=== PATIENT | male | born 1985 | race Caucasian/White ===

== ENCOUNTER 2016-08-29 19:32 | Emergency (ER) | payer OTHER ==
[~2016-08-29] VITALS: Ht 182.9 cm; Wt 79.0 kg
[2016-08-29 19:39] VITALS: TEMP 36.6; Ht 182.9 cm; Wt 79.0 kg
--- NOTE | 2016-08-29 19:57 | EMERGENCY ROOM VISIT NOTE ---
History Report prepared by Denis: Usha Carrizales Under the Supervision of: Dr. Zahida Brush D.O. First contact with patient: 19:43 Chief Complaint: MENTAL HEALTH EVALUATION Stated Complaint: ANXIETY,DEPRESSION History of Present Illness The patient is a 30 year old male who presents to the Emergency Room for a mental health evaluation. The patient has a history of anxiety, depression, and paranoia. He has been having worsening symptoms lately. He checked into [facility] and was admitted as there for 10 days for mental health. He was discharged today. He states that he was feeling a little better while he was in the hospital, but still does not feel like himself. He decided to come here for further evaluation after talking with his psychiatrist today. The patient denies SI, HI, and hallucinations. He has been taking his medications as prescribed. The patient reports a history of eating disorders that he notes to be worse when his anxiety and depression are bad. He states that he has not eaten much over the past two weeks. He did eat today after he was discharged from [facility]. He is not sure when his last bowel movement was. 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 Review of Systems See HPI for pertinent positives & negatives. A total of 10 systems reviewed and were otherwise negative. Past Medical & Surgical Medical Problems: (1) Anxiety (2) Depression (3) Eating disorder, unspecified (4) Paranoia Family History No pertinent history stated. Social History Smoking Status: Current Every Day Smoker Alcohol Use: none Housing Status: lives alone Occupation Status: unemployed Current/Historical Medications Scheduled Dexlansoprazole (Dexilant), 30 MG PO DAILY Olanzapine (Zyprexa), 30 MG PO DAILY Sertraline (Zoloft), 100 MG PO QPM Allergies Coded Allergies: Diazepam (Verified Allergy, Intermediate, HIVES, 08/29/16) Benzoin (Verified Allergy, Mild, Rash, 08/29/16) Methyl Salicylate (Verified Allergy, Mild, Rash, 08/29/16) Physical Exam Vital Signs Date Time Temp Pulse Resp B/P Pulse Ox O2 Delivery O2 Flow Rate FiO2 08/29/16 19:39 36.6 93 18 122/83 97 Room Air Physical Exam HEENT: Head - normocephalic and atraumatic Pupils are equal, round, and reactive to light. Extraocular eye muscles are intact, and sclera are anicteric. Nose - moist nasal mucosa without discharge. Mouth - moist buccal mucosa. Oropharynx is nonerythematous and there is no tonsillar exudate or edema noted. Neck: Supple; no JVD, nuchal rigidity, cervical lymphadenopathy. Heart: Regular rate and rhythm. There is a normal S1 and S2 with no murmurs, clicks, or gallops appreciated. Lungs: Clear to auscultation bilaterally with no wheezes, rales, or rhonchi. Abdomen: Soft, completely nontender, nondistended, with good bowel sounds. There are no palpable pulsatile masses or hepatosplenomegaly. There is no guarding, rigidity, or rebound noted. Extremities: No evidence of cyanosis, clubbing, or edema. There are easily palpable peripheral pulses. Skin: warm and dry with good turgor and no rashes. Psych: Denies SI or HI. Denies any paranoid thoughts. Admits to depression and as a result of that he is not eating. Medical Decision & Procedures Laboratory Results 08/29/16 20:06 08/29/16 20:06 Test 08/29/16 20:06 Red Blood Count 4.99 M/uL (4.7-6.1) Mean Corpuscular Volume 89.8 fL (80-100) Mean Corpuscular Hemoglobin 32.3 pg (25-34) Mean Corpuscular Hemoglobin Concent 35.9 g/dl (32-36) RDW Standard Deviation 37.4 fL (36.4-46.3) RDW Coefficient of Variation 11.5 % (11.5-14.5) Mean Platelet Volume 11.3 fL (7.4-10.4) Anion Gap 6.0 mmol/L (3-11) Est Creatinine Clear Calc Drug Dose 139.1 ml/min Estimated GFR () 135.8 Estimated GFR (Non- 117.2 BUN/Creatinine Ratio 17.5 (10-20) Calcium Level 8.6 mg/dl (8.5-10.1) Total Bilirubin 0.2 mg/dl (0.2-1) Direct Bilirubin 0.1 mg/dl (0-0.2) Aspartate Amino Transf (AST/SGOT) 12 U/L (15-37) Alanine Aminotransferase (ALT/SGPT) 20 U/L (12-78) Alkaline Phosphatase 84 U/L (45-117) Total Protein 7.3 gm/dl (6.4-8.2) Albumin 4.1 gm/dl (3.4-5.0) Thyroid Stimulating Hormone (TSH) 3.520 uIu/ml (0.300-4.500) Salicylates Level 1.7 mg/dl (2.8-20) Acetaminophen Level < 2 ug/ml (10-30) Ethyl Alcohol mg/dL < 3.0 mg/dl (0-3) Laboratory results per my review. ED Course 1944: Past medical records reviewed. The patient was evaluated in room A8. A complete history and physical exam was performed. 2029: The patient was felt to be medically cleared. I discussed the results with the patient and his mother. [facility] will evaluate the patient. 2100:The patient was signed out to Dr. Stewart at the change of shift. Medical Decision The patient is a 30 year old male who presents to the ED for a mental health evaluation. Differential diagnosis includes malnutrition, dehydration, mood disorder, thought disorder, paranoia. Laboratory results as stated below per my review: Normal white count, normal H&H. Alcohol, Tylenol, and aspirin are negative. Glucose 152, normal renal function. LFT's and TSH are normal The patient has a history of depression with some paranoia. The patient admits that he has not been eating very much over the past 2 weeks because he remains depressed. He recently had a 10 day inpatient stay [facility] but states that he feels no better. He is requesting further inpatient psychiatric care. The patient is willing to admit himself to another facility voluntarily. [facility] crisis will evaluate the patient and perform a bedside. They feel the patient requires further inpatient psychiatric care. Impression Primary Impression: Depression Scribe Attestation The scribe's documentation has been prepared under my direction and personally reviewed by me in its entirety. I confirm that the note above accurately reflects all work, treatment, procedures, and medical decision making performed by me. Departure Information Dispostion Still a Patient Referrals Tad Salazar M.D. (PCP) Patient Instructions My [facility] Problem Qualifiers Primary Impression: Depression Major depression recurrence: recurrent Major depression episode severity: moderate
[2016-08-29] MEDS ORDERED: SERT-234 PO (20:02)
[2016-08-29] MEDS ORDERED: OLAN10TA11 PO (20:02)
[2016-08-29] MEDS ORDERED: DEXL30CA5 PO (20:02)
[2016-08-29 20:17] LABS: HEMATOCRIT 44.8 % (42-52); MEAN CELL VOLUME 89.8 fL (80-100); MEAN CORPUSCULAR HEMOGLOBIN 32.3 pg (25-34); MEAN CORPUSCULAR HGB CONC 35.9 g/dl (32-36); MEAN PLATELET VOLUME 11.3 fL (7.4-10.4); PLATELET COUNT 212 K/uL (130-400); RED BLOOD COUNT 4.99 M/uL (4.7-6.1); WHITE BLOOD COUNT 7.45 K/uL (4.8-10.8)
[2016-08-29 20:40] LABS: ACETAMINOPHEN < 2 ug/ml (10-30); BUN/CREATININE RATIO 17.5 (10-20); CALCIUM 8.6 mg/dl (8.5-10.1); CREATININE 0.86 mg/dl (0.60-1.40); POTASSIUM 3.7 mmol/L (3.5-5.1)
[2016-08-29 20:51] LABS: THYROID STIMULATING HORMONE 3.52 uIu/ml (0.300-4.500)
[2016-08-29 21:06] LABS: URINE APPEARANCE CLEAR (CLEAR); URINE BILIRUBIN NEG (NEG); URINE COLOR DK YELLOW; URINE NITRITE NEG (NEG); URINE SPECIFIC GRAVITY 1.029 (1.000-1.030); UROBILINOGEN NEG (NEG)
[2016-08-29 21:07] LABS: MANUAL MICROSCOPIC REQUIRED? NO; REVIEW REQ? NO
[2016-08-29 21:32] LABS: BENZODIAZEPINE, URINE NEG (NEG); COCAINE,URINE NEG (NEG); PHENCYCLIDINE, URINE NEG (NEG)
[2016-08-29 23:36] VITALS: BP 130/82; PULSE 87; O2SAT 95
--- NOTE | 2016-08-30 01:46 | EMERGENCY ROOM VISIT NOTE ---
ED Visit Note Patient is a 30-year-old male who was initially evaluated him medically cleared by Dr. Brush. Following her initial evaluation per signout she did not believe that he met inpatient criteria I felt as though he could likely go home. Patient was evaluated by [facility] and found to meet no inpatient criteria. They believe that he be best served as an outpatient. PT was recently just discharged from a psychiatric facility. He notes that the reason he came in tonight was that he felt anxious and was worrying about other people. His mother who was at bedside notes that her only concern is that he was concerned enough to come in. He denies any suicidal or homicidal ideations to myself. No auditory or visual hallucinations. He notes his paranoia has improved significantly. He does comfortable going home. She feels comfortable taking him. I do not believe that the patient is a danger to himself or anybody else. His mother along with [facility] agrees. Patient was discharged to follow-up as an outpatient. Discussed with Pt concerning signs and symptoms to watch out for. Pt was instructed to follow up with their PCP and discussed with the patient their option to return to the ED at anytime for persistent or worsening symptoms. The appropriate anticipatory guidance and out-patient management, including indications for return to the emergency department, were explained at length to the patient and understood.
[2016-10-12] MEDS ORDERED: BENZ-89 PO (09:13)
== END 2016-08-29 23:37 | disposition home or self-care (01) ==
LOC: C.EDB 19:33 → C.EDA 23:37
DX: F33.1 Major depressive disorder, recurrent, moderate (principal); F41.9 Anxiety disorder, unspecified; F22 Delusional disorders; F17.210 Nicotine dependence, cigarettes, uncomplicated; Z79.899 Other long term (current) drug therapy

== ENCOUNTER 2016-09-27 22:31 | Emergency (ER) | payer OTHER ==
[~2016-09-27] VITALS: Ht 180.3 cm; Wt 79.2 kg
[~2016-09-27 22:31] MED LIST: DEXL30CA5 PO; OLAN10TA11 PO; SERT-234 PO
[2016-09-27 22:33] VITALS: BP 128/84; PULSE 81; TEMP 36.4; O2SAT 96; Ht 180.3 cm; Wt 79.2 kg
[2016-09-27] MEDS ORDERED: PROTONIX PO (22:46)
[2016-09-27] MEDS ORDERED: BENZ-89 PO (22:48)
[2016-09-27] MEDS ORDERED: PANT40TA PO (22:48)
[2016-09-27] MEDS ORDERED: GLUCTAB18 PO (22:48)
[2016-09-27] MEDS ORDERED: RISPERDAL PO (23:00)
--- NOTE | 2016-09-27 23:26 | EMERGENCY ROOM VISIT NOTE ---
History Report prepared by Denis: Carmela Figueroa Under the Supervision of: Dr. Zahida Brush D.O. First contact with patient: 23:05 Chief Complaint: MENTAL HEALTH EVALUATION Stated Complaint: PARANOID, ANXIETY, DEPRESSION History of Present Illness The patient is a 30 year old male who presents to the Emergency Room with complaints of persistent paranoia starting a few days ago. He also complains of depression and anxiety starting a few days ago. He has a history of paranoia, anxiety, and depression occurring for the past few years. He denies any specific events that exacerbated his symptoms. As per mother, the patient has changed over the past few days. As per mother, the patient is unable to concentrate. He has a loss of appetite and has lost weight over the past few weeks. The patient has a history of seeking treatment for weight and appetite loss. He has not been sleeping as normal. He is not engaging in his daily activities as normal. As per mother, the patient does not feel comfortable at his own house or his mom's house. He arrived at his own house and wanted to leave soon after. When they arrived at his mom's house, the patient wanted to leave from there as well. He had an appointment yesterday with his psychiatrist who referred him to the Emergency Room for concerns about the medications not helping him. About a month ago, the patient was evaluated at [facility] for similar symptoms and had a medication change. The patient reports missing some medication doses over the past few days. He denies any drug or alcohol use. He currently denies any suicidal or homicidal ideation. He also denies any visual or auditory hallucinations. He does not have a history of suicide attempt. As per mother, he has a history of cutting himself when he was a teenager. Source of History: patient, parent Onset: a few days ago Position: other (global) Quality: other (paranoia, depression, and anxiety) Timing: other (persistent) Review of Systems See HPI for pertinent positives & negatives. A total of 10 systems reviewed and were otherwise negative. Past Medical & Surgical Medical Problems: (1) Acute paranoia (2) Acute paranoia (3) Anxiety (4) Depression (5) Eating disorder, unspecified (6) Paranoia Family History Cancer Diabetes mellitus Kidney disease Kidney stones Social History Smoking Status: Current Every Day Smoker Alcohol Use: none Housing Status: lives alone Occupation Status: unemployed Current/Historical Medications Scheduled Benztropine Mesylate (Cogentin), 1 MG PO HS Glucosamine-Chondroitin (Osteo Bi-Flex Regular Str), 1 TAB PO BID Olanzapine (Zyprexa), 30 MG PO DAILY Pantoprazole (Protonix), 40 MG PO DAILY Sertraline (Zoloft), 100 MG PO QPM [Risperdal], 1 DOSE PO DIRECTED Allergies Coded Allergies: Diazepam (Verified Allergy, Intermediate, HIVES, 09/27/16) Benzoin (Verified Allergy, Mild, Rash, 09/27/16) Methyl Salicylate (Verified Allergy, Mild, Rash, 09/27/16) Physical Exam Vital Signs Date Time Temp Pulse Resp B/P (MAP) Pulse Ox O2 Delivery O2 Flow Rate FiO2 09/27/16 22:33 36.4 81 18 128/84 96 Room Air Physical Exam The patient refused a physical exam. Medical Decision & Procedures ED Course 2305: Past medical records reviewed. The patient was evaluated in room A05. A complete history was obtained 2335: I had a long conversation with the patient and his mother about his paranoia, lack of appetite, and medication noncompliance. 0000: Upon reevaluation, the patient is resting comfortably. I had a long conversation again with the patient and his mother about his paranoia, lack of appetite, and medication noncompliance. I encouraged him to contact Dr. Weber in the morning. He was discharged home. Medical Decision The patient presents to the Emergency Room with complaints of paranoia. Differential diagnosis includes but is not limited to sleep deprivation, medication noncompliance, exacerbation of thought disorder. I attest that I have personally reviewed the patient's current medication list. Patient was found to have normal blood pressure on screening and does not require follow-up. The patient presents to the emergency department for help because he has become increasingly paranoid. The patient has not been taking his medications correctly and has had significant loss of appetite. The patient requested to come here because he was not feeling well. Upon arrival in the emergency room, the patient began to request to leave as soon as possible. I spent a great of time talking to the patient and his mother along with our manager nursing home's who tried to convince the patient to stay. We had no grounds to initiate the 302 process. I encouraged patient to call his psychiatrist first thing in the morning. I also explained that the patient and the mother that we could follow- up with the psychiatrist here in the ER as well. The mother was in agreement with this. Impression Primary Impression: Acute paranoia Scribe Attestation The scribe's documentation has been prepared under my direction and personally reviewed by me in its entirety. I confirm that the note above accurately reflects all work, treatment, procedures, and medical decision making performed by me. Departure Information Dispostion Home / Self-Care Referrals Tad Salazar M.D. (PCP) Forms HOME CARE DOCUMENTATION FORM, IMPORTANT VISIT INFORMATION Patient Instructions My [facility] Additional Instructions Please contact Dr. Weber in the AM to let her know that you came to the ER but did not go through with mental health evaluation. If you change your mind, return to the ER at angy time. You can also call [facility]
[2016-09-28] MEDS ORDERED: RISP3TAB12 PO (14:27)
[2016-09-28] MEDS ORDERED: ZYP20 PO (14:27)
[2016-10-12] MEDS ORDERED: BENZ-89 PO (09:13)
== END 2016-09-28 00:24 | disposition home or self-care (01) ==
LOC: C.EDB 22:32 → C.EDA 09-28 00:24
DX: F22 Delusional disorders (principal); F41.9 Anxiety disorder, unspecified; F32.9 Major depressive disorder, single episode, unspecified; F50.9 Eating disorder, unspecified; Z80.9 Family history of malignant neoplasm, unspecified; Z83.3 Family history of diabetes mellitus; Z84.1 Family history of disorders of kidney and ureter; F17.210 Nicotine dependence, cigarettes, uncomplicated; Z79.899 Other long term (current) drug therapy

== ENCOUNTER 2016-09-28 00:55 | Emergency (ER) | payer SELFPAY ==
[~2016-09-28 00:55] MED LIST changes: +BENZ-89 PO; +GLUCTAB18 PO; +PANT40TA PO; +PROTONIX PO; +RISPERDAL PO
[2016-09-28] MEDS ORDERED: ZYP20 PO (14:27)
[2016-09-28] MEDS ORDERED: RISP3TAB12 PO (14:27)
[2016-10-12] MEDS ORDERED: BENZ-89 PO (09:13)
== END 2016-09-28 01:08 | disposition left against medical advice (07) ==
LOC: C.EDB 00:57
DX: Z00.8 Encounter for other general examination (principal)

== ENCOUNTER 2016-09-28 13:38 | Inpatient (IN) | payer OTHER ==
[~2016-09-28] VITALS: Ht 180.3 cm; Wt 82.3 kg
[~2016-09-28 13:38] MED LIST changes: -BENZ-89 PO; +CGN1 PO; -DEXL30CA5 PO; -PROTONIX PO
[2016-09-28] MEDS ORDERED: ZYP20 PO (14:27)
[2016-09-28] MEDS ORDERED: RISP3TAB12 PO (14:27)
[2016-09-28 15:49] LABS: URINE APPEARANCE CLEAR (CLEAR); URINE BILIRUBIN NEG (NEG); URINE COLOR YELLOW; URINE NITRITE NEG (NEG); UROBILINOGEN NEG (NEG)
[2016-09-28 15:54] LABS: MANUAL MICROSCOPIC REQUIRED? NO; REVIEW REQ? NO
[2016-09-28 16:12] LABS: BENZODIAZEPINE, URINE NEG (NEG); COCAINE,URINE NEG (NEG); PHENCYCLIDINE, URINE NEG (NEG)
[2016-09-28 17:11] LABS: BASO % 0.1 %; BASO ABS # 0.01 K/uL (0-0.2); COMPLETE YES; EOS % 1.7 %; HEMATOCRIT 45.4 % (42-52); IG% 0.1 %; LYMPH % 26.2 %; LYMPH ABS # 1.99 K/uL (1.2-3.4); MEAN CORPUSCULAR HEMOGLOBIN 30.5 pg (25-34); MEAN CORPUSCULAR HGB CONC 33.5 g/dl (32-36); MEAN PLATELET VOLUME 10.5 fL (7.4-10.4); MONO % 8.2 %; NEUT % 63.7 %; PLATELET COUNT 241 K/uL (130-400); RED BLOOD COUNT 4.99 M/uL (4.7-6.1)
[2016-09-28 17:28] LABS: ALT/SGPT 16 U/L (12-78); BLOOD UREA NITROGEN 10 mg/dl (7-18); BUN/CREATININE RATIO 14.6 (10-20); CALCIUM 9.3 mg/dl (8.5-10.1); CARBON DIOXIDE 25 mmol/L (21-32); CHLORIDE 104 mmol/L (98-107); CREATININE 0.67 mg/dl (0.60-1.40); GLUCOSE 94 mg/dl (70-99); POTASSIUM 3.7 mmol/L (3.5-5.1); SODIUM 139 mmol/L (136-145)
[2016-09-28 17:30] LABS: ACETAMINOPHEN < 2 ug/ml (10-30)
[2016-09-28 17:39] LABS: ALKALINE PHOSPHATASE 80 U/L (45-117); AST/SGOT 11 U/L (15-37)
[2016-09-28] MEDS ORDERED: OLANZAPINE 10 MG TAB PO STA (17:53)
[2016-09-28] MEDS ORDERED: NURSING VERBAL MED ORDER ONE (19:00)
[2016-09-28 19:15] VITALS: O2SAT 98
[2016-09-28] MEDS ORDERED: ALUMINUM/MAGNESIUM SUSP 30 ML UDC PO PRN (19:45)
[2016-09-28] MEDS ORDERED: SODIUM CHLORIDE 0.65% NA SOLN 45 ML (OCEAN) PRN (19:45)
[2016-09-28] MEDS ORDERED: MAGNESIUM HYDROXIDE SUSP 30 ML UDC PO PRN (19:45)
[2016-09-28] MEDS ORDERED: OLANZAPINE ZYDIS 5 MG ORALLY DIS. TAB PO PRN (19:45)
[2016-09-28] MEDS ORDERED: hydrOXYzine HCL 25 MG TAB PO PRN ×2 (19:45)
[2016-09-28] MEDS ORDERED: ACETAMINOPHEN 325 MG TAB PO PRN (19:45)
[2016-09-28 20:02] VITALS: BP 132/82; PULSE 84; TEMP 36.7; Ht 180.3 cm; Wt 82.3 kg
[2016-09-28] MEDS ORDERED: OLANZAPINE 10 MG TAB PO SCH (21:00)
--- NOTE | 2016-09-28 21:36 | EMERGENCY ROOM VISIT NOTE ---
History Report prepared by Denis: Jacki Chavarria Under the Supervision of: Dr. Brooks Broderick M.D. First contact with patient: 14:24 Chief Complaint: MENTAL HEALTH EVALUATION Stated Complaint: MR History of Present Illness The patient is a 30 year old male who presents to the Emergency Room for a mental health evaluation. The patient was here at the ED last night and was seen by Dr. Brush. The patient was reported to be paranoid and refused to be seen. It is reported that he went and sat in the waiting room all night before deciding to come back in to be treated. Currently, the patient states that he does not want to be evaluated and wants to leave again. The patient reports that he does want to go to the [facility] though and that he only came back in to please his mother. His mother reports that he has not been eating, showering, or sleeping normally. She states that he has been wandering around, even into streets with no acknowledgment of the dangers. She states that she has seen a huge decline in his behavior for the past two days. The mother reports that her son states he has been taking his medication, but sometimes forgets. The patient states that he feels anxious. The patient notes that he feels this is a safe place and he can trust the doctors, but still refuses to be evaluated. The patient's psychiatrist noted that he did express some suicidal thoughts. It was felt that the patient is having issues with his mental health and a 302 petition was filled out since the patient was not cooperative. Pt denies LOC, headache, fevers, chills, diaphoresis, visual changes, neck pain, chest pain, breathing difficulties, nausea, vomiting, abdominal pain, back pain, melena, hematochezia, urinary symptoms, numbness, weakness, lymphadenopathy, rash, or other complaints. Source of History: patient, parent Onset: two days Position: other (global) Quality: other (global) Timing: other (episode) Note: The patient complains of being anxious. Review of Systems See HPI for pertinent positives and negatives. A total of ten systems were reviewed and were otherwise negative. Past Medical & Surgical Medical Problems: (1) Acute paranoia (2) Acute paranoia (3) Anxiety (4) Depression (5) Eating disorder, unspecified (6) Paranoia Family History Cancer Diabetes mellitus Kidney disease Kidney stones Social History Smoking Status: Current Every Day Smoker Alcohol Use: none Marital Status: single Housing Status: lives alone Occupation Status: unemployed Current/Historical Medications Scheduled Benztropine Mesylate (Cogentin), 1 MG PO HS Olanzapine (Zyprexa), 20 MG PO HS Pantoprazole (Protonix), 40 MG PO DAILY Risperidone (Risperdal), 6 MG PO HS Sertraline (Zoloft), 150 MG PO DAILY Allergies Coded Allergies: Diazepam (Verified Allergy, Intermediate, HIVES, 09/27/16) Benzoin (Verified Allergy, Mild, Rash, 09/27/16) Methyl Salicylate (Verified Allergy, Mild, Rash, 09/27/16) Physical Exam Vital Signs Date Time Temp Pulse Resp B/P (MAP) Pulse Ox O2 Delivery O2 Flow Rate FiO2 09/28/16 17:39 71 18 132/89 98 Room Air 09/28/16 15:47 74 18 131/89 98 Room Air 09/28/16 13:44 36.7 86 18 137/78 95 Room Air Physical Exam GENERAL: Awake, alert, mildly anxious appearing, no distress HENT: Normocephalic, atraumatic. TM's normal. Oropharynx unremarkable. EYES: PERRL. EOMI. Normal conjunctiva. Sclera non-icteric. NECK: Supple. No nuchal rigidity. FROM. No JVD or bruit. RESPIRATORY: CTA CARDIAC: RRR. No murmur. ABDOMEN: Soft, non distended. No tenderness to palpation. No rebound or guarding. No masses. MUSCULOSKELETAL: Unremarkable. No edema. No discoloration. Gross motor strength symmetric. NEURO: Cranial nerves 2-12 grossly intact. Normal sensorium. No sensory or motor deficits noted. Speech normal. No pronator drift. SKIN: No rash or jaundice noted. LYMPH: No adenopathy. PSYCH: Depressed mood. Flat affect. No suicidal ideation. No homicidal ideation. Paranoid. A poverty of speech. Responding to internal stimuli. Insight and judgement impaired. Medical Decision & Procedures Laboratory Results 09/28/16 16:57 Red Blood Count 4.99, Mean Corpuscular Volume 91.0, Mean Corpuscular Hemoglobin 30.5, Mean Corpuscular Hemoglobin Concent 33.5, Mean Platelet Volume 10.5, Neutrophils (%) (Auto) 63.7, Lymphocytes (%) (Auto) 26.2, Monocytes (%) (Auto) 8.2, Eosinophils (%) (Auto) 1.7, Basophils (%) (Auto) 0.1, Neutrophils # (Auto) 4.84, Lymphocytes # (Auto) 1.99, Monocytes # (Auto) 0.62, Eosinophils # (Auto) 0.13, Basophils # (Auto) 0.01 09/28/16 16:57 Test 09/28/16 15:14 09/28/16 16:57 Urine Color YELLOW Urine Appearance CLEAR (CLEAR) Urine pH 6.0 (4.5-7.5) Urine Specific [place] 1.020 (1.000-1.030) Urine Protein NEG (NEG) Urine Glucose (UA) NEG (NEG) Urine Ketones TRACE (NEG) Urine Occult Blood NEG (NEG) Urine Nitrite NEG (NEG) Urine Bilirubin NEG (NEG) Urine Urobilinogen NEG (NEG) Urine Leukocyte Esterase NEG (NEG) Urine Opiates Screen NEG (NEG) Urine Methadone, Qualitative NEG (NEG) Urine Barbiturates NEG (NEG) Urine Phencyclidine (PCP) Level NEG (NEG) Ur Amphetamine/Methamphetamine NEG (NEG) MDMA (Ecstasy) Screen NEG (NEG) Urine Benzodiazepines Screen NEG (NEG) Urine Cocaine Metabolite NEG (NEG) Urine Marijuana (THC) NEG (NEG) White Blood Count 7.60 K/uL (4.8-10.8) Red Blood Count 4.99 M/uL (4.7-6.1) Hemoglobin 15.2 g/dL (14.0-18.0) Hematocrit 45.4 % (42-52) Mean Corpuscular Volume 91.0 fL (80-100) Mean Corpuscular Hemoglobin 30.5 pg (25-34) Mean Corpuscular Hemoglobin Concent 33.5 g/dl (32-36) Platelet Count 241 K/uL (130-400) Mean Platelet Volume 10.5 fL (7.4-10.4) Neutrophils (%) (Auto) 63.7 % Lymphocytes (%) (Auto) 26.2 % Monocytes (%) (Auto) 8.2 % Eosinophils (%) (Auto) 1.7 % Basophils (%) (Auto) 0.1 % Neutrophils # (Auto) 4.84 K/uL (1.4-6.5) Lymphocytes # (Auto) 1.99 K/uL (1.2-3.4) Monocytes # (Auto) 0.62 K/uL (0.11-0.59) Eosinophils # (Auto) 0.13 K/uL (0-0.5) Basophils # (Auto) 0.01 K/uL (0-0.2) RDW Standard Deviation 41.3 fL (36.4-46.3) RDW Coefficient of Variation 12.4 % (11.5-14.5) Immature Granulocyte % (Auto) 0.1 % Immature Granulocyte # (Auto) 0.01 K/uL (0.00-0.02) Anion Gap 10.0 mmol/L (3-11) Est Creatinine Clear Calc Drug Dose 173.2 ml/min Estimated GFR () > 150.0 Estimated GFR (Non- 129.8 BUN/Creatinine Ratio 14.6 (10-20) Calcium Level 9.3 mg/dl (8.5-10.1) Total Bilirubin 0.6 mg/dl (0.2-1) Direct Bilirubin 0.2 mg/dl (0-0.2) Aspartate Amino Transf (AST/SGOT) 11 U/L (15-37) Alanine Aminotransferase (ALT/SGPT) 16 U/L (12-78) Alkaline Phosphatase 80 U/L (45-117) Total Protein 7.6 gm/dl (6.4-8.2) Albumin 4.4 gm/dl (3.4-5.0) Thyroid Stimulating Hormone (TSH) 1.670 uIu/ml (0.300-4.500) Salicylates Level 2.6 mg/dl (2.8-20) Acetaminophen Level < 2 ug/ml (10-30) Ethyl Alcohol mg/dL < 3.0 mg/dl (0-3) Medications Administered Medications (Trade) Dose Ordered Sig/Cassandra Route Start Time Stop Time Status Last Admin Dose Admin Olanzapine (Zyprexa Tab) 10 mg NOW STAT PO 09/28/16 17:53 09/28/16 17:55 DC 09/28/16 18:10 10 MG ED Course 1435: The patient was evaluated in room A6. A complete history and physical exam was performed. 1622: The patient is currently being evaluated by [facility]. 1715:I reevaluated the patient and he is doing okay. He will be further evaluated. 1753: Ordered Olanzapine 10 mg PO. Medical Decision Medication Reconciliation: I attest that I have personally reviewed the patient' s current medication list Blood pressure screening: Patient was found to have normal blood pressure on screening and does not require follow-up. Triage Nursing notes reviewed. The patient's presentation and history were concerning for paranoia and suicidal ideation. Etiologies such as mood disorder, toxicologic, infection, hypoglycemia, electrolyte abnormalities, cardiac sources, intracerebral event, neurologic, as well as others were entertained. The patient was evaluated. Medically he was not having any significant issues. The patient was initially paranoid. He had been in the emergency department last night and stayed around the hospital all day. His mother finally convinced him to come in to be seen. The patient was then reluctant to be seen. His psychiatrist was concerned and filled out a 302. Given the fact that he is having significant issues with paranoia, suicidal thoughts, and reluctance to cooperate I believe that involuntary treatment is necessary. Family is in agreement. The patient's mother is in agreement as well. The patient was given 10 mg of Zyprexa. He eventually agreed to physical examination and this was unremarkable. Laboratory testing does not reveal any significant findings. Consultation was made with [address] [place] [address]. The patient was evaluated in the Emergency Room and admitted for further management. Impression Primary Impression: Thought disorder Scribe Attestation The scribe's documentation has been prepared under my direction and personally reviewed by me in its entirety. I confirm that the note above accurately reflects all work, treatment, procedures, and medical decision making performed by me. Departure Information Dispostion Mental [facility] Acute Care Referrals No Doctor, Assigned (PCP) Patient Instructions My [facility]
[2016-09-29 06:56] VITALS: BP_SYST 120; BP_SYST 121; BP_DIAS 78; BP_DIAS 82; PULSE 66; PULSE 71; TEMP 36.6
[2016-09-29] MEDS: NICOTINE 21 MG/24 HR TDSY EXT SCH ×2 (09:00→22:26)
--- NOTE | 2016-09-29 11:14 | Psychiatric History & Physical ---
History Date of Service Sep 29, 2016. Identifying Data Luis Manuel Corea is a 30-year-old male who currently lives in alone in his own apartment. Luis Manuel Corea was admitted on a 202 voluntary agreement. The patient presented to the ED last night and reported that he was "paranoid," but initially refused to be seen. According to the ED note, the patient sat in the waiting room of the emergency department for most of the night before decided to come to the back and be evaluated. Information provided by the patient is considered to be reliable. Chief Complaint "I was paranoid". History of Present Illness The patient is a 30-year-old man who was admitted earlier today from the emergency department after he presented there and complained of feeling "paranoid." According to the emergency room record, after presenting last evening, he refused to be seen and, instead, sat in the waiting room for most of the night before deciding to allow himself to be examined and treated. I interviewed the patient in his bedroom. He was recumbent in bed and inclined to leave his bed to be interviewed in my office. However, he was otherwise cooperative with the interview. He reports that he is being treated for "paranoia" and depression by a Dr. Weber, a primary care physician. He also sees a therapist whose name is "Aaron." The patient reports that he sees Dr. Weber every couple weeks or every month, and Aaron on a weekly basis. The patient indicates that he has been feeling depressed and paranoid for approximately 2 years, but that his paranoia has worsened in the past month or so. More specifically, he says that he feels as if people are possibly plotting against him, planning to hurt him, ridiculing him, and following him in order to harass him. He tells me these feelings, and go and that at present he feels safe in the hospital. Additional complaints include depressed mood, difficulty falling asleep and staying asleep, crying spells, decreased appetite , decreased interest, decreased ability to experience pleasure, and social withdrawal. The patient tells me that he had been taking risperidone as prescribed by Dr. Weber, but this medication was discontinued pursuant to his most recent visit with Dr. Weber and he was started on Zyprexa 20 mg daily about a week ago.. He says that he is not sure why risperidone was discontinued , but he does note that his feelings of paranoia had been worsening on risperidone. In addition to Zyprexa (olanzapine) he indicates that he has been taking sertraline 150 mg daily for depression, and benztropine, at an unknown dose, for "side effects." Information provided by the mother is that the patient may have been "skipping" doses of his medications, and the patient, himself, confirms that he sometimes "doesn't take his medication, but "mostly takes it." Mr. Corea tells me that he has "not been social" for "a good while ," and he spends most of his time alone in his apartment where he plays his guitar, writes songs, and plays video games. His primary sources of support appear to be his mother and his therapist, "Aaron." The patient was born with cerebral palsy and has some difficulty ambulating, a circumstance that he says makes him feel self-conscious. He tells me that he has never been employed, and he does not have any romantic attachments. Apart from the symptoms of cerebral palsy, the only physical symptom the patient reports is episodic frontal headaches, and he indicates that he has had these off and on" for a long time." Past Psychiatric History Current OP Treatment: therapist (he also reportedly sees a Dr. Weber, a primary care physician for psychiatric medications. The patient tells me that he sees his therapist, Aaron, on a weekly basis.) Prior Psych Hospitalizations: [facility] (the patient reports that he was admitted to the bedrooms when he was 15), [facility] (the patient reports that he was at [facility] approximately a month ago, "for paranoia and depression." He denies that he has had any other psychiatric hospitalizations.) Access to a Gun: No Suicide Attempts: No Additional Notes It was reported that the patient's primary care physician, Dr. Weber, suspected that the patient was having suicidal thoughts. However, on examination today, the patient tells me that he has not been feeling suicidal, and denies that he has ever had anything other than fleeting thoughts of suicide. He denies any history of suicidal plan or intent. Past Medical/Surgical History History of Concussion/Seizure: No (1) Major depression, recurrent (2) Paranoia Allergies Allergies: Coded Allergies: Diazepam (Verified Allergy, Intermediate, HIVES, 09/27/16) Benzoin (Verified Allergy, Mild, Rash, 09/27/16) Methyl Salicylate (Verified Allergy, Mild, Rash, 09/27/16) Home Medications Scheduled Benztropine Mesylate (Cogentin), 1 MG PO HS Olanzapine (Zyprexa), 20 MG PO HS Pantoprazole (Protonix), 40 MG PO DAILY Sertraline (Zoloft), 150 MG PO DAILY Family History Cancer Diabetes mellitus Kidney disease Kidney stones History of Suicide: No History of Substance Abuse: No Psychiatric History: No Alcohol Use Alcohol Use In Past 12 Months: No AUDIT Total Score: 0 The patient reports a extensive past history of substance use, but denies that he has used any drugs or alcohol for at least 2 years. More specifically, the patient says that in the past, he has used heroin by nasal insufflation, cocaine by nasal insufflation, methamphetamine on a single occasion, hallucinogens including LSD and "mushrooms," marijuana, and alcohol. He says that he stopped using drugs because he realized that it was adversely affecting his mental health and also because he was no longer associated with persons who encouraged him to use drugs. His drug abuse tox screen at admission was negative. He also smokes tobacco on a daily basis in "different amounts." Smoking Use Smoking Status: Current Every Day Smoker Substance History The patient reports a extensive past history of substance use, but denies that he has used any drugs or alcohol for at least 2 years. More specifically, the patient says that in the past, he has used heroin by nasal insufflation, cocaine by nasal insufflation, methamphetamine on a single occasion, hallucinogens including LSD and "mushrooms," marijuana, and alcohol. He says that he stopped using drugs because he realized that it was adversely affecting his mental health and also because he was no longer associated with persons who encouraged him to use drugs. His drug abuse tox screen at admission was negative. He also smokes tobacco on a daily basis in "different amounts." Personal History Lives in: lives alone in an apartment in the [place] area. Education: graduated from high school Work History: The patient reports that he has never been employed and is supported through disability benefits. He does not express any interest in employment or in volunteer work. Relationship History: never Children: none Spiritual Affiliation: none Legal History: none Additional Comments: Patient denies any history of physical, sexual, or emotional trauma. Review of Systems Constitutional: denies no symptoms reported, denies see HPI, denies chills, denies diaphoresis, denies fever, denies malaise, denies weakness, denies other Eyes: denies: no symptoms, as stated in HPI, eye pain, tearing, itching, redness, discharge, double vision, visual changes, blurred vision, photophobia, other ENT: denies: no symptoms reported, see HPI, ear pain, ear discharge, loss of hearing, tinnitus, nasal pain, nasal congestion, rhinorrhea, epistaxis, sore throat, stidor, throat swelling, mouth pain, mouth swelling, dental pain, gum swelling, other Cardiovascular: denies: no symptoms reported, see HPI, chest pain, chest tightness, chest pressure, diaphoresis, palpitations, syncope, other Respiratory: denies: no symptoms reported, see HPI, cough, orthopnea, short of breath, stridor, wheezing, sputum production, cyanosis, GIL, PND, other Gastrointestinal: denies no symptoms reported, denies see HPI, denies abdominal pain, denies constipation, denies diarrhea, denies nausea, denies vomiting, denies other Genitourinary - Male: denies: no symptoms, see HPI, rash, amenorrhea, penile itching, penile discharge, testicular pain, testicular swelling, impotence, other Musculoskeletal: other (The patient was born with cerebral palsy. He notes that his primary symptoms include weakness and spasticity in his lower extremities. He denies any recent change in his symptoms, and he denies other musculoskeletal problems.) Integumentary: denies no symptoms reported, denies see HPI, denies change in color, denies change in hair/nails, denies dryness, denies lesions, denies lumps , denies rash, denies other Neurologic: reports: focal weakness (in his legs secondary to cerebral palsy) Endocrine: as stated in HPI (bilaterally in his legs secondary to cerebral palsy) Examination Physical Examination The history and physical examination completed by the emergency Department has been reviewed and is accepted as medical clearance Vital Signs Vital Signs Past 12 Hours Date Time Temp Pulse Resp B/P (MAP) Pulse Ox O2 Delivery O2 Flow Rate FiO2 09/29/16 06:56 36.6 71 18 121/78 66 120/82 Laboratory Results Last 24 Hours Test 09/28/16 15:14 09/28/16 16:57 Urine Color YELLOW Urine Appearance CLEAR Urine pH 6.0 Urine Specific [place] 1.020 Urine Protein NEG Urine Glucose (UA) NEG Urine Ketones TRACE Urine Occult Blood NEG Urine Nitrite NEG Urine Bilirubin NEG Urine Urobilinogen NEG Urine Leukocyte Esterase NEG Urine Opiates Screen NEG Urine Methadone, Qualitative NEG Urine Barbiturates NEG Urine Phencyclidine (PCP) Level NEG Ur Amphetamine/Methamphetamine NEG MDMA (Ecstasy) Screen NEG Urine Benzodiazepines Screen NEG Urine Cocaine Metabolite NEG Urine Marijuana (THC) NEG White Blood Count 7.60 K/uL Red Blood Count 4.99 M/uL Hemoglobin 15.2 g/dL Hematocrit 45.4 % Mean Corpuscular Volume 91.0 fL Mean Corpuscular Hemoglobin 30.5 pg Mean Corpuscular Hemoglobin Concent 33.5 g/dl Platelet Count 241 K/uL Mean Platelet Volume 10.5 fL Neutrophils (%) (Auto) 63.7 % Lymphocytes (%) (Auto) 26.2 % Monocytes (%) (Auto) 8.2 % Eosinophils (%) (Auto) 1.7 % Basophils (%) (Auto) 0.1 % Neutrophils # (Auto) 4.84 K/uL Lymphocytes # (Auto) 1.99 K/uL Monocytes # (Auto) 0.62 K/uL Eosinophils # (Auto) 0.13 K/uL Basophils # (Auto) 0.01 K/uL RDW Standard Deviation 41.3 fL RDW Coefficient of Variation 12.4 % Immature Granulocyte % (Auto) 0.1 % Immature Granulocyte # (Auto) 0.01 K/uL Sodium Level 139 mmol/L Potassium Level 3.7 mmol/L Chloride Level 104 mmol/L Carbon Dioxide Level 25 mmol/L Anion Gap 10.0 mmol/L Blood Urea Nitrogen 10 mg/dl Creatinine 0.67 mg/dl Est Creatinine Clear Calc Drug Dose 173.2 ml/min Estimated GFR () > 150.0 Estimated GFR (Non- 129.8 BUN/Creatinine Ratio 14.6 Random Glucose 94 mg/dl Calcium Level 9.3 mg/dl Total Bilirubin 0.6 mg/dl Direct Bilirubin 0.2 mg/dl Aspartate Amino Transf (AST/SGOT) 11 U/L Alanine Aminotransferase (ALT/SGPT) 16 U/L Alkaline Phosphatase 80 U/L Total Protein 7.6 gm/dl Albumin 4.4 gm/dl Thyroid Stimulating Hormone (TSH) 1.670 uIu/ml Salicylates Level 2.6 mg/dl Acetaminophen Level < 2 ug/ml Ethyl Alcohol mg/dL < 3.0 mg/dl Mental Examination During interview pt is: alert and oriented, cooperative, guarded Appearance: disheveled, other (found laying in bed with the sheets covering his head.) Eye contact is: poor Motor behavior is: no abnormal motor movements Speech: other (the patient offers little spontaneous speech, but speaks in complete sentences. His speech is somewhat soft and slightly retarded.) Affect: depressed Mood is: depressed Thought process: goal directed, linear, logical, clear, coherent Thought content: paranoid (the patient says that he has been having thoughts that people are following him in order to harass him, and possibly trying to cause in physical harm He says that he feels that he cannot trust most people, and he particularly does not trust people at the [facility]. However, he says that he operable at [facility] delusions (the patient, himself, says that his thoughts are "paranoid," and he seems to recognize that the thoughts are probably not based in reality. However, he finds them very troubling and the outcome is that he is reluctant to approach other people or trust in the goodwill of others.) Suicidal thought are: denied, Plan: denied, Intent: denied Homicidal thoughts are: denied, Plan: denied, Intent: denied Hallucinations: denies auditory, denies visual Cognition: memory grossly intact, other (the patient's attention span is somewhat limited, I circumstance that may be affected by fatigue as well as his depression.) Intelligence estimated to be: average (the patient is a high school graduate and says that he was a "pretty good student.") Insight: fair Judgement: poor Impression / Recommendations Impression This 30-year-old man reports that he has a two-year history of feeling paranoid , and notes that the paranoia has worsened in the past month or so. He also gives a long history of depression, dating back to his middle teenage years. He has a history of 2 previous psychiatric hospitalizations, both of which he said were for depression and, most recently, for depression and paranoia. He is followed on an outpatient basis by primary care physician, Dr. Weber, and had been taking risperidone 6 mg at bedtime. However, the patient said that he does not feel that this medication was helpful to him, and Dr. Weber recently ( last week) discontinued risperidone and began olanzapine 20 mg at bedtime. He also takes because of muscle rigidity. He has a history of an allergic reaction to Valium, and reports that it gives him "a rash." He denies that he is having any side effects that he is aware of from olanzapine, sertraline, and Cogentin. Complicating, or contributing to the patient's presenting symptoms as his social isolation. As noted above, he reports that he has "for a long time" stopped having social contacts, and he spends most of his time alone in his apartment. The patient reports that he passes his time by playing guitar, writing music, and playing video games, all in isolation. He does not have any outside interests, he says that he has no desire to form a romantic attachment, and his support network appears to consist of his mother and his outpatient therapist. It is not clear to what degree the patient may have been nonadherent with his medications, although he says that he "mostly" takes medicines as prescribed. However, the patient says that he does not feel that sertraline has been particularly helpful in addressing his depression, and today he tells me that he is feeling less paranoid without it. Accordingly, rather than resume antidepressant medications I'm going to recommend that we continue olanzapine 5 mg every morning and 10 mg at bedtime. When necessary hydroxyzine can be used as a sleep aid. An important goal for this patient is to increase socialization and improve his leisure skills. Inventory Assets Strengths: Intelligence, verbal, enjoys music, writes music, willing to seek help. Needs: Depression, paranoid thoughts, difficulty trusting, social isolation, limited support network in the community. Risk Factors Assessment Male: Yes : Yes /single/: Yes Higher / Fall in social status: No Access to guns: No Health problems: Yes Mental Health Diagnoses: Yes Substance use disorders: Yes Previous attempt: No Previous attempt;highly lethal: No Previous attempt; planned: No Previous attempt; didn't tell: No Family history of suicide: No Previous psychiatric stay: No Hopelessness: No Smoker: Yes Protective Factors Assessment Scientologist beliefs: No : No Responsible for young children: No Employed: Yes Stable relationships: Yes Supportive family: Yes Absence of risk factors above: No Recommendations (1) Major depression, recurrent This 30-year-old man reports that he has a two-year history of feeling paranoid , and notes that the paranoia has worsened in the past month or so. He also gives a long history of depression, dating back to his middle teenage years. He has a history of 2 previous psychiatric hospitalizations, both of which he said were for depression and, most recently, for depression and paranoia. He is followed on an outpatient basis by primary care physician, Dr. Weber, and had been taking risperidone 6 mg at bedtime. However, the patient said that he does not feel that this medication was helpful to him, and Dr. Weber recently ( last week) discontinued risperidone and began olanzapine 20 mg at bedtime. He also takes because of muscle rigidity. He has a history of an allergic reaction to Valium, and reports that it gives him "a rash." He denies that he is having any side effects that he is aware of from olanzapine, sertraline, and Cogentin. Complicating, or contributing to the patient's presenting symptoms as his social isolation. As noted above, he reports that he has "for a long time" stopped having social contacts, and he spends most of his time alone in his apartment. The patient reports that he passes his time by playing guitar, writing music, and playing video games, all in isolation. He does not have any outside interests, he says that he has no desire to form a romantic attachment, and his support network appears to consist of his mother and his outpatient therapist. It is not clear to what degree the patient may have been nonadherent with his medications, although he says that he "mostly" takes medicines as prescribed. However, the patient says that he does not feel that sertraline has been particularly helpful in addressing his depression, and today he tells me that he is feeling less paranoid without it. Accordingly, rather than resume antidepressant medications I'm going to recommend that we continue olanzapine 5 mg every morning and 10 mg at bedtime. When necessary hydroxyzine can be used as a sleep aid. An important goal for this patient is to increase socialization and improve his leisure skills. (2) Paranoia The patient says that he does not feel that sertraline has been particularly helpful in addressing his depression, and today he tells me that he is feeling less paranoid without it. Accordingly, rather than resume antidepressant medications I'm going to recommend that we continue olanzapine 5 mg every morning and 10 mg at bedtime. When necessary hydroxyzine can be used as a sleep aid. An important goal for this patient is to increase socialization and improve his leisure skills. CPT Code Initial Hospital Care: 39027 Problem Qualifiers (1) Major depression, recurrent: Active/Remission status: currently active Psychotic features: with psychotic features
[2016-09-29] MEDS: OLANZAPINE 10 MG TAB PO SCH (21:07)
[2016-09-30 07:02] VITALS: BP_SYST 118; BP_DIAS 74; BP_DIAS 80; PULSE 43; PULSE 81; TEMP 36.8
[2016-09-30] MEDS: NICOTINE 21 MG/24 HR TDSY EXT SCH (09:16)
[2016-09-30] MEDS: OLANZAPINE 5 MG TAB PO SCH (09:18)
[2016-09-30] MEDS ORDERED: SERTRALINE HCL 50 MG TAB PO ONE (10:24)
--- NOTE | 2016-09-30 10:25 | Psych Management Progress Note ---
Psychiatry Miscellaneous Date of Service: Sep 30, 2016. Patient seen, MS assessed. Rates mood as 5/10, speech articulation difficulties. [place], staff assisted with goal setting. Agree with care and treatment plan as outlined by [facility].
--- NOTE | 2016-09-30 11:40 | Psychiatric Progress Notes ---
Progress Note Date of Service Sep 30, 2016. Interval History This 30-year-old man reports that he has a two-year history of feeling paranoid , and notes that the paranoia has worsened in the past month or so. He also gives a long history of depression, dating back to his middle teenage years. He has a history of 2 previous psychiatric hospitalizations, both of which he said were for depression and, most recently, for depression and paranoia. He is followed on an outpatient basis by primary care physician, Dr. Weber, and had been taking risperidone 6 mg at bedtime. However, the patient said that he does not feel that this medication was helpful to him, and Dr. Weber recently ( last week) discontinued risperidone and began olanzapine 20 mg at bedtime. He also takes because of muscle rigidity. He has a history of an allergic reaction to Valium, and reports that it gives him "a rash." He denies that he is having any side effects that he is aware of from olanzapine, sertraline, and Cogentin. Complicating, or contributing to the patient's presenting symptoms as his social isolation. As noted above, he reports that he has "for a long time" stopped having social contacts, and he spends most of his time alone in his apartment. The patient reports that he passes his time by playing guitar, writing music, and playing video games, all in isolation. He does not have any outside interests, he says that he has no desire to form a romantic attachment, and his support network appears to consist of his mother and his outpatient therapist. It is not clear to what degree the patient may have been nonadherent with his medications, although he says that he "mostly" takes medicines as prescribed. However, the patient says that he does not feel that sertraline has been particularly helpful in addressing his depression, and today he tells me that he is feeling less paranoid without it. Accordingly, rather than resume antidepressant medications I'm going to recommend that we continue olanzapine 5 mg every morning and 10 mg at bedtime. When necessary hydroxyzine can be used as a sleep aid. An important goal for this patient is to increase socialization and improve his leisure skills. Chief Complaint "A little bit better.". Subjective Patient was seen & assessed interval progress reviewed with Treatment Team. Patient says that he is feeling better today. He has an appetite back which he did not have yesterday. He continues to report anxiety and says he has been diagnosed and treated for anxiety since he was a child. He says in general he is just not comfortable with himself. He denies having any auditory or visual hallucinations. He says that he slept "pretty good". He rates his mood today a 5 out of 10 but continues to feel that that means he is depressed. He is questioning why he was not put back on his outpatient meds including Protonix and Zoloft. He says that he believes he did better when he was on Zoloft rather than when he was off of it and is requesting to go back on. He denies any acute suicidal ideation. He is tolerating the Zyprexa without side effect Review of Systems Constitutional: + fatigue ENT: No hearing loss, No unusual epistaxis, No nasal symptoms, No sore throat, No tinnitus, No dental problems, No trouble swallowing, No problem reported Respiratory: No cough, No sputum, No wheezing, No shortness of breath, No dyspnea on exertion, No dyspnea at rest, No hemoptysis, No problem reported Cardiovascular: No chest pain, No orthopnea, No PND, No edema, No claudication , No palpitations, No problem reported Abdomen: + problem reported (appetite improving) Musculoskeletal: No joint pain, No muscle pain, No swelling, No calf pain, No problem reported Neurologic: No memory loss, No paralysis, No weakness, No numbness/tingling, No vertigo, No balance problems, No problem reported Psychiatric: + depression symptoms Integumentary: No rash, No itch, No new/changing skin lesions, No color change , No bleeding, No problem reported Sleep Information Total Hours of Sleep: 4.50 Meal Information Percent of Breakfast Consumed: 100 Percent of Lunch Consumed: 0 Percent of Dinner Consumed: 0 Mental Status Exam During interview pt is: alert and oriented, cooperative, guarded Appearance: disheveled, other (found laying in bed with the sheets covering his head.) Eye contact is: poor Motor behavior is: no abnormal motor movements Speech: other (the patient offers little spontaneous speech, but speaks in complete sentences. His speech is somewhat soft and slightly retarded.) Affect: depressed, flat Mood is: depressed Thought process: goal directed, linear, logical, clear, coherent Thought content: paranoid (the patient says that he has been having thoughts that people are following him in order to harass him, and possibly trying to cause in physical harm He says that he feels that he cannot trust most people, and he particularly does not trust people at the [facility]. However, he says that he operable at [facility].), delusions (the patient, himself, says that his thoughts are "paranoid," and he seems to recognize that the thoughts are probably not based in reality. However, he finds them very troubling and the outcome is that he is reluctant to approach other people or trust in the goodwill of others.) Suicidal thought are: denied, Plan: denied, Intent: denied Homicidal thoughts are: denied, Plan: denied, Intent: denied Hallucinations: denies auditory, denies visual Cognition: memory grossly intact, other (the patient's attention span is somewhat limited, I circumstance that may be affected by fatigue as well as his depression.) Intelligence estimated to be: average (the patient is a high school graduate and says that he was a "pretty good student.") Insight: impaired Judgement: impaired Impression Luis Manuel is adjusting to the unit. He spent most of his day in bed yesterday. Today he is out of his room, and has attempted to join groups. He is distressed about not being on his antidepressant and so will restart his Zoloft 150 mg daily as well as Protonix. We will continue current dose of Zyprexa for today. He denies that he is having auditory or visual hallucinations although his mother was suspicious that he was having auditory hallucinations commanding him to not eat. We will need to arrange a family meeting with his mother for early next week. Plan (1) Major depression, recurrent This 30-year-old man reports that he has a two-year history of feeling paranoid , and notes that the paranoia has worsened in the past month or so. He also gives a long history of depression, dating back to his middle teenage years. He has a history of 2 previous psychiatric hospitalizations, both of which he said were for depression and, most recently, for depression and paranoia. He is followed on an outpatient basis by primary care physician, Dr. Weber, and had been taking risperidone 6 mg at bedtime. However, the patient said that he does not feel that this medication was helpful to him, and Dr. Weber recently ( last week) discontinued risperidone and began olanzapine 20 mg at bedtime. He also takes because of muscle rigidity. He has a history of an allergic reaction to Valium, and reports that it gives him "a rash." He denies that he is having any side effects that he is aware of from olanzapine, sertraline, and Cogentin. Complicating, or contributing to the patient's presenting symptoms as his social isolation. As noted above, he reports that he has "for a long time" stopped having social contacts, and he spends most of his time alone in his apartment. The patient reports that he passes his time by playing guitar, writing music, and playing video games, all in isolation. He does not have any outside interests, he says that he has no desire to form a romantic attachment, and his support network appears to consist of his mother and his outpatient therapist. It is not clear to what degree the patient may have been nonadherent with his medications, although he says that he "mostly" takes medicines as prescribed. However, the patient says that he does not feel that sertraline has been particularly helpful in addressing his depression, and today he tells me that he is feeling less paranoid without it. Accordingly, rather than resume antidepressant medications I'm going to recommend that we continue olanzapine 5 mg every morning and 10 mg at bedtime. When necessary hydroxyzine can be used as a sleep aid. An important goal for this patient is to increase socialization and improve his leisure skills. 09/30 -The patient changes his story today about Zoloft thinking that it was helpful and is requesting to go back on. -Will restart Zoloft 150 mg daily (2) Paranoia The patient says that he does not feel that sertraline has been particularly helpful in addressing his depression, and today he tells me that he is feeling less paranoid without it. Accordingly, rather than resume antidepressant medications I'm going to recommend that we continue olanzapine 5 mg every morning and 10 mg at bedtime. When necessary hydroxyzine can be used as a sleep aid. An important goal for this patient is to increase socialization and improve his leisure skills. 09/30 -Continue current dose of Zyprexa -Reality orientation -Every 15 minute checks for safety -Will need family meeting with mother Discharge / Aftercare Planning Primary Care Physician: Name: Dr Tad Roldan Therapist: Name: a Licensed Direct Entry Midwife: Name: na Visit Code E&M Code: 49709 Inventory Assets Strengths: Intelligence, verbal, enjoys music, writes music, willing to seek help. Needs: Depression, paranoid thoughts, difficulty trusting, social isolation, limited support network in the community. Risk Factors Assessment Male: Yes : Yes /single/: Yes Higher / Fall in social status: No Health problems: Yes Mental Health Diagnoses: Yes Substance use disorders: Yes Previous attempt: No Previous attempt;highly lethal: No Previous attempt; planned: No Previous attempt; didn't tell: No Family history of suicide: No Previous psychiatric stay: No Hopelessness: No Smoker: Yes Protective Factors Assessment Oriental Orthodox beliefs: No : No Responsible for young children: No Employed: Yes Stable relationships: Yes Supportive family: Yes Absence of risk factors above: No Data Vital Signs Last 24 Hrs: Date Time Temp Pulse Resp B/P (MAP) Pulse Ox O2 Delivery O2 Flow Rate FiO2 09/30/16 07:02 36.8 43 16 118/74 81 118/80 Meds Administered Last 24 Hrs: Meds Administered (Past 24Hrs) Medications (Trade) Dose Ordered Sig/Cassandra Route Start Time Stop Time Status Last Admin Dose Admin Olanzapine (Zyprexa Tab) 10 mg NOW STAT PO 09/28/16 17:53 09/28/16 17:55 DC 09/28/16 18:10 10 MG Olanzapine (Zyprexa Tab) 10 mg TODAY@2100 PO 09/28/16 21:00 09/28/16 23:59 DC 09/28/16 21:00 10 MG Nicotine (Nicoderm Cq 21MG Patch) 1 patch QAM EXT 09/29/16 09:00 10/29/16 08:59 09/30/16 09:16 1 PATCH Miscellaneous (Remove Nicoderm Patch) 1 ea QAM N/A 09/29/16 09:00 10/29/16 08:59 09/30/16 09:23 1 EA Olanzapine (Zyprexa Tab) 5 mg QAM PO 09/30/16 09:00 10/30/16 08:59 09/30/16 09:18 5 MG Olanzapine (Zyprexa Tab) 10 mg HS PO 09/29/16 22:00 10/29/16 21:59 09/29/16 21:07 10 MG Sertraline HCl (Zoloft Tab) 150 mg 1024 ONCE PO 09/30/16 10:24 09/30/16 10:31 DC 09/30/16 10:47 150 MG Lab Results Last 24 Hrs: 09/28/16 16:57 Red Blood Count 4.99, Mean Corpuscular Volume 91.0, Mean Corpuscular Hemoglobin 30.5, Mean Corpuscular Hemoglobin Concent 33.5, Mean Platelet Volume 10.5, Neutrophils (%) (Auto) 63.7, Lymphocytes (%) (Auto) 26.2, Monocytes (%) (Auto) 8.2, Eosinophils (%) (Auto) 1.7, Basophils (%) (Auto) 0.1, Neutrophils # (Auto) 4.84, Lymphocytes # (Auto) 1.99, Monocytes # (Auto) 0.62, Eosinophils # (Auto) 0.13, Basophils # (Auto) 0.01 09/28/16 16:57 Test 09/28/16 15:14 09/28/16 16:57 Urine Color YELLOW Urine Appearance CLEAR (CLEAR) Urine pH 6.0 (4.5-7.5) Urine Specific [place] 1.020 (1.000-1.030) Urine Protein NEG (NEG) Urine Glucose (UA) NEG (NEG) Urine Ketones TRACE (NEG) Urine Occult Blood NEG (NEG) Urine Nitrite NEG (NEG) Urine Bilirubin NEG (NEG) Urine Urobilinogen NEG (NEG) Urine Leukocyte Esterase NEG (NEG) Urine Opiates Screen NEG (NEG) Urine Methadone, Qualitative NEG (NEG) Urine Barbiturates NEG (NEG) Urine Phencyclidine (PCP) Level NEG (NEG) Ur Amphetamine/Methamphetamine NEG (NEG) MDMA (Ecstasy) Screen NEG (NEG) Urine Benzodiazepines Screen NEG (NEG) Urine Cocaine Metabolite NEG (NEG) Urine Marijuana (THC) NEG (NEG) White Blood Count 7.60 K/uL (4.8-10.8) Red Blood Count 4.99 M/uL (4.7-6.1) Hemoglobin 15.2 g/dL (14.0-18.0) Hematocrit 45.4 % (42-52) Mean Corpuscular Volume 91.0 fL (80-100) Mean Corpuscular Hemoglobin 30.5 pg (25-34) Mean Corpuscular Hemoglobin Concent 33.5 g/dl (32-36) Platelet Count 241 K/uL (130-400) Mean Platelet Volume 10.5 fL (7.4-10.4) Neutrophils (%) (Auto) 63.7 % Lymphocytes (%) (Auto) 26.2 % Monocytes (%) (Auto) 8.2 % Eosinophils (%) (Auto) 1.7 % Basophils (%) (Auto) 0.1 % Neutrophils # (Auto) 4.84 K/uL (1.4-6.5) Lymphocytes # (Auto) 1.99 K/uL (1.2-3.4) Monocytes # (Auto) 0.62 K/uL (0.11-0.59) Eosinophils # (Auto) 0.13 K/uL (0-0.5) Basophils # (Auto) 0.01 K/uL (0-0.2) RDW Standard Deviation 41.3 fL (36.4-46.3) RDW Coefficient of Variation 12.4 % (11.5-14.5) Immature Granulocyte % (Auto) 0.1 % Immature Granulocyte # (Auto) 0.01 K/uL (0.00-0.02) Anion Gap 10.0 mmol/L (3-11) Est Creatinine Clear Calc Drug Dose 173.2 ml/min Estimated GFR () > 150.0 Estimated GFR (Non- 129.8 BUN/Creatinine Ratio 14.6 (10-20) Calcium Level 9.3 mg/dl (8.5-10.1) Total Bilirubin 0.6 mg/dl (0.2-1) Direct Bilirubin 0.2 mg/dl (0-0.2) Aspartate Amino Transf (AST/SGOT) 11 U/L (15-37) Alanine Aminotransferase (ALT/SGPT) 16 U/L (12-78) Alkaline Phosphatase 80 U/L (45-117) Total Protein 7.6 gm/dl (6.4-8.2) Albumin 4.4 gm/dl (3.4-5.0) Thyroid Stimulating Hormone (TSH) 1.670 uIu/ml (0.300-4.500) Salicylates Level 2.6 mg/dl (2.8-20) Acetaminophen Level < 2 ug/ml (10-30) Ethyl Alcohol mg/dL < 3.0 mg/dl (0-3) Problem Qualifiers (1) Major depression, recurrent: Active/Remission status: currently active Psychotic features: with psychotic features
[2016-09-30] MEDS: OLANZAPINE 10 MG TAB PO SCH (21:13)
[2016-09-30] MEDS: PANTOprazole SOD 40 MG TAB PO SCH (21:13)
[2016-10-01 06:54] VITALS: BP_SYST 111; BP_SYST 117; BP_DIAS 74; BP_DIAS 77; PULSE 105; PULSE 78; TEMP 36.9
[2016-10-01] MEDS: OLANZAPINE 5 MG TAB PO SCH (08:12)
[2016-10-01] MEDS: NICOTINE 21 MG/24 HR TDSY EXT SCH (08:12)
[2016-10-01] MEDS: SERTRALINE HCL 50 MG TAB PO SCH (08:13)
--- NOTE | 2016-10-01 09:38 | Psychiatric Progress Notes ---
Progress Note Date of Service Oct 01, 2016. Interval History This 30-year-old man reports that he has a two-year history of feeling paranoid , and notes that the paranoia has worsened in the past month or so. He also gives a long history of depression, dating back to his middle teenage years. He has a history of 2 previous psychiatric hospitalizations, both of which he said were for depression and, most recently, for depression and paranoia. He is followed on an outpatient basis by primary care physician, Dr. Weber, and had been taking risperidone 6 mg at bedtime. However, the patient said that he does not feel that this medication was helpful to him, and Dr. Weber recently ( last week) discontinued risperidone and began olanzapine 20 mg at bedtime. He also takes because of muscle rigidity. He has a history of an allergic reaction to Valium, and reports that it gives him "a rash." He denies that he is having any side effects that he is aware of from olanzapine, sertraline, and Cogentin. Complicating, or contributing to the patient's presenting symptoms as his social isolation. As noted above, he reports that he has "for a long time" stopped having social contacts, and he spends most of his time alone in his apartment. The patient reports that he passes his time by playing guitar, writing music, and playing video games, all in isolation. He does not have any outside interests, he says that he has no desire to form a romantic attachment, and his support network appears to consist of his mother and his outpatient therapist. It is not clear to what degree the patient may have been nonadherent with his medications, although he says that he "mostly" takes medicines as prescribed. However, the patient says that he does not feel that sertraline has been particularly helpful in addressing his depression, and today he tells me that he is feeling less paranoid without it. Accordingly, rather than resume antidepressant medications I'm going to recommend that we continue olanzapine 5 mg every morning and 10 mg at bedtime. When necessary hydroxyzine can be used as a sleep aid. An important goal for this patient is to increase socialization and improve his leisure skills. Chief Complaint "The same.". Subjective Patient was seen & assessed interval progress reviewed with Treatment Team. The patient says that there is no change to his condition from yesterday. He ate 2 meals yesterday and spent more time in the community area, but attended only one meeting, preferring to stay in bed. His anxiety continues, rating it 6 /10 with 10 being the highest. He says that he is also "paranoid" but describes this being more of an anxious thought. He denies that he is having aud/vis hallucinations, fears for his safety or fears that he is being persecuted. He describes it as "General worry and fear". He denies SI/HI. He has been encouraged to shower as he is unclear and wearing the same clothes for 3 days, but has not yet done so. He admits that he has been doing little with his time at home and he has lost interest in all previously satisfying activities. He says that he has never attended Psych Rehab. Review of Systems Constitutional: + fatigue ENT: No hearing loss, No unusual epistaxis, No nasal symptoms, No sore throat, No tinnitus, No dental problems, No trouble swallowing, No problem reported Respiratory: No cough, No sputum, No wheezing, No shortness of breath, No dyspnea on exertion, No dyspnea at rest, No hemoptysis, No problem reported Cardiovascular: No chest pain, No orthopnea, No PND, No edema, No claudication , No palpitations, No problem reported Abdomen: No pain, No nausea, No vomiting, No diarrhea, No constipation, No GI bleeding, No problem reported Musculoskeletal: No joint pain, No muscle pain, No swelling, No calf pain, No problem reported Neurologic: No memory loss, No paralysis, No weakness, No numbness/tingling, No vertigo, No balance problems, No problem reported Psychiatric: + depression symptoms, + anhedonism, + problem reported ("The same.") Integumentary: No rash, No itch, No new/changing skin lesions, No color change , No bleeding Sleep Information Total Hours of Sleep: 8.50 Meal Information Percent of Breakfast Consumed: 100 Percent of Lunch Consumed: 0 Percent of Dinner Consumed: 100 Mental Status Exam During interview pt is: alert and oriented, guarded Appearance: disheveled, other (found laying in bed with the sheets covering his head.) Eye contact is: poor Motor behavior is: no abnormal motor movements (Knock kneed gait of CP) Speech: other (the patient offers little spontaneous speech, but speaks in complete sentences. His speech is somewhat soft and slightly retarded.) Affect: depressed, flat Mood is: depressed Thought process: goal directed, linear, logical, clear, coherent Thought content: cognitive distortions Suicidal thought are: denied, Plan: denied, Intent: denied Homicidal thoughts are: denied, Plan: denied, Intent: denied Hallucinations: denies auditory, denies visual Cognition: memory grossly intact, other (the patient's attention span is somewhat limited, I circumstance that may be affected by fatigue as well as his depression.) Intelligence estimated to be: average (the patient is a high school graduate and says that he was a "pretty good student.") Insight: impaired Judgement: impaired Impression Still isolating, avoiding most groups. REstarted Zoloft yesterday at his request. Remains anxious, flat, depressed. Will arrange for family meeting with mother. There is no overt evidence of psychosis, but he is guarded and not fully able to express his thinking. We will continue current meds. Patient will likely benefit from additional structure post discharge, and will suggest Psych Rehab. Plan (1) Major depression, recurrent This 30-year-old man reports that he has a two-year history of feeling paranoid , and notes that the paranoia has worsened in the past month or so. He also gives a long history of depression, dating back to his middle teenage years. He has a history of 2 previous psychiatric hospitalizations, both of which he said were for depression and, most recently, for depression and paranoia. He is followed on an outpatient basis by primary care physician, Dr. Weber, and had been taking risperidone 6 mg at bedtime. However, the patient said that he does not feel that this medication was helpful to him, and Dr. Weber recently ( last week) discontinued risperidone and began olanzapine 20 mg at bedtime. He also takes because of muscle rigidity. He has a history of an allergic reaction to Valium, and reports that it gives him "a rash." He denies that he is having any side effects that he is aware of from olanzapine, sertraline, and Cogentin. Complicating, or contributing to the patient's presenting symptoms as his social isolation. As noted above, he reports that he has "for a long time" stopped having social contacts, and he spends most of his time alone in his apartment. The patient reports that he passes his time by playing guitar, writing music, and playing video games, all in isolation. He does not have any outside interests, he says that he has no desire to form a romantic attachment, and his support network appears to consist of his mother and his outpatient therapist. It is not clear to what degree the patient may have been nonadherent with his medications, although he says that he "mostly" takes medicines as prescribed. However, the patient says that he does not feel that sertraline has been particularly helpful in addressing his depression, and today he tells me that he is feeling less paranoid without it. Accordingly, rather than resume antidepressant medications I'm going to recommend that we continue olanzapine 5 mg every morning and 10 mg at bedtime. When necessary hydroxyzine can be used as a sleep aid. An important goal for this patient is to increase socialization and improve his leisure skills. 09/30 -The patient changes his story today about Zoloft thinking that it was helpful and is requesting to go back on. -Will restart Zoloft 150 mg daily 10/01 - Continue current meds - Arrange for family meeting with mother -Refer for psych rehab - Encourage patient to be out of bed to combat anhedonia (2) Paranoia The patient says that he does not feel that sertraline has been particularly helpful in addressing his depression, and today he tells me that he is feeling less paranoid without it. Accordingly, rather than resume antidepressant medications I'm going to recommend that we continue olanzapine 5 mg every morning and 10 mg at bedtime. When necessary hydroxyzine can be used as a sleep aid. An important goal for this patient is to increase socialization and improve his leisure skills. 09/30 -Continue current dose of Zyprexa -Reality orientation -Every 15 minute checks for safety -Will need family meeting with mother Discharge / Aftercare Planning Primary Care Physician: Name: Dr Tad Roldan Therapist: Name: a Building Certifier: Name: agustina Visit Code E&M Code: 04620 Inventory Assets Strengths: Intelligence, verbal, enjoys music, writes music, willing to seek help. Needs: Depression, paranoid thoughts, difficulty trusting, social isolation, limited support network in the community. Risk Factors Assessment Male: Yes : Yes /single/: Yes Higher / Fall in social status: No Health problems: Yes Mental Health Diagnoses: Yes Substance use disorders: Yes Previous attempt: No Previous attempt;highly lethal: No Previous attempt; planned: No Previous attempt; didn't tell: No Family history of suicide: No Previous psychiatric stay: No Hopelessness: No Smoker: Yes Protective Factors Assessment Protestant beliefs: No : No Responsible for young children: No Employed: Yes Stable relationships: Yes Supportive family: Yes Absence of risk factors above: No Data Vital Signs Last 24 Hrs: Date Time Temp Pulse Resp B/P (MAP) Pulse Ox O2 Delivery O2 Flow Rate FiO2 10/01/16 06:54 36.9 78 16 117/74 105 111/77 Meds Administered Last 24 Hrs: Meds Administered (Past 24Hrs) Medications (Trade) Dose Ordered Sig/Cassandra Route Start Time Stop Time Status Last Admin Dose Admin Olanzapine (Zyprexa Tab) 5 mg QAM PO 09/30/16 09:00 10/30/16 08:59 10/01/16 08:12 5 MG Olanzapine (Zyprexa Tab) 10 mg HS PO 09/29/16 22:00 10/29/16 21:59 09/30/16 21:13 10 MG Pantoprazole Sodium (Protonix Tab) 40 mg HS PO 09/30/16 22:00 10/30/16 21:59 09/30/16 21:13 40 MG Sertraline HCl (Zoloft Tab) 150 mg DAILY PO 10/01/16 09:00 10/31/16 08:59 10/01/16 08:13 150 MG Sertraline HCl (Zoloft Tab) 150 mg 1024 ONCE PO 09/30/16 10:24 09/30/16 10:31 DC 09/30/16 10:47 150 MG Lab Results Last 24 Hrs: 09/28/16 16:57 Red Blood Count 4.99, Mean Corpuscular Volume 91.0, Mean Corpuscular Hemoglobin 30.5, Mean Corpuscular Hemoglobin Concent 33.5, Mean Platelet Volume 10.5, Neutrophils (%) (Auto) 63.7, Lymphocytes (%) (Auto) 26.2, Monocytes (%) (Auto) 8.2, Eosinophils (%) (Auto) 1.7, Basophils (%) (Auto) 0.1, Neutrophils # (Auto) 4.84, Lymphocytes # (Auto) 1.99, Monocytes # (Auto) 0.62, Eosinophils # (Auto) 0.13, Basophils # (Auto) 0.01 09/28/16 16:57 Test 09/28/16 15:14 09/28/16 16:57 Urine Color YELLOW Urine Appearance CLEAR (CLEAR) Urine pH 6.0 (4.5-7.5) Urine Specific [place] 1.020 (1.000-1.030) Urine Protein NEG (NEG) Urine Glucose (UA) NEG (NEG) Urine Ketones TRACE (NEG) Urine Occult Blood NEG (NEG) Urine Nitrite NEG (NEG) Urine Bilirubin NEG (NEG) Urine Urobilinogen NEG (NEG) Urine Leukocyte Esterase NEG (NEG) Urine Opiates Screen NEG (NEG) Urine Methadone, Qualitative NEG (NEG) Urine Barbiturates NEG (NEG) Urine Phencyclidine (PCP) Level NEG (NEG) Ur Amphetamine/Methamphetamine NEG (NEG) MDMA (Ecstasy) Screen NEG (NEG) Urine Benzodiazepines Screen NEG (NEG) Urine Cocaine Metabolite NEG (NEG) Urine Marijuana (THC) NEG (NEG) White Blood Count 7.60 K/uL (4.8-10.8) Red Blood Count 4.99 M/uL (4.7-6.1) Hemoglobin 15.2 g/dL (14.0-18.0) Hematocrit 45.4 % (42-52) Mean Corpuscular Volume 91.0 fL (80-100) Mean Corpuscular Hemoglobin 30.5 pg (25-34) Mean Corpuscular Hemoglobin Concent 33.5 g/dl (32-36) Platelet Count 241 K/uL (130-400) Mean Platelet Volume 10.5 fL (7.4-10.4) Neutrophils (%) (Auto) 63.7 % Lymphocytes (%) (Auto) 26.2 % Monocytes (%) (Auto) 8.2 % Eosinophils (%) (Auto) 1.7 % Basophils (%) (Auto) 0.1 % Neutrophils # (Auto) 4.84 K/uL (1.4-6.5) Lymphocytes # (Auto) 1.99 K/uL (1.2-3.4) Monocytes # (Auto) 0.62 K/uL (0.11-0.59) Eosinophils # (Auto) 0.13 K/uL (0-0.5) Basophils # (Auto) 0.01 K/uL (0-0.2) RDW Standard Deviation 41.3 fL (36.4-46.3) RDW Coefficient of Variation 12.4 % (11.5-14.5) Immature Granulocyte % (Auto) 0.1 % Immature Granulocyte # (Auto) 0.01 K/uL (0.00-0.02) Anion Gap 10.0 mmol/L (3-11) Est Creatinine Clear Calc Drug Dose 173.2 ml/min Estimated GFR () > 150.0 Estimated GFR (Non- 129.8 BUN/Creatinine Ratio 14.6 (10-20) Calcium Level 9.3 mg/dl (8.5-10.1) Total Bilirubin 0.6 mg/dl (0.2-1) Direct Bilirubin 0.2 mg/dl (0-0.2) Aspartate Amino Transf (AST/SGOT) 11 U/L (15-37) Alanine Aminotransferase (ALT/SGPT) 16 U/L (12-78) Alkaline Phosphatase 80 U/L (45-117) Total Protein 7.6 gm/dl (6.4-8.2) Albumin 4.4 gm/dl (3.4-5.0) Thyroid Stimulating Hormone (TSH) 1.670 uIu/ml (0.300-4.500) Salicylates Level 2.6 mg/dl (2.8-20) Acetaminophen Level < 2 ug/ml (10-30) Ethyl Alcohol mg/dL < 3.0 mg/dl (0-3) Problem Qualifiers (1) Major depression, recurrent: Active/Remission status: currently active Psychotic features: with psychotic features
[2016-10-01] MEDS: PANTOprazole SOD 40 MG TAB PO SCH (21:06)
[2016-10-01] MEDS: OLANZAPINE 10 MG TAB PO SCH (21:06)
[2016-10-02 08:23] VITALS: BP_SYST 118; BP_SYST 136; BP_DIAS 72; BP_DIAS 88; PULSE 86; TEMP 36.6
[2016-10-02 09:05] LABS: CHOLESTEROL/HDL RATIO 3.5
[2016-10-02] MEDS: OLANZAPINE 5 MG TAB PO SCH (09:25)
[2016-10-02] MEDS: SERTRALINE HCL 50 MG TAB PO SCH (09:25)
[2016-10-02] MEDS: NICOTINE 21 MG/24 HR TDSY EXT SCH (09:25)
--- NOTE | 2016-10-02 09:46 | Psychiatric Progress Notes ---
Progress Note Date of Service Oct 02, 2016. Interval History This 30-year-old man reports that he has a two-year history of feeling paranoid , and notes that the paranoia has worsened in the past month or so. He also gives a long history of depression, dating back to his middle teenage years. He has a history of 2 previous psychiatric hospitalizations, both of which he said were for depression and, most recently, for depression and paranoia. He is followed on an outpatient basis by Dr. Ventura, and had been taking risperidone 6 mg at bedtime. However, the patient said that he does not feel that this medication was helpful to him, and recently tried switching to olanzapine 20 mg at bedtime. It is not clear to what degree the patient may have been nonadherent with his medications, although he says that he "mostly" takes medicines as prescribed. He has been continued on olanzapine here, and sertraline has been restarted to target mood. Chief Complaint Patient initially uncooperative and refusing to respond to questions. Subjective Patient was seen & assessed interval progress reviewed with Treatment Team. Staff report the patient only slept 1-1/2 hours last night, remains isolative, refusing most groups, and continues to endorse paranoia. His po intake has improved, but he is still not eating well. He received a 5 mg when necessary dose of Zyprexa yesterday for anxiety and paranoia, which was helpful. He had a visit from his sister, but she only stayed briefly, as he told her that he would prefer to spend his time alone. She reported to staff that he was not at baseline, was talking to himself more than usual, and his attention was impaired , as she had to repeat things when talking to him. On my assessment, the patient is seen in his room, where he is in bed with the covers pulled over his head. He initially refused to participate in the assessment despite multiple attempts to engage him, and refused to remove the blankets or sit up. After explaining to him that we may need to pursue a 303 involuntary commitment as he does not appear stable for discharge, he did remove the blankets from his head, and participate somewhat in the interview process. He answered most questions vaguely or with yes or no answers. He says he is not sure if he needs to be here, "because it was only 5 days, the 302." He admits that he continues to feel depressed, anxious, and paranoid, stating "I had a bad experience a couple years back and haven't felt safe since." He feels that he may be in danger, and that people may want to hurt him, but cannot give further information about this. He thinks that he is safe in the hospital, and when asked what he would do if he were discharged, says "not sure." With significant prompting, he is able to state that he will "take my meds and stuff," and follow-up with outpatient providers. He states that he "worries about myself and other people sometimes," but cannot give further information about this. He states he is not sure if he is at imminent risk of being harmed by someone else, or what he might need to do to keep himself safe outside of the hospital. He admits to ongoing poor sleep, poor oral intake, and difficulty with ADLs. He states his mood is slightly improved from admission, and rates at a 5 out of 10. After some discussion, he states he is willing to sign in voluntarily and stay in the hospital for further treatment, as he does not yet feel stable. He denies thoughts of harming himself or anyone else, and denies hallucinations. Sleep Information Total Hours of Sleep: 1.50 Meal Information Percent of Breakfast Consumed: 0 Percent of Lunch Consumed: 75 Percent of Dinner Consumed: 50 Mental Status Exam During interview pt is: alert and oriented, guarded, other (only partially cooperative) Appearance: disheveled, other (found laying in bed with blankets covering his head, and was very resistant to removing them and participating in the interview.) Eye contact is: poor Motor behavior is: no abnormal motor movements Speech: other (minimal spontaneous speech, but speaks in complete sentences. His speech is somewhat soft and slightly retarded.) Affect: depressed, flat Mood is: depressed Thought process: goal directed Thought content: paranoid, cognitive distortions Suicidal thought are: denied Homicidal thoughts are: denied Hallucinations: denies auditory (but appears to be responding to internal stimuli at times), denies visual Cognition: memory grossly intact, other (attention impaired) Intelligence estimated to be: average Insight: impaired Judgement: impaired Impression Still isolating, hiding under the blankets in bed, and refusing most groups. Restarted sertraline at his request, and remains on olanzapine, which will be increased due to requiring as needed doses. Remains anxious, flat, depressed. Will arrange for family meeting with mother. He is guarded and not fully able to express his thinking, raising concerns for thought blocking and internal stimuli interfering with his attention. He does endorse paranoia, and is fearful that someone may try to harm him, but unable to give further information. Patient will likely benefit from additional structure post discharge, and will suggest Psych Rehab. Plan (1) Major depression, recurrent This 30-year-old man reports that he has a two-year history of feeling paranoid , and notes that the paranoia has worsened in the past month or so. He also gives a long history of depression, dating back to his middle teenage years. He has a history of 2 previous psychiatric hospitalizations, both of which he said were for depression and, most recently, for depression and paranoia. He is followed on an outpatient basis by primary care physician, Dr. Weber, and had been taking risperidone 6 mg at bedtime. However, the patient said that he does not feel that this medication was helpful to him, and Dr. Weber recently ( last week) discontinued risperidone and began olanzapine 20 mg at bedtime. He also takes because of muscle rigidity. He has a history of an allergic reaction to Valium, and reports that it gives him "a rash." He denies that he is having any side effects that he is aware of from olanzapine, sertraline, and Cogentin. Complicating, or contributing to the patient's presenting symptoms as his social isolation. As noted above, he reports that he has "for a long time" stopped having social contacts, and he spends most of his time alone in his apartment. The patient reports that he passes his time by playing guitar, writing music, and playing video games, all in isolation. He does not have any outside interests, he says that he has no desire to form a romantic attachment, and his support network appears to consist of his mother and his outpatient therapist. It is not clear to what degree the patient may have been nonadherent with his medications, although he says that he "mostly" takes medicines as prescribed. However, the patient says that he does not feel that sertraline has been particularly helpful in addressing his depression, and today he tells me that he is feeling less paranoid without it. Accordingly, rather than resume antidepressant medications I'm going to recommend that we continue olanzapine 5 mg every morning and 10 mg at bedtime. When necessary hydroxyzine can be used as a sleep aid. An important goal for this patient is to increase socialization and improve his leisure skills. 09/30 -The patient changes his story today about Zoloft thinking that it was helpful and is requesting to go back on. - Will restart Zoloft 150 mg daily 10/01 - Continue current meds - Arrange for family meeting with mother - Refer for psych rehab - Encourage patient to be out of bed to combat anhedonia 10/02 - Patient remains poorly engaged in treatment, but is willing to sign in voluntarily as he is not yet stable and does not feel safe for discharge. - Increase olanzapine to 5 mg every morning and 15 mg daily at bedtime, and continue sertraline 150 mg daily. Consider increasing sertraline to target mood and anxiety. - Family meeting with mother scheduled for tomorrow. - Staff to follow-up on records from the [facility] psych clinic to confirm diagnosis and reviewed recent treatment. - Fasting labs checked for monitoring on an atypical antipsychotic; results were all within normal limits. (2) Paranoia The patient says that he does not feel that sertraline has been particularly helpful in addressing his depression, and today he tells me that he is feeling less paranoid without it. Accordingly, rather than resume antidepressant medications I'm going to recommend that we continue olanzapine 5 mg every morning and 10 mg at bedtime. When necessary hydroxyzine can be used as a sleep aid. An important goal for this patient is to increase socialization and improve his leisure skills. 09/30 -Continue current dose of Zyprexa -Reality orientation -Every 15 minute checks for safety -Will need family meeting with mother 10/02 - Question primary thought disorder. Will get records from outpatient provider to clarify. Discharge / Aftercare Planning Primary Care Physician: Name: Dr Tad Roldan Therapist: Name: a Pull Over: Name: agustina Visit Code E&M Code: 60425 Inventory Assets Strengths: Intelligence, verbal, enjoys music, writes music, willing to seek help. Needs: Depression, paranoid thoughts, difficulty trusting, social isolation, limited support network in the community. Risk Factors Assessment Male: Yes : Yes /single/: Yes Higher / Fall in social status: No Health problems: Yes Mental Health Diagnoses: Yes Substance use disorders: Yes Previous attempt: No Previous attempt;highly lethal: No Previous attempt; planned: No Previous attempt; didn't tell: No Family history of suicide: No Previous psychiatric stay: No Hopelessness: No Smoker: Yes Protective Factors Assessment Bahai beliefs: No : No Responsible for young children: No Employed: Yes Stable relationships: Yes Supportive family: Yes Absence of risk factors above: No Data Vital Signs Last 24 Hrs: Date Time Temp Pulse Resp B/P (MAP) Pulse Ox O2 Delivery O2 Flow Rate FiO2 10/02/16 08:23 36.6 86 16 118/72 136/88 Meds Administered Last 24 Hrs: Meds Administered (Past 24Hrs) Medications (Trade) Dose Ordered Sig/Cassandra Route Start Time Stop Time Status Last Admin Dose Admin Pantoprazole Sodium (Protonix Tab) 40 mg HS PO 09/30/16 22:00 10/30/16 21:59 10/01/16 21:06 40 MG Sertraline HCl (Zoloft Tab) 150 mg DAILY PO 10/01/16 09:00 10/31/16 08:59 10/02/16 09:25 150 MG Sertraline HCl (Zoloft Tab) 150 mg 1024 ONCE PO 09/30/16 10:24 09/30/16 10:31 DC 09/30/16 10:47 150 MG Lab Results Last 24 Hrs: Last 24 Hours Test 10/02/16 07:57 Fasting Glucose 78 mg/dl Triglycerides Level 110 mg/dl Cholesterol Level 139 mg/dl HDL Cholesterol 40 mg/dl LDL Cholesterol, Calculated 77 mg/dl VLDL Cholesterol, Calculated 22 mg/dl Cholesterol/HDL Ratio 3.5 Problem Qualifiers (1) Major depression, recurrent: Active/Remission status: currently active Psychotic features: with psychotic features
[2016-10-02] MEDS: PANTOprazole SOD 40 MG TAB PO SCH (21:34)
[2016-10-02] MEDS: OLANZAPINE 10 MG TAB PO SCH (21:36)
[2016-10-02] MEDS: BENZTROPINE MESYLATE 1 MG TAB PO PRN (21:37)
[2016-10-03] MEDS: NICOTINE 21 MG/24 HR TDSY EXT SCH (09:00)
[2016-10-03] MEDS: OLANZAPINE 5 MG TAB PO SCH (09:00)
[2016-10-03] MEDS: SERTRALINE HCL 50 MG TAB PO SCH (09:00)
--- NOTE | 2016-10-03 10:27 | Psychiatric Progress Notes ---
Progress Note Date of Service Oct 03, 2016. Interval History This 30-year-old man reports that he has a two-year history of feeling paranoid , and notes that the paranoia has worsened in the past month or so. He also gives a long history of depression, dating back to his middle teenage years. He has a history of 2 previous psychiatric hospitalizations, both of which he said were for depression and, most recently, for depression and paranoia. He is followed on an outpatient basis by Dr. Ventura, and had been taking risperidone 6 mg at bedtime. However, the patient said that he does not feel that this medication was helpful to him, and recently tried switching to olanzapine 20 mg at bedtime. It is not clear to what degree the patient may have been nonadherent with his medications, although he says that he "mostly" takes medicines as prescribed. He has been continued on olanzapine here, and sertraline has been restarted to target mood. Chief Complaint "About the same.". Subjective Patient was seen & assessed interval progress reviewed with Treatment Team. The patient slept for only 2 hours last night, pacing the halls, and is once again sleeping during the day. He is awakened for the interview, was hesitant to cooperate with getting out of bed and coming to the office. He continues to say that he feels "paranoid" but cannot give a specific example, saying that it is more related to his chronic anxiety. He is aware that he has had several diagnoses in the past including paranoid schizophrenia as well as delusional disorder. He says that he has felt paranoid for several years since having met someone the he thought was "a hit man". He had no proof that he was, but just became paranoid that he was. He says that his mood is unchanged, low, but denies SI/HI. He continues to deny aud/vis hallucinations. We talk about the benefit of working on his sleep wake cycle as we will be recommending Psych Rehab post discharge. he understands it but seemed less than willing to engage in wakeful behaviors at this time. He did agree to try to shower and go to groupd, but in the end, went right back to his bed after the meeting. Review of Systems ENT: No hearing loss, No unusual epistaxis, No nasal symptoms, No sore throat, No tinnitus, No dental problems, No trouble swallowing, No problem reported Respiratory: No cough, No sputum, No wheezing, No shortness of breath, No dyspnea on exertion, No dyspnea at rest, No hemoptysis, No problem reported Cardiovascular: No chest pain, No orthopnea, No PND, No edema, No claudication , No palpitations, No problem reported Abdomen: No pain, No nausea, No vomiting, No diarrhea, No constipation, No GI bleeding, No problem reported Musculoskeletal: No joint pain, No muscle pain, No swelling, No calf pain, No problem reported Neurologic: + problem reported (CP) Psychiatric: + depression symptoms (with delusions) Integumentary: No rash, No itch, No new/changing skin lesions, No color change , No bleeding, No problem reported Sleep Information Total Hours of Sleep: 2.00 Meal Information Percent of Breakfast Consumed: 0 Percent of Lunch Consumed: 0 Percent of Dinner Consumed: 90 Mental Status Exam During interview pt is: alert and oriented, guarded, other (only partially cooperative) Appearance: disheveled (and malodorous) Eye contact is: poor Motor behavior is: no abnormal motor movements Speech: other (Not spontaneous, monotoned) Affect: depressed, flat Mood is: depressed Thought process: goal directed Thought content: paranoid Suicidal thought are: denied Homicidal thoughts are: denied Hallucinations: denies auditory (but appears to be responding to internal stimuli at times), denies visual Cognition: memory grossly intact, other (attention impaired) Intelligence estimated to be: average Insight: impaired Judgement: impaired Impression Obtained records from OP provider Dr. Ventura. last noted dx was P. Schiz. She last saw him on 09/26/16. He remains isolative and avoidant on the unit, sleeping in the day and up at night. He is more alert on evenings, ate his dinner and attended community meeting. Today I have asked him to work on his sleep wake cycles, but he shows poor motivation to do so. We may need to consider locking his door during groups to facilitate participation and staying out of bed. He can give no specific examples of his paranoia related to people places or things, with the exception of the man he thought was a hit man years ago. He mentions a dx of delusional disorder, by the patient's functioning is impacted by his delusions, which would lend itself to schizophrenia rather than a delusional disorder. A meeting with his mother is planned for today. We will continue current meds. Plan (1) Major depression, recurrent This 30-year-old man reports that he has a two-year history of feeling paranoid , and notes that the paranoia has worsened in the past month or so. He also gives a long history of depression, dating back to his middle teenage years. He has a history of 2 previous psychiatric hospitalizations, both of which he said were for depression and, most recently, for depression and paranoia. He is followed on an outpatient basis by primary care physician, Dr. Weber, and had been taking risperidone 6 mg at bedtime. However, the patient said that he does not feel that this medication was helpful to him, and Dr. Weber recently ( last week) discontinued risperidone and began olanzapine 20 mg at bedtime. He also takes because of muscle rigidity. He has a history of an allergic reaction to Valium, and reports that it gives him "a rash." He denies that he is having any side effects that he is aware of from olanzapine, sertraline, and Cogentin. Complicating, or contributing to the patient's presenting symptoms as his social isolation. As noted above, he reports that he has "for a long time" stopped having social contacts, and he spends most of his time alone in his apartment. The patient reports that he passes his time by playing guitar, writing music, and playing video games, all in isolation. He does not have any outside interests, he says that he has no desire to form a romantic attachment, and his support network appears to consist of his mother and his outpatient therapist. It is not clear to what degree the patient may have been nonadherent with his medications, although he says that he "mostly" takes medicines as prescribed. However, the patient says that he does not feel that sertraline has been particularly helpful in addressing his depression, and today he tells me that he is feeling less paranoid without it. Accordingly, rather than resume antidepressant medications I'm going to recommend that we continue olanzapine 5 mg every morning and 10 mg at bedtime. When necessary hydroxyzine can be used as a sleep aid. An important goal for this patient is to increase socialization and improve his leisure skills. 09/30 -The patient changes his story today about Zoloft thinking that it was helpful and is requesting to go back on. - Will restart Zoloft 150 mg daily 10/01 - Continue current meds - Arrange for family meeting with mother - Refer for psych rehab - Encourage patient to be out of bed to combat anhedonia 10/02 - Patient remains poorly engaged in treatment, but is willing to sign in voluntarily as he is not yet stable and does not feel safe for discharge. - Increase olanzapine to 5 mg every morning and 15 mg daily at bedtime, and continue sertraline 150 mg daily. Consider increasing sertraline to target mood and anxiety. - Family meeting with mother scheduled for tomorrow. - Staff to follow-up on records from the [facility] psych clinic to confirm diagnosis and reviewed recent treatment. - Fasting labs checked for monitoring on an atypical antipsychotic; results were all within normal limits. (2) Paranoid schizophrenia The patient says that he does not feel that sertraline has been particularly helpful in addressing his depression, and today he tells me that he is feeling less paranoid without it. Accordingly, rather than resume antidepressant medications I'm going to recommend that we continue olanzapine 5 mg every morning and 10 mg at bedtime. When necessary hydroxyzine can be used as a sleep aid. An important goal for this patient is to increase socialization and improve his leisure skills. 09/30 -Continue current dose of Zyprexa -Reality orientation -Every 15 minute checks for safety -Will need family meeting with mother 10/02 - Question primary thought disorder. Will get records from outpatient provider to clarify. 10/02 - Records from Dr. Ventura at Psych Clinic received and reviewed. Dx P. Schiz - Sleep/wake cycles reversed, and have asked him to work with the staff on this, although he seems reluctant - Family meeting with mother today - May need to consider locking door during groups to facilitate participation and getting out of bed during the day Discharge / Aftercare Planning Primary Care Physician: Name: Dr Tad Roldan Appointment Notes: [place] Therapist: Name: a Historiography Professor: Name: Service Access Management Hafsa Braden Phone Number: [phone] Visit Code E&M Code: 04176 Inventory Assets Strengths: Intelligence, verbal, enjoys music, writes music, willing to seek help. Needs: Depression, paranoid thoughts, difficulty trusting, social isolation, limited support network in the community. Risk Factors Assessment Male: Yes : Yes /single/: Yes Higher / Fall in social status: No Health problems: Yes Mental Health Diagnoses: Yes Substance use disorders: Yes Previous attempt: No Previous attempt;highly lethal: No Previous attempt; planned: No Previous attempt; didn't tell: No Family history of suicide: No Previous psychiatric stay: No Hopelessness: No Smoker: Yes Protective Factors Assessment Hindu beliefs: No : No Responsible for young children: No Employed: Yes Stable relationships: Yes Supportive family: Yes Absence of risk factors above: No Data Vital Signs Last 24 Hrs: Current Inpatient Medications Medications (Trade) Dose Ordered Sig/Cassandra Route Start Time Stop Time Status Last Admin Dose Admin Acetaminophen (Tylenol Tab) 650 mg Q4H PRN PO 09/28/16 19:45 10/28/16 19:44 Al Hydroxide/Mg Hydroxide (Maalox Susp) 30 ml Q4H PRN PO 09/28/16 19:45 10/28/16 19:44 Magnesium Hydroxide (Milk Of Magnesia Susp) 30 ml DAILY PRN PO 09/28/16 19:45 10/28/16 19:44 Sodium Chloride ([place] Nasal [place]) PRN PRN NA 09/28/16 19:45 10/28/16 19:44 Hydroxyzine HCl (Vistaril Tab) 50 mg HSZ PRN PO 09/28/16 19:45 10/28/16 19:44 Hydroxyzine HCl (Vistaril Tab) 25 mg Q4H PRN PO 09/28/16 19:45 10/28/16 19:44 Olanzapine (Zyprexa Zydis Od Tab) 5 mg Q6H PRN PO 09/28/16 19:45 10/28/16 19:44 10/01/16 13:57 5 MG Benztropine Mesylate (Cogentin Tab) 1 mg Q6H PRN PO 09/28/16 19:45 10/28/16 19:44 10/02/16 21:37 1 MG Nicotine (Nicoderm Cq 21MG Patch) 1 patch QAM EXT 09/29/16 09:00 10/29/16 08:59 10/03/16 09:00 1 PATCH Miscellaneous (Remove Nicoderm Patch) 1 ea QAM N/A 09/29/16 09:00 10/29/16 08:59 10/03/16 09:00 1 EA Olanzapine (Zyprexa Tab) 5 mg QAM PO 09/30/16 09:00 10/30/16 08:59 10/03/16 09:00 5 MG Pantoprazole Sodium (Protonix Tab) 40 mg HS PO 09/30/16 22:00 10/30/16 21:59 10/02/16 21:34 40 MG Sertraline HCl (Zoloft Tab) 150 mg DAILY PO 10/01/16 09:00 10/31/16 08:59 10/03/16 09:00 150 MG Olanzapine (Zyprexa Tab) 15 mg HS PO 10/02/16 22:00 10/29/16 21:59 10/02/16 21:36 15 MG Meds Administered Last 24 Hrs: Meds Administered (Past 24Hrs) Medications (Trade) Dose Ordered Sig/Cassandra Route Start Time Stop Time Status Last Admin Dose Admin Olanzapine (Zyprexa Tab) 15 mg HS PO 10/02/16 22:00 10/29/16 21:59 10/02/16 21:36 15 MG Lab Results Last 24 Hrs: 09/28/16 16:57 Red Blood Count 4.99, Mean Corpuscular Volume 91.0, Mean Corpuscular Hemoglobin 30.5, Mean Corpuscular Hemoglobin Concent 33.5, Mean Platelet Volume 10.5, Neutrophils (%) (Auto) 63.7, Lymphocytes (%) (Auto) 26.2, Monocytes (%) (Auto) 8.2, Eosinophils (%) (Auto) 1.7, Basophils (%) (Auto) 0.1, Neutrophils # (Auto) 4.84, Lymphocytes # (Auto) 1.99, Monocytes # (Auto) 0.62, Eosinophils # (Auto) 0.13, Basophils # (Auto) 0.01 09/28/16 16:57 Test 09/28/16 15:14 09/28/16 16:57 10/02/16 07:57 Urine Color YELLOW Urine Appearance CLEAR (CLEAR) Urine pH 6.0 (4.5-7.5) Urine Specific [place] 1.020 (1.000-1.030) Urine Protein NEG (NEG) Urine Glucose (UA) NEG (NEG) Urine Ketones TRACE (NEG) Urine Occult Blood NEG (NEG) Urine Nitrite NEG (NEG) Urine Bilirubin NEG (NEG) Urine Urobilinogen NEG (NEG) Urine Leukocyte Esterase NEG (NEG) Urine Opiates Screen NEG (NEG) Urine Methadone, Qualitative NEG (NEG) Urine Barbiturates NEG (NEG) Urine Phencyclidine (PCP) Level NEG (NEG) Ur Amphetamine/Methamphetamine NEG (NEG) MDMA (Ecstasy) Screen NEG (NEG) Urine Benzodiazepines Screen NEG (NEG) Urine Cocaine Metabolite NEG (NEG) Urine Marijuana (THC) NEG (NEG) White Blood Count 7.60 K/uL (4.8-10.8) Red Blood Count 4.99 M/uL (4.7-6.1) Hemoglobin 15.2 g/dL (14.0-18.0) Hematocrit 45.4 % (42-52) Mean Corpuscular Volume 91.0 fL (80-100) Mean Corpuscular Hemoglobin 30.5 pg (25-34) Mean Corpuscular Hemoglobin Concent 33.5 g/dl (32-36) Platelet Count 241 K/uL (130-400) Mean Platelet Volume 10.5 fL (7.4-10.4) Neutrophils (%) (Auto) 63.7 % Lymphocytes (%) (Auto) 26.2 % Monocytes (%) (Auto) 8.2 % Eosinophils (%) (Auto) 1.7 % Basophils (%) (Auto) 0.1 % Neutrophils # (Auto) 4.84 K/uL (1.4-6.5) Lymphocytes # (Auto) 1.99 K/uL (1.2-3.4) Monocytes # (Auto) 0.62 K/uL (0.11-0.59) Eosinophils # (Auto) 0.13 K/uL (0-0.5) Basophils # (Auto) 0.01 K/uL (0-0.2) RDW Standard Deviation 41.3 fL (36.4-46.3) RDW Coefficient of Variation 12.4 % (11.5-14.5) Immature Granulocyte % (Auto) 0.1 % Immature Granulocyte # (Auto) 0.01 K/uL (0.00-0.02) Anion Gap 10.0 mmol/L (3-11) Est Creatinine Clear Calc Drug Dose 173.2 ml/min Estimated GFR () > 150.0 Estimated GFR (Non- 129.8 BUN/Creatinine Ratio 14.6 (10-20) Calcium Level 9.3 mg/dl (8.5-10.1) Total Bilirubin 0.6 mg/dl (0.2-1) Direct Bilirubin 0.2 mg/dl (0-0.2) Aspartate Amino Transf (AST/SGOT) 11 U/L (15-37) Alanine Aminotransferase (ALT/SGPT) 16 U/L (12-78) Alkaline Phosphatase 80 U/L (45-117) Total Protein 7.6 gm/dl (6.4-8.2) Albumin 4.4 gm/dl (3.4-5.0) Thyroid Stimulating Hormone (TSH) 1.670 uIu/ml (0.300-4.500) Salicylates Level 2.6 mg/dl (2.8-20) Acetaminophen Level < 2 ug/ml (10-30) Ethyl Alcohol mg/dL < 3.0 mg/dl (0-3) Fasting Glucose 78 mg/dl (70-99) Triglycerides Level 110 mg/dl (0-150) Cholesterol Level 139 mg/dl (0-200) HDL Cholesterol 40 mg/dl LDL Cholesterol, Calculated 77 mg/dl VLDL Cholesterol, Calculated 22 mg/dl Cholesterol/HDL Ratio 3.5 Problem Qualifiers (1) Major depression, recurrent: Active/Remission status: currently active Psychotic features: with psychotic features
[2016-10-03 13:01] VITALS: BP 94/54; PULSE 51; TEMP 36.6
[2016-10-03] MEDS: PANTOprazole SOD 40 MG TAB PO SCH (21:43)
[2016-10-03] MEDS: BENZTROPINE MESYLATE 1 MG TAB PO PRN (21:43)
[2016-10-03] MEDS: OLANZAPINE 10 MG TAB PO SCH (21:43)
[2016-10-04 06:47] VITALS: BP_SYST 106; BP_SYST 118; BP_DIAS 70; BP_DIAS 87; PULSE 82; PULSE 86; TEMP 36.4
[2016-10-04] MEDS: SERTRALINE HCL 50 MG TAB PO SCH (08:44)
[2016-10-04] MEDS: BOOST PLUS VANILLA PO SCH ×2 (08:44)
[2016-10-04] MEDS: NICOTINE 21 MG/24 HR TDSY EXT SCH (08:44)
[2016-10-04] MEDS: OLANZAPINE 5 MG TAB PO SCH (08:45)
--- NOTE | 2016-10-04 11:31 | Psychiatric Progress Notes ---
Progress Note Date of Service Oct 04, 2016. Interval History This 30-year-old man reports that he has a two-year history of feeling paranoid , and notes that the paranoia has worsened in the past month or so. He also gives a long history of depression, dating back to his middle teenage years. He has a history of 2 previous psychiatric hospitalizations, both of which he said were for depression and, most recently, for depression and paranoia. He is followed on an outpatient basis by Dr. Ventura, and had been taking risperidone 6 mg at bedtime. However, the patient said that he does not feel that this medication was helpful to him, and recently tried switching to olanzapine 20 mg at bedtime. It is not clear to what degree the patient may have been nonadherent with his medications, although he says that he "mostly" takes medicines as prescribed. He has been continued on olanzapine here, and sertraline has been restarted to target mood. Chief Complaint "Yeah, okay". Subjective Patient was seen & assessed interval progress reviewed with Treatment Team. Staff report he has been isolating, staying in bed all day, but comes out more in the evenings, and did attend community meeting last night. He appears to be responding to internal stimuli at times, but continues to deny hallucinations. He had a family meeting with his mother yesterday, and she expressed concerns about his oral intake, stating that in the past he has required a feeding tube. He shared that he does not eat due to low appetite, and was annoyed by his mother's concerns. He says that when he is depressed, he doesn't feel like eating. She also stated that it is very difficult to get him out of bed and awake during the day, and that he often stays awake at night and sleeps during the day. His poor attention to ADLs was discussed, including not only to showers over a 5 day period. Mother states that he has had dental problems in the past due to poor oral hygiene. Sleep hygiene was discussed and he was not receptive to this. Mother shared that at his baseline, he is more animated, has more energy, and enjoys playing guitar. He agreed to sign a release for his blended special education case manager. He agreed to work with the [facility] psych clinic and to consider the CRR. He became guarded and evasive when asked about something that happened in [place] in 2012, saying that this information was in his records and he didn't want to discuss it. He continues to have poor oral intake, is not participating in groups other than evening community meeting , and has no interaction with staff or peers. He requested Cogentin for restlessness. Today, he is again seen in his room, where he is in bed midday with the covers pulled over his head. He states that he stays in bed throughout the day because of his mood and anxiety, stating that he is "a little afraid, not sure why." He admits that he is "not doing much" with respect to treatment, and although he agrees to go to group, he is very resistant to actually getting out of bed and walking with this provider to the group room. He admits to ongoing poor appetite, and having to force himself to eat. He denies hallucinations, SI, and HI, although he admits to some paranoia. Sleep Information Total Hours of Sleep: 6.00 Meal Information Percent of Breakfast Consumed: 0 Percent of Lunch Consumed: 0 Percent of Dinner Consumed: 50 Mental Status Exam During interview pt is: alert and oriented, guarded, other (only partially cooperative) Appearance: disheveled (unkempt ), other (lying in bed with the covers pulled over his head, but does remove them when asked) Eye contact is: fair Motor behavior is: no abnormal motor movements Speech: other (Not spontaneous, monotoned) Affect: depressed, constricted Mood is: depressed, anxious Thought process: goal directed, concrete Thought content: paranoid Suicidal thought are: denied Homicidal thoughts are: denied Hallucinations: denies auditory (but appears to be responding to internal stimuli at times), denies visual Cognition: memory grossly intact, language grossly intact, other (attention impaired) Intelligence estimated to be: average Insight: impaired Judgement: impaired Impression Obtained records from OP provider Dr. Ventura, who has diagnosed him with schizophrenia. She last saw him on 09/26/16. He remains isolative and avoidant on the unit, refusing most groups, sleeping through the day, and awake at night. He is more alert in the evenings, ate his dinner and attended community meeting. He is very resistant to working on sleep hygiene and attempting to alter his sleep/wake cycles, so we'll proceed with locking his door during groups to facilitate participation and staying out of bed. He can give no specific examples of his paranoia related to people places or things, but remains guarded and poorly engaged. It is been a significant challenge to get him to participate in treatment or enact behavioral changes. Plan (1) Major depression, recurrent This 30-year-old man reports that he has a two-year history of feeling paranoid , and notes that the paranoia has worsened in the past month or so. He also gives a long history of depression, dating back to his middle teenage years. He has a history of 2 previous psychiatric hospitalizations, both of which he said were for depression and, most recently, for depression and paranoia. He is followed on an outpatient basis by primary care physician, Dr. Weber, and had been taking risperidone 6 mg at bedtime. However, the patient said that he does not feel that this medication was helpful to him, and Dr. Weber recently ( last week) discontinued risperidone and began olanzapine 20 mg at bedtime. He also takes because of muscle rigidity. He has a history of an allergic reaction to Valium, and reports that it gives him "a rash." He denies that he is having any side effects that he is aware of from olanzapine, sertraline, and Cogentin. Complicating, or contributing to the patient's presenting symptoms as his social isolation. As noted above, he reports that he has "for a long time" stopped having social contacts, and he spends most of his time alone in his apartment. The patient reports that he passes his time by playing guitar, writing music, and playing video games, all in isolation. He does not have any outside interests, he says that he has no desire to form a romantic attachment, and his support network appears to consist of his mother and his outpatient therapist. It is not clear to what degree the patient may have been nonadherent with his medications, although he says that he "mostly" takes medicines as prescribed. However, the patient says that he does not feel that sertraline has been particularly helpful in addressing his depression, and today he tells me that he is feeling less paranoid without it. Accordingly, rather than resume antidepressant medications I'm going to recommend that we continue olanzapine 5 mg every morning and 10 mg at bedtime. When necessary hydroxyzine can be used as a sleep aid. An important goal for this patient is to increase socialization and improve his leisure skills. 09/30 -The patient changes his story today about Zoloft thinking that it was helpful and is requesting to go back on. - Will restart Zoloft 150 mg daily 10/01 - Continue current meds - Arrange for family meeting with mother - Refer for psych rehab - Encourage patient to be out of bed to combat anhedonia 10/02 - Patient remains poorly engaged in treatment, but is willing to sign in voluntarily as he is not yet stable and does not feel safe for discharge. - Increase olanzapine to 5 mg every morning and 15 mg daily at bedtime, and continue sertraline 150 mg daily. Consider increasing sertraline to target mood and anxiety. - Family meeting with mother scheduled for tomorrow. - Staff to follow-up on records from the [facility] psych clinic to confirm diagnosis and reviewed recent treatment. - Fasting labs checked for monitoring on an atypical antipsychotic; results were all within normal limits. 10/03 - Family meeting held with mother, who endorses significant concerns about his poor oral intake, lack of attention to ADLs, and overall poor functioning. - Coordinate with his limited special education case manager regarding CRR referral and other ways to increase structure at home (? Psych rehabilitation). - Increase sertraline to 200 mg daily to target mood and anxiety. Continue olanzapine. (2) Paranoid schizophrenia The patient says that he does not feel that sertraline has been particularly helpful in addressing his depression, and today he tells me that he is feeling less paranoid without it. Accordingly, rather than resume antidepressant medications I'm going to recommend that we continue olanzapine 5 mg every morning and 10 mg at bedtime. When necessary hydroxyzine can be used as a sleep aid. An important goal for this patient is to increase socialization and improve his leisure skills. 09/30 -Continue current dose of Zyprexa -Reality orientation -Every 15 minute checks for safety -Will need family meeting with mother 10/02 - Question primary thought disorder. Will get records from outpatient provider to clarify. 10/02 - Records from Dr. Ventura at Psych Clinic received and reviewed. Dx P. Schiz - Sleep/wake cycles reversed, and have asked him to work with the staff on this, although he seems reluctant - Family meeting with mother today - May need to consider locking door during groups to facilitate participation and getting out of bed during the day Discharge / Aftercare Planning Primary Care Physician: Name: Dr Tad Roldan Appointment Notes: needs apt w him at [place] Therapist: Name: a Guide Dog Instructor: Name: Service [employer] Hafsa Sampson Phone Number: [phone] Visit Code E&M Code: 23702 Inventory Assets Strengths: Intelligence, verbal, enjoys music, writes music, willing to seek help. Needs: Depression, paranoid thoughts, difficulty trusting, social isolation, limited support network in the community. Risk Factors Assessment Male: Yes : Yes /single/: Yes Higher / Fall in social status: No Health problems: Yes Mental Health Diagnoses: Yes Substance use disorders: Yes Previous attempt: No Previous attempt;highly lethal: No Previous attempt; planned: No Previous attempt; didn't tell: No Family history of suicide: No Previous psychiatric stay: No Hopelessness: No Smoker: Yes Protective Factors Assessment Religion beliefs: No : No Responsible for young children: No Employed: Yes Stable relationships: Yes Supportive family: Yes Absence of risk factors above: No Data Vital Signs Last 24 Hrs: Date Time Temp Pulse Resp B/P (MAP) Pulse Ox O2 Delivery O2 Flow Rate FiO2 10/04/16 06:47 36.4 82 16 106/70 86 118/87 10/03/16 13:01 36.6 51 16 94/54 Meds Administered Last 24 Hrs: Meds Administered (Past 24Hrs) Medications (Trade) Dose Ordered Sig/Cassandra Route Start Time Stop Time Status Last Admin Dose Admin Olanzapine (Zyprexa Tab) 15 mg HS PO 10/02/16 22:00 10/29/16 21:59 10/03/16 21:43 15 MG Enteral Nutritional Formula (Boost Plus Vanilla) 1 can DAILY PO 10/04/16 09:00 11/03/16 08:59 10/04/16 08:44 1 CAN Problem Qualifiers (1) Major depression, recurrent: Active/Remission status: currently active Psychotic features: with psychotic features
[2016-10-04] MEDS: PANTOprazole SOD 40 MG TAB PO SCH (21:41)
[2016-10-04] MEDS: OLANZAPINE 10 MG TAB PO SCH (21:41)
[2016-10-05 06:56] VITALS: BP_SYST 109; BP_SYST 118; BP_DIAS 70; BP_DIAS 81; PULSE 66; PULSE 92; TEMP 36.5
[2016-10-05] MEDS: NICOTINE 21 MG/24 HR TDSY EXT SCH (08:33)
[2016-10-05] MEDS: SERTRALINE HCL 100 MG TAB PO SCH (08:33)
[2016-10-05] MEDS: BOOST PLUS VANILLA PO SCH ×2 (08:35)
--- NOTE | 2016-10-05 12:00 | Psychiatric Progress Notes ---
Progress Note Date of Service Oct 05, 2016. Interval History This 30-year-old man reports that he has a two-year history of feeling paranoid , and notes that the paranoia has worsened in the past month or so. He also gives a long history of depression, dating back to his middle teenage years. He has a history of 2 previous psychiatric hospitalizations, both of which he said were for depression and, most recently, for depression and paranoia. He is followed on an outpatient basis by Dr. Ventura, and had been taking risperidone 6 mg at bedtime. However, the patient said that he does not feel that this medication was helpful to him, and recently tried switching to olanzapine 20 mg at bedtime. It is not clear to what degree the patient may have been nonadherent with his medications, although he says that he "mostly" takes medicines as prescribed. He has been continued on olanzapine here, and sertraline has been restarted to target mood. Chief Complaint None stated. Subjective Patient was seen & assessed interval progress reviewed with treatment team. the patient is once again in bed, not having gotten out of bed all day so far. He is hesitant to even remove the covers from his head to talk. I ask him what else he feels we can accomplish in the hospital and he says "I don't know". when I ask him if he thinks he would be able to take care of himself if he were discharged, he says "I doubt it.". This led to a discussion about his willingness to make changes, and participate in treatment. He says that he plans to go to groups today but when asked when (already missed 2 AM groups) he says that next one. When I tell him the next one is starting now, he bargains to go to them later. I explained to him that our program is designed to help patients help themselves and that if he is unwilling to participate in recommended treatments, then there may be little else we have to offer in the hospital. He agrees that this makes sense. He denies aud/vis hallucinations, denies SI/HI, but reports ongoing paranoia about there being a hit man. Nursing reports that he does not eat/drink during the day, but will eat most of his evening meal. On 11 he resists going to bed. Review of Systems Constitutional: + fatigue ENT: No hearing loss, No unusual epistaxis, No nasal symptoms, No sore throat, No tinnitus, No dental problems, No trouble swallowing, No problem reported Respiratory: No cough, No sputum, No wheezing, No shortness of breath, No dyspnea on exertion, No dyspnea at rest, No hemoptysis, No problem reported Cardiovascular: No chest pain, No orthopnea, No PND, No edema, No claudication , No palpitations, No problem reported Abdomen: No pain, No nausea, No vomiting, No diarrhea, No constipation, No GI bleeding, No problem reported Musculoskeletal: No joint pain, No muscle pain, No swelling, No calf pain, No problem reported Neurologic: No memory loss, No paralysis, No weakness, No numbness/tingling, No vertigo, No balance problems, No problem reported Psychiatric: + problem reported (paranoia) Integumentary: No rash, No itch, No new/changing skin lesions, No color change , No bleeding, No problem reported Sleep Information Total Hours of Sleep: 4.00 Meal Information Percent of Breakfast Consumed: 100 Percent of Lunch Consumed: 0 Percent of Dinner Consumed: 50 Mental Status Exam During interview pt is: alert and oriented, guarded, other (only partially cooperative) Appearance: disheveled (unkempt ), other (lying in bed with the covers pulled over his head, but does remove them when asked) Eye contact is: fair Motor behavior is: no abnormal motor movements Speech: other (Not spontaneous, monotoned) Affect: depressed, flat, constricted Mood is: depressed, anxious Thought process: goal directed, concrete Thought content: paranoid Suicidal thought are: denied Homicidal thoughts are: denied Hallucinations: denies auditory, denies visual Cognition: memory grossly intact, language grossly intact, other (attention impaired) Intelligence estimated to be: average Insight: impaired Judgement: impaired Impression He remains isolative and avoidant on the unit, refusing most groups, sleeping through the day, and awake at night. He is more alert in the evenings, ate his dinner and attended community meeting. He is very resistant to working on sleep hygiene and attempting to alter his sleep/wake cycles, so we'll proceed with locking his door during groups to facilitate participation and staying out of bed. He has been on the unit for a week and has shown no willingness to change his behaviors relative to sleep wake cycles or program participation. He is eating in the evening including snacks, labs are WNL, and denying unsafe thoughts. WE will be in contact with his mother to see if she is willing to have him come stay with her for a week or so after discharge. We are recommending parital hospitalization or psych rehab, and will explore possibilities in his county, but if he is unwilling to get out of bed during the day, these options will be moot. Plan (1) Major depression, recurrent This 30-year-old man reports that he has a two-year history of feeling paranoid , and notes that the paranoia has worsened in the past month or so. He also gives a long history of depression, dating back to his middle teenage years. He has a history of 2 previous psychiatric hospitalizations, both of which he said were for depression and, most recently, for depression and paranoia. He is followed on an outpatient basis by primary care physician, Dr. Weber, and had been taking risperidone 6 mg at bedtime. However, the patient said that he does not feel that this medication was helpful to him, and Dr. Weber recently ( last week) discontinued risperidone and began olanzapine 20 mg at bedtime. He also takes because of muscle rigidity. He has a history of an allergic reaction to Valium, and reports that it gives him "a rash." He denies that he is having any side effects that he is aware of from olanzapine, sertraline, and Cogentin. Complicating, or contributing to the patient's presenting symptoms as his social isolation. As noted above, he reports that he has "for a long time" stopped having social contacts, and he spends most of his time alone in his apartment. The patient reports that he passes his time by playing guitar, writing music, and playing video games, all in isolation. He does not have any outside interests, he says that he has no desire to form a romantic attachment, and his support network appears to consist of his mother and his outpatient therapist. It is not clear to what degree the patient may have been nonadherent with his medications, although he says that he "mostly" takes medicines as prescribed. However, the patient says that he does not feel that sertraline has been particularly helpful in addressing his depression, and today he tells me that he is feeling less paranoid without it. Accordingly, rather than resume antidepressant medications I'm going to recommend that we continue olanzapine 5 mg every morning and 10 mg at bedtime. When necessary hydroxyzine can be used as a sleep aid. An important goal for this patient is to increase socialization and improve his leisure skills. 09/30 -The patient changes his story today about Zoloft thinking that it was helpful and is requesting to go back on. - Will restart Zoloft 150 mg daily 10/01 - Continue current meds - Arrange for family meeting with mother - Refer for psych rehab - Encourage patient to be out of bed to combat anhedonia 10/02 - Patient remains poorly engaged in treatment, but is willing to sign in voluntarily as he is not yet stable and does not feel safe for discharge. - Increase olanzapine to 5 mg every morning and 15 mg daily at bedtime, and continue sertraline 150 mg daily. Consider increasing sertraline to target mood and anxiety. - Family meeting with mother scheduled for tomorrow. - Staff to follow-up on records from the [facility] psych clinic to confirm diagnosis and reviewed recent treatment. - Fasting labs checked for monitoring on an atypical antipsychotic; results were all within normal limits. 10/03 - Family meeting held with mother, who endorses significant concerns about his poor oral intake, lack of attention to ADLs, and overall poor functioning. - Coordinate with his limited field nurse case manager regarding CRR referral and other ways to increase structure at home (? Psych rehabilitation). - Increase sertraline to 200 mg daily to target mood and anxiety. Continue olanzapine. 10/05 - Continue current plan and meds - Continue to encourage patient to be out of bed during the day (2) Paranoid schizophrenia The patient says that he does not feel that sertraline has been particularly helpful in addressing his depression, and today he tells me that he is feeling less paranoid without it. Accordingly, rather than resume antidepressant medications I'm going to recommend that we continue olanzapine 5 mg every morning and 10 mg at bedtime. When necessary hydroxyzine can be used as a sleep aid. An important goal for this patient is to increase socialization and improve his leisure skills. 09/30 -Continue current dose of Zyprexa -Reality orientation -Every 15 minute checks for safety -Will need family meeting with mother 10/02 - Question primary thought disorder. Will get records from outpatient provider to clarify. 10/02 - Records from Dr. Ventura at Psych Clinic received and reviewed. Dx P. Schiz - Sleep/wake cycles reversed, and have asked him to work with the staff on this, although he seems reluctant - Family meeting with mother today - May need to consider locking door during groups to facilitate participation and getting out of bed during the day Discharge / Aftercare Planning Primary Care Physician: Name: Dr Tad Roldan Appointment Notes: [place] apt [place] Therapist: Name: a Reference Archivist: Name: Service Access Management - Sampson Phone Number: [phone] Visit Code E&M Code: 18556 Inventory Assets Strengths: Intelligence, verbal, enjoys music, writes music, willing to seek help. Needs: Depression, paranoid thoughts, difficulty trusting, social isolation, limited support network in the community. Risk Factors Assessment Male: Yes : Yes /single/: Yes Higher / Fall in social status: No Health problems: Yes Mental Health Diagnoses: Yes Substance use disorders: Yes Previous attempt: No Previous attempt;highly lethal: No Previous attempt; planned: No Previous attempt; didn't tell: No Family history of suicide: No Previous psychiatric stay: No Hopelessness: No Smoker: Yes Protective Factors Assessment Synagogue beliefs: No : No Responsible for young children: No Employed: Yes Stable relationships: Yes Supportive family: Yes Absence of risk factors above: No Data Vital Signs Last 24 Hrs: Date Time Temp Pulse Resp B/P (MAP) Pulse Ox O2 Delivery O2 Flow Rate FiO2 10/05/16 06:56 36.5 66 16 109/70 92 118/81 Meds Administered Last 24 Hrs: Meds Administered (Past 24Hrs) Medications (Trade) Dose Ordered Sig/Cassandra Route Start Time Stop Time Status Last Admin Dose Admin Enteral Nutritional Formula (Boost Plus Vanilla) 1 can DAILY PO 10/04/16 09:00 11/03/16 08:59 10/05/16 08:35 1 CAN Sertraline HCl (Zoloft Tab) 200 mg DAILY PO 10/05/16 09:00 10/31/16 08:59 10/05/16 08:33 200 MG Lab Results Last 24 Hrs: 09/28/16 16:57 Red Blood Count 4.99, Mean Corpuscular Volume 91.0, Mean Corpuscular Hemoglobin 30.5, Mean Corpuscular Hemoglobin Concent 33.5, Mean Platelet Volume 10.5, Neutrophils (%) (Auto) 63.7, Lymphocytes (%) (Auto) 26.2, Monocytes (%) (Auto) 8.2, Eosinophils (%) (Auto) 1.7, Basophils (%) (Auto) 0.1, Neutrophils # (Auto) 4.84, Lymphocytes # (Auto) 1.99, Monocytes # (Auto) 0.62, Eosinophils # (Auto) 0.13, Basophils # (Auto) 0.01 09/28/16 16:57 Test 09/28/16 15:14 09/28/16 16:57 10/02/16 07:57 Urine Color YELLOW Urine Appearance CLEAR (CLEAR) Urine pH 6.0 (4.5-7.5) Urine Specific [place] 1.020 (1.000-1.030) Urine Protein NEG (NEG) Urine Glucose (UA) NEG (NEG) Urine Ketones TRACE (NEG) Urine Occult Blood NEG (NEG) Urine Nitrite NEG (NEG) Urine Bilirubin NEG (NEG) Urine Urobilinogen NEG (NEG) Urine Leukocyte Esterase NEG (NEG) Urine Opiates Screen NEG (NEG) Urine Methadone, Qualitative NEG (NEG) Urine Barbiturates NEG (NEG) Urine Phencyclidine (PCP) Level NEG (NEG) Ur Amphetamine/Methamphetamine NEG (NEG) MDMA (Ecstasy) Screen NEG (NEG) Urine Benzodiazepines Screen NEG (NEG) Urine Cocaine Metabolite NEG (NEG) Urine Marijuana (THC) NEG (NEG) White Blood Count 7.60 K/uL (4.8-10.8) Red Blood Count 4.99 M/uL (4.7-6.1) Hemoglobin 15.2 g/dL (14.0-18.0) Hematocrit 45.4 % (42-52) Mean Corpuscular Volume 91.0 fL (80-100) Mean Corpuscular Hemoglobin 30.5 pg (25-34) Mean Corpuscular Hemoglobin Concent 33.5 g/dl (32-36) Platelet Count 241 K/uL (130-400) Mean Platelet Volume 10.5 fL (7.4-10.4) Neutrophils (%) (Auto) 63.7 % Lymphocytes (%) (Auto) 26.2 % Monocytes (%) (Auto) 8.2 % Eosinophils (%) (Auto) 1.7 % Basophils (%) (Auto) 0.1 % Neutrophils # (Auto) 4.84 K/uL (1.4-6.5) Lymphocytes # (Auto) 1.99 K/uL (1.2-3.4) Monocytes # (Auto) 0.62 K/uL (0.11-0.59) Eosinophils # (Auto) 0.13 K/uL (0-0.5) Basophils # (Auto) 0.01 K/uL (0-0.2) RDW Standard Deviation 41.3 fL (36.4-46.3) RDW Coefficient of Variation 12.4 % (11.5-14.5) Immature Granulocyte % (Auto) 0.1 % Immature Granulocyte # (Auto) 0.01 K/uL (0.00-0.02) Anion Gap 10.0 mmol/L (3-11) Est Creatinine Clear Calc Drug Dose 173.2 ml/min Estimated GFR () > 150.0 Estimated GFR (Non- 129.8 BUN/Creatinine Ratio 14.6 (10-20) Calcium Level 9.3 mg/dl (8.5-10.1) Total Bilirubin 0.6 mg/dl (0.2-1) Direct Bilirubin 0.2 mg/dl (0-0.2) Aspartate Amino Transf (AST/SGOT) 11 U/L (15-37) Alanine Aminotransferase (ALT/SGPT) 16 U/L (12-78) Alkaline Phosphatase 80 U/L (45-117) Total Protein 7.6 gm/dl (6.4-8.2) Albumin 4.4 gm/dl (3.4-5.0) Thyroid Stimulating Hormone (TSH) 1.670 uIu/ml (0.300-4.500) Salicylates Level 2.6 mg/dl (2.8-20) Acetaminophen Level < 2 ug/ml (10-30) Ethyl Alcohol mg/dL < 3.0 mg/dl (0-3) Fasting Glucose 78 mg/dl (70-99) Triglycerides Level 110 mg/dl (0-150) Cholesterol Level 139 mg/dl (0-200) HDL Cholesterol 40 mg/dl LDL Cholesterol, Calculated 77 mg/dl VLDL Cholesterol, Calculated 22 mg/dl Cholesterol/HDL Ratio 3.5 Problem Qualifiers (1) Major depression, recurrent: Active/Remission status: currently active Psychotic features: with psychotic features
[2016-10-05] MEDS: PANTOprazole SOD 40 MG TAB PO SCH (21:14)
[2016-10-05] MEDS: OLANZAPINE 10 MG TAB PO SCH (21:14)
[2016-10-06 06:44] VITALS: BP_SYST 101; BP_SYST 111; BP_DIAS 63; BP_DIAS 73; PULSE 50; PULSE 81; TEMP 36.5
[2016-10-06] MEDS: SERTRALINE HCL 100 MG TAB PO SCH (08:40)
[2016-10-06] MEDS: NICOTINE 21 MG/24 HR TDSY EXT SCH (08:40)
[2016-10-06] MEDS: BOOST PLUS VANILLA PO SCH ×2 (08:40)
--- NOTE | 2016-10-06 10:20 | Psychiatric Progress Notes ---
Progress Note Date of Service Oct 06, 2016. Interval History This 30-year-old man reports that he has a two-year history of feeling paranoid , and notes that the paranoia has worsened in the past month or so. He also gives a long history of depression, dating back to his middle teenage years. He has a history of 2 previous psychiatric hospitalizations, both of which he said were for depression and, most recently, for depression and paranoia. He is followed on an outpatient basis by Dr. Ventura, and had been taking risperidone 6 mg at bedtime. However, the patient said that he does not feel that this medication was helpful to him, and recently tried switching to olanzapine 20 mg at bedtime. It is not clear to what degree the patient may have been nonadherent with his medications, although he says that he "mostly" takes medicines as prescribed. He has been continued on olanzapine here, and sertraline has been restarted to target mood. Chief Complaint "Pretty good.". Subjective Patient was seen & assessed interval progress reviewed with Treatment Team. The patient was more willing to get out of bed today and came to the interview room. he says that he is doing "pretty good", and rates his mood 5/10. WE had called him mother yesterday to see if he could stay with her for a week or so after discharge, but he does not want to do this, preferring to stay in his own apartment. When asked how he will manage to stay out of bed, he says that he can ask his mother to call him daily and he can set his alarm. He continues to deny hallucinations, and says that his paranoia is "decreasing a little over the last several days". His appetite is also "getting better" and ate breakfast the last 2 days as well as dinner plus a Boost. We discuss recommendations for therapeutic programming after discharge, but he's not sure that he wants to do that either, but is willing to hear more about it. Mother is concerned that he is not back to baseline and had been talking to her about walking to [place]. Review of Systems Constitutional: + fatigue ENT: No hearing loss, No unusual epistaxis, No nasal symptoms, No sore throat, No tinnitus, No dental problems, No trouble swallowing, No problem reported Respiratory: No cough, No sputum, No wheezing, No shortness of breath, No dyspnea on exertion, No dyspnea at rest, No hemoptysis, No problem reported Cardiovascular: No chest pain, No orthopnea, No PND, No edema, No claudication , No palpitations, No problem reported Abdomen: No pain, No nausea, No vomiting, No diarrhea, No constipation, No GI bleeding, No problem reported Musculoskeletal: + problem reported (CP) Neurologic: No memory loss, No paralysis, No weakness, No numbness/tingling, No vertigo, No balance problems, No problem reported Psychiatric: + depression symptoms (improving, without SI) Integumentary: No rash, No itch, No new/changing skin lesions, No color change , No bleeding, No problem reported Sleep Information Total Hours of Sleep: 5.50 Meal Information Percent of Breakfast Consumed: 100 Percent of Lunch Consumed: 0 Percent of Dinner Consumed: 75 Mental Status Exam During interview pt is: alert and oriented, other (only partially cooperative) Appearance: appropriately dressed, appropriately groomed, other (lying in bed with the covers pulled over his head, but does remove them when asked) Eye contact is: fair Motor behavior is: no abnormal motor movements Speech: other (Not spontaneous, monotoned) Affect: depressed, flat, constricted Mood is: depressed Thought process: goal directed, concrete Thought content: paranoid (but improving) Suicidal thought are: denied Homicidal thoughts are: denied Hallucinations: denies auditory, denies visual Cognition: memory grossly intact, language grossly intact, other (attention impaired) Intelligence estimated to be: average Insight: impaired Judgement: impaired Impression Still struggling to be out of bed during the day, and we will employ door locking during groups to help facilitate. He appears to be more cooperative today, admitting that his paranoia may be improving. Mother concerned he is not to baseline. He will need structure after discharge, but he is not willing to commit to it at this time. Zoloft was increased several days ago, and psychosis appears to be improving. We will continue to work on improving sleep/ wake cycles while we explore aftercare options. Plan (1) Major depression, recurrent This 30-year-old man reports that he has a two-year history of feeling paranoid , and notes that the paranoia has worsened in the past month or so. He also gives a long history of depression, dating back to his middle teenage years. He has a history of 2 previous psychiatric hospitalizations, both of which he said were for depression and, most recently, for depression and paranoia. He is followed on an outpatient basis by primary care physician, Dr. Weber, and had been taking risperidone 6 mg at bedtime. However, the patient said that he does not feel that this medication was helpful to him, and Dr. Weber recently ( last week) discontinued risperidone and began olanzapine 20 mg at bedtime. He also takes because of muscle rigidity. He has a history of an allergic reaction to Valium, and reports that it gives him "a rash." He denies that he is having any side effects that he is aware of from olanzapine, sertraline, and Cogentin. Complicating, or contributing to the patient's presenting symptoms as his social isolation. As noted above, he reports that he has "for a long time" stopped having social contacts, and he spends most of his time alone in his apartment. The patient reports that he passes his time by playing guitar, writing music, and playing video games, all in isolation. He does not have any outside interests, he says that he has no desire to form a romantic attachment, and his support network appears to consist of his mother and his outpatient therapist. It is not clear to what degree the patient may have been nonadherent with his medications, although he says that he "mostly" takes medicines as prescribed. However, the patient says that he does not feel that sertraline has been particularly helpful in addressing his depression, and today he tells me that he is feeling less paranoid without it. Accordingly, rather than resume antidepressant medications I'm going to recommend that we continue olanzapine 5 mg every morning and 10 mg at bedtime. When necessary hydroxyzine can be used as a sleep aid. An important goal for this patient is to increase socialization and improve his leisure skills. 09/30 -The patient changes his story today about Zoloft thinking that it was helpful and is requesting to go back on. - Will restart Zoloft 150 mg daily 10/01 - Continue current meds - Arrange for family meeting with mother - Refer for psych rehab - Encourage patient to be out of bed to combat anhedonia 10/02 - Patient remains poorly engaged in treatment, but is willing to sign in voluntarily as he is not yet stable and does not feel safe for discharge. - Increase olanzapine to 5 mg every morning and 15 mg daily at bedtime, and continue sertraline 150 mg daily. Consider increasing sertraline to target mood and anxiety. - Family meeting with mother scheduled for tomorrow. - Staff to follow-up on records from the [facility] psych clinic to confirm diagnosis and reviewed recent treatment. - Fasting labs checked for monitoring on an atypical antipsychotic; results were all within normal limits. 10/03 - Family meeting held with mother, who endorses significant concerns about his poor oral intake, lack of attention to ADLs, and overall poor functioning. - Coordinate with his limited pillowcase sewer regarding CRR referral and other ways to increase structure at home (? Psych rehabilitation). - Increase sertraline to 200 mg daily to target mood and anxiety. Continue olanzapine. 10/05 - Continue current plan and meds - Continue to encourage patient to be out of bed during the day 10/06 -Continue current meds - Explore outpatient programming to increase structure - Continue to encourage good sleep/wake behaviors, including locking door during groups to facilitate attendance. - Is refusing to stay with mother post discharge (2) Paranoid schizophrenia The patient says that he does not feel that sertraline has been particularly helpful in addressing his depression, and today he tells me that he is feeling less paranoid without it. Accordingly, rather than resume antidepressant medications I'm going to recommend that we continue olanzapine 5 mg every morning and 10 mg at bedtime. When necessary hydroxyzine can be used as a sleep aid. An important goal for this patient is to increase socialization and improve his leisure skills. 09/30 -Continue current dose of Zyprexa -Reality orientation -Every 15 minute checks for safety -Will need family meeting with mother 10/02 - Question primary thought disorder. Will get records from outpatient provider to clarify. 10/02 - Records from Dr. Ventura at [facility] received and reviewed. Dx P. Schiz - Sleep/wake cycles reversed, and have asked him to work with the staff on this, although he seems reluctant - Family meeting with mother today - May need to consider locking door during groups to facilitate participation and getting out of bed during the day Discharge / Aftercare Planning Primary Care Physician: Name: Dr Tad Roldan Appointment Notes: needs apt w him at [place] Therapist: Name: a [employer] Supervisor: Name: [employer] [facility] [place] Phone Number: [phone] Visit Code E&M Code: 22740 Inventory Assets Strengths: Intelligence, verbal, enjoys music, writes music, willing to seek help. Needs: Depression, paranoid thoughts, difficulty trusting, social isolation, limited support network in the community. Risk Factors Assessment Male: Yes : Yes /single/: Yes Higher / Fall in social status: No Health problems: Yes Mental Health Diagnoses: Yes Substance use disorders: Yes Previous attempt: No Previous attempt;highly lethal: No Previous attempt; planned: No Previous attempt; didn't tell: No Family history of suicide: No Previous psychiatric stay: No Hopelessness: No Smoker: Yes Protective Factors Assessment Pentec[employer]alism beliefs: No : No Responsible for young children: No Employed: Yes Stable relationships: Yes Supportive family: Yes Absence of risk factors above: No Data Vital Signs Last 24 Hrs: Date Time Temp Pulse Resp B/P (MAP) Pulse Ox O2 Delivery O2 Flow Rate FiO2 10/06/16 06:44 36.5 50 16 101/63 81 111/73 Meds Administered Last 24 Hrs: Meds Administered (Past 24Hrs) Medications (Trade) Dose Ordered Sig/Cassandra Route Start Time Stop Time Status Last Admin Dose Admin Sertraline HCl (Zoloft Tab) 200 mg DAILY PO 10/05/16 09:00 10/31/16 08:59 10/06/16 08:40 200 MG Olanzapine (Zyprexa Tab) 20 mg HS PO 10/05/16 22:00 10/29/16 21:59 10/05/16 21:14 20 MG Lab Results Last 24 Hrs: 09/28/16 16:57 Red Blood Count 4.99, Mean Corpuscular Volume 91.0, Mean Corpuscular Hemoglobin 30.5, Mean Corpuscular Hemoglobin Concent 33.5, Mean Platelet Volume 10.5, Neutrophils (%) (Auto) 63.7, Lymphocytes (%) (Auto) 26.2, Monocytes (%) (Auto) 8.2, Eosinophils (%) (Auto) 1.7, Basophils (%) (Auto) 0.1, Neutrophils # (Auto) 4.84, Lymphocytes # (Auto) 1.99, Monocytes # (Auto) 0.62, Eosinophils # (Auto) 0.13, Basophils # (Auto) 0.01 09/28/16 16:57 Test 09/28/16 15:14 09/28/16 16:57 10/02/16 07:57 Urine Color YELLOW Urine Appearance CLEAR (CLEAR) Urine pH 6.0 (4.5-7.5) Urine Specific Roslyn 1.020 (1.000-1.030) Urine Protein NEG (NEG) Urine Glucose (UA) NEG (NEG) Urine Ketones TRACE (NEG) Urine Occult Blood NEG (NEG) Urine Nitrite NEG (NEG) Urine Bilirubin NEG (NEG) Urine Urobilinogen NEG (NEG) Urine Leukocyte Esterase NEG (NEG) Urine Opiates Screen NEG (NEG) Urine Methadone, Qualitative NEG (NEG) Urine Barbiturates NEG (NEG) Urine Phencyclidine (PCP) Level NEG (NEG) Ur Amphetamine/Methamphetamine NEG (NEG) MDMA (Ecstasy) Screen NEG (NEG) Urine Benzodiazepines Screen NEG (NEG) Urine Cocaine Metabolite NEG (NEG) Urine Marijuana (THC) NEG (NEG) White Blood Count 7.60 K/uL (4.8-10.8) Red Blood Count 4.99 M/uL (4.7-6.1) Hemoglobin 15.2 g/dL (14.0-18.0) Hematocrit 45.4 % (42-52) Mean Corpuscular Volume 91.0 fL (80-100) Mean Corpuscular Hemoglobin 30.5 pg (25-34) Mean Corpuscular Hemoglobin Concent 33.5 g/dl (32-36) Platelet Count 241 K/uL (130-400) Mean Platelet Volume 10.5 fL (7.4-10.4) Neutrophils (%) (Auto) 63.7 % Lymphocytes (%) (Auto) 26.2 % Monocytes (%) (Auto) 8.2 % Eosinophils (%) (Auto) 1.7 % Basophils (%) (Auto) 0.1 % Neutrophils # (Auto) 4.84 K/uL (1.4-6.5) Lymphocytes # (Auto) 1.99 K/uL (1.2-3.4) Monocytes # (Auto) 0.62 K/uL (0.11-0.59) Eosinophils # (Auto) 0.13 K/uL (0-0.5) Basophils # (Auto) 0.01 K/uL (0-0.2) RDW Standard Deviation 41.3 fL (36.4-46.3) RDW Coefficient of Variation 12.4 % (11.5-14.5) Immature Granulocyte % (Auto) 0.1 % Immature Granulocyte # (Auto) 0.01 K/uL (0.00-0.02) Anion Gap 10.0 mmol/L (3-11) Est Creatinine Clear Calc Drug Dose 173.2 ml/min Estimated GFR () > 150.0 Estimated GFR (Non- 129.8 BUN/Creatinine Ratio 14.6 (10-20) Calcium Level 9.3 mg/dl (8.5-10.1) Total Bilirubin 0.6 mg/dl (0.2-1) Direct Bilirubin 0.2 mg/dl (0-0.2) Aspartate Amino Transf (AST/SGOT) 11 U/L (15-37) Alanine Aminotransferase (ALT/SGPT) 16 U/L (12-78) Alkaline Phosphatase 80 U/L (45-117) Total Protein 7.6 gm/dl (6.4-8.2) Albumin 4.4 gm/dl (3.4-5.0) Thyroid Stimulating Hormone (TSH) 1.670 uIu/ml (0.300-4.500) Salicylates Level 2.6 mg/dl (2.8-20) Acetaminophen Level < 2 ug/ml (10-30) Ethyl Alcohol mg/dL < 3.0 mg/dl (0-3) Fasting Glucose 78 mg/dl (70-99) Triglycerides Level 110 mg/dl (0-150) Cholesterol Level 139 mg/dl (0-200) HDL Cholesterol 40 mg/dl LDL Cholesterol, Calculated 77 mg/dl VLDL Cholesterol, Calculated 22 mg/dl Cholesterol/HDL Ratio 3.5 Problem Qualifiers (1) Major depression, recurrent: Active/Remission status: currently active Psychotic features: with psychotic features
[2016-10-06] MEDS: OLANZAPINE 10 MG TAB PO SCH (21:12)
[2016-10-06] MEDS: PANTOprazole SOD 40 MG TAB PO SCH (21:12)
[2016-10-07 06:44] VITALS: BP_SYST 110; BP_DIAS 72; BP_DIAS 74; PULSE 73; PULSE 92; TEMP 36.5
--- NOTE | 2016-10-07 08:21 | Psychiatric Progress Notes ---
Progress Note Date of Service Oct 07, 2016. Interval History This 30-year-old man reports that he has a two-year history of feeling paranoid , and notes that the paranoia has worsened in the past month or so. He also gives a long history of depression, dating back to his middle teenage years. He has a history of 2 previous psychiatric hospitalizations, both of which he said were for depression and, most recently, for depression and paranoia. He is followed on an outpatient basis by Dr. Ventura, and had been taking risperidone 6 mg at bedtime. However, the patient said that he does not feel that this medication was helpful to him, and recently tried switching to olanzapine 20 mg at bedtime. It is not clear to what degree the patient may have been nonadherent with his medications, although he says that he "mostly" takes medicines as prescribed. He has been continued on olanzapine here, and sertraline has been restarted to target mood. Chief Complaint "Okay". Subjective Patient was seen & assessed interval progress reviewed with nursing. Staff report he has improved, has been more engaged, out of his room more, and improved oral intake. The patient was seen in his room, where he remains in bed with the covers pulled over his head. He is receptive to removing the blankets and engaging in the interview, and states that his mood has improved since admission, rating it a 5 out of 10. He is not sure what has led to the improvement in mood. He denies suicidal thoughts and denies hallucinations, but admits that he is still depressed and having difficulty getting out of bed and functioning. He states he has been eating more is appetite has improved, and is trying to attend more groups, although he remains in bed currently while in group is going on. He remains unwilling to accept additional outpatient services such as psych rehabilitation, stating "I already have a psychiatrist and therapist." He states he had a visit with his sister last night, which went well, and he feels supported by his family. He denies side effects to medications. Sleep Information Total Hours of Sleep: 6.50 Meal Information Percent of Breakfast Consumed: 100 Percent of Lunch Consumed: 0 Percent of Dinner Consumed: 100 Mental Status Exam During interview pt is: alert and oriented, cooperative Appearance: appropriately dressed, appropriately groomed, disheveled, other ( lying in bed with the covers pulled over his head, but does remove them when asked) Eye contact is: fair Motor behavior is: no abnormal motor movements Speech: other (Not spontaneous, monotoned) Affect: depressed, constricted Mood is: other ("better") Thought process: goal directed, concrete Thought content: paranoid (but improving) Suicidal thought are: denied Homicidal thoughts are: denied Hallucinations: denies auditory, denies visual Cognition: memory grossly intact, language grossly intact Intelligence estimated to be: average Insight: impaired Judgement: impaired Impression Still struggling to be out of bed during the day, with limited participation in treatment, although it has improved from admission. He states mood has improved slightly, but remains depressed and paranoid. Appetite has improved slightly, but is still low, and he continues to struggle to engage in programming. His mother has expressed concerns that he is still not at baseline , and they have agreed that he stay in the hospital. He will need structure after discharge, but he is not willing to increase his outpatient services, and shows poor insight into the need for increased structure at home. Sertraline and olanzapine have been maximized. We will continue to work on improving sleep /wake cycles while we explore aftercare options and encouraged him to be more engaged in treatment. Plan (1) Major depression, recurrent This 30-year-old man reports that he has a two-year history of feeling paranoid , and notes that the paranoia has worsened in the past month or so. He also gives a long history of depression, dating back to his middle teenage years. He has a history of 2 previous psychiatric hospitalizations, both of which he said were for depression and, most recently, for depression and paranoia. He is followed on an outpatient basis by primary care physician, Dr. Weber, and had been taking risperidone 6 mg at bedtime. However, the patient said that he does not feel that this medication was helpful to him, and Dr. Weber recently ( last week) discontinued risperidone and began olanzapine 20 mg at bedtime. He also takes because of muscle rigidity. He has a history of an allergic reaction to Valium, and reports that it gives him "a rash." He denies that he is having any side effects that he is aware of from olanzapine, sertraline, and Cogentin. Complicating, or contributing to the patient's presenting symptoms as his social isolation. As noted above, he reports that he has "for a long time" stopped having social contacts, and he spends most of his time alone in his apartment. The patient reports that he passes his time by playing guitar, writing music, and playing video games, all in isolation. He does not have any outside interests, he says that he has no desire to form a romantic attachment, and his support network appears to consist of his mother and his outpatient therapist. It is not clear to what degree the patient may have been nonadherent with his medications, although he says that he "mostly" takes medicines as prescribed. However, the patient says that he does not feel that sertraline has been particularly helpful in addressing his depression, and today he tells me that he is feeling less paranoid without it. Accordingly, rather than resume antidepressant medications I'm going to recommend that we continue olanzapine 5 mg every morning and 10 mg at bedtime. When necessary hydroxyzine can be used as a sleep aid. An important goal for this patient is to increase socialization and improve his leisure skills. 09/30 -The patient changes his story today about Zoloft thinking that it was helpful and is requesting to go back on. - Will restart Zoloft 150 mg daily 10/01 - Continue current meds - Arrange for family meeting with mother - Refer for psych rehab - Encourage patient to be out of bed to combat anhedonia 10/02 - Patient remains poorly engaged in treatment, but is willing to sign in voluntarily as he is not yet stable and does not feel safe for discharge. - Increase olanzapine to 5 mg every morning and 15 mg daily at bedtime, and continue sertraline 150 mg daily. Consider increasing sertraline to target mood and anxiety. - Family meeting with mother scheduled for tomorrow. - Staff to follow-up on records from the [facility] psych clinic to confirm diagnosis and reviewed recent treatment. - Fasting labs checked for monitoring on an atypical antipsychotic; results were all within normal limits. 10/03 - Family meeting held with mother, who endorses significant concerns about his poor oral intake, lack of attention to ADLs, and overall poor functioning. - Coordinate with his limited renal case manager regarding CRR referral and other ways to increase structure at home (? Psych rehabilitation). - Increase sertraline to 200 mg daily to target mood and anxiety. Continue olanzapine. 10/05 - Continue current plan and meds - Continue to encourage patient to be out of bed during the day 10/06 - Continue current meds - Explore outpatient programming to increase structure - he continues to refuse this. - Continue to encourage good sleep/wake behaviors, including locking door during groups to facilitate attendance. - Is refusing to stay with mother post discharge, so will be returning to his apartment where he lives alone. (2) Paranoid schizophrenia The patient says that he does not feel that sertraline has been particularly helpful in addressing his depression, and today he tells me that he is feeling less paranoid without it. Accordingly, rather than resume antidepressant medications I'm going to recommend that we continue olanzapine 5 mg every morning and 10 mg at bedtime. When necessary hydroxyzine can be used as a sleep aid. An important goal for this patient is to increase socialization and improve his leisure skills. 09/30 -Continue current dose of Zyprexa -Reality orientation -Every 15 minute checks for safety -Will need family meeting with mother 10/01 - Question primary thought disorder. Will get records from outpatient provider to clarify. 10/02 - Olanzapine increased to 5 mg every morning and 15 mg daily at bedtime to target ongoing psychosis. - Records from Dr. Ventura at [facility] received and reviewed. Dx P. Schiz - Sleep/wake cycles reversed, and have asked him to work with the staff on this, although he seems reluctant - Family meeting with mother today - May need to consider locking door during groups to facilitate participation and getting out of bed during the day 10/05 - Olanzapine dose consolidated to 20 mg daily at bedtime to try to limit daytime sedation and improve compliance. Discharge / Aftercare Planning Primary Care Physician: Name: Dr Tad Roldan Appointment Notes: needs apt w him at [place] Therapist: Name: a Salt Manager: Name: Service Access Management - [place] Phone Number: [phone] Visit Code E&M Code: 87407 Inventory Assets Strengths: Intelligence, verbal, enjoys music, writes music, willing to seek help. Needs: Depression, paranoid thoughts, difficulty trusting, social isolation, limited support network in the community. Risk Factors Assessment Male: Yes : Yes /single/: Yes Higher / Fall in social status: No Health problems: Yes Mental Health Diagnoses: Yes Substance use disorders: Yes Previous attempt: No Previous attempt;highly lethal: No Previous attempt; planned: No Previous attempt; didn't tell: No Family history of suicide: No Previous psychiatric stay: No Hopelessness: No Smoker: Yes Protective Factors Assessment Moravian beliefs: No : No Responsible for young children: No Employed: Yes Stable relationships: Yes Supportive family: Yes Absence of risk factors above: No Data Vital Signs Last 24 Hrs: Date Time Temp Pulse Resp B/P (MAP) Pulse Ox O2 Delivery O2 Flow Rate FiO2 10/07/16 06:44 36.5 73 16 110/72 92 110/74 Meds Administered Last 24 Hrs: Meds Administered (Past 24Hrs) Medications (Trade) Dose Ordered Sig/Cassandra Route Start Time Stop Time Status Last Admin Dose Admin Sertraline HCl (Zoloft Tab) 200 mg DAILY PO 10/05/16 09:00 10/31/16 08:59 10/06/16 08:40 200 MG Olanzapine (Zyprexa Tab) 20 mg HS PO 10/05/16 22:00 10/29/16 21:59 10/06/16 21:12 20 MG Problem Qualifiers (1) Major depression, recurrent: Active/Remission status: currently active Psychotic features: with psychotic features
[2016-10-07] MEDS: NICOTINE 21 MG/24 HR TDSY EXT SCH (08:42)
[2016-10-07] MEDS: SERTRALINE HCL 100 MG TAB PO SCH (08:43)
[2016-10-07] MEDS: BOOST PLUS VANILLA PO SCH ×2 (08:45)
[2016-10-07] MEDS: PANTOprazole SOD 40 MG TAB PO SCH (21:34)
[2016-10-07] MEDS: OLANZAPINE 10 MG TAB PO SCH (21:34)
[2016-10-08 06:46] VITALS: BP_SYST 109; BP_SYST 121; BP_DIAS 68; BP_DIAS 84; PULSE 62; PULSE 77; TEMP 36.7
--- NOTE | 2016-10-08 07:59 | Psychiatric Progress Notes ---
Progress Note Date of Service Oct 08, 2016. Interval History This 30-year-old man reports that he has a two-year history of feeling paranoid , and notes that the paranoia has worsened in the past month or so. He also gives a long history of depression, dating back to his middle teenage years. He has a history of 2 previous psychiatric hospitalizations, both of which he said were for depression and, most recently, for depression and paranoia. He is followed on an outpatient basis by Dr. Ventura, and had been taking risperidone 6 mg at bedtime. However, the patient said that he does not feel that this medication was helpful to him, and recently tried switching to olanzapine 20 mg at bedtime. It is not clear to what degree the patient may have been nonadherent with his medications, although he says that he "mostly" takes medicines as prescribed. He has been continued on olanzapine here, and sertraline has been restarted to target mood. Chief Complaint "Okay". Subjective Patient was seen & assessed interval progress reviewed with nursing. Staff report he stayed in bed all day, isolated and did not attend daytime groups. He came out of his room briefly for breakfast, but refused lunch. He attended and participated in both PM groups, rates his mood a 5 out of 10, and said he felt "uncertain." He talked to his mother on the phone, showered, and did his laundry. He talked about wanting to more to [place] eventually because he'd received eating disorder treatment there before. Today he is seen in his room, where he is still in bed with the covers pulled over his head, missing morning groups. He states that his mood has always been worse in the morning, but improved later in the day, and states he has been able to meet his goal of going to the to evening groups this weekend. He enjoys visiting with family in the evenings, but continues to isolate during the day. He admits his sleep cycle has long been erratic, with irregular bed and wake times. He has not tried to regulate it at home, but states it was much more structured when he was in the [facility] program for 2 months in the past. He is aware of the recommendations to work on his sleep hygiene, but is somewhat resistant to them. He remains unsure about when he will be ready for discharge or what he will do after he goes home, stating "I guess I'll probably stay at my apartment , but maybe get a move." He has thought about moving to the [place] area as he liked the treatment he got there in the past. He is aware to option to stay at his mother's house, and admits that he sometimes feels unsafe alone at his apartment. He states that part of him feels he needs to stay longer, because in the past he left after he started to improve but then quickly decompensated when he returned home, but another part of him wants to be discharged tomorrow so that he can be home with his family for October 10 hol. Sleep Information Total Hours of Sleep: 5.75 Meal Information Percent of Breakfast Consumed: 100 Percent of Lunch Consumed: 0 Percent of Dinner Consumed: 75 Mental Status Exam During interview pt is: alert and oriented, cooperative Appearance: appropriately dressed, appropriately groomed, disheveled, other ( lying in bed with the covers pulled over his head, but removes them when asked) Eye contact is: fair Motor behavior is: no abnormal motor movements Speech: other (Not spontaneous, monotoned) Affect: depressed, constricted Mood is: other ("okay") Thought process: goal directed, concrete Thought content: paranoid Suicidal thought are: denied Homicidal thoughts are: denied Hallucinations: denies auditory, denies visual Cognition: memory grossly intact, language grossly intact Intelligence estimated to be: average Insight: impaired Judgement: impaired Impression Still struggling to be out of bed during the day, with limited participation in treatment, although it has improved from admission. He states mood has improved slightly, but remains depressed and paranoid. Appetite has improved slightly, but is still low, and he continues to struggle to engage in programming. His mother has expressed concerns that he is still not at baseline , and they have agreed that he stay in the hospital. He will need structure after discharge, but he is not willing to increase his outpatient services, and shows poor insight into the need for increased structure at home. Sertraline and olanzapine have been maximized. We will continue to work on improving sleep /wake cycles while we explore aftercare options and encouraged him to be more engaged in treatment. Plan (1) Major depression, recurrent This 30-year-old man reports that he has a two-year history of feeling paranoid , and notes that the paranoia has worsened in the past month or so. He also gives a long history of depression, dating back to his middle teenage years. He has a history of 2 previous psychiatric hospitalizations, both of which he said were for depression and, most recently, for depression and paranoia. He is followed on an outpatient basis by primary care physician, Dr. Weber, and had been taking risperidone 6 mg at bedtime. However, the patient said that he does not feel that this medication was helpful to him, and Dr. Weber recently ( last week) discontinued risperidone and began olanzapine 20 mg at bedtime. He also takes because of muscle rigidity. He has a history of an allergic reaction to Valium, and reports that it gives him "a rash." He denies that he is having any side effects that he is aware of from olanzapine, sertraline, and Cogentin. Complicating, or contributing to the patient's presenting symptoms as his social isolation. As noted above, he reports that he has "for a long time" stopped having social contacts, and he spends most of his time alone in his apartment. The patient reports that he passes his time by playing guitar, writing music, and playing video games, all in isolation. He does not have any outside interests, he says that he has no desire to form a romantic attachment, and his support network appears to consist of his mother and his outpatient therapist. It is not clear to what degree the patient may have been nonadherent with his medications, although he says that he "mostly" takes medicines as prescribed. However, the patient says that he does not feel that sertraline has been particularly helpful in addressing his depression, and today he tells me that he is feeling less paranoid without it. Accordingly, rather than resume antidepressant medications I'm going to recommend that we continue olanzapine 5 mg every morning and 10 mg at bedtime. When necessary hydroxyzine can be used as a sleep aid. An important goal for this patient is to increase socialization and improve his leisure skills. 09/30 -The patient changes his story today about Zoloft thinking that it was helpful and is requesting to go back on. - Will restart Zoloft 150 mg daily 10/01 - Continue current meds - Arrange for family meeting with mother - Refer for psych rehab - Encourage patient to be out of bed to combat anhedonia 10/02 - Patient remains poorly engaged in treatment, but is willing to sign in voluntarily as he is not yet stable and does not feel safe for discharge. - Increase olanzapine to 5 mg every morning and 15 mg daily at bedtime, and continue sertraline 150 mg daily. Consider increasing sertraline to target mood and anxiety. - Family meeting with mother scheduled for tomorrow. - Staff to follow-up on records from the [facility] psych clinic to confirm diagnosis and reviewed recent treatment. - Fasting labs checked for monitoring on an atypical antipsychotic; results were all within normal limits. 10/03 - Family meeting held with mother, who endorses significant concerns about his poor oral intake, lack of attention to ADLs, and overall poor functioning. - Coordinate with his limited continuous pillowcase cutter regarding CRR referral and other ways to increase structure at home (? Psych rehabilitation). - Increase sertraline to 200 mg daily to target mood and anxiety. Continue olanzapine. 10/05 - Continue current plan and meds - Continue to encourage patient to be out of bed during the day 10/06 - 10/08 - Continue current meds - Explore outpatient programming to increase structure - he continues to refuse this. - Continue to encourage good sleep/wake behaviors, including locking door during groups to facilitate attendance. - Is refusing to stay with mother post discharge, so will be returning to his apartment where he lives alone. (2) Paranoid schizophrenia The patient says that he does not feel that sertraline has been particularly helpful in addressing his depression, and today he tells me that he is feeling less paranoid without it. Accordingly, rather than resume antidepressant medications I'm going to recommend that we continue olanzapine 5 mg every morning and 10 mg at bedtime. When necessary hydroxyzine can be used as a sleep aid. An important goal for this patient is to increase socialization and improve his leisure skills. 09/30 -Continue current dose of Zyprexa -Reality orientation -Every 15 minute checks for safety -Will need family meeting with mother 10/01 - Question primary thought disorder. Will get records from outpatient provider to clarify. 10/02 - Olanzapine increased to 5 mg every morning and 15 mg daily at bedtime to target ongoing psychosis. - Records from Dr. Ventura at [facility] Clinic received and reviewed. Dx P. Schiz - Sleep/wake cycles reversed, and have asked him to work with the staff on this, although he seems reluctant - Family meeting with mother today - May need to consider locking door during groups to facilitate participation and getting out of bed during the day 10/05 - Olanzapine dose consolidated to 20 mg daily at bedtime to try to limit daytime sedation and improve compliance. Discharge / Aftercare Planning Primary Care Physician: Name: Dr Tad Roldan Appointment Notes: needs apt w him at [place] Therapist: Name: a Anthropology Lecturer: Name: Service Access Management - [place] Phone Number: [phone] Visit Code E&M Code: 28365 Inventory Assets Strengths: Intelligence, verbal, enjoys music, writes music, willing to seek help. Needs: Depression, paranoid thoughts, difficulty trusting, social isolation, limited support network in the community. Risk Factors Assessment Male: Yes : Yes /single/: Yes Higher / Fall in social status: No Health problems: Yes Mental Health Diagnoses: Yes Substance use disorders: Yes Previous attempt: No Previous attempt;highly lethal: No Previous attempt; planned: No Previous attempt; didn't tell: No Family history of suicide: No Previous psychiatric stay: No Hopelessness: No Smoker: Yes Protective Factors Assessment Moravian beliefs: No : No Responsible for young children: No Employed: Yes Stable relationships: Yes Supportive family: Yes Absence of risk factors above: No Data Vital Signs Last 24 Hrs: Date Time Temp Pulse Resp B/P (MAP) Pulse Ox O2 Delivery O2 Flow Rate FiO2 10/08/16 06:46 36.7 62 18 109/68 77 121/84 Problem Qualifiers (1) Major depression, recurrent: Active/Remission status: currently active Psychotic features: with psychotic features
[2016-10-08] MEDS: BOOST PLUS VANILLA PO SCH ×2 (09:12)
[2016-10-08] MEDS: NICOTINE 21 MG/24 HR TDSY EXT SCH (09:12)
[2016-10-08] MEDS: SERTRALINE HCL 100 MG TAB PO SCH (09:12)
[2016-10-08] MEDS: PANTOprazole SOD 40 MG TAB PO SCH (22:05)
[2016-10-08] MEDS: OLANZAPINE 10 MG TAB PO SCH (22:05)
[2016-10-09 06:33] VITALS: BP_SYST 104; BP_SYST 120; BP_DIAS 61; BP_DIAS 65; PULSE 57; PULSE 76; TEMP 36.4
[2016-10-09] MEDS: NICOTINE 21 MG/24 HR TDSY EXT SCH (09:10)
[2016-10-09] MEDS: BOOST PLUS VANILLA PO SCH ×2 (09:11)
[2016-10-09] MEDS: SERTRALINE HCL 100 MG TAB PO SCH (09:11)
--- NOTE | 2016-10-09 10:13 | Psychiatric Progress Notes ---
Progress Note Date of Service Oct 09, 2016. Interval History This 30-year-old man reports that he has a two-year history of feeling paranoid , and notes that the paranoia has worsened in the past month or so. He also gives a long history of depression, dating back to his middle teenage years. He has a history of 2 previous psychiatric hospitalizations, both of which he said were for depression and, most recently, for depression and paranoia. He is followed on an outpatient basis by Dr. Ventura, and had been taking risperidone 6 mg at bedtime. However, the patient said that he does not feel that this medication was helpful to him, and recently tried switching to olanzapine 20 mg at bedtime. It is not clear to what degree the patient may have been nonadherent with his medications, although he says that he "mostly" takes medicines as prescribed. He has been continued on olanzapine here, and sertraline has been restarted to target mood. Chief Complaint "Good.". Subjective Patient was seen & assessed interval progress reviewed with Treatment Team. The patient says that he had a good weekend. He reports a good mood, with paranoia slightly improved, and no hallucinations. His mother and sister visited, but they did not discuss his condition. He says that he is not sure about discharge. When asked what he felt he needed to work on here, he said "I don't know". He is afraid that if he goes home, that he will "get depressed again" and things will deteriorate. What asked what circumstances at home would contribute to that he says "I don't know". He says that he had talked to his mother last week about getting to [place] for treatment as he liked the treatment he received when at the [facility] program several years ago. When asked if he still thinks he needs more inpatient treatment, he says "I don't know" but that he liked their treatment. He denies SI/HI. Staff report that he has continued to be in bed during the day, but up in the evenings and shows no willingness to work on being out of bed during the day. Review of Systems Constitutional: No fever, No chills, No sweats, No weight loss, No weakness, No fatigue, No problem reported ENT: No hearing loss, No unusual epistaxis, No nasal symptoms, No sore throat, No tinnitus, No dental problems, No trouble swallowing, No problem reported Respiratory: No cough, No sputum, No wheezing, No shortness of breath, No dyspnea on exertion, No dyspnea at rest, No hemoptysis, No problem reported Cardiovascular: No chest pain, No orthopnea, No PND, No edema, No claudication , No palpitations, No problem reported Abdomen: No pain, No nausea, No vomiting, No diarrhea, No constipation, No GI bleeding, No problem reported Musculoskeletal: No joint pain, No muscle pain, No swelling, No calf pain, No problem reported Neurologic: No memory loss, No paralysis, No weakness, No numbness/tingling, No vertigo, No balance problems, No problem reported Psychiatric: + problem reported (paranoia) Integumentary: No rash, No itch, No new/changing skin lesions, No color change , No bleeding, No problem reported Sleep Information Total Hours of Sleep: 5.00 Meal Information Percent of Breakfast Consumed: 100 Percent of Lunch Consumed: 0 Percent of Dinner Consumed: 75 Mental Status Exam During interview pt is: alert and oriented, cooperative Appearance: appropriately dressed, appropriately groomed, disheveled Eye contact is: good Motor behavior is: no abnormal motor movements Speech: other (Not spontaneous, monotoned) Affect: flat Mood is: other ("good") Thought process: goal directed, concrete Thought content: paranoid Suicidal thought are: denied Homicidal thoughts are: denied Hallucinations: denies auditory, denies visual Cognition: memory grossly intact, language grossly intact Intelligence estimated to be: average Insight: poor Judgement: poor Impression The patient is still struggling with insight into his condition or what he could or should do to improve his symptoms. His motivation is still low and today will again ask staff to lock his door to facilitate being out of bed and in groups. Although he is not at his baseline, his remaining negative symptoms of schizophrenia may need to be addressed in the outpatient setting. Continue current meds Plan (1) Major depression, recurrent This 30-year-old man reports that he has a two-year history of feeling paranoid , and notes that the paranoia has worsened in the past month or so. He also gives a long history of depression, dating back to his middle teenage years. He has a history of 2 previous psychiatric hospitalizations, both of which he said were for depression and, most recently, for depression and paranoia. He is followed on an outpatient basis by primary care physician, Dr. Weber, and had been taking risperidone 6 mg at bedtime. However, the patient said that he does not feel that this medication was helpful to him, and Dr. Weber recently ( last week) discontinued risperidone and began olanzapine 20 mg at bedtime. He also takes because of muscle rigidity. He has a history of an allergic reaction to Valium, and reports that it gives him "a rash." He denies that he is having any side effects that he is aware of from olanzapine, sertraline, and Cogentin. Complicating, or contributing to the patient's presenting symptoms as his social isolation. As noted above, he reports that he has "for a long time" stopped having social contacts, and he spends most of his time alone in his apartment. The patient reports that he passes his time by playing guitar, writing music, and playing video games, all in isolation. He does not have any outside interests, he says that he has no desire to form a romantic attachment, and his support network appears to consist of his mother and his outpatient therapist. It is not clear to what degree the patient may have been nonadherent with his medications, although he says that he "mostly" takes medicines as prescribed. However, the patient says that he does not feel that sertraline has been particularly helpful in addressing his depression, and today he tells me that he is feeling less paranoid without it. Accordingly, rather than resume antidepressant medications I'm going to recommend that we continue olanzapine 5 mg every morning and 10 mg at bedtime. When necessary hydroxyzine can be used as a sleep aid. An important goal for this patient is to increase socialization and improve his leisure skills. 09/30 -The patient changes his story today about Zoloft thinking that it was helpful and is requesting to go back on. - Will restart Zoloft 150 mg daily 10/01 - Continue current meds - Arrange for family meeting with mother - Refer for psych rehab - Encourage patient to be out of bed to combat anhedonia 10/02 - Patient remains poorly engaged in treatment, but is willing to sign in voluntarily as he is not yet stable and does not feel safe for discharge. - Increase olanzapine to 5 mg every morning and 15 mg daily at bedtime, and continue sertraline 150 mg daily. Consider increasing sertraline to target mood and anxiety. - Family meeting with mother scheduled for tomorrow. - Staff to follow-up on records from the [facility] psych clinic to confirm diagnosis and reviewed recent treatment. - Fasting labs checked for monitoring on an atypical antipsychotic; results were all within normal limits. 10/03 - Family meeting held with mother, who endorses significant concerns about his poor oral intake, lack of attention to ADLs, and overall poor functioning. - Coordinate with his limited case picker regarding CRR referral and other ways to increase structure at home (? Psych rehabilitation). - Increase sertraline to 200 mg daily to target mood and anxiety. Continue olanzapine. 10/05 - Continue current plan and meds - Continue to encourage patient to be out of bed during the day 10/06 - 10/08 - Continue current meds - Explore outpatient programming to increase structure - he continues to refuse this. - Continue to encourage good sleep/wake behaviors, including locking door during groups to facilitate attendance. - Is refusing to stay with mother post discharge, so will be returning to his apartment where he lives alone. 10/09 - Continue current plan - Lock bedroom door to facilitate out of bed and in groups (2) Paranoid schizophrenia The patient says that he does not feel that sertraline has been particularly helpful in addressing his depression, and today he tells me that he is feeling less paranoid without it. Accordingly, rather than resume antidepressant medications I'm going to recommend that we continue olanzapine 5 mg every morning and 10 mg at bedtime. When necessary hydroxyzine can be used as a sleep aid. An important goal for this patient is to increase socialization and improve his leisure skills. 09/30 -Continue current dose of Zyprexa -Reality orientation -Every 15 minute checks for safety -Will need family meeting with mother 10/01 - Question primary thought disorder. Will get records from outpatient provider to clarify. 10/02 - Olanzapine increased to 5 mg every morning and 15 mg daily at bedtime to target ongoing psychosis. - Records from Dr. Ventura at [facility] received and reviewed. Dx P. Schiz - Sleep/wake cycles reversed, and have asked him to work with the staff on this, although he seems reluctant - Family meeting with mother today - May need to consider locking door during groups to facilitate participation and getting out of bed during the day 10/05 - Olanzapine dose consolidated to 20 mg daily at bedtime to try to limit daytime sedation and improve compliance. 10/09 - Continue current plan - Recommend OP programming to increase structure Discharge / Aftercare Planning Primary Care Physician: Name: Dr Tad Roldan Appointment Notes: needs apt w him at [place] Psychiatrist: Name: Dr Ventura-[facility] Date of Appointment: Oct 17, 2016 Time of Appointment: 4:00pm Therapist: Name: Alison Triplett [facility] Date of Appointment: Oct 17, 2016 Time of Appointment: 5:00pm Police Crime Scene Technician: Name: Service [employer] Management - [place] Phone Number: [phone] Visit Code E&M Code: 06406 Inventory Assets Strengths: Intelligence, verbal, enjoys music, writes music, willing to seek help. Needs: Depression, paranoid thoughts, difficulty trusting, social isolation, limited support network in the community. Risk Factors Assessment Male: Yes : Yes /single/: Yes Higher / Fall in social status: No Health problems: Yes Mental Health Diagnoses: Yes Substance use disorders: Yes Previous attempt: No Previous attempt;highly lethal: No Previous attempt; planned: No Previous attempt; didn't tell: No Family history of suicide: No Previous psychiatric stay: No Hopelessness: No Smoker: Yes Protective Factors Assessment Advent beliefs: No : No Responsible for young children: No Employed: Yes Stable relationships: Yes Supportive family: Yes Absence of risk factors above: No Data Vital Signs Last 24 Hrs: Date Time Temp Pulse Resp B/P (MAP) Pulse Ox O2 Delivery O2 Flow Rate FiO2 10/09/16 06:33 36.4 57 16 104/61 76 120/65 Meds Administered Last 24 Hrs: Current Inpatient Medications Medications (Trade) Dose Ordered Sig/Cassandra Route Start Time Stop Time Status Last Admin Dose Admin Acetaminophen (Tylenol Tab) 650 mg Q4H PRN PO 09/28/16 19:45 10/28/16 19:44 Al Hydroxide/Mg Hydroxide (Maalox Susp) 30 ml Q4H PRN PO 09/28/16 19:45 10/28/16 19:44 Magnesium Hydroxide (Milk Of Magnesia Susp) 30 ml DAILY PRN PO 09/28/16 19:45 10/28/16 19:44 Sodium Chloride ([place] Nasal [place]) PRN PRN NA 09/28/16 19:45 10/28/16 19:44 Hydroxyzine HCl (Vistaril Tab) 50 mg HSZ PRN PO 09/28/16 19:45 10/28/16 19:44 Hydroxyzine HCl (Vistaril Tab) 25 mg Q4H PRN PO 09/28/16 19:45 10/28/16 19:44 Olanzapine (Zyprexa Zydis Od Tab) 5 mg Q6H PRN PO 09/28/16 19:45 10/28/16 19:44 10/01/16 13:57 5 MG Benztropine Mesylate (Cogentin Tab) 1 mg Q6H PRN PO 09/28/16 19:45 10/28/16 19:44 10/03/16 21:43 1 MG Nicotine (Nicoderm Cq 21MG Patch) 1 patch QAM EXT 09/29/16 09:00 10/29/16 08:59 10/09/16 09:10 1 PATCH Miscellaneous (Remove Nicoderm Patch) 1 ea QAM N/A 09/29/16 09:00 10/29/16 08:59 10/09/16 09:14 1 EA Pantoprazole Sodium (Protonix Tab) 40 mg HS PO 09/30/16 22:00 10/30/16 21:59 10/08/16 22:05 40 MG Enteral Nutritional Formula (Boost Plus Vanilla) 1 can DAILY PO 10/04/16 09:00 11/03/16 08:59 10/09/16 09:11 1 CAN Sertraline HCl (Zoloft Tab) 200 mg DAILY PO 10/05/16 09:00 10/31/16 08:59 10/09/16 09:11 200 MG Olanzapine (Zyprexa Tab) 20 mg HS PO 10/05/16 22:00 10/29/16 21:59 10/08/16 22:05 20 MG Lab Results Last 24 Hrs: 09/28/16 16:57 Red Blood Count 4.99, Mean Corpuscular Volume 91.0, Mean Corpuscular Hemoglobin 30.5, Mean Corpuscular Hemoglobin Concent 33.5, Mean Platelet Volume 10.5, Neutrophils (%) (Auto) 63.7, Lymphocytes (%) (Auto) 26.2, Monocytes (%) (Auto) 8.2, Eosinophils (%) (Auto) 1.7, Basophils (%) (Auto) 0.1, Neutrophils # (Auto) 4.84, Lymphocytes # (Auto) 1.99, Monocytes # (Auto) 0.62, Eosinophils # (Auto) 0.13, Basophils # (Auto) 0.01 09/28/16 16:57 Test 09/28/16 15:14 09/28/16 16:57 10/02/16 07:57 Urine Color YELLOW Urine Appearance CLEAR (CLEAR) Urine pH 6.0 (4.5-7.5) Urine Specific [place] 1.020 (1.000-1.030) Urine Protein NEG (NEG) Urine Glucose (UA) NEG (NEG) Urine Ketones TRACE (NEG) Urine Occult Blood NEG (NEG) Urine Nitrite NEG (NEG) Urine Bilirubin NEG (NEG) Urine Urobilinogen NEG (NEG) Urine Leukocyte Esterase NEG (NEG) Urine Opiates Screen NEG (NEG) Urine Methadone, Qualitative NEG (NEG) Urine Barbiturates NEG (NEG) Urine Phencyclidine (PCP) Level NEG (NEG) Ur Amphetamine/Methamphetamine NEG (NEG) MDMA (Ecstasy) Screen NEG (NEG) Urine Benzodiazepines Screen NEG (NEG) Urine Cocaine Metabolite NEG (NEG) Urine Marijuana (THC) NEG (NEG) White Blood Count 7.60 K/uL (4.8-10.8) Red Blood Count 4.99 M/uL (4.7-6.1) Hemoglobin 15.2 g/dL (14.0-18.0) Hematocrit 45.4 % (42-52) Mean Corpuscular Volume 91.0 fL (80-100) Mean Corpuscular Hemoglobin 30.5 pg (25-34) Mean Corpuscular Hemoglobin Concent 33.5 g/dl (32-36) Platelet Count 241 K/uL (130-400) Mean Platelet Volume 10.5 fL (7.4-10.4) Neutrophils (%) (Auto) 63.7 % Lymphocytes (%) (Auto) 26.2 % Monocytes (%) (Auto) 8.2 % Eosinophils (%) (Auto) 1.7 % Basophils (%) (Auto) 0.1 % Neutrophils # (Auto) 4.84 K/uL (1.4-6.5) Lymphocytes # (Auto) 1.99 K/uL (1.2-3.4) Monocytes # (Auto) 0.62 K/uL (0.11-0.59) Eosinophils # (Auto) 0.13 K/uL (0-0.5) Basophils # (Auto) 0.01 K/uL (0-0.2) RDW Standard Deviation 41.3 fL (36.4-46.3) RDW Coefficient of Variation 12.4 % (11.5-14.5) Immature Granulocyte % (Auto) 0.1 % Immature Granulocyte # (Auto) 0.01 K/uL (0.00-0.02) Anion Gap 10.0 mmol/L (3-11) Est Creatinine Clear Calc Drug Dose 173.2 ml/min Estimated GFR () > 150.0 Estimated GFR (Non- 129.8 BUN/Creatinine Ratio 14.6 (10-20) Calcium Level 9.3 mg/dl (8.5-10.1) Total Bilirubin 0.6 mg/dl (0.2-1) Direct Bilirubin 0.2 mg/dl (0-0.2) Aspartate Amino Transf (AST/SGOT) 11 U/L (15-37) Alanine Aminotransferase (ALT/SGPT) 16 U/L (12-78) Alkaline Phosphatase 80 U/L (45-117) Total Protein 7.6 gm/dl (6.4-8.2) Albumin 4.4 gm/dl (3.4-5.0) Thyroid Stimulating Hormone (TSH) 1.670 uIu/ml (0.300-4.500) Salicylates Level 2.6 mg/dl (2.8-20) Acetaminophen Level < 2 ug/ml (10-30) Ethyl Alcohol mg/dL < 3.0 mg/dl (0-3) Fasting Glucose 78 mg/dl (70-99) Triglycerides Level 110 mg/dl (0-150) Cholesterol Level 139 mg/dl (0-200) HDL Cholesterol 40 mg/dl LDL Cholesterol, Calculated 77 mg/dl VLDL Cholesterol, Calculated 22 mg/dl Cholesterol/HDL Ratio 3.5 Problem Qualifiers (1) Major depression, recurrent: Active/Remission status: currently active Psychotic features: with psychotic features
[2016-10-09] MEDS: OLANZAPINE 10 MG TAB PO SCH (21:53)
[2016-10-09] MEDS: PANTOprazole SOD 40 MG TAB PO SCH (21:54)
[2016-10-10 06:51] VITALS: BP_SYST 103; BP_SYST 107; BP_DIAS 66; BP_DIAS 69; PULSE 69; PULSE 94; TEMP 36.8
[2016-10-10] MEDS: SERTRALINE HCL 100 MG TAB PO SCH (08:36)
[2016-10-10] MEDS: BOOST PLUS VANILLA PO SCH ×2 (08:36)
[2016-10-10] MEDS: NICOTINE 21 MG/24 HR TDSY EXT SCH (08:39)
--- NOTE | 2016-10-10 12:54 | Psychiatric Progress Notes ---
Progress Note Date of Service Oct 10, 2016. Interval History This 30-year-old man reports that he has a two-year history of feeling paranoid , and notes that the paranoia has worsened in the past month or so. He also gives a long history of depression, dating back to his middle teenage years. He has a history of 2 previous psychiatric hospitalizations, both of which he said were for depression and, most recently, for depression and paranoia. He is followed on an outpatient basis by Dr. Ventura, and had been taking risperidone 6 mg at bedtime. However, the patient said that he does not feel that this medication was helpful to him, and recently tried switching to olanzapine 20 mg at bedtime. It is not clear to what degree the patient may have been nonadherent with his medications, although he says that he "mostly" takes medicines as prescribed. He has been continued on olanzapine here, and sertraline has been restarted to target mood. Chief Complaint "Okay". Subjective Patient was seen & assessed interval progress reviewed with Treatment Team. Patient reports that he is feeling okay. He has continued to be isolating in his room and needing encouragement to mix and interact with other patients. He admits that he continues to feel uncomfortable around others. He does not feel that anyone specifically is going to harm him but admits to being fearful of others in general that they are going to harm him.Patient's mother has called in and expressed her concerns over patient continuing to appear paranoid and she is concerned about where he will live after discharge and structure of discharge plan. Review of Systems Psych: denies symptoms other than stated above Constitutional: denied Cardiovascular: denied GI: denied Neurologic: denied Remainder of 10 body systems also reviewed and denied other than noted above. Sleep Information Total Hours of Sleep: 5.50 Meal Information Percent of Breakfast Consumed: 100 Percent of Lunch Consumed: 0 Percent of Dinner Consumed: 100 Mental Status Exam During interview pt is: alert and oriented, cooperative Appearance: appropriately dressed, appropriately groomed, disheveled Eye contact is: good Motor behavior is: no abnormal motor movements Speech: other (Not spontaneous, monotoned) Affect: flat Mood is: other ("good") Thought process: goal directed, concrete Thought content: paranoid Suicidal thought are: denied Homicidal thoughts are: denied Hallucinations: denies auditory, denies visual Cognition: memory grossly intact, language grossly intact Intelligence estimated to be: average Insight: poor Judgement: poor Impression The patient is still struggling with insight into his condition or what he could or should do to improve his symptoms. His motivation is still low and today will again ask staff to lock his door to facilitate being out of bed and in groups. Although he is not at his baseline, his remaining negative symptoms of schizophrenia may need to be addressed in the outpatient setting. Continue current meds Plan (1) Major depression, recurrent This 30-year-old man reports that he has a two-year history of feeling paranoid , and notes that the paranoia has worsened in the past month or so. He also gives a long history of depression, dating back to his middle teenage years. He has a history of 2 previous psychiatric hospitalizations, both of which he said were for depression and, most recently, for depression and paranoia. He is followed on an outpatient basis by primary care physician, Dr. Weber, and had been taking risperidone 6 mg at bedtime. However, the patient said that he does not feel that this medication was helpful to him, and Dr. Weber recently ( last week) discontinued risperidone and began olanzapine 20 mg at bedtime. He also takes because of muscle rigidity. He has a history of an allergic reaction to Valium, and reports that it gives him "a rash." He denies that he is having any side effects that he is aware of from olanzapine, sertraline, and Cogentin. Complicating, or contributing to the patient's presenting symptoms as his social isolation. As noted above, he reports that he has "for a long time" stopped having social contacts, and he spends most of his time alone in his apartment. The patient reports that he passes his time by playing guitar, writing music, and playing video games, all in isolation. He does not have any outside interests, he says that he has no desire to form a romantic attachment, and his support network appears to consist of his mother and his outpatient therapist. It is not clear to what degree the patient may have been nonadherent with his medications, although he says that he "mostly" takes medicines as prescribed. However, the patient says that he does not feel that sertraline has been particularly helpful in addressing his depression, and today he tells me that he is feeling less paranoid without it. Accordingly, rather than resume antidepressant medications I'm going to recommend that we continue olanzapine 5 mg every morning and 10 mg at bedtime. When necessary hydroxyzine can be used as a sleep aid. An important goal for this patient is to increase socialization and improve his leisure skills. 09/30 -The patient changes his story today about Zoloft thinking that it was helpful and is requesting to go back on. - Will restart Zoloft 150 mg daily 10/01 - Continue current meds - Arrange for family meeting with mother - Refer for psych rehab - Encourage patient to be out of bed to combat anhedonia 10/02 - Patient remains poorly engaged in treatment, but is willing to sign in voluntarily as he is not yet stable and does not feel safe for discharge. - Increase olanzapine to 5 mg every morning and 15 mg daily at bedtime, and continue sertraline 150 mg daily. Consider increasing sertraline to target mood and anxiety. - Family meeting with mother scheduled for tomorrow. - Staff to follow-up on records from the [facility] psych clinic to confirm diagnosis and reviewed recent treatment. - Fasting labs checked for monitoring on an atypical antipsychotic; results were all within normal limits. 10/03 - Family meeting held with mother, who endorses significant concerns about his poor oral intake, lack of attention to ADLs, and overall poor functioning. - Coordinate with his limited pillowcase cutter regarding CRR referral and other ways to increase structure at home (? Psych rehabilitation). - Increase sertraline to 200 mg daily to target mood and anxiety. Continue olanzapine. 10/05 - Continue current plan and meds - Continue to encourage patient to be out of bed during the day 10/06 - 10/08 - Continue current meds - Explore outpatient programming to increase structure - he continues to refuse this. - Continue to encourage good sleep/wake behaviors, including locking door during groups to facilitate attendance. - Is refusing to stay with mother post discharge, so will be returning to his apartment where he lives alone. 10/09 - Continue current plan - Lock bedroom door to facilitate out of bed and in groups (2) Paranoid schizophrenia The patient says that he does not feel that sertraline has been particularly helpful in addressing his depression, and today he tells me that he is feeling less paranoid without it. Accordingly, rather than resume antidepressant medications I'm going to recommend that we continue olanzapine 5 mg every morning and 10 mg at bedtime. When necessary hydroxyzine can be used as a sleep aid. An important goal for this patient is to increase socialization and improve his leisure skills. 09/30 -Continue current dose of Zyprexa -Reality orientation -Every 15 minute checks for safety -Will need family meeting with mother 10/01 - Question primary thought disorder. Will get records from outpatient provider to clarify. 10/02 - Olanzapine increased to 5 mg every morning and 15 mg daily at bedtime to target ongoing psychosis. - Records from Dr. Ventura at Psych Clinic received and reviewed. Dx P. Schiz - Sleep/wake cycles reversed, and have asked him to work with the staff on this, although he seems reluctant - Family meeting with mother today - May need to consider locking door during groups to facilitate participation and getting out of bed during the day 10/05 - Olanzapine dose consolidated to 20 mg daily at bedtime to try to limit daytime sedation and improve compliance. 10/09 - Continue current plan - Recommend OP programming to increase structure 10/10 -Continue current medications -consider partial program following discharge such as Home Nursing Program in [place] or one closer to his home if available. Consider psych rehab program as another option to provide additional support. Discharge / Aftercare Planning Primary Care Physician: Name: Dr Tad Roldan Appointment Notes: needs apt w him at [place] Psychiatrist: Name: Dr Ventura-[facility] Date of Appointment: Oct 17, 2016 Time of Appointment: 4:00pm Therapist: Name: Alison Triplett [facility] Date of Appointment: Oct 17, 2016 Time of Appointment: 5:00pm Cutting Room Supervisor: Name: Service Access Management - [place] Phone Number: [phone] Visit Code E&M Code: 88150 Inventory Assets Strengths: Intelligence, verbal, enjoys music, writes music, willing to seek help. Needs: Depression, paranoid thoughts, difficulty trusting, social isolation, limited support network in the community. Risk Factors Assessment Male: Yes : Yes /single/: Yes Higher / Fall in social status: No Health problems: Yes Mental Health Diagnoses: Yes Substance use disorders: Yes Previous attempt: No Previous attempt;highly lethal: No Previous attempt; planned: No Previous attempt; didn't tell: No Family history of suicide: No Previous psychiatric stay: No Hopelessness: No Smoker: Yes Protective Factors Assessment Jewish beliefs: No : No Responsible for young children: No Employed: Yes Stable relationships: Yes Supportive family: Yes Absence of risk factors above: No Data Vital Signs Last 24 Hrs: Date Time Temp Pulse Resp B/P (MAP) Pulse Ox O2 Delivery O2 Flow Rate FiO2 10/10/16 06:51 36.8 69 16 103/66 94 107/69 Problem Qualifiers (1) Major depression, recurrent: Active/Remission status: currently active Psychotic features: with psychotic features
[2016-10-10] MEDS: OLANZAPINE 10 MG TAB PO SCH (21:02)
[2016-10-10] MEDS: PANTOprazole SOD 40 MG TAB PO SCH (21:02)
[2016-10-11 06:53] VITALS: BP_SYST 109; BP_SYST 137; BP_DIAS 68; BP_DIAS 83; PULSE 71; PULSE 86; TEMP 36.6
[2016-10-11] MEDS: NICOTINE 21 MG/24 HR TDSY EXT SCH (08:45)
[2016-10-11] MEDS: SERTRALINE HCL 100 MG TAB PO SCH (08:45)
[2016-10-11] MEDS: BOOST PLUS VANILLA PO SCH ×2 (08:51)
--- NOTE | 2016-10-11 10:37 | Psychiatric Progress Notes ---
Progress Note Date of Service Oct 11, 2016. Interval History This 30-year-old man reports that he has a two-year history of feeling paranoid , and notes that the paranoia has worsened in the past month or so. He also gives a long history of depression, dating back to his middle teenage years. He has a history of 2 previous psychiatric hospitalizations, both of which he said were for depression and, most recently, for depression and paranoia. He is followed on an outpatient basis by Dr. Ventura, and had been taking risperidone 6 mg at bedtime. However, the patient said that he does not feel that this medication was helpful to him, and recently tried switching to olanzapine 20 mg at bedtime. It is not clear to what degree the patient may have been nonadherent with his medications, although he says that he "mostly" takes medicines as prescribed. He has been continued on olanzapine here, and sertraline has been restarted to target mood. Chief Complaint "Okay". Subjective Patient was seen & assessed interval progress reviewed with Treatment Team. Staff report he continues to isolate in his room much of the day, continues to have poor oral intake, refusing at least one meal a day, and often declines groups. He declined to watch holiday fireworks with his peers last evening. He did come out in the dayroom to eat dinner and visit with his mother. His mother called staff yesterday and reported that she was concerned about the patient, as he is still paranoid, anxious, and depressed, and said he was afraid to go back to his apartment. She encouraged him to stay with her temporarily. She said he continues to talk about going to [place], and she is worried about his safety, because he's had 2 hospitalizations in a month and has not improved much. She requested that staff talk to his case coordinator, and would like him to have additional outpatient resources. His case coordinator was contacted today, and states that she is repeatedly encouraged him to except in increased level of services, including psych rehabilitation in the [facility], but he is always refuse these things. On assessment today, the patient is seen in his room where he is lying in bed with his eyes closed, but is awake in response to questioning. He states that his mood is "a little bit better" than on admission , but says he continues to feel "paranoid that someone will hurt me." He is afraid to go home, stating that "I don't know how I'll feel when I get there." He denies current hallucinations, suicidal thoughts, and homicidal thoughts. He feels that he is doing a better job of being out of his room more and going to groups, and is willing to get up and go to a group this morning. He remains very vague and ambivalent when trying to discuss the details of his discharge plan, stating stating "I don't know how I'll feel when I get back home." He continues to refuse to stay with his mother temporarily after discharge, stating "I'd rather stay at my own apartment." He continues to refuse recommendations to increase his level of outpatient services, stating "I'm kind of happy with what I have." We again reviewed all of the recommendations in detail, specifically focusing on things that might help him to improve further while here and to have a better chance of remaining stable and having a successful discharge, all of which he is refusing. Sleep Information Total Hours of Sleep: 6.00 Meal Information Percent of Breakfast Consumed: 100 Percent of Lunch Consumed: 100 Percent of Dinner Consumed: 80 Mental Status Exam During interview pt is: alert and oriented, cooperative Appearance: appropriately dressed, appropriately groomed, disheveled Eye contact is: good Motor behavior is: no abnormal motor movements Speech: other (Not spontaneous, monotoned) Affect: flat Mood is: other ("good") Thought process: goal directed, concrete Thought content: paranoid Suicidal thought are: denied Homicidal thoughts are: denied Hallucinations: denies auditory, denies visual Cognition: memory grossly intact, language grossly intact Intelligence estimated to be: average Insight: poor Judgement: poor Impression The patient is still struggling with insight into his condition or what he could or should do to improve his symptoms. His motivation is still low and today will again ask staff to lock his door to facilitate being out of bed and in groups. Although he is not at his baseline, his remaining negative symptoms of schizophrenia may need to be addressed in the outpatient setting. Continue current meds Plan (1) Major depression, recurrent This 30-year-old man reports that he has a two-year history of feeling paranoid , and notes that the paranoia has worsened in the past month or so. He also gives a long history of depression, dating back to his middle teenage years. He has a history of 2 previous psychiatric hospitalizations, both of which he said were for depression and, most recently, for depression and paranoia. He is followed on an outpatient basis by primary care physician, Dr. Weber, and had been taking risperidone 6 mg at bedtime. However, the patient said that he does not feel that this medication was helpful to him, and Dr. Weber recently ( last week) discontinued risperidone and began olanzapine 20 mg at bedtime. He also takes because of muscle rigidity. He has a history of an allergic reaction to Valium, and reports that it gives him "a rash." He denies that he is having any side effects that he is aware of from olanzapine, sertraline, and Cogentin. Complicating, or contributing to the patient's presenting symptoms as his social isolation. As noted above, he reports that he has "for a long time" stopped having social contacts, and he spends most of his time alone in his apartment. The patient reports that he passes his time by playing guitar, writing music, and playing video games, all in isolation. He does not have any outside interests, he says that he has no desire to form a romantic attachment, and his support network appears to consist of his mother and his outpatient therapist. It is not clear to what degree the patient may have been nonadherent with his medications, although he says that he "mostly" takes medicines as prescribed. However, the patient says that he does not feel that sertraline has been particularly helpful in addressing his depression, and today he tells me that he is feeling less paranoid without it. Accordingly, rather than resume antidepressant medications I'm going to recommend that we continue olanzapine 5 mg every morning and 10 mg at bedtime. When necessary hydroxyzine can be used as a sleep aid. An important goal for this patient is to increase socialization and improve his leisure skills. 09/30 -The patient changes his story today about Zoloft thinking that it was helpful and is requesting to go back on. - Will restart Zoloft 150 mg daily 10/01 - Continue current meds - Arrange for family meeting with mother - Refer for psych rehab - Encourage patient to be out of bed to combat anhedonia 10/02 - Patient remains poorly engaged in treatment, but is willing to sign in voluntarily as he is not yet stable and does not feel safe for discharge. - Increase olanzapine to 5 mg every morning and 15 mg daily at bedtime, and continue sertraline 150 mg daily. Consider increasing sertraline to target mood and anxiety. - Family meeting with mother scheduled for tomorrow. - Staff to follow-up on records from the [facility] psych clinic to confirm diagnosis and reviewed recent treatment. - Fasting labs checked for monitoring on an atypical antipsychotic; results were all within normal limits. 10/03 - Family meeting held with mother, who endorses significant concerns about his poor oral intake, lack of attention to ADLs, and overall poor functioning. - Coordinate with his limited case coordinator regarding CRR referral and other ways to increase structure at home (? Psych rehabilitation). - Increase sertraline to 200 mg daily to target mood and anxiety. Continue olanzapine. 10/05 - Continue current plan and meds - Continue to encourage patient to be out of bed during the day 10/06 - 10/08 - Continue current meds - Explore outpatient programming to increase structure - he continues to refuse this. - Continue to encourage good sleep/wake behaviors, including locking door during groups to facilitate attendance. - Is refusing to stay with mother post discharge, so will be returning to his apartment where he lives alone. 10/09 - 10/10 - Continue current plan - Lock bedroom door to facilitate out of bed and in groups 10/11 - Patient remains unwilling to accept recommendations to increase his outpatient services, and is only willing to continue with the case coordinator, therapist, and psychiatrist. He has been able to increase his participation in groups slightly while here, but still struggles to come out of his room and engage during the day. His case coordinator and mother will both be contacted today to review discharge planning with likely discharge tomorrow. His mother continues to express concerns that he is not at baseline, but his he is resisting the treatment recommendations that are available at this time, he is not likely to benefit immensely from ongoing inpatient treatment. (2) Paranoid schizophrenia The patient says that he does not feel that sertraline has been particularly helpful in addressing his depression, and today he tells me that he is feeling less paranoid without it. Accordingly, rather than resume antidepressant medications I'm going to recommend that we continue olanzapine 5 mg every morning and 10 mg at bedtime. When necessary hydroxyzine can be used as a sleep aid. An important goal for this patient is to increase socialization and improve his leisure skills. 09/30 -Continue current dose of Zyprexa -Reality orientation -Every 15 minute checks for safety -Will need family meeting with mother 10/01 - Question primary thought disorder. Will get records from outpatient provider to clarify. 10/02 - Olanzapine increased to 5 mg every morning and 15 mg daily at bedtime to target ongoing psychosis. - Records from Dr. Ventura at Psych Clinic received and reviewed. Dx P. Schiz - Sleep/wake cycles reversed, and have asked him to work with the staff on this, although he seems reluctant - Family meeting with mother today - May need to consider locking door during groups to facilitate participation and getting out of bed during the day 10/05 - Olanzapine dose consolidated to 20 mg daily at bedtime to try to limit daytime sedation and improve compliance. 10/09 - Continue current plan - Recommend OP programming to increase structure 10/10 - Continue current medications - Consider partial program following discharge such as Home Nursing Program in [place] or one closer to his home if available. Consider psych rehab program as another option to provide additional support. 10/11 - Patient refusing all recommendations to increase his level of services at discharge. Discharge / Aftercare Planning Primary Care Physician: Name: Dr Tad Roldan Appointment Notes: needs apt w him at [place] Psychiatrist: Name: Dr Ventura-[facility] Date of Appointment: Oct 17, 2016 Time of Appointment: 4:00pm Therapist: Name: Florencio Triplett [facility] Date of Appointment: Oct 17, 2016 Time of Appointment: 5:00pm Passenger Conductor: Name: Service Access Management - Sampson Phone Number: [phone] Date of Appointment: Oct 12, 2016 Time of Appointment: 10:30 Visit Code E&M Code: 66607 Inventory Assets Strengths: Intelligence, verbal, enjoys music, writes music, willing to seek help. Needs: Depression, paranoid thoughts, difficulty trusting, social isolation, limited support network in the community. Risk Factors Assessment Male: Yes : Yes /single/: Yes Higher / Fall in social status: No Health problems: Yes Mental Health Diagnoses: Yes Substance use disorders: Yes Previous attempt: No Previous attempt;highly lethal: No Previous attempt; planned: No Previous attempt; didn't tell: No Family history of suicide: No Previous psychiatric stay: No Hopelessness: No Smoker: Yes Protective Factors Assessment Samaritan beliefs: No : No Responsible for young children: No Employed: Yes Stable relationships: Yes Supportive family: Yes Absence of risk factors above: No Data Vital Signs Last 24 Hrs: Date Time Temp Pulse Resp B/P (MAP) Pulse Ox O2 Delivery O2 Flow Rate FiO2 10/11/16 06:53 36.6 71 16 109/68 86 137/83 Problem Qualifiers (1) Major depression, recurrent: Active/Remission status: currently active Psychotic features: with psychotic features
[2016-10-11] MEDS: PANTOprazole SOD 40 MG TAB PO SCH (21:28)
[2016-10-11] MEDS: OLANZAPINE 10 MG TAB PO SCH (21:28)
[2016-10-12 06:46] VITALS: BP 109/71; PULSE 71; TEMP 36.3
[2016-10-12] MEDS: SERTRALINE HCL 100 MG TAB PO SCH (08:38)
[2016-10-12] MEDS: BOOST PLUS VANILLA PO SCH ×2 (08:38)
[2016-10-12] MEDS: NICOTINE 21 MG/24 HR TDSY EXT SCH (08:39)
[2016-10-12] MEDS ORDERED: SERT-234 PO (09:13)
[2016-10-12] MEDS ORDERED: CGN1 PO (09:13)
--- NOTE | 2016-10-12 09:22 | Discharge Instructions ---
Discharge Information Report Includes Report will include the: Discharge Instructions & Summary Admission Admission Date / Time: Sep 28, 2016 at 19:07 Reason for Admission: Unspecified Psychosis Discharge Discharge Diagnosis / Problem: Paranoid schizophrenia Condition at Discharge: Fair Discharge Goals Goal(s): Decrease discomfort, Increase independence, Improve disease control, Prevent Disease Progression Activity Recommendations Activity Limitations: as noted below (Work to adjust your sleep wake cycle, being awake in the day, and asleep at night) . Instructions / Follow-Up Instructions / Follow-Up . SPECIAL CARE INSTRUCTIONS: 1. Follow through with your scheduled aftercare appointments. If unable to keep an appointment, please call to reschedule. 2. Take your medication only as prescribed. Medication should not be changed or stopped without the approval of your doctor. In the event of worsening symptoms or concerns about side effects, contact your doctor immediately. 3. Utilize new healthy coping skills, anger management skills, and stress management skills learned during your hospitalization. Journal feelings and process them with a support person. Identify stressors or situations that may result in relapse, deterioration or inappropriate behaviors and develop a plan to deal with those issues. 4. If your coping skills are ineffective and you are in crisis, contact your outpatient providers for direction. If unable to reach your providers, please call the CAN HELP LINE AT or go to the closest Emergency Room. 5. Avoid alcohol and un-prescribed drugs. 6. You have been provided with the Mental Health Advance Directives Pamphlet for your review. AFTERCARE APPOINTMENTS: * Please call your insurance company prior to your scheduled appointment to confirm your aftercare providers are covered. Take your insurance information to your appointments. . Discharge / Aftercare Planning Primary Care Physician: Name: Dr Tad Roldan- [facility] Date of Appointment: Nov 02, 2016 Time of Appointment: 2:45 Appointment Notes: . Psychiatrist: Name: Dr Ventura-[facility] Date of Appointment: Oct 17, 2016 Time of Appointment: 4:00pm Therapist: Name Of Therapist: Florencio Triplett [facility] Date of Appointment: Oct 17, 2016 Time of Appointment: 5:00pm Civil Engineering Designer: Name: Service Access Management - Sampson Hawthorne Phone Number: [phone] Date of Appointment: Oct 13, 2016 Time of Appointment: 130pm Appointment Notes: between 1:30 - 3:30- unsure exactly when . Follow-Up Care Plan for Follow-Up Care: He will return to see Dr. Ventura and his regular therapist next week Current Hospital Diet Patient's current hospital diet: Regular Diet Discharge Diet Recommended Diet: Regular Diet Procedures Procedures Performed: No Pending Studies Pending Studies at Discharge: No Medical Emergencies . Who to Call and When: Medical Emergencies: For questions or emergencies related to your hospital stay, please contact the Inpatient Behavioral Health Unit at [phone]. A medical information specialist is on-call 30/10 for the Behavioral Health Unit for emergencies At any time you feel your situation is an emergency, you may also call 911 immediately. . Non-Emergent Contact Non-Emergency issues call your: Psychiatrist, Therapist Advance Directives Existing Advance Directive: No Do You Have an Existing Mental: No Existing Living Will: No Existing Power of Crossing Watchman: No Advance Directives Info Given: To Pt/S.O. Advance Directives Reason: Declines as Mental Health Visit. Discharge Summary Admission HPI Per the Admitting provider: The patient is a 30-year-old man who was admitted earlier today from the emergency department after he presented there and complained of feeling "paranoid." According to the emergency room record, after presenting last evening, he refused to be seen and, instead, sat in the waiting room for most of the night before deciding to allow himself to be examined and treated. I interviewed the patient in his bedroom. He was recumbent in bed and inclined to leave his bed to be interviewed in my office. However, he was otherwise cooperative with the interview. He reports that he is being treated for "paranoia" and depression by a Dr. Weber, a primary care physician. He also sees a therapist whose name is "Aaron." The patient reports that he sees Dr. Weber every couple weeks or every month, and Aaron on a weekly basis. The patient indicates that he has been feeling depressed and paranoid for approximately 2 years, but that his paranoia has worsened in the past month or so. More specifically, he says that he feels as if people are possibly plotting against him, planning to hurt him, ridiculing him, and following him in order to harass him. He tells me these feelings, and go and that at present he feels safe in the hospital. Additional complaints include depressed mood, difficulty falling asleep and staying asleep, crying spells, decreased appetite , decreased interest, decreased ability to experience pleasure, and social withdrawal. The patient tells me that he had been taking risperidone as prescribed by Dr. Weber, but this medication was discontinued pursuant to his most recent visit with Dr. Weber and he was started on Zyprexa 20 mg daily about a week ago.. He says that he is not sure why risperidone was discontinued , but he does note that his feelings of paranoia had been worsening on risperidone. In addition to Zyprexa (olanzapine) he indicates that he has been taking sertraline 150 mg daily for depression, and benztropine, at an unknown dose, for "side effects." Information provided by the mother is that the patient may have been "skipping" doses of his medications, and the patient, himself, confirms that he sometimes "doesn't take his medication, but "mostly takes it." Mr. Corea tells me that he has "not been social" for "a good while ," and he spends most of his time alone in his apartment where he plays his guitar, writes songs, and plays video games. His primary sources of support appear to be his mother and his therapist, "Aaron." The patient was born with cerebral palsy and has some difficulty ambulating, a circumstance that he says makes him feel self-conscious. He tells me that he has never been employed, and he does not have any romantic attachments. Apart from the symptoms of cerebral palsy, the only physical symptom the patient reports is episodic frontal headaches, and he indicates that he has had these off and on" for a long time." Hospital Course (1) Major depression, recurrent This 30-year-old man reports that he has a two-year history of feeling paranoid , and notes that the paranoia has worsened in the past month or so. He also gives a long history of depression, dating back to his middle teenage years. He has a history of 2 previous psychiatric hospitalizations, both of which he said were for depression and, most recently, for depression and paranoia. He is followed on an outpatient basis by primary care physician, Dr. Weber, and had been taking risperidone 6 mg at bedtime. However, the patient said that he does not feel that this medication was helpful to him, and Dr. Weber recently ( last week) discontinued risperidone and began olanzapine 20 mg at bedtime. He also takes because of muscle rigidity. He has a history of an allergic reaction to Valium, and reports that it gives him "a rash." He denies that he is having any side effects that he is aware of from olanzapine, sertraline, and Cogentin. Complicating, or contributing to the patient's presenting symptoms as his social isolation. As noted above, he reports that he has "for a long time" stopped having social contacts, and he spends most of his time alone in his apartment. The patient reports that he passes his time by playing guitar, writing music, and playing video games, all in isolation. He does not have any outside interests, he says that he has no desire to form a romantic attachment, and his support network appears to consist of his mother and his outpatient therapist. It is not clear to what degree the patient may have been nonadherent with his medications, although he says that he "mostly" takes medicines as prescribed. However, the patient says that he does not feel that sertraline has been particularly helpful in addressing his depression, and today he tells me that he is feeling less paranoid without it. Accordingly, rather than resume antidepressant medications I'm going to recommend that we continue olanzapine 5 mg every morning and 10 mg at bedtime. When necessary hydroxyzine can be used as a sleep aid. An important goal for this patient is to increase socialization and improve his leisure skills. 09/30 -The patient changes his story today about Zoloft thinking that it was helpful and is requesting to go back on. - Will restart Zoloft 150 mg daily 10/01 - Continue current meds - Arrange for family meeting with mother - Refer for psych rehab - Encourage patient to be out of bed to combat anhedonia 10/02 - Patient remains poorly engaged in treatment, but is willing to sign in voluntarily as he is not yet stable and does not feel safe for discharge. - Increase olanzapine to 5 mg every morning and 15 mg daily at bedtime, and continue sertraline 150 mg daily. Consider increasing sertraline to target mood and anxiety. - Family meeting with mother scheduled for tomorrow. - Staff to follow-up on records from the [facility] psych clinic to confirm diagnosis and reviewed recent treatment. - Fasting labs checked for monitoring on an atypical antipsychotic; results were all within normal limits. 10/03 - Family meeting held with mother, who endorses significant concerns about his poor oral intake, lack of attention to ADLs, and overall poor functioning. - Coordinate with his limited outpatient case manager regarding CRR referral and other ways to increase structure at home (? Psych rehabilitation). - Increase sertraline to 200 mg daily to target mood and anxiety. Continue olanzapine. 10/05 - Continue current plan and meds - Continue to encourage patient to be out of bed during the day 10/06 - 10/08 - Continue current meds - Explore outpatient programming to increase structure - he continues to refuse this. - Continue to encourage good sleep/wake behaviors, including locking door during groups to facilitate attendance. - Is refusing to stay with mother post discharge, so will be returning to his apartment where he lives alone. 10/09 - 10/10 - Continue current plan - Lock bedroom door to facilitate out of bed and in groups 10/11 - Patient remains unwilling to accept recommendations to increase his outpatient services, and is only willing to continue with the outpatient case manager, therapist, and psychiatrist. He has been able to increase his participation in groups slightly while here, but still struggles to come out of his room and engage during the day. His outpatient case manager and mother will both be contacted today to review discharge planning with likely discharge tomorrow. His mother continues to express concerns that he is not at baseline, but his he is resisting the treatment recommendations that are available at this time, he is not likely to benefit immensely from ongoing inpatient treatment. (2) Paranoid schizophrenia The patient says that he does not feel that sertraline has been particularly helpful in addressing his depression, and today he tells me that he is feeling less paranoid without it. Accordingly, rather than resume antidepressant medications I'm going to recommend that we continue olanzapine 5 mg every morning and 10 mg at bedtime. When necessary hydroxyzine can be used as a sleep aid. An important goal for this patient is to increase socialization and improve his leisure skills. 09/30 -Continue current dose of Zyprexa -Reality orientation -Every 15 minute checks for safety -Will need family meeting with mother 10/01 - Question primary thought disorder. Will get records from outpatient provider to clarify. 10/02 - Olanzapine increased to 5 mg every morning and 15 mg daily at bedtime to target ongoing psychosis. - Records from Dr. Ventura at [facility] received and reviewed. Dx P. Schiz - Sleep/wake cycles reversed, and have asked him to work with the staff on this, although he seems reluctant - Family meeting with mother today - May need to consider locking door during groups to facilitate participation and getting out of bed during the day 10/05 - Olanzapine dose consolidated to 20 mg daily at bedtime to try to limit daytime sedation and improve compliance. 10/09 - Continue current plan - Recommend OP programming to increase structure 10/10 - Continue current medications - Consider partial program following discharge such as Home Nursing Program in [place] or one closer to his home if available. Consider psych rehab program as another option to provide additional support. 10/11 - Patient refusing all recommendations to increase his level of services at discharge. Risk Factors Assessment Male: Yes : Yes /single/: Yes Higher / Fall in social status: No Health problems: Yes Mental Health Diagnoses: Yes Substance use disorders: Yes Previous attempt: No Previous attempt;highly lethal: No Previous attempt; planned: No Previous attempt; didn't tell: No Family history of suicide: No Previous psychiatric stay: No Hopelessness: No Smoker: Yes Protective Factors Assessment Restorationist beliefs: No : No Responsible for young children: No Employed: Yes Stable relationships: Yes Supportive family: Yes Absence of risk factors above: No Day of Discharge Assessment COURSE OF HOSPITALIZATION: The patient was on her unit for 14 days. Prior to admission he had been increasingly paranoid, depressed and with suicidal ideation. They had adjusted medicines including going from Zyprexa to Risperdal which proved ineffective and so was switched back to Zyprexa just prior to admission. We continued Zyprexa 20 mg at bedtime and renewed Zoloft 150 mg daily further increasing it to 200 mg to target his mood. The patient was consistently poorly motivated to try to work on his sleep-wake cycles, spending all day in bed, being up in the evening and at night. He resisted getting out of bed even with staff and provider encouragement. We did have to employ locking his bedroom door during groups in order to facilitate attendance. He reported that both his mood and his paranoia were improved over the course of hospitalization although continued to worry about his depression returning after discharge. We have encouraged both he and his mother to consider having him live with her for a week or so after discharge, but both refuse to do this. We also recommended an increase in structured activity including partial hospitalization or psych rehabilitation which the patient refused. His paranoia remains chronic, fearing that there is somebody out there that will hurt him, specifically feeling like there is a hit man that he met several years ago who is after him. This delusion did not change in nature but did become less frequent during his hospitalization. His mother was involved in treatment, attended a family meeting, and was concerned that he was not yet back to baseline. He had continued to talk about wanting to go to [place] and be hospitalized at the [facility] where he was several years ago but could not further explain why. His discharge was postponed several times due to mother's concerns that he was not at baseline but his symptoms did not seem to be amenable to short-term inpatient treatment and will continue to require attention on an outpatient basis. Unfortunately his treatment will be limited by his lack of willingness to get out of bed and attend additional programming. During the last half of his hospitalization he denied any further suicidal ideations. He denied auditory and visual hallucinations throughout his stay. DAY OF DISCHARGE ASSESSMENT: Today the patient is preparing for discharge. He says that he feels he is ready to go home. He denies any suicidal thinking, auditory, visual hallucinations and says the paranoia is improved. He has no concerns about discharge today and mother will pick him up late this morning. We review his medications and aftercare appointments. He indicates that he has bottles of all of his medicines at home and was reminded of the new dosage of Zoloft. Today he is casually dressed although remained somewhat disheveled. Gait and station are within normal limits given his CP. Eye contact is good. Affect remains flat. Speech is of normal rate volume and tone. Thoughts are organized, goal directed in response to questions. Recent and remote memory are intact per conversation. Intelligence is estimated to be average. Insight and judgment are improved over admission. Laboratory Test 09/28/16 15:14 09/28/16 16:57 10/02/16 07:57 Urine Color YELLOW Urine Appearance CLEAR Urine pH 6.0 Urine Specific [place] 1.020 Urine Protein NEG Urine Glucose (UA) NEG Urine Ketones TRACE Urine Occult Blood NEG Urine Nitrite NEG Urine Bilirubin NEG Urine Urobilinogen NEG Urine Leukocyte Esterase NEG Urine Opiates Screen NEG Urine Methadone, Qualitative NEG Urine Barbiturates NEG Urine Phencyclidine (PCP) Level NEG Ur Amphetamine/Methamphetamine NEG MDMA (Ecstasy) Screen NEG Urine Benzodiazepines Screen NEG Urine Cocaine Metabolite NEG Urine Marijuana (THC) NEG White Blood Count 7.60 Red Blood Count 4.99 Hemoglobin 15.2 Hematocrit 45.4 Mean Corpuscular Volume 91.0 Mean Corpuscular Hemoglobin 30.5 Mean Corpuscular Hemoglobin Concent 33.5 Platelet Count 241 Mean Platelet Volume 10.5 Neutrophils (%) (Auto) 63.7 Lymphocytes (%) (Auto) 26.2 Monocytes (%) (Auto) 8.2 Eosinophils (%) (Auto) 1.7 Basophils (%) (Auto) 0.1 Neutrophils # (Auto) 4.84 Lymphocytes # (Auto) 1.99 Monocytes # (Auto) 0.62 Eosinophils # (Auto) 0.13 Basophils # (Auto) 0.01 RDW Standard Deviation 41.3 RDW Coefficient of Variation 12.4 Immature Granulocyte % (Auto) 0.1 Immature Granulocyte # (Auto) 0.01 Sodium Level 139 Potassium Level 3.7 Chloride Level 104 Carbon Dioxide Level 25 Anion Gap 10.0 Blood Urea Nitrogen 10 Creatinine 0.67 Est Creatinine Clear Calc Drug Dose 173.2 Estimated GFR () > 150.0 Estimated GFR (Non- 129.8 BUN/Creatinine Ratio 14.6 Random Glucose 94 Calcium Level 9.3 Total Bilirubin 0.6 Direct Bilirubin 0.2 Aspartate Amino Transferase (AST) 11 Alanine Aminotransferase (ALT) 16 Alkaline Phosphatase 80 Total Protein 7.6 Albumin 4.4 Thyroid Stimulating Hormone (TSH) 1.670 Salicylates Level 2.6 Acetaminophen Level < 2 Ethyl Alcohol mg/dL < 3.0 Fasting Glucose 78 Triglycerides Level 110 Cholesterol Level 139 HDL Cholesterol 40 LDL Cholesterol, Calculated 77 VLDL Cholesterol, Calculated 22 Cholesterol/HDL Ratio 3.5 Total Time Total Time Spent (min): Greater than 30 minutes Total Time Included: examination of the patient, discharge planning, medication reconciliation, communication with other providers Tobacco Cessation at Discharge Smoking Status: Current Every Day Smoker FDA approved Prescription: declined med & out pt counseling Problem Qualifiers (1) Major depression, recurrent: Active/Remission status: currently active Psychotic features: with psychotic features
== END 2016-10-12 14:10 | disposition home or self-care (01) | DRG 885 ==
LOC: C.EDB 13:39 → C.MHU 19:07
PROVIDERS: ADMIT Psychiatry & Neurology Psychiatry; ATTEND Psychiatry & Neurology Psychiatry
DX: F20.0 Paranoid schizophrenia (principal); F33.3 Major depressive disorder, recurrent, severe with psychotic symptoms; F50.9 Eating disorder, unspecified; Z83.3 Family history of diabetes mellitus; F17.200 Nicotine dependence, unspecified, uncomplicated

== ENCOUNTER 2025-01-15 19:07 | Inpatient (IN) ==
[2025-01-15 19:48] LABS: Hematocrit (blood only) 48.0 % (42.0-52.0); Hemoglobin 16.2 g/dl (14.0-18.0); Immature Granulocytes # (auto) 0.04 K/uL (0.01-0.20); Immature Granulocytes % (auto) 0.3 %; Mean Corpuscular Hemoglobin 29.8 pg (25.0-34.0); Mean Corpuscular Volume 88.4 fL (80.0-100.0); Platelet Count 352 K/uL (130-400); RDW Standard Deviation 38.2 fL (36.4-46.3); Red Blood Count 5.43 M/uL (4.70-6.10); White Blood Count 12.96 K/ul (4.8-10.8)
[2025-01-15 20:01] LABS: Appearance Urine Clear (Clear); Bacteria Urine Automated None Seen (None Seen); Epithelial Cell Urine Auto 0-2 /hpf (0-2); Glucose Urine UA Negative (Negative); RBC Urine Automated 0-2 /hpf (0-2); WBC Urine Automated 0-5 /hpf (0-5)
[2025-01-15 20:07] LABS: Alanine Aminotransferase 10.0 U/L (7-52); Albumin Globulin Ratio 1.3 (0.9-2); Albumin Level 4.7 gm/dl (3.4-5.0); Alkaline Phosphatase 88.0 U/L (34-104); Anion Gap 14.0 (3-11); Bilirubin,Total 0.6 mg/dl (0.2-1.0); Blood Urea Nitrogen 16.0 mg/dl (6-23); Calcium 9.4 mg/dl (8.6-10.3); Carbon Dioxide 21.0 mmol/L (21-32); Chloride 105.0 mmol/L (98-107); Creatinine Clr Calc Pharmacy 112.9 ml/min; Globulin 3.6 gm/dl (2.5-4.0); Glucose 103.0 mg/dl (70-99(Fasting)); Potassium 3.9 mmol/L (3.5-5.1); Sodium 140.0 mmol/L (136-145); Total Protein 8.3 gm/dl (6.0-8.3)
[2025-01-15 20:14] LABS: Amphetamines+Metham, Urine Neg (Neg); MDMA (Ecstacy), Urine Pos (Neg); Marijuana, Urine Neg (Neg)
[2025-01-15 20:21] LABS: Acetaminophen < 3 ug/ml (10-30); Salicylate < 3.0 mg/dl (3.0-30)
[2025-01-15 20:23] LABS: Thyroid Stimulating Hormone 10.774 uIu/ml (0.300-4.500)
[2025-01-15 20:57] LABS: T4 Free Thyroxine 0.91 ng/dl (0.61-1.60)
--- NOTE | 2025-01-15 22:13 | Emergency Department Note ---
Impression & Plan Anxiety, Paranoia, Major depression, recurrent, Paranoid schizophrenia ED Provider Note NAME: KENDAL MATTSON AGE: 39 SEX: M : 1985 ARRIVES VIA: Walk-In INFORMANT: Patient, ED PROVIDER(S): Devon Chacon DO CHIEF COMPLAINT: mental health evaluation HPI: This is a 39-year-old male with the PMHx of paranoid schizophrenia, depression, anxiety and CP presenting to [facility] for further evaluation of psychiatric illness. The patient is reporting increased depression and anxiety. He also reports significant paranoia. Patient does not endorse suicidal or homicidal ideations but he does have passive SI. He reports that he wishes he would not wake up in the morning. He denies any auditory or visual hallucinations. He reports that he has been compliant with his medications. He intermittently partakes and alcohol use but does not report that this is an issue. No further polysubstance use disorder. Patient does not smoke tobacco. Patient states that he feels inpatient management will be beneficial for him. He states it has helped in the past. They deny fever or chills. No cough or congestion. Denies chest pain or palpitations. No shortness of breath. They deny abdominal pain, nausea and vomiting. No urinary complaints. No recent changes in bowel movements. Patient denies recent changes in medications or OTC supplements. Patient offers no other complaints, today. ADDITIONAL HISTORY OBTAINED: Per HPI Chronic Medical/Social Conditions Affecting Care: Per HPI PAST MEDICAL HISTORY: See Below PAST SURGICAL HISTORY: See Below FAMILY HISTORY: See Below SOCIAL HISTORY: See Below HOME MEDICATIONS: See Below ALLERGIES: See Below VITALS: See Below PHYSICAL EXAMINATION: GENERAL: Alert, well developed, well nourished, no acute distress HEAD: Normocephalic, atraumatic EYES: EOM's intact, sclera anicteric, conjunctiva clear OROPHARYNX: Airway patent and mucous membranes moist LUNGS: No respiratory distress, normal respiratory rate and effort HEART: Well perfused, regular rate ABDOMEN: Abdomen non-distended SKIN: Normal color, dry EXTREMITIES: No gross deformities, no edema NEURO: Alert, oriented x3, appropriate for age, moves all four extremities, normal speech PSYCH: depressed mood MEDICAL DECISION MAKING: Differential diagnoses includes but not limited to suicidal ideation, homicidal ideation, hallucinations, depression, anxiety, personality disorder In summary, this is a 39-year-old who presented with Psychiatric illness. Differential as above. Nursing notes and pertinent past medical records reviewed. Vital signs reviewed and the patient is afebrile and HDS. History, physical obtained and significant for prior psychiatric admission given depression and anxiety as well as polysubstance use disorder. Patient relatively sober since that time and doing well. Worsening depression over the last few days to weeks. Patient has anhedonia and issues with sleep. He also has issues with sleep appetite. Patient will benefit from inpatient management. While he does not have active suicidal ideation, he does have significant passive suicidal ideation and wishes that he would not wake up in the morning. Psychiatric labs including CBC, CMP, ethanol, COVID-19, U tox ordered to evaluate for their symptoms. TSH was mildly elevated but normal free T4. No UTI on urinalysis. No significant electrolyte derangements. Labs unremarkable to explain symptoms. 201 signed after discussion and informed consent with the patient. Patient is medically appropriate for psychiatric evaluation. Based on the above, including the patient's age, coexisting illnesses, labs, imaging, and exam findings the decision to treat as an inpatient. I discussed my findings with the patient and they understand and agree with the treatment plan. Vitals Q shift ordered. Med rec ordered. Care Management consulted. Diet ordered with suicide precautions and one-to-one precautions. Patient was accepted to [facility] 3S and subsequently admitted. Consults/Care Managements Discussions: Per [facility] ER treatment provided: See above Procedures: none Critical Care: None The chart was completed utilizing [employer] Speech voice recognition software. Grammatical errors, random word insertions, pronoun errors, and incomplete sentences are an occasional consequence of this system due to software limitations, ambient noise, and hardware issues. Any formal questions or concerns about the content, text, or information contained within the body of this dictation should be directly addressed to the physician for clarification. Past Med/Surg History Problem List (Updated 01/16/25 @ 01:01 by Devon Chacon DO) Paranoia (Chronic) Anxiety (Chronic) Eating disorder, unspecified (Chronic) Major depression, recurrent (Chronic) Paranoid schizophrenia (Acute) Social History Smoking Status: Former smoker Tobacco Type: Cigarettes Preferred Language: Macedonian Feels Safe at Home: Yes Gender Identity: Male Allergies Allergies Allergy/AdvReac Type Severity Reaction Status Date / Time diazepam Allergy Intermediate HIVES Verified 09/27/16 22:45 benzoin Allergy Mild Rash Verified 09/27/16 22:45 methyl salicylate Allergy Mild Rash Verified 09/27/16 22:45 Home Meds Home Medications Medication Instructions Recorded Confirmed Pantoprazole (Protonix) 40 mg PO DAILY #30 tabs 09/27/16 01/15/25 Olanzapine (Zyprexa) 20 mg PO HS ##0 09/28/16 01/15/25 Sertraline (Zoloft) 100 mg PO DAILY 01/15/25 01/15/25 bupropion HCl 300 mg 24 hr tablet, 300 mg PO 1XD 01/15/25 01/15/25 extended release (Wellbutrin XL) levothyroxine 125 mcg tablet 125 mcg PO 1XD 01/15/25 01/15/25 (Synthroid) Results & Data (ED) Vital Signs Vital Signs - 24 hr 01/15/25 19:09 01/15/25 21:00 01/16/25 00:53 Temperature 36.5 C 36 C L Temperature Source Temporal Artery Scan Oral Pulse Rate 128 H 111 H Pulse Rate [Right Finger] 116 H Pulse Rhythm Regular Pulse Strength Normal Respiratory Rate 18 18 19 Respiratory Effort / Characteristics Non-Labored Spontaneous Non-Labored Spontaneous Respiratory Depth Normal Normal Respiratory Pattern Regular Regular Blood Pressure 146/97 H 141/85 H Blood Pressure [Right Arm] 131/90 Blood Pressure Mean 113 Blood Pressure Mean [Right Arm] 103 Blood Pressure Position Sitting Blood Pressure Position [Right Arm] Sitting Pulse Oximetry 97 95 94 Oxygen Delivery Method Room Air Room Air Room Air Sepsis Recent Fever Within 48 Hours No Sepsis New/Unexplained Change in Mental Status N/A Sepsis Action Taken by Nursing No Action Required Laboratory Data 01/15/25 19:35 01/15/25 19:35 Lab Results 01/15/25 01/15/25 Range/Units 19:35 Unknown WBC 12.96 H (4.8-10.8) K/ul RBC 5.43 (4.70-6.10) M/uL Hgb 16.2 (14.0-18.0) g/dl Hct 48.0 (42.0-52.0) % MCV 88.4 (80.0-100.0) fL MCH 29.8 (25.0-34.0) pg MCHC 33.8 (32.0-36.0) g/dL RDW Std Deviation 38.2 (36.4-46.3) fL RDW Coeff of [place] 12.0 (11.5-14.5) % Plt Count 352 (130-400) K/uL MPV 10.7 (9.4-12.4) fL Immature Gran % (Auto) 0.3 % Neut % (Auto) 78.2 % Lymph % (Auto) 14.1 % [place] % (Auto) 6.6 % Eos % (Auto) 0.5 % Baso % (Auto) 0.3 % Neut # (Auto) 10.13 H (1.40-6.50) K/uL Lymph # (Auto) 1.83 (1.20-3.40) K/uL [place] # (Auto) 0.85 H (0.11-0.59) K/uL Eos # (Auto) 0.07 (0.00-0.50) K/uL Baso # (Auto) 0.04 (0.00-0.20) K/uL Immature Gran # (Auto) 0.04 (0.01-0.20) K/uL Sodium 140 (136-145) mmol/L Potassium 3.9 (3.5-5.1) mmol/L Chloride 105 (98-107) mmol/L Carbon Dioxide 21 (21-32) mmol/L Anion Gap 14 H (3-11) BUN 16 (6-23) mg/dl Creatinine 1.10 (0.6-1.4) mg/dl Est Cr Clr Drug Dosing 112.9 ml/min eGFR 88.12 BUN/Creatinine Ratio 14.5 (10-20) Glucose 103 H (70-99(Fasting)) mg/dl Calcium 9.4 (8.6-10.3) mg/dl Total Bilirubin 0.6 (0.2-1.0) mg/dl AST 13 (13-39) U/L ALT 10 (7-52) U/L Alkaline Phosphatase 88 (34-104) U/L Total Protein 8.3 (6.0-8.3) gm/dl Albumin 4.7 (3.4-5.0) gm/dl Globulin 3.6 (2.5-4.0) gm/dl Albumin/Globulin Ratio 1.3 (0.9-2) TSH 10.774 H (0.300-4.500) uIu/ml Free T4 0.91 (0.61-1.60) ng/dl Urine Color Dark Yellow Urine Appearance Clear (Clear) Urine pH 6.0 (4.5-7.5) Ur Specific [place] 1.034 H (1.000-1.030) Urine Protein Trace H (Negative) Urine Glucose (UA) Negative (Negative) Urine Ketones Trace H (Negative) Urine Blood Negative (Negative) Urine Nitrite Negative (Negative) Urine Bilirubin Negative (Negative) Urine Urobilinogen Positive H (Negative) Ur Leukocyte Esterase Negative (Negative) Urine WBC (Auto) 0-5 (0-5) /hpf Urine RBC (Auto) 0-2 (0-2) /hpf U Hyaline Cast (Auto) 3-5 H (0-2) /lpf U Epithel Cells (Auto) 0-2 (0-2) /hpf Urine Bacteria (Auto) None Seen (None Seen) Urine Mucus Present A (None Prsent) Urine Comment Salicylates < 3.0 L (3.0-30) mg/dl Urine Opiates Screen Neg (Neg) Ur Methadone, Qual Neg (Neg) Urine Fentanyl Screen Neg (Neg) Acetaminophen < 3 L (10-30) ug/ml Urine Barbiturates Neg (Neg) Ur Phencyclidine (PCP) Neg (Neg) U Amphetamin/Meth Scrn Neg (Neg) MDMA (Ecstasy) Screen Pos H (Neg) U Benzodiazepines Scrn Neg (Neg) Ur Cocaine Metabolite Neg (Neg) U Marijuana (THC) Screen Neg (Neg) Ethyl Alcohol mg/dL < 10.0 (<10.0) mg/dl SARS-CoV-2, RNA, NAAT NEGATIVE (NEGATIVE) Discharge Plan Visit Data Chief Complaint: Mental Health Evaluation Stated Complaint: MENTAL ANXIETY, DEPRESSION, PARANOIA ED Provider: Devon Chacon Discharge Problem: Anxiety, Paranoia, Major depression, recurrent, Paranoid schizophrenia Patient Disposition: Admitted As Inpatient Condition: Serious Discharge Instructions Interventions: ED Discharge Assessment Last Done: 01/16/25 00:53 Forms Stand Alone Forms: My [facility] Metrics, Suicide Prevention Resources Prescriptions Prescriptions: No Action Pantoprazole (Protonix) 40 MG tablet 40 mg PO DAILY Qty: 30 Olanzapine (Zyprexa) 20 MG tablet 20 mg PO HS Qty: 0 bupropion HCl [Wellbutrin XL] 300 mg tablet extended release 24 hr 300 mg PO 1XD levothyroxine [Synthroid] 125 mcg tablet 125 mcg PO 1XD MDD 125 Sertraline (Zoloft) 100 MG tablet 100 mg PO DAILY Rx Instructions: No rx sent. patient has 100 mg tabs at home, take two tabs daily Referrals Referrals: Erika Crenshaw PA-C [Primary Care Provider] -
[2025-01-16] MEDS ORDERED: ACETAMINOPHEN 325 MG TAB PO PRN (01:11)
[2025-01-16] MEDS ORDERED: ALUMINUM/MAGNESIUM SUSP 30 ML UDC PO PRN (01:11)
[2025-01-16] MEDS ORDERED: SODIUM CHLORIDE 0.65% NA SOLN 45 ML (OCEAN) PRN (01:11)
[2025-01-16] MEDS: LEVOTHYROXINE SODIUM 125 MCG TABLET PO SCH (09:57)
[2025-01-16] MEDS: SERTRALINE HCL 100 MG TABLET PO SCH (09:57)
[2025-01-16] MEDS: EZETIMIBE 10 MG TAB PO SCH (11:03)
[2025-01-16] MEDS: OLANZapine 20 MG TABLET PO SCH ×2 (11:03→20:40)
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
[2025-01-16] MEDS ORDERED: OLANZapine 20 MG TABLET PO SCH (22:00)
[2025-01-17 07:47] LABS: Cholesterol 156.0 mg/dl (0-200); HDL Cholesterol 43.0 mg/dl; Triglycerides 94.0 mg/dl (0-150)
[2025-01-17] MEDS: SERTRALINE HCL 50 MG TABLET PO SCH (09:02)
[2025-01-17] MEDS: LEVOTHYROXINE SODIUM 175 MCG TABLET PO SCH (09:02)
[2025-01-17 09:03] LABS: Hemoglobin A1C 5.4 % (4.5-5.6)
[2025-01-17 09:14] LABS: Vitamin D, 25 Hydrox < 7.0 ng/ml (30-100)
--- NOTE | 2025-01-17 09:31 | Psychiatric Progress Note ---
Date of Service January 17, 2025 Impression / Recommendations Impression KENDAL MATTSON is a 39-year-old man who currently lives alone, has a history of schizoaffective disorder, cerebral palsy, and was admitted on 01/16/25 00:36 on a 201 voluntary commitment for suicidal ideation and worsening depression. Presentation consistent with persistent depressive disorder that may or may not be part of a primary psychotic disorder. Currently patient does not appear psychotic and presents intact reality testing with no history of auditory visual hallucinations however has demonstrated extreme paranoia in the past. Has presented increased suicidal ideations which have become more frequent. Does not meet criteria for posttraumatic stress disorder. Family history of bipolar disorder. Medications reviewed and there is concern for auto metabolism of prescribed sertraline and will cross taper to fluoxetine; concern for hypothyroid state which may be contributory and will increase Synthroid dose; start clonidine for sleep and physical symptoms of anxiety and hypervigilance. Medication side effects and adverse effects discussed with patient. Given social isolation patient may benefit from an in person intensive outpatient program or day program for social engagement. A: Ongoing depression and paranoia vs anxiety with prominent low motivation and poor self-care and some sleep difficulty. Given concern for anxiety contributing to fearfulness will decrease Wellbutrin and limited benefit from olanzapine for paranoia and sleep and could be worsening poor motivation and lethargy so will switch to Latuda which may offer more benefit for depression. He also consents to trial of mirtazapine to help with sleep and anxiety with discontinuation of olanzapine. Discussed medication treatment options in detail. Discussed risks, benefits and alternatives. He consents to the medication changes.Reviewed side effects including but not limited to: sedation/weight gain with mirtazapine, movement (TD, NMS), cardiac (QTc prolongation), and metabolic (stroke, insulin resistance) and necessity for fasting lipid and glucose labwork and AIMS done with score of 0 with Latuda. labwork reviewed and stable for ongoing use of antipsychotic medications. Vit D is very low, will start supplementation. MNPR due to cerebral palsy and need for walker Overall, I spent a total of 42 minutes on this case including meeting with the patient, reviewing the chart, nursing report, multidisciplinary team meeting, orders, and documentation. (1) Persistent depressive disorder with anxious distress, currently severe: (2) Hopelessness: (3) Isolation (social): (4) Hypothyroid: (5) Cerebral palsy: (6) Paranoia: Plan 01/17/2025: -Decrease Wellbutrin to 150mg daily -Start mirtazapine 15mg HS -Discontinue olanzapine 20mg HS -Start Latuda 40mg daily with dinner -Start Vit D 1,250 mcg once weekly for 6-8 weeks 01/16/2025:The patient was admitted to the [facility] ([facility] unit) on q15 min checks (behavioral with suicide precautions) for safety. The patient will participate in group, recreational, and milieu therapies and will be offered additional individual and family sessions as clinically appropriate. Decrease sertraline to 50 mg daily Start fluoxetine 20 mg daily Increase Synthroid to 175 mcg daily Start clonidine 0.1 mg at bedtime Baseline EKG Labs: Hemoglobin A1c, fasting lipids, free T3, vitamin D, vitamin B12 Inventory Assets Strengths: access to stable housing, well connected, family support Needs: on-going mood problems, social isolation Suicide Risk Level Suicide Risk Level: Moderate (q15 min suicide checks) (SI and severe depression with possible paranoia but feels safe in the hospital and feels able to ask for support ) Risk Factors Assessment Male: Yes : Yes Do You Have Access To A Gun?: No Health Problems: Yes Mental Health Diagnoses: Yes Substance Use Disorders: No Previous Attempt: No Family History of Suicide: No Previous Psychiatric Hospitalization: Yes Hopelessness: Yes Protective Factors Assessment Restorationism Beliefs: Yes : No Responsible for Young Children: No Employed: No Stable Relationships: Yes Supportive Family: Yes Good Rapport with Provider: Yes Absence of Any Risk Factors Above: No Interval History Identifying Information KENDAL MATTSON is a 39-year-old M who currently lives alone, has a history of schizoaffective disorder, cerebral palsy, and was admitted on 01/16/25 00:36 on a 201 voluntary commitment for suicidal ideation. Chief Complaint "The general fearfulness and depression". Review of Systems Sleep Information Total Hours of Sleep: 6.5 Sleep Comments: Meal Information Percent Meal Consumed - Breakfast: 0 Percent Meal Consumed - Lunch: 100 Percent Meal Consumed - Dinner: 10 Subjective Subjective Patient was seen & assessed and interval progress reviewed with nursing. Showered last evening. Reporting some paranoia and his family's safety. More isolative during the day, out of his room a bit more later in the evening and attended community meeting and rated his mood as "2" and "paranoid". Today he has remained in bed all morning. He reports this has been a big symptom of his depression that he's lost all interest in things and spends almost all day in bed. Reports today his mood is "ok I suppose" but also describes target symptoms of "fearfulness" and "depression" which are ongoing. No side effects from initiation of fluoxetine yet or other medication changes. Struggled to fall asleep but then stayed asleep. Reviewed treatment options and he is open to making changes to help with his symptoms. Physical Exam Psychiatric Orientation: alert and oriented x 3 Apperance: appropriately dressed and + disheveled Eye Contact: + fair eye contact Motor Behavior: no abnormal motor movements and + psychomotor retardation Speech: normal rate/rhythm/volume of speech Affect: + blunted affect Mood: + depressed mood and + anxious mood Thought Process: goal directed thought process and + concrete thought process Thought Content: + paranoid Suicidal Thoughts: + reports suicidal thoughts Homicidal Thoughts: denies homicidal thoughts Hallucinations: no auditory hallucinations and no visual hallucinations Insight: + fair insight Judgment: + limited judgement Vital Signs (Past 24 Hours) Last Vital Signs Temp 36.9 C 01/17/25 06:00 Pulse 73 01/17/25 06:00 Resp 20 01/17/25 06:00 BP 117/83 01/17/25 06:00 Pulse Ox 98 01/17/25 06:00 O2 Del Method Room Air 01/17/25 06:00 Results & Data ([facility]) Laboratory Results Laboratory Results - last 24 hr 01/17/25 07:06 Estimat Average Glucose 108 Hemoglobin A1c 5.4 Triglycerides 94 Cholesterol 156 LDL Cholesterol, Calc 94 VLDL Cholesterol, Calc 19 HDL Cholesterol 43 Cholesterol/HDL Ratio 3.6 Vitamin B12 190 25-OH Vitamin D Total < 7.0 L Free T3 3.29 Current Inpatient Medications Current Inpatient Medications: Current Inpatient Medications Acetaminophen (Acetaminophen 325 Mg Tab) 650 mg PO Q4H PRN PRN Reason: Headache or Minor Fever Stop: 02/15/25 01:10 Al Hydrox/Mg Hydrox/Simethicone (Aluminum/Magnesium Susp 30 Ml Udc) 30 ml PO Q4H PRN PRN Reason: GI Upset Stop: 02/15/25 01:10 Bupropion HCl (Bupropion Xl 300 Mg Tabcr) 300 mg PO QAM ELSIE Stop: 02/15/25 08:59 Last Admin: 01/17/25 09:02 Dose: 300 mg Clonidine HCl (Clonidine Hcl 0.1 Mg Tab) 0.1 mg PO HS ELSIE Stop: 02/15/25 21:59 Last Admin: 01/16/25 20:40 Dose: 0.1 mg Ezetimibe (Ezetimibe 10 Mg Tab) 10 mg PO DAILY ELSIE Stop: 02/15/25 10:14 Last Admin: 01/17/25 09:01 Dose: 10 mg Fluoxetine HCl (Fluoxetine Hcl 20 Mg Cap) 20 mg PO QAM ELSIE Stop: 02/15/25 12:59 Last Admin: 01/17/25 09:02 Dose: 20 mg Hydroxyzine HCl (Hydroxyzine Hcl 25 Mg Tab) 50 mg PO HSZ PRN PRN Reason: Insomnia Stop: 02/15/25 01:10 Hydroxyzine HCl (Hydroxyzine Hcl 25 Mg Tab) 25 mg PO Q4H PRN PRN Reason: Anxiety Stop: 02/15/25 01:10 Levothyroxine Sodium (Levothyroxine Sodium 175 Mcg Tablet) 175 mcg PO DAILYBB ELSIE Stop: 02/16/25 07:59 Last Admin: 01/17/25 09:02 Dose: 175 mcg Magnesium Hydroxide (Magnesium Hydroxide Susp 30 Ml Udc) 30 ml PO DAILY PRN PRN Reason: Constipation Stop: 02/15/25 01:10 Olanzapine (Olanzapine 20 Mg Tablet) 20 mg PO HS ELSIE Stop: 02/15/25 21:59 Last Admin: 01/16/25 20:40 Dose: 20 mg Pantoprazole Sodium (Pantoprazole 40 Mg Tab) 40 mg PO QAM ELSIE Stop: 02/15/25 08:59 Last Admin: 01/17/25 09:02 Dose: 40 mg Sertraline HCl (Sertraline Hcl 50 Mg Tablet) 50 mg PO QAM ELSIE Stop: 02/16/25 08:59 Last Admin: 01/17/25 09:02 Dose: 50 mg Sodium Chloride (Sodium Chloride 0.65% Na Soln 45 Ml ([employer])) 1 - 2 sprays NA PRN PRN PRN Reason: Nasal Dryness/Congestion Stop: 02/15/25 01:10 Mental Health & Subst Abuse Tx Psychiatrist Name of Psychiatrist: [facility] - Dr. Georgia Ventura Psychiatrist's Date Of Appointment With Psychiatric Provider: 01/28/25 Time of Appointment with Psychiatrist: 10:30AM Psychiatric Appointment Comment: Ask psychiatrist to be added as priority on waitlist for therapy Therapist Name of Therapist: [facility] Therapist's Therapy Appointment Comment: Ask psychiatrist to be added as priority on waitlist for therapy Fisher Net Name of Fisher Net: None Post Discharge Appointments Primary Care Physician Name Of Family Doctor/PCP: Erika Crenshaw Contact Information Discharge Discharge Address: [address] [place] [id number]
[2025-01-17] MEDS: ERGOCALCIFEROL 1250 MCG (50,000 UNITS) CAP PO SCH (14:02)
[2025-01-17] MEDS: LURASIDONE HCL 20 MG TAB PO SCH (17:41)
[2025-01-17] MEDS: MIRTAZAPINE TAB 15 MG TAB PO SCH (20:39)
--- NOTE | 2025-01-18 06:03 | Electrocardiogram Report ---
Test Reason : Blood Pressure : */* mmHG Vent. Rate : 69 BPM Atrial Rate : 69 BPM P-R Int : 126 ms QRS Dur : 94 ms QT Int : 424 ms P-R-T Axes : 18 34 34 degrees QTcB Int : 454 ms Normal sinus rhythm Normal ECG No previous ECGs available Confirmed by Faisal Moore ([id number]) on 01/18/2025 6:02:47 AM Referred By: REFERRED SELF Confirmed By: Faisal Moore
--- NOTE | 2025-01-18 09:37 | Psychiatric Progress Note ---
Date of Service January 18, 2025 Impression / Recommendations Impression KENDAL MATTSON is a 39-year-old man who currently lives alone, has a history of schizoaffective disorder, cerebral palsy, and was admitted on 01/16/25 00:36 on a 201 voluntary commitment for suicidal ideation and worsening depression. Presentation consistent with persistent depressive disorder that may or may not be part of a primary psychotic disorder. Currently patient does not appear psychotic and presents intact reality testing with no history of auditory visual hallucinations however has demonstrated extreme paranoia in the past. Has presented increased suicidal ideations which have become more frequent. Does not meet criteria for posttraumatic stress disorder. Family history of bipolar disorder. Medications reviewed and there is concern for auto metabolism of prescribed sertraline and will cross taper to fluoxetine; concern for hypothyroid state which may be contributory and will increase Synthroid dose; start clonidine for sleep and physical symptoms of anxiety and hypervigilance. Medication side effects and adverse effects discussed with patient. Given social isolation patient may benefit from an in person intensive outpatient program or day program for social engagement. A: Ongoing depression and paranoia vs anxiety with prominent low motivation and poor self-care and low appetite. Tolerating medication changes so far. Will continue cross-taper to fluoxetine. MNPR due to cerebral palsy and need for walker Overall, I spent a total of 35 minutes on this case including meeting with the patient, reviewing the chart, nursing report, multidisciplinary team meeting, orders, and documentation. (1) Persistent depressive disorder with anxious distress, currently severe: (2) Hopelessness: (3) Isolation (social): (4) Hypothyroid: (5) Cerebral palsy: (6) Paranoia: Plan 01/18/2025: -Increase fluoxetine to 40mg daily tomorrow -Discontinue sertraline tomorrow 01/17/2025: -Decrease Wellbutrin to 150mg daily -Start mirtazapine 15mg HS -Discontinue olanzapine 20mg HS -Start Latuda 40mg daily with dinner -Start Vit D 1,250 mcg once weekly for 6-8 weeks 01/16/2025:The patient was admitted to the [facility] ([facility] mental health unit) on q15 min checks (behavioral with suicide precautions) for safety. The patient will participate in group, recreational, and milieu therapies and will be offered additional individual and family sessions as clinically appropriate. Decrease sertraline to 50 mg daily Start fluoxetine 20 mg daily Increase Synthroid to 175 mcg daily Start clonidine 0.1 mg at bedtime Baseline EKG Labs: Hemoglobin A1c, fasting lipids, free T3, vitamin D, vitamin B12 Inventory Assets Strengths: access to stable housing, well connected, family support Needs: on-going mood problems, social isolation Suicide Risk Level Suicide Risk Level: Moderate (q15 min suicide checks) (SI and severe depression with possible paranoia but feels safe in the hospital and feels able to ask for support ) Risk Factors Assessment Male: Yes : Yes Do You Have Access To A Gun?: No Health Problems: Yes Mental Health Diagnoses: Yes Substance Use Disorders: No Previous Attempt: No Family History of Suicide: No Previous Psychiatric Hospitalization: Yes Hopelessness: Yes Protective Factors Assessment Sikh Beliefs: Yes : No Responsible for Young Children: No Employed: No Stable Relationships: Yes Supportive Family: Yes Good Rapport with Provider: Yes Absence of Any Risk Factors Above: No Interval History Identifying Information KENDAL MATTSON is a 39-year-old M who currently lives alone, has a history of schizoaffective disorder, cerebral palsy, and was admitted on 01/16/25 00:36 on a 201 voluntary commitment for suicidal ideation. Chief Complaint "Ok". Review of Systems Sleep Information Total Hours of Sleep: 5 Sleep Comments: but also sleeping throughout the day and through breakfast this morning Meal Information Percent Meal Consumed - Breakfast: 0 Percent Meal Consumed - Lunch: 25 Percent Meal Consumed - Dinner: 25 Subjective Subjective Patient was seen & assessed and interval progress reviewed with nursing and social work. In bed almost all day, did attend self-awareness group and community meeting in the evening. Rated his mood as "2" "distraught and frustrated". He hardly ate yesterday. Today attended some morning groups with nursing encouragement. Mid-morning lying back down in bed. Reports some difficulty falling asleep but then slept well. Denies any medication side effects. Worries about being too sedated with medications to help his sleep, reviewed this risk was lessened with mirtazapine compared to olanzapine. States his mom is his main support but doesn't want to sign an DOM, prefers to update her himself via phone calls. Reports increased SI last evening. Physical Exam Psychiatric Orientation: alert and oriented x 3 Apperance: appropriately dressed and + disheveled Eye Contact: + fair eye contact Motor Behavior: no abnormal motor movements and + psychomotor retardation Speech: normal rate/rhythm/volume of speech Affect: + blunted affect Mood: + depressed mood and + anxious mood Thought Process: goal directed thought process and + concrete thought process Thought Content: + paranoid Suicidal Thoughts: + reports suicidal thoughts Homicidal Thoughts: denies homicidal thoughts Hallucinations: no auditory hallucinations and no visual hallucinations Insight: + fair insight Judgment: + limited judgement Vital Signs (Past 24 Hours) Last Vital Signs Temp 37.5 C 01/18/25 06:00 Pulse 68 01/18/25 06:00 Resp 18 01/18/25 06:00 BP 139/85 01/18/25 06:00 Pulse Ox 98 01/18/25 06:00 O2 Del Method Room Air 01/18/25 06:00 Results & Data ([facility]) Current Inpatient Medications Current Inpatient Medications: Current Inpatient Medications Acetaminophen (Acetaminophen 325 Mg Tab) 650 mg PO Q4H PRN PRN Reason: Headache or Minor Fever Stop: 02/15/25 01:10 Al Hydrox/Mg Hydrox/Simethicone (Aluminum/Magnesium Susp 30 Ml Udc) 30 ml PO Q4H PRN PRN Reason: GI Upset Stop: 02/15/25 01:10 Bupropion HCl (Bupropion Xl 150 Mg Tabcr) 150 mg PO QAM [facility] Stop: 02/17/25 08:59 Last Admin: 01/18/25 08:30 Dose: 150 mg Clonidine HCl (Clonidine Hcl 0.1 Mg Tab) 0.1 mg PO HS ELSIE Stop: 02/15/25 21:59 Last Admin: 01/17/25 20:39 Dose: 0.1 mg Ezetimibe (Ezetimibe 10 Mg Tab) 10 mg PO DAILY ELSIE Stop: 02/15/25 10:14 Last Admin: 01/18/25 08:30 Dose: 10 mg Ergocalciferol (Ergocalciferol 1250 Mcg (50,000 Units) Cap) 1,250 mcg PO Q7D ELSIE Stop: 02/16/25 13:14 Last Admin: 01/17/25 14:02 Dose: 1,250 mcg Fluoxetine HCl (Fluoxetine Hcl 20 Mg Cap) 20 mg PO QAM ELSIE Stop: 02/15/25 12:59 Last Admin: 01/18/25 08:30 Dose: 20 mg Hydroxyzine HCl (Hydroxyzine Hcl 25 Mg Tab) 50 mg PO HSZ PRN PRN Reason: Insomnia Stop: 02/15/25 01:10 Hydroxyzine HCl (Hydroxyzine Hcl 25 Mg Tab) 25 mg PO Q4H PRN PRN Reason: Anxiety Stop: 02/15/25 01:10 Levothyroxine Sodium (Levothyroxine Sodium 175 Mcg Tablet) 175 mcg PO DAILYBB ELSIE Stop: 02/16/25 07:59 Last Admin: 01/18/25 08:31 Dose: 175 mcg Lurasidone HCl (Lurasidone Hcl 20 Mg Tab) 40 mg PO DAILYBD ELSIE Stop: 02/16/25 17:14 Last Admin: 01/17/25 17:41 Dose: 40 mg Magnesium Hydroxide (Magnesium Hydroxide Susp 30 Ml Udc) 30 ml PO DAILY PRN PRN Reason: Constipation Stop: 02/15/25 01:10 Mirtazapine (Mirtazapine Tab 15 Mg Tab) 15 mg PO HS ELSIE Stop: 02/16/25 21:59 Last Admin: 01/17/25 20:39 Dose: 15 mg Pantoprazole Sodium (Pantoprazole 40 Mg Tab) 40 mg PO QAM ELSIE Stop: 02/15/25 08:59 Last Admin: 01/18/25 08:30 Dose: 40 mg Sertraline HCl (Sertraline Hcl 50 Mg Tablet) 50 mg PO QAM ELSIE Stop: 02/16/25 08:59 Last Admin: 01/18/25 08:30 Dose: 50 mg Sodium Chloride (Sodium Chloride 0.65% Na Soln 45 Ml ([employer])) 1 - 2 sprays NA PRN PRN PRN Reason: Nasal Dryness/Congestion Stop: 02/15/25 01:10 Mental Health & Subst Abuse Tx Psychiatrist Name of Psychiatrist: [facility] - Dr. Georgia Ventura Psychiatrist's Date Of Appointment With Psychiatric Provider: 01/28/25 Time of Appointment with Psychiatrist: 10:30AM Psychiatric Appointment Comment: Ask psychiatrist to be added as priority on waitlist for therapy Therapist Name of Therapist: [facility] Therapist's Therapy Appointment Comment: Ask psychiatrist to be added as priority on waitlist for therapy Glass Blowing Instructor Name of Glass Blowing Instructor: None Post Discharge Appointments Primary Care Physician Name Of Family Doctor/PCP: Erika Crenshaw Contact Information Discharge Discharge Address: [address] [place] [id number]
--- NOTE | 2025-01-19 08:42 | Psychiatric Progress Note ---
Date of Service January 19, 2025 Impression / Recommendations Impression KENDAL MATTSON is a 39-year-old man who currently lives alone, has a history of schizoaffective disorder, cerebral palsy, and was admitted on 01/16/25 00:36 on a 201 voluntary commitment for suicidal ideation and worsening depression. Presentation consistent with persistent depressive disorder that may or may not be part of a primary psychotic disorder. Currently patient does not appear psychotic and presents intact reality testing with no history of auditory visual hallucinations however has demonstrated extreme paranoia in the past. Has presented increased suicidal ideations which have become more frequent. Does not meet criteria for posttraumatic stress disorder. Family history of bipolar disorder. Medications reviewed and there is concern for auto metabolism of prescribed sertraline and will cross taper to fluoxetine; concern for hypothyroid state which may be contributory and will increase Synthroid dose; start clonidine for sleep and physical symptoms of anxiety and hypervigilance. Medication side effects and adverse effects discussed with patient. Given social isolation patient may benefit from an in person intensive outpatient program or day program for social engagement. A: Ongoing depression and paranoia vs anxiety with prominent anhedonia, low motivation and poor self-care and low appetite and very poor sleep overnight, likely due to discontinuation of olanzapine. Tolerating medication changes, will consider titration of mirtazapine vs doxepin trial or alterative antipsychotic if sleep issues persist or reducing Synthroid given normal T3/T4. Ongoing behavioral activation efforts. He consents to trial of melatonin, discussed and reviewed side effects/risks/benefits/alternatives. MNPR due to cerebral palsy and need for walker Overall, I spent a total of 36 minutes on this case including meeting with the patient, reviewing the chart, nursing report, multidisciplinary team meeting, orders, and documentation. (1) Persistent depressive disorder with anxious distress, currently severe: (2) Hopelessness: (3) Isolation (social): (4) Hypothyroid: (5) Cerebral palsy: (6) Paranoia: (7) Insomnia: Plan 01/19/2025: -Start melatonin 6mg HS 01/18/2025: -Increase fluoxetine to 40mg daily tomorrow -Discontinue sertraline tomorrow 01/17/2025: -Decrease Wellbutrin to 150mg daily -Start mirtazapine 15mg HS -Discontinue olanzapine 20mg HS -Start Latuda 40mg daily with dinner -Start Vit D 1,250 mcg once weekly for 6-8 weeks 01/16/2025:The patient was admitted to the [facility] ([facility]) on q15 min checks (behavioral with suicide precautions) for safety. The patient will participate in group, recreational, and milieu therapies and will be offered additional individual and family sessions as clinically appropriate. Decrease sertraline to 50 mg daily Start fluoxetine 20 mg daily Increase Synthroid to 175 mcg daily Start clonidine 0.1 mg at bedtime Baseline EKG Labs: Hemoglobin A1c, fasting lipids, free T3, vitamin D, vitamin B12 Inventory Assets Strengths: access to stable housing, well connected, family support Needs: on-going mood problems, social isolation Suicide Risk Level Suicide Risk Level: Moderate (q15 min suicide checks) (SI and severe depression with possible paranoia but feels safe in the hospital and feels able to ask for support ) Risk Factors Assessment Male: Yes : Yes Do You Have Access To A Gun?: No Health Problems: Yes Mental Health Diagnoses: Yes Substance Use Disorders: No Previous Attempt: No Family History of Suicide: No Previous Psychiatric Hospitalization: Yes Hopelessness: Yes Protective Factors Assessment Shinto Beliefs: Yes : No Responsible for Young Children: No Employed: No Stable Relationships: Yes Supportive Family: Yes Good Rapport with Provider: Yes Absence of Any Risk Factors Above: No Interval History Identifying Information KENDAL MATTSON is a 39-year-old M who currently lives alone, has a history of schizoaffective disorder, cerebral palsy, and was admitted on 01/16/25 00:36 on a 201 voluntary commitment for suicidal ideation. Chief Complaint "I've been in bed". Review of Systems Sleep Information Total Hours of Sleep: 1.5 Sleep Comments: Did not fall asleep till 04:45. Declined PRN sleep medication Meal Information Percent Meal Consumed - Breakfast: 0 Percent Meal Consumed - Lunch: 10 Percent Meal Consumed - Dinner: 30 Subjective Subjective Patient was seen & assessed and interval progress reviewed with treatment team. attended groups with significant encouragement yesterday during the day but declined all evening groups. very low appetite. Showered last evening. Hardly slept. Today he reflects on struggling to sleep for a long time now noting "it's awkward for me". He feels tired but can't fall asleep. He isn't sure what he means by it being awkward. Still with very poor appetite. He denies any medication side effects. Doesn't want to make any significant medication changes at HS but would like to try melatonin. Ongoing SI. Declining rn case manager referral or involvement of his mother. Physical Exam Psychiatric Orientation: alert and oriented x 3 Apperance: appropriately dressed and + disheveled Eye Contact: + fair eye contact Motor Behavior: no abnormal motor movements and + psychomotor retardation Speech: normal rate/rhythm/volume of speech Affect: + blunted affect Mood: + depressed mood and + anxious mood Thought Process: goal directed thought process and + concrete thought process Thought Content: + paranoid Suicidal Thoughts: + reports suicidal thoughts Homicidal Thoughts: denies homicidal thoughts Hallucinations: no auditory hallucinations and no visual hallucinations Insight: + fair insight Judgment: + limited judgement Vital Signs (Past 24 Hours) Last Vital Signs Temp 36.6 C 01/19/25 05:32 Pulse 78 01/19/25 05:33 Resp 18 01/19/25 05:32 BP 129/88 01/19/25 05:33 Pulse Ox 96 01/19/25 05:32 O2 Del Method Room Air 01/19/25 05:32 Results & Data ([facility]) Current Inpatient Medications Current Inpatient Medications: Current Inpatient Medications Acetaminophen (Acetaminophen 325 Mg Tab) 650 mg PO Q4H PRN PRN Reason: Headache or Minor Fever Stop: 02/15/25 01:10 Al Hydrox/Mg Hydrox/Simethicone (Aluminum/Magnesium Susp 30 Ml Udc) 30 ml PO Q4H PRN PRN Reason: GI Upset Stop: 02/15/25 01:10 Bupropion HCl (Bupropion Xl 150 Mg Tabcr) 150 mg PO QAM ELSIE Stop: 02/17/25 08:59 Last Admin: 01/18/25 08:30 Dose: 150 mg Clonidine HCl (Clonidine Hcl 0.1 Mg Tab) 0.1 mg PO HS ELSIE Stop: 02/15/25 21:59 Last Admin: 01/18/25 20:49 Dose: 0.1 mg Ezetimibe (Ezetimibe 10 Mg Tab) 10 mg PO DAILY ELSIE Stop: 02/15/25 10:14 Last Admin: 01/18/25 08:30 Dose: 10 mg Ergocalciferol (Ergocalciferol 1250 Mcg (50,000 Units) Cap) 1,250 mcg PO Q7D ELSIE Stop: 02/16/25 13:14 Last Admin: 01/17/25 14:02 Dose: 1,250 mcg Fluoxetine HCl (Fluoxetine Hcl 20 Mg Cap) 40 mg PO QAM ELSIE Stop: 02/18/25 08:59 Hydroxyzine HCl (Hydroxyzine Hcl 25 Mg Tab) 50 mg PO HSZ PRN PRN Reason: Insomnia Stop: 02/15/25 01:10 Hydroxyzine HCl (Hydroxyzine Hcl 25 Mg Tab) 25 mg PO Q4H PRN PRN Reason: Anxiety Stop: 02/15/25 01:10 Levothyroxine Sodium (Levothyroxine Sodium 175 Mcg Tablet) 175 mcg PO DAILYBB ELSIE Stop: 02/16/25 07:59 Last Admin: 01/18/25 08:31 Dose: 175 mcg Lurasidone HCl (Lurasidone Hcl 20 Mg Tab) 40 mg PO DAILYBD ELSIE Stop: 02/16/25 17:14 Last Admin: 01/18/25 17:27 Dose: 40 mg Magnesium Hydroxide (Magnesium Hydroxide Susp 30 Ml Udc) 30 ml PO DAILY PRN PRN Reason: Constipation Stop: 02/15/25 01:10 Mirtazapine (Mirtazapine Tab 15 Mg Tab) 15 mg PO HS ELSIE Stop: 02/16/25 21:59 Last Admin: 01/18/25 20:49 Dose: 15 mg Pantoprazole Sodium (Pantoprazole 40 Mg Tab) 40 mg PO QAM ELSIE Stop: 02/15/25 08:59 Last Admin: 01/18/25 08:30 Dose: 40 mg Sodium Chloride (Sodium Chloride 0.65% Na Soln 45 Ml ([place])) 1 - 2 sprays NA PRN PRN PRN Reason: Nasal Dryness/Congestion Stop: 02/15/25 01:10 Mental Health & Subst Abuse Tx Psychiatrist Name of Psychiatrist: [facility] - Dr. Georgia Ventura Psychiatrist's Date Of Appointment With Psychiatric Provider: 01/28/25 Time of Appointment with Psychiatrist: 10:30AM Psychiatric Appointment Comment: Ask psychiatrist to be added as priority on waitlist for therapy Therapist Name of Therapist: [facility] Therapist's Therapy Appointment Comment: Ask psychiatrist to be added as priority on waitlist for therapy Knitting Supervisor Name of Knitting Supervisor: None Post Discharge Appointments Primary Care Physician Name Of Family Doctor/PCP: Erika Crenshaw Contact Information Discharge Discharge Address: [address] [place] [id number]
[2025-01-19 16:46] LABS: MDA negative; MDEA negative; MDMA (Ecstasy) Urine, Confirm negative
[2025-01-19] MEDS: MELATONIN 3 MG TAB PO SCH (21:05)
--- NOTE | 2025-01-20 08:42 | Psychiatric Progress Note ---
Date of Service January 20, 2025 Impression / Recommendations Impression KENDAL MATTSON is a 39-year-old man who currently lives alone, has a history of schizoaffective disorder, cerebral palsy, and was admitted on 01/16/25 00:36 on a 201 voluntary commitment for suicidal ideation and worsening depression. Presentation consistent with persistent depressive disorder that may or may not be part of a primary psychotic disorder. Currently patient does not appear psychotic and presents intact reality testing with no history of auditory visual hallucinations however has demonstrated extreme paranoia in the past. Has presented increased suicidal ideations which have become more frequent. Does not meet criteria for posttraumatic stress disorder. Family history of bipolar disorder. Medications reviewed and there is concern for auto metabolism of prescribed sertraline and will cross taper to fluoxetine; concern for hypothyroid state which may be contributory and will increase Synthroid dose; start clonidine for sleep and physical symptoms of anxiety and hypervigilance. Medication side effects and adverse effects discussed with patient. Given social isolation patient may benefit from an in person intensive outpatient program or day program for social engagement. A: Ongoing depression and paranoia vs anxiety with prominent anhedonia, low motivation and poor self-care and low appetite and very poor sleep overnight, likely due to discontinuation of olanzapine. Sleep improved with addition of melatonin but fatigue persists. Will increase Latuda as some of his current isolation and decreased engagement may be due to paranoia/psychosis but if this is ineffective may consider trial of an alternative stimulant like modafinil to see if this improves his energy and engagement. Ongoing SI. MNPR due to cerebral palsy and need for walker Overall, I spent a total of 38 minutes on this case including meeting with the patient, reviewing the chart, nursing report, multidisciplinary team meeting, orders, and documentation. (1) Persistent depressive disorder with anxious distress, currently severe: (2) Hopelessness: (3) Isolation (social): (4) Hypothyroid: (5) Cerebral palsy: (6) Paranoia: (7) Insomnia: Plan 01/20/2025: -Increase Latuda to 60mg daily with dinner 01/19/2025: -Start melatonin 6mg HS 01/18/2025: -Increase fluoxetine to 40mg daily tomorrow -Discontinue sertraline tomorrow 01/17/2025: -Decrease Wellbutrin to 150mg daily -Start mirtazapine 15mg HS -Discontinue olanzapine 20mg HS -Start Latuda 40mg daily with dinner -Start Vit D 1,250 mcg once weekly for 6-8 weeks 01/16/2025:The patient was admitted to the [facility] on q15 min checks (behavioral with suicide precautions) for safety. The patient will participate in group, recreational, and milieu therapies and will be offered additional individual and family sessions as clinically appropriate. Decrease sertraline to 50 mg daily Start fluoxetine 20 mg daily Increase Synthroid to 175 mcg daily Start clonidine 0.1 mg at bedtime Baseline EKG Labs: Hemoglobin A1c, fasting lipids, free T3, vitamin D, vitamin B12 Inventory Assets Strengths: access to stable housing, well connected, family support Needs: on-going mood problems, social isolation Suicide Risk Level Suicide Risk Level: Moderate (q15 min suicide checks) (SI and severe depression with possible paranoia but feels safe in the hospital and feels able to ask for support ) Risk Factors Assessment Male: Yes : Yes Do You Have Access To A Gun?: No Health Problems: Yes Mental Health Diagnoses: Yes Substance Use Disorders: No Previous Attempt: No Family History of Suicide: No Previous Psychiatric Hospitalization: Yes Hopelessness: Yes Protective Factors Assessment Congregation Beliefs: Yes : No Responsible for Young Children: No Employed: No Stable Relationships: Yes Supportive Family: Yes Good Rapport with Provider: Yes Absence of Any Risk Factors Above: No Interval History Identifying Information KENDAL MATTSON is a 39-year-old M who currently lives alone, has a history of schizoaffective disorder, cerebral palsy, and was admitted on 01/16/25 00:36 on a 201 voluntary commitment for suicidal ideation. Chief Complaint "OK I suppose". Review of Systems Sleep Information Total Hours of Sleep: 6.5 Sleep Comments: Meal Information Percent Meal Consumed - Breakfast: 0 Percent Meal Consumed - Lunch: 0 Percent Meal Consumed - Dinner: 25 Subjective Subjective Patient was seen & assessed and interval progress reviewed with nursing and social work. Only attended one group yesterday in the evening and reported his mood as "distraught and insecure". He did shower unprompted yesterday. He didn't eat breakfast or lunch. Ate only 25% of dinner. Today reports he's felt tired most of the day which he attributes to the addition of melatonin last night. Attempted to further explore his symptoms, reflected on his apparent depression and low motivation but less clear have been any visible signs of anxiety. Tried to determine if some of his isolation could be due to thought preoccupation and/or paranoia about others on the unit. He continues to experience anxiety vs paranoia stating "it's hard to tell because they overlap". He isn't sure about his history of psychosis but recalls years ago becoming paranoia toward his family and thinking someone was going to harm him. He doesn't know if this improved because of being on the olanzapine for so many years or it was due to improvement in psychosis. He fell asleep faster with the melatonin which he didn't like as usually "I like to read and relax but I fell asleep before I even knew it". Ongoing SI noting that he wonders if he should have killed himself years ago to prevent having to deal with his current depression. Notes his main symptom is "apathy, apathetic". Had planned to call his mom but has no motivation to do this. Declining groups today. Physical Exam Psychiatric Orientation: alert and oriented x 3 Apperance: appropriately dressed and + disheveled Eye Contact: + fair eye contact Motor Behavior: no abnormal motor movements and + psychomotor retardation Speech: normal rate/rhythm/volume of speech Affect: + blunted affect Mood: + depressed mood and + anxious mood Thought Process: goal directed thought process and + concrete thought process Thought Content: + paranoid (possibly ) Suicidal Thoughts: denies suicidal plan; + reports suicidal thoughts Homicidal Thoughts: denies homicidal thoughts Hallucinations: no auditory hallucinations and no visual hallucinations Insight: + fair insight Judgment: + limited judgement Vital Signs (Past 24 Hours) Last Vital Signs Temp 36.2 C L 01/20/25 06:36 Pulse 95 H 01/19/25 19:40 Resp 16 01/20/25 06:36 BP 119/81 01/20/25 06:37 Pulse Ox 98 01/20/25 06:36 O2 Del Method Room Air 01/20/25 06:36 Results & Data ([facility]) Laboratory Results Laboratory Results - last 24 hr 01/15/25 Unknown Urine MDEA negative MDMA negative Urine MDMA negative Current Inpatient Medications Current Inpatient Medications: Current Inpatient Medications Acetaminophen (Acetaminophen 325 Mg Tab) 650 mg PO Q4H PRN PRN Reason: Headache or Minor Fever Stop: 02/15/25 01:10 Al Hydrox/Mg Hydrox/Simethicone (Aluminum/Magnesium Susp 30 Ml Udc) 30 ml PO Q4H PRN PRN Reason: GI Upset Stop: 02/15/25 01:10 Bupropion HCl (Bupropion Xl 150 Mg Tabcr) 150 mg PO QAM ELSIE Stop: 02/17/25 08:59 Last Admin: 01/19/25 09:08 Dose: 150 mg Clonidine HCl (Clonidine Hcl 0.1 Mg Tab) 0.1 mg PO HS ELSIE Stop: 02/15/25 21:59 Last Admin: 01/19/25 21:05 Dose: 0.1 mg Ezetimibe (Ezetimibe 10 Mg Tab) 10 mg PO DAILY ELSIE Stop: 02/15/25 10:14 Last Admin: 01/19/25 09:08 Dose: 10 mg Ergocalciferol (Ergocalciferol 1250 Mcg (50,000 Units) Cap) 1,250 mcg PO Q7D ELSIE Stop: 02/16/25 13:14 Last Admin: 01/17/25 14:02 Dose: 1,250 mcg Fluoxetine HCl (Fluoxetine Hcl 20 Mg Cap) 40 mg PO QAM ELSIE Stop: 02/18/25 08:59 Last Admin: 01/19/25 09:09 Dose: 40 mg Hydroxyzine HCl (Hydroxyzine Hcl 25 Mg Tab) 50 mg PO HSZ PRN PRN Reason: Insomnia Stop: 02/15/25 01:10 Hydroxyzine HCl (Hydroxyzine Hcl 25 Mg Tab) 25 mg PO Q4H PRN PRN Reason: Anxiety Stop: 02/15/25 01:10 Levothyroxine Sodium (Levothyroxine Sodium 175 Mcg Tablet) 175 mcg PO DAILYBB ELSIE Stop: 02/16/25 07:59 Last Admin: 01/19/25 09:10 Dose: 175 mcg Lurasidone HCl (Lurasidone Hcl 20 Mg Tab) 40 mg PO DAILYBD [facility] Stop: 02/16/25 17:14 Last Admin: 01/19/25 17:11 Dose: 40 mg Magnesium Hydroxide (Magnesium Hydroxide Susp 30 Ml Udc) 30 ml PO DAILY PRN PRN Reason: Constipation Stop: 02/15/25 01:10 Melatonin (Melatonin 3 Mg Tab) 6 mg PO HS ELSIE Stop: 02/18/25 21:59 Last Admin: 01/19/25 21:05 Dose: 6 mg Mirtazapine (Mirtazapine Tab 15 Mg Tab) 15 mg PO HS ELSIE Stop: 02/16/25 21:59 Last Admin: 01/19/25 21:05 Dose: 15 mg Pantoprazole Sodium (Pantoprazole 40 Mg Tab) 40 mg PO QAM ELSIE Stop: 02/15/25 08:59 Last Admin: 01/19/25 09:10 Dose: 40 mg Sodium Chloride (Sodium Chloride 0.65% Na Soln 45 Ml ([place])) 1 - 2 sprays NA PRN PRN PRN Reason: Nasal Dryness/Congestion Stop: 02/15/25 01:10 Mental Health & Subst Abuse Tx Psychiatrist Name of Psychiatrist: [facility] - Dr. Georgia Ventura Psychiatrist's Date Of Appointment With Psychiatric Provider: 01/28/25 Time of Appointment with Psychiatrist: 10:30AM Psychiatric Appointment Comment: Ask psychiatrist to be added as priority on waitlist for therapy Therapist Name of Therapist: [facility] Therapist's Therapy Appointment Comment: Ask psychiatrist to be added as priority on waitlist for therapy Transport Analyst Name of Transport Analyst: Darnell Malone Phone Number for Transport Analyst: [phone] Case Management Appointment Comment: Patient declined referral for case management Post Discharge Appointments Primary Care Physician Name Of Family Doctor/PCP: Erika Crenshaw - [facility] Date of Future Appointment with PCP: 02/11/25 Time of Appointment with PCP: 9:40AM [facility] Contact Information Discharge Discharge Address: [address] [place] [id number]
[2025-01-20] MEDS: LOPERAMIDE HCL 2 MG CAP PO PRN (21:09)
--- NOTE | 2025-01-21 08:56 | Psychiatric Progress Note ---
Date of Service January 21, 2025 Impression / Recommendations Impression KENDAL MATTSON is a 39-year-old man who currently lives alone, has a history of schizoaffective disorder, cerebral palsy, and was admitted on 01/16/25 00:36 on a 201 voluntary commitment for suicidal ideation and worsening depression. Presentation consistent with persistent depressive disorder that may or may not be part of a primary psychotic disorder. Currently patient does not appear psychotic and presents intact reality testing with no history of auditory visual hallucinations however has demonstrated extreme paranoia in the past. Has presented increased suicidal ideations which have become more frequent. Does not meet criteria for posttraumatic stress disorder. Family history of bipolar disorder. Medications reviewed and there is concern for auto metabolism of prescribed sertraline and will cross taper to fluoxetine; concern for hypothyroid state which may be contributory and will increase Synthroid dose; start clonidine for sleep and physical symptoms of anxiety and hypervigilance. Medication side effects and adverse effects discussed with patient. Given social isolation patient may benefit from an in person intensive outpatient program or day program for social engagement. A: Ongoing depression and paranoia with prominent anhedonia, low motivation and poor self-care and low appetite. Seems that his poor sleep overnight is largely self-imposed due to his paranoia that someone might try to harm him in his sleep. He's gradually becoming less guarded in talking about his paranoia. Tolerating medication changes so far. He is agreeable to payroll director consult given ongoing low appetite, increasing wonder if some of this may be due to paranoia. Consider packaged items to see if his intake improves with this. Ongoing SI and concern for acute risk outside of the hospital given his ongoing paranoia and isolation. MNPR due to cerebral palsy and need for walker Overall, I spent a total of 36 minutes on this case including meeting with the patient, reviewing the chart, nursing report, multidisciplinary team meeting, orders, and documentation. (1) Persistent depressive disorder with anxious distress, currently severe: (2) Hopelessness: (3) Isolation (social): (4) Hypothyroid: (5) Cerebral palsy: (6) Paranoia: (7) Insomnia: Plan 01/21/2025: -Brush Clearer Surveying consult -Consider trial of packaged food items in case paranoia is negatively impacting his intake -Ongoing behavioral activation strategies 01/20/2025: -Increase Latuda to 60mg daily with dinner 01/19/2025: -Start melatonin 6mg HS 01/18/2025: -Increase fluoxetine to 40mg daily tomorrow -Discontinue sertraline tomorrow 01/17/2025: -Decrease Wellbutrin to 150mg daily -Start mirtazapine 15mg HS -Discontinue olanzapine 20mg HS -Start Latuda 40mg daily with dinner -Start Vit D 1,250 mcg once weekly for 6-8 weeks 01/16/2025:The patient was admitted to the [facility] ([facility]) on q15 min checks (behavioral with suicide precautions) for safety. The patient will participate in group, recreational, and milieu therapies and will be offered additional individual and family sessions as clinically appropriate. Decrease sertraline to 50 mg daily Start fluoxetine 20 mg daily Increase Synthroid to 175 mcg daily Start clonidine 0.1 mg at bedtime Baseline EKG Labs: Hemoglobin A1c, fasting lipids, free T3, vitamin D, vitamin B12 Inventory Assets Strengths: access to stable housing, well connected, family support Needs: on-going mood problems, social isolation Suicide Risk Level Suicide Risk Level: Moderate (q15 min suicide checks) (SI and severe depression with possible paranoia but feels safe in the hospital and feels able to ask for support ) Risk Factors Assessment Male: Yes : Yes Do You Have Access To A Gun?: No Health Problems: Yes Mental Health Diagnoses: Yes Substance Use Disorders: No Previous Attempt: No Family History of Suicide: No Previous Psychiatric Hospitalization: Yes Hopelessness: Yes Protective Factors Assessment Roman Catholic Beliefs: Yes : No Responsible for Young Children: No Employed: No Stable Relationships: Yes Supportive Family: Yes Good Rapport with Provider: Yes Absence of Any Risk Factors Above: No Interval History Identifying Information KENDAL MATTSON is a 39-year-old M who currently lives alone, has a history of schizoaffective disorder, cerebral palsy, and was admitted on 01/16/25 00:36 on a 201 voluntary commitment for suicidal ideation. Chief Complaint "I get terrified something could happen while I'm sleeping at night". Review of Systems Sleep Information Total Hours of Sleep: 5 Meal Information Percent Meal Consumed - Breakfast: 0 Percent Meal Consumed - Lunch: 0 Percent Meal Consumed - Dinner: 25 Subjective Subjective Patient was seen & assessed and interval progress reviewed with treatment team. Only attended one group. Had diarrhea last evening, took prn Imodium. Today he attended more groups and participated well after nursing encouragement to get out of bed. Today is able to reflect that he worries about sleeping at night due to "general paranoia" that someone might try to harm him. States he has effectively been nocturnal for almost 20 years. he also reflects that he feels nervous about changing his sleep, eating and medications but recognizes this is what happens in a hospital and that it's because we are trying to help him feel better. Ongoing SI. Notes his mood is "not that great". He describes his overall worries at night as "fear" and "uneasiness" and therefore doesn't like anything that makes him tired. He denies any medication side effects except that he feels tired with the mirtazapine and melatonin. Physical Exam Psychiatric Orientation: alert and oriented x 3 Apperance: appropriately dressed and + disheveled Eye Contact: + fair eye contact Motor Behavior: no abnormal motor movements and + psychomotor retardation Speech: normal rate/rhythm/volume of speech Affect: + blunted affect Mood: + depressed mood and + anxious mood Thought Process: goal directed thought process and + concrete thought process Thought Content: + paranoid Suicidal Thoughts: denies suicidal plan; + reports suicidal thoughts Homicidal Thoughts: denies homicidal thoughts Hallucinations: no auditory hallucinations and no visual hallucinations Insight: + fair insight Judgment: + limited judgement Vital Signs (Past 24 Hours) Last Vital Signs Temp 36.4 C L 01/21/25 06:22 Pulse 85 01/21/25 06:23 Resp 16 01/21/25 06:22 BP 117/82 01/21/25 06:23 Pulse Ox 100 01/20/25 19:45 O2 Del Method Room Air 01/20/25 19:45 Results & Data ([facility]) Current Inpatient Medications Current Inpatient Medications: Current Inpatient Medications Acetaminophen (Acetaminophen 325 Mg Tab) 650 mg PO Q4H PRN PRN Reason: Headache or Minor Fever Stop: 02/15/25 01:10 Al Hydrox/Mg Hydrox/Simethicone (Aluminum/Magnesium Susp 30 Ml Udc) 30 ml PO Q4H PRN PRN Reason: GI Upset Stop: 02/15/25 01:10 Bupropion HCl (Bupropion Xl 150 Mg Tabcr) 150 mg PO QAM ELSIE Stop: 02/17/25 08:59 Last Admin: 01/20/25 09:20 Dose: 150 mg Clonidine HCl (Clonidine Hcl 0.1 Mg Tab) 0.1 mg PO HS ELSIE Stop: 02/15/25 21:59 Last Admin: 01/20/25 20:43 Dose: 0.1 mg Ezetimibe (Ezetimibe 10 Mg Tab) 10 mg PO DAILY ELSIE Stop: 02/15/25 10:14 Last Admin: 01/20/25 09:19 Dose: 10 mg Ergocalciferol (Ergocalciferol 1250 Mcg (50,000 Units) Cap) 1,250 mcg PO Q7D ELSIE Stop: 02/16/25 13:14 Last Admin: 01/17/25 14:02 Dose: 1,250 mcg Fluoxetine HCl (Fluoxetine Hcl 20 Mg Cap) 40 mg PO QAM ELSIE Stop: 02/18/25 08:59 Last Admin: 01/20/25 09:20 Dose: 40 mg Hydroxyzine HCl (Hydroxyzine Hcl 25 Mg Tab) 50 mg PO HSZ PRN PRN Reason: Insomnia Stop: 02/15/25 01:10 Hydroxyzine HCl (Hydroxyzine Hcl 25 Mg Tab) 25 mg PO Q4H PRN PRN Reason: Anxiety Stop: 02/15/25 01:10 Levothyroxine Sodium (Levothyroxine Sodium 175 Mcg Tablet) 175 mcg PO DAILYBB ELSIE Stop: 02/16/25 07:59 Last Admin: 01/20/25 09:19 Dose: 175 mcg Loperamide HCl (Loperamide Hcl 2 Mg Cap) 2 mg PO Q2HWA PRN PRN Reason: Diarrhea Stop: 02/19/25 20:55 Last Admin: 01/20/25 21:09 Dose: 2 mg Magnesium Hydroxide (Magnesium Hydroxide Susp 30 Ml Udc) 30 ml PO DAILY PRN PRN Reason: Constipation Stop: 02/15/25 01:10 Melatonin (Melatonin 3 Mg Tab) 6 mg PO HS ELSIE Stop: 02/18/25 21:59 Last Admin: 01/20/25 20:43 Dose: 6 mg Mirtazapine (Mirtazapine Tab 15 Mg Tab) 15 mg PO HS ELSIE Stop: 02/16/25 21:59 Last Admin: 01/20/25 20:43 Dose: 15 mg Pantoprazole Sodium (Pantoprazole 40 Mg Tab) 40 mg PO QAM ELSIE Stop: 02/15/25 08:59 Last Admin: 01/20/25 09:20 Dose: 40 mg Sodium Chloride (Sodium Chloride 0.65% Na Soln 45 Ml ([place])) 1 - 2 sprays NA PRN PRN PRN Reason: Nasal Dryness/Congestion Stop: 02/15/25 01:10 Mental Health & Subst Abuse Tx Psychiatrist Name of Psychiatrist: [facility] - Dr. Georgia Ventura Psychiatrist's Date Of Appointment With Psychiatric Provider: 01/28/25 Time of Appointment with Psychiatrist: 10:30AM Psychiatric Appointment Comment: Ask psychiatrist to be added as priority on waitlist for therapy Therapist Name of Therapist: [facility] Therapist's Therapy Appointment Comment: Ask psychiatrist to be added as priority on waitlist for therapy Smart Grid Engineer Name of Smart Grid Engineer: Darnell Malone Phone Number for Smart Grid Engineer: [phone] Case Management Appointment Comment: Patient declined referral for case management Post Discharge Appointments Primary Care Physician Name Of Family Doctor/PCP: Erika Crenshaw - [facility] Date of Future Appointment with PCP: 02/11/25 Time of Appointment with PCP: 9:40AM [facility] Contact Information Discharge Discharge Address: [address] [place] [id number]
[2025-01-21] MEDS: LURASIDONE HCL 20 MG TAB PO SCH (17:39)
--- NOTE | 2025-01-22 08:45 | Psychiatric Progress Note ---
Date of Service January 22, 2025 Impression / Recommendations Impression KENDAL MATTSON is a 39-year-old man who currently lives alone, has a history of schizoaffective disorder, cerebral palsy, and was admitted on 01/16/25 00:36 on a 201 voluntary commitment for suicidal ideation and worsening depression. Presentation consistent with persistent depressive disorder that may or may not be part of a primary psychotic disorder. Currently patient does not appear psychotic and presents intact reality testing with no history of auditory visual hallucinations however has demonstrated extreme paranoia in the past. Has presented increased suicidal ideations which have become more frequent. Does not meet criteria for posttraumatic stress disorder. Family history of bipolar disorder. Medications reviewed and there is concern for auto metabolism of prescribed sertraline and will cross taper to fluoxetine; concern for hypothyroid state which may be contributory and will increase Synthroid dose; start clonidine for sleep and physical symptoms of anxiety and hypervigilance. Medication side effects and adverse effects discussed with patient. Given social isolation patient may benefit from an in person intensive outpatient program or day program for social engagement. A: Ongoing depression and paranoia with prominent anhedonia, low motivation and poor self-care and low appetite. Engaging a little bit more and sleeping a little less during the day. Ongoing SI and concern for acute risk outside of the hospital given his ongoing paranoia and isolation. Appreciate artillery meteorological man input. Reviewed outpatient records, history of poor appetite with depression and also from delusions that eating would cause him to be in a wheelchair or damage his health. He denies this is the reason for his poor intake currently. Previous medication trials of escitalopram, olanzapine, abilify and mirtazapine. History as a teen of self-harm via cigarette mai and cutting and hx of stimulant, opioid and alcohol misuse years ago. Hx of diagnosis of schizophrenia. MNPR due to cerebral palsy and need for walker Overall, I spent a total of 50 minutes on this case including meeting with the patient, reviewing the chart, nursing report, multidisciplinary team meeting, orders, and documentation. (1) Persistent depressive disorder with anxious distress, currently severe: (2) Hopelessness: (3) Isolation (social): (4) Hypothyroid: (5) Cerebral palsy: (6) Paranoia: (7) Insomnia: (8) Schizophrenia: Plan 01/22/2025: -Increase Latuda to 80mg daily with dinner -Start Vit B12 1000mcg/day -Start MVM daily 01/21/2025: -Faculty I On Call Medical Assistant consult -Consider trial of packaged food items in case paranoia is negatively impacting his intake -Ongoing behavioral activation strategies 01/20/2025: -Increase Latuda to 60mg daily with dinner 01/19/2025: -Start melatonin 6mg HS 01/18/2025: -Increase fluoxetine to 40mg daily tomorrow -Discontinue sertraline tomorrow 01/17/2025: -Decrease Wellbutrin to 150mg daily -Start mirtazapine 15mg HS -Discontinue olanzapine 20mg HS -Start Latuda 40mg daily with dinner -Start Vit D 1,250 mcg once weekly for 6-8 weeks 01/16/2025:The patient was admitted to the [facility] ([facility] unit) on q15 min checks (behavioral with suicide precautions) for safety. The patient will participate in group, recreational, and milieu therapies and will be offered additional individual and family sessions as clinically appropriate. Decrease sertraline to 50 mg daily Start fluoxetine 20 mg daily Increase Synthroid to 175 mcg daily Start clonidine 0.1 mg at bedtime Baseline EKG Labs: Hemoglobin A1c, fasting lipids, free T3, vitamin D, vitamin B12 Inventory Assets Strengths: access to stable housing, well connected, family support Needs: on-going mood problems, social isolation Suicide Risk Level Suicide Risk Level: Moderate (q15 min suicide checks) (SI and severe depression with possible paranoia but feels safe in the hospital and feels able to ask for support ) Risk Factors Assessment Male: Yes : Yes Do You Have Access To A Gun?: No Health Problems: Yes Mental Health Diagnoses: Yes Substance Use Disorders: No Previous Attempt: No Family History of Suicide: No Previous Psychiatric Hospitalization: Yes Hopelessness: Yes Protective Factors Assessment Evangelical Beliefs: Yes : No Responsible for Young Children: No Employed: No Stable Relationships: Yes Supportive Family: Yes Good Rapport with Provider: Yes Absence of Any Risk Factors Above: No Interval History Identifying Information KENDAL MATTSON is a 39-year-old M who currently lives alone, has a history of schizoaffective disorder, cerebral palsy, and was admitted on 01/16/25 00:36 on a 201 voluntary commitment for suicidal ideation. Chief Complaint "Alright I suppose". Review of Systems Sleep Information Total Hours of Sleep: 6.25 Meal Information Percent Meal Consumed - Breakfast: 0 Percent Meal Consumed - Lunch: 0 Percent Meal Consumed - Dinner: 25 Nutrition Comment: Less than 25%- Pt ate half of his dinner roll. Subjective Subjective Patient was seen & assessed and interval progress reviewed with nursing and social work. Ate half of a roll for dinner. He was offered packaged items and declined, he is drinking unsealed beverages. He showered. Rated his mood anxious. Attended some groups this morning with encouragement. Today reports his mood is ok, he thinks his depression is about the same as prior to admission except that he feels "a little more animated" when in groups or around peers. Ongoing SI. Ongoing poor appetite, he feels this is because he hasn't eaten for years so doesn't get hungry now. He's willing to try boost shakes that artillery meteorological man recommended. Denies any medication side effects, agreeable to dose increase of Latuda. Describes his sleep as "I mostly rested" which is how he prefers the night to go. Physical Exam Psychiatric Orientation: alert and oriented x 3 Apperance: appropriately dressed and + disheveled Eye Contact: + fair eye contact Motor Behavior: no abnormal motor movements and + psychomotor retardation Speech: normal rate/rhythm/volume of speech Affect: + blunted affect Mood: + depressed mood and + anxious mood Thought Process: goal directed thought process and + concrete thought process Thought Content: + paranoid Suicidal Thoughts: denies suicidal plan; + reports suicidal thoughts Homicidal Thoughts: denies homicidal thoughts Hallucinations: no auditory hallucinations and no visual hallucinations Insight: + fair insight Judgment: + limited judgement Vital Signs (Past 24 Hours) Last Vital Signs Temp 36.6 C 01/22/25 06:54 Pulse 71 01/22/25 06:54 Resp 18 01/22/25 06:54 BP 120/84 01/22/25 06:56 Pulse Ox 97 01/22/25 06:54 O2 Del Method Room Air 01/22/25 06:54 Results & Data ([facility]) Current Inpatient Medications Current Inpatient Medications: Current Inpatient Medications Acetaminophen (Acetaminophen 325 Mg Tab) 650 mg PO Q4H PRN PRN Reason: Headache or Minor Fever Stop: 02/15/25 01:10 Al Hydrox/Mg Hydrox/Simethicone (Aluminum/Magnesium Susp 30 Ml Udc) 30 ml PO Q4H PRN PRN Reason: GI Upset Stop: 02/15/25 01:10 Bupropion HCl (Bupropion Xl 150 Mg Tabcr) 150 mg PO QAM ELSIE Stop: 02/17/25 08:59 Last Admin: 01/21/25 08:55 Dose: 150 mg Clonidine HCl (Clonidine Hcl 0.1 Mg Tab) 0.1 mg PO HS ELSIE Stop: 02/15/25 21:59 Last Admin: 01/21/25 21:10 Dose: 0.1 mg Ezetimibe (Ezetimibe 10 Mg Tab) 10 mg PO DAILY ELSIE Stop: 02/15/25 10:14 Last Admin: 01/21/25 08:56 Dose: 10 mg Ergocalciferol (Ergocalciferol 1250 Mcg (50,000 Units) Cap) 1,250 mcg PO Q7D ELSIE Stop: 02/16/25 13:14 Last Admin: 01/17/25 14:02 Dose: 1,250 mcg Fluoxetine HCl (Fluoxetine Hcl 20 Mg Cap) 40 mg PO QAM ELSIE Stop: 02/18/25 08:59 Last Admin: 01/21/25 08:55 Dose: 40 mg Hydroxyzine HCl (Hydroxyzine Hcl 25 Mg Tab) 50 mg PO HSZ PRN PRN Reason: Insomnia Stop: 02/15/25 01:10 Hydroxyzine HCl (Hydroxyzine Hcl 25 Mg Tab) 25 mg PO Q4H PRN PRN Reason: Anxiety Stop: 02/15/25 01:10 Levothyroxine Sodium (Levothyroxine Sodium 175 Mcg Tablet) 175 mcg PO DAILYBB [facility] Stop: 02/16/25 07:59 Last Admin: 01/21/25 08:55 Dose: 175 mcg Loperamide HCl (Loperamide Hcl 2 Mg Cap) 2 mg PO Q2HWA PRN PRN Reason: Diarrhea Stop: 02/19/25 20:55 Last Admin: 01/20/25 21:09 Dose: 2 mg Lurasidone HCl (Lurasidone Hcl 20 Mg Tab) 60 mg PO DAILYBD ELSIE Stop: 02/20/25 17:14 Last Admin: 01/21/25 17:39 Dose: 60 mg Magnesium Hydroxide (Magnesium Hydroxide Susp 30 Ml Udc) 30 ml PO DAILY PRN PRN Reason: Constipation Stop: 02/15/25 01:10 Melatonin (Melatonin 3 Mg Tab) 6 mg PO HS ELSIE Stop: 02/18/25 21:59 Last Admin: 01/21/25 21:12 Dose: 6 mg Mirtazapine (Mirtazapine Tab 15 Mg Tab) 15 mg PO HS ELSIE Stop: 02/16/25 21:59 Last Admin: 01/21/25 21:10 Dose: 15 mg Pantoprazole Sodium (Pantoprazole 40 Mg Tab) 40 mg PO QAM ELSIE Stop: 02/15/25 08:59 Last Admin: 01/21/25 08:55 Dose: 40 mg Sodium Chloride (Sodium Chloride 0.65% Na Soln 45 Ml ([place])) 1 - 2 sprays NA PRN PRN PRN Reason: Nasal Dryness/Congestion Stop: 02/15/25 01:10 Mental Health & Subst Abuse Tx Psychiatrist Name of Psychiatrist: [facility] - Dr. Georgia Ventura Psychiatrist's Date Of Appointment With Psychiatric Provider: 01/28/25 Time of Appointment with Psychiatrist: 10:30AM Psychiatric Appointment Comment: Ask psychiatrist to be added as priority on waitlist for therapy Therapist Name of Therapist: [facility] Therapist's Therapy Appointment Comment: Ask psychiatrist to be added as priority on waitlist for therapy Channel Turner Name of Channel Turner: Darnell Malone Phone Number for Channel Turner: [phone] Case Management Appointment Comment: Patient declined referral for case management Post Discharge Appointments Primary Care Physician Name Of Family Doctor/PCP: Erika Crenshaw - [facility] Date of Future Appointment with PCP: 02/11/25 Time of Appointment with PCP: 9:40AM Provider [facility] Contact Information Discharge Discharge Address: [address] [place] [address] [place] [phone]
[2025-01-22] MEDS: LURASIDONE HCL 20 MG TAB PO SCH (17:21)
--- NOTE | 2025-01-23 08:45 | Psychiatric Progress Note ---
Date of Service January 23, 2025 Impression / Recommendations Impression KENDAL MATTSON is a 39-year-old man who currently lives alone, has a history of schizoaffective disorder, cerebral palsy, and was admitted on 01/16/25 00:36 on a 201 voluntary commitment for suicidal ideation and worsening depression. Presentation consistent with persistent depressive disorder that may or may not be part of a primary psychotic disorder. Currently patient does not appear psychotic and presents intact reality testing with no history of auditory visual hallucinations however has demonstrated extreme paranoia in the past. Has presented increased suicidal ideations which have become more frequent. Does not meet criteria for posttraumatic stress disorder. Family history of bipolar disorder. Medications reviewed and there is concern for auto metabolism of prescribed sertraline and will cross taper to fluoxetine; concern for hypothyroid state which may be contributory and will increase Synthroid dose; start clonidine for sleep and physical symptoms of anxiety and hypervigilance. Medication side effects and adverse effects discussed with patient. Given social isolation patient may benefit from an in person intensive outpatient program or day program for social engagement. A: Ongoing depression and paranoia with prominent anhedonia, low motivation and poor self-care and low appetite. Engaging a little bit more consistently with encouragement but otherwise isolative to his room. ngoing SI and more prominent hopelessness today with concern for acute risk outside of the hospital given his ongoing paranoia and isolation. MNPR due to cerebral palsy and need for walker Overall, I spent a total of 38 minutes on this case including meeting with the patient, reviewing the chart, nursing report, multidisciplinary team meeting, orders, and documentation. (1) Persistent depressive disorder with anxious distress, currently severe: (2) Hopelessness: (3) Isolation (social): (4) Hypothyroid: (5) Cerebral palsy: (6) Paranoia: (7) Insomnia: (8) Schizophrenia: Plan 01/23/2025: -Continue current medications and tx plan. 01/22/2025: -Increase Latuda to 80mg daily with dinner -Start Vit B12 1000mcg/day -Start MVM daily 01/21/2025: -Ore Storage Drier consult -Consider trial of packaged food items in case paranoia is negatively impacting his intake -Ongoing behavioral activation strategies 01/20/2025: -Increase Latuda to 60mg daily with dinner 01/19/2025: -Start melatonin 6mg HS 01/18/2025: -Increase fluoxetine to 40mg daily tomorrow -Discontinue sertraline tomorrow 01/17/2025: -Decrease Wellbutrin to 150mg daily -Start mirtazapine 15mg HS -Discontinue olanzapine 20mg HS -Start Latuda 40mg daily with dinner -Start Vit D 1,250 mcg once weekly for 6-8 weeks 01/16/2025:The patient was admitted to the [facility] ([facility]) on q15 min checks (behavioral with suicide precautions) for safety. The patient will participate in group, recreational, and milieu therapies and will be offered additional individual and family sessions as clinically appropriate. Decrease sertraline to 50 mg daily Start fluoxetine 20 mg daily Increase Synthroid to 175 mcg daily Start clonidine 0.1 mg at bedtime Baseline EKG Labs: Hemoglobin A1c, fasting lipids, free T3, vitamin D, vitamin B12 Inventory Assets Strengths: access to stable housing, well connected, family support Needs: on-going mood problems, social isolation Suicide Risk Level Suicide Risk Level: Moderate (q15 min suicide checks) (SI and severe depression with some paranoia but feels safe in the hospital and feels able to ask for support ) Risk Factors Assessment Male: Yes : Yes Do You Have Access To A Gun?: No Health Problems: Yes Mental Health Diagnoses: Yes Substance Use Disorders: No Previous Attempt: No Family History of Suicide: No Previous Psychiatric Hospitalization: Yes Hopelessness: Yes Protective Factors Assessment Roman Catholic Beliefs: Yes : No Responsible for Young Children: No Employed: No Stable Relationships: Yes Supportive Family: Yes Good Rapport with Provider: Yes Absence of Any Risk Factors Above: No Interval History Identifying Information KENDAL MATTSON is a 39-year-old M who currently lives alone, has a history of schizoaffective disorder, cerebral palsy, and was admitted on 01/16/25 00:36 on a 201 voluntary commitment for suicidal ideation. Chief Complaint "Doing". Review of Systems Sleep Information Total Hours of Sleep: 6.5 Meal Information Percent Meal Consumed - Breakfast: 0 Percent Meal Consumed - Lunch: 10 Percent Meal Consumed - Dinner: 10 Nutrition Comment: Less than 25%- Pt ate a bite of his dinner roll and protein shake at dinner. Subjective Subjective Patient was seen & assessed and interval progress reviewed with treatment team. Attended all the groups but retreats to his room in between groups. Brightened with a card game with peers yesterday. In the evening more affect during interactions. Continues to rate his mood as low, 3 and "lethargic". Watched football last evening. Today asked how his mood is doing he replies "doing". Reflects that he was thinking more about suicide earlier today due to spending years in counseling and in various inpatient psych units without ever much improvement. He wonders if hospitalization is pointless as he reports his father told him years ago because "everything will be the same, I'll go back to my same [place] apartment, same [place] town, and same sh*t[place]hole people". Still not eating much. Denies any medication side effects. Physical Exam Psychiatric Orientation: alert and oriented x 3 Apperance: appropriately dressed and + disheveled Eye Contact: + fair eye contact Motor Behavior: no abnormal motor movements and + psychomotor retardation Speech: normal rate/rhythm/volume of speech Affect: + blunted affect Mood: + depressed mood Thought Process: goal directed thought process and + concrete thought process Thought Content: + paranoid Suicidal Thoughts: denies suicidal plan; + reports suicidal thoughts Homicidal Thoughts: denies homicidal thoughts Hallucinations: no auditory hallucinations and no visual hallucinations Insight: + fair insight Judgment: + limited judgement Vital Signs (Past 24 Hours) Last Vital Signs Temp 36.8 C 01/23/25 06:28 Pulse 98 H 01/23/25 06:28 Resp 18 01/23/25 06:28 BP 124/84 01/23/25 06:28 Pulse Ox 98 01/23/25 06:28 O2 Del Method Room Air 01/23/25 06:28 Results & Data ([facility]) Current Inpatient Medications Current Inpatient Medications: Current Inpatient Medications Acetaminophen (Acetaminophen 325 Mg Tab) 650 mg PO Q4H PRN PRN Reason: Headache or Minor Fever Stop: 02/15/25 01:10 Al Hydrox/Mg Hydrox/Simethicone (Aluminum/Magnesium Susp 30 Ml Udc) 30 ml PO Q4H PRN PRN Reason: GI Upset Stop: 02/15/25 01:10 Bupropion HCl (Bupropion Xl 150 Mg Tabcr) 150 mg PO QAM ELSIE Stop: 02/17/25 08:59 Last Admin: 01/22/25 09:10 Dose: 150 mg Clonidine HCl (Clonidine Hcl 0.1 Mg Tab) 0.1 mg PO HS ELSIE Stop: 02/15/25 21:59 Last Admin: 01/22/25 21:44 Dose: 0.1 mg Cyanocobalamin (Cyanocobalamin (B-12) 500 Mcg Tablet) 1,000 mcg PO QAM ELSIE Stop: 02/22/25 08:59 Ezetimibe (Ezetimibe 10 Mg Tab) 10 mg PO DAILY ELSIE Stop: 02/15/25 10:14 Last Admin: 01/22/25 09:10 Dose: 10 mg Ergocalciferol (Ergocalciferol 1250 Mcg (50,000 Units) Cap) 1,250 mcg PO Q7D ELSIE Stop: 02/16/25 13:14 Last Admin: 01/17/25 14:02 Dose: 1,250 mcg Fluoxetine HCl (Fluoxetine Hcl 20 Mg Cap) 40 mg PO QAM ELSIE Stop: 02/18/25 08:59 Last Admin: 01/22/25 09:10 Dose: 40 mg Hydroxyzine HCl (Hydroxyzine Hcl 25 Mg Tab) 50 mg PO HSZ PRN PRN Reason: Insomnia Stop: 02/15/25 01:10 Hydroxyzine HCl (Hydroxyzine Hcl 25 Mg Tab) 25 mg PO Q4H PRN PRN Reason: Anxiety Stop: 02/15/25 01:10 Levothyroxine Sodium (Levothyroxine Sodium 175 Mcg Tablet) 175 mcg PO DAILYBB [facility] Stop: 02/16/25 07:59 Last Admin: 01/22/25 09:10 Dose: 175 mcg Loperamide HCl (Loperamide Hcl 2 Mg Cap) 2 mg PO Q2HWA PRN PRN Reason: Diarrhea Stop: 02/19/25 20:55 Last Admin: 01/20/25 21:09 Dose: 2 mg Lurasidone HCl (Lurasidone Hcl 20 Mg Tab) 80 mg PO DAILYBD ELSIE Stop: 02/21/25 17:14 Last Admin: 01/22/25 17:21 Dose: 80 mg Magnesium Hydroxide (Magnesium Hydroxide Susp 30 Ml Udc) 30 ml PO DAILY PRN PRN Reason: Constipation Stop: 02/15/25 01:10 Melatonin (Melatonin 3 Mg Tab) 6 mg PO HS ELSIE Stop: 02/18/25 21:59 Last Admin: 01/22/25 21:45 Dose: 6 mg Mirtazapine (Mirtazapine Tab 15 Mg Tab) 15 mg PO HS ELSIE Stop: 02/16/25 21:59 Last Admin: 01/22/25 21:44 Dose: 15 mg Multivitamins/Minerals (Cerovite Adv Formula Tab) 1 tab PO QAM ELSIE Stop: 02/22/25 08:59 Pantoprazole Sodium (Pantoprazole 40 Mg Tab) 40 mg PO QAM ELSIE Stop: 02/15/25 08:59 Last Admin: 01/22/25 09:11 Dose: 40 mg Sodium Chloride (Sodium Chloride 0.65% Na Soln 45 Ml ([place])) 1 - 2 sprays NA PRN PRN PRN Reason: Nasal Dryness/Congestion Stop: 02/15/25 01:10 Mental Health & Subst Abuse Tx Psychiatrist Name of Psychiatrist: [facility] - Dr. Georgia Ventura Psychiatrist's Date Of Appointment With Psychiatric Provider: 01/28/25 Time of Appointment with Psychiatrist: 10:30AM Psychiatric Appointment Comment: Ask psychiatrist to be added as priority on waitlist for therapy Therapist Name of Therapist: [facility] Therapist's Therapy Appointment Comment: Ask psychiatrist to be added as priority on waitlist for therapy It Help Desk Manager Name of It Help Desk Manager: Darnell Malone Phone Number for It Help Desk Manager: [phone] Case Management Appointment Comment: Patient declined referral for case management Post Discharge Appointments Primary Care Physician Name Of Family Doctor/PCP: Erika Crenshaw - [facility] Date of Future Appointment with PCP: 02/11/25 Time of Appointment with PCP: 9:40AM [facility] Contact Information Discharge Discharge Address: [address] [place] [id number]
[2025-01-23] MEDS: CYANOCOBALAMIN (B-12) 500 MCG TABLET PO SCH (09:04)
[2025-01-23] MEDS: CEROVITE ADV FORMULA TAB PO SCH (09:05)
--- NOTE | 2025-01-24 09:08 | Psychiatric Progress Note ---
Date of Service January 24, 2025 Impression / Recommendations Impression KENDAL MATTSON is a 39-year-old man who currently lives alone, has a history of schizoaffective disorder, cerebral palsy, and was admitted on 01/16/25 00:36 on a 201 voluntary commitment for suicidal ideation and worsening depression. Presentation consistent with persistent depressive disorder that may or may not be part of a primary psychotic disorder. Currently patient does not appear psychotic and presents intact reality testing with no history of auditory visual hallucinations however has demonstrated extreme paranoia in the past. Has presented increased suicidal ideations which have become more frequent. Does not meet criteria for posttraumatic stress disorder. Family history of bipolar disorder. Medications reviewed and there is concern for auto metabolism of prescribed sertraline and will cross taper to fluoxetine; concern for hypothyroid state which may be contributory and will increase Synthroid dose; start clonidine for sleep and physical symptoms of anxiety and hypervigilance. Medication side effects and adverse effects discussed with patient. Given social isolation patient may benefit from an in person intensive outpatient program or day program for social engagement. A: No SI today, but also no goal directed activity and poor self care. Ongoing risk for inability to care for self outside of hospital setting. Encouraged pt to be out of bed 3 times a day, and to attempt to eat at least 25% of each meal, or drink a boost at mealtime. D/c wellbutrin in case it's contributing to his poor appetite. Prozac and Latuda were just recently increased. Although remeron can increase appetite, I'm concerned it will also be sedating, so I'm leaving the dose the same for now. I ordered labs to check for electrolyte disturbances given poor PO intake. MNPR due to cerebral palsy and need for walker Overall, I spent a total of 28 minutes on this case including meeting with the patient, reviewing the chart, nursing report, multidisciplinary team meeting, orders, and documentation. (1) Persistent depressive disorder with anxious distress, currently severe: (2) Hopelessness: (3) Isolation (social): (4) Hypothyroid: (5) Cerebral palsy: (6) Paranoia: (7) Insomnia: (8) Schizophrenia: Plan 01/24/25: - d/c wellbutrin - CMP in AM, Ca, and Mag 01/23/2025: -Continue current medications and tx plan. 01/22/2025: -Increase Latuda to 80mg daily with dinner -Start Vit B12 1000mcg/day -Start MVM daily 01/21/2025: -After School Teacher consult -Consider trial of packaged food items in case paranoia is negatively impacting his intake -Ongoing behavioral activation strategies 01/20/2025: -Increase Latuda to 60mg daily with dinner 01/19/2025: -Start melatonin 6mg HS 01/18/2025: -Increase fluoxetine to 40mg daily tomorrow -Discontinue sertraline tomorrow 01/17/2025: -Decrease Wellbutrin to 150mg daily -Start mirtazapine 15mg HS -Discontinue olanzapine 20mg HS -Start Latuda 40mg daily with dinner -Start Vit D 1,250 mcg once weekly for 6-8 weeks 01/16/2025:The patient was admitted to the [facility] ([facility] mental health unit) on q15 min checks (behavioral with suicide precautions) for safety. The patient will participate in group, recreational, and milieu therapies and will be offered additional individual and family sessions as clinically appropriate. Decrease sertraline to 50 mg daily Start fluoxetine 20 mg daily Increase Synthroid to 175 mcg daily Start clonidine 0.1 mg at bedtime Baseline EKG Labs: Hemoglobin A1c, fasting lipids, free T3, vitamin D, vitamin B12 Inventory Assets Strengths: access to stable housing, well connected, family support Needs: on-going mood problems, social isolation Suicide Risk Level Suicide Risk Level: Moderate (q15 min suicide checks) (SI and severe depression with some paranoia but feels safe in the hospital and feels able to ask for support ) Risk Factors Assessment Male: Yes : Yes Do You Have Access To A Gun?: No Health Problems: Yes Mental Health Diagnoses: Yes Substance Use Disorders: No Previous Attempt: No Family History of Suicide: No Previous Psychiatric Hospitalization: Yes Hopelessness: Yes Protective Factors Assessment Episcopalian Beliefs: Yes : No Responsible for Young Children: No Employed: No Stable Relationships: Yes Supportive Family: Yes Good Rapport with Provider: Yes Absence of Any Risk Factors Above: No Interval History Identifying Information KENDAL MATTSON is a 39-year-old M who currently lives alone, has a history of schizoaffective disorder, cerebral palsy, and was admitted on 01/16/25 00:36 on a 201 voluntary commitment for suicidal ideation. Chief Complaint "yesterday was a down day." Review of Systems Sleep Information Total Hours of Sleep: 6.5 Meal Information Percent Meal Consumed - Breakfast: 0 Percent Meal Consumed - Lunch: 0 Percent Meal Consumed - Dinner: 0 Nutrition Comment: Less than 25%- Pt ate a bite of his dinner roll and protein shake at dinner. Subjective Subjective Patient was seen & assessed and interval progress reviewed with nursing and social work Per nursing report: still not eating at all - hx of eating disorder, related to past delusions. denies delusions now. would not accept pre-packaged food showering unprompted - about QOD attends community meeting, not other groups needs a lot of prompting to get out of bed/room I met with patient privately in his room. Upon approach, he was in bed. He stated "yesterday was a down day." He said he was more depressed and stayed in bed most of the day. Also did not eat anything that day. He does say he was trying to eat more prior to that however. He says he was ruminating on negative things in his life and current stressors. He says he is not eating just due to poor appetite. He denied any concerns about the food or contamination. Also denied any hallucinations telling him not to eat, or wanting to punish himself by not eating. He had limited insight into triggers for his depression, or ways to cope. He says he does like to go to group, and thinks that may help him get out of bed. He does not like TV, crafts, or games. He continues to have anhedonia but no significant irritability. He says he is sleeping well. Physical Exam Psychiatric Orientation: alert, oriented x 3 and oriented to person Apperance: + disheveled Eye Contact: + fair eye contact Motor Behavior: + psychomotor retardation; + unsteady gait or station Speech: normal rate/rhythm/volume of speech Affect: + depressed affect, + blunted affect and mood congruent with affect Mood: + depressed mood Thought Process: linear/logical thought process and clear/coherent thought process Thought Content: reality based without delusions Suicidal Thoughts: denies suicidal thoughts, denies suicidal plan and denies suicidal intent Homicidal Thoughts: denies homicidal thoughts, denies homicidal plan and denies homicidal intent Hallucinations: no auditory hallucinations and no visual hallucinations Cognition: attention grossly intact and language grossly intact Insight: + fair insight Judgment: + fair judgement Vital Signs (Past 24 Hours) Last Vital Signs Temp 36.9 C 01/24/25 06:16 Pulse 105 H 01/24/25 06:17 Resp 16 01/24/25 06:16 BP 127/86 01/24/25 06:17 Pulse Ox 98 01/23/25 06:28 O2 Del Method Room Air 01/23/25 06:28 Results & Data ([facility]) Current Inpatient Medications Current Inpatient Medications: Current Inpatient Medications Acetaminophen (Acetaminophen 325 Mg Tab) 650 mg PO Q4H PRN PRN Reason: Headache or Minor Fever Stop: 02/15/25 01:10 Al Hydrox/Mg Hydrox/Simethicone (Aluminum/Magnesium Susp 30 Ml Udc) 30 ml PO Q4H PRN PRN Reason: GI Upset Stop: 02/15/25 01:10 Bupropion HCl (Bupropion Xl 150 Mg Tabcr) 150 mg PO QAM ELSIE Stop: 02/17/25 08:59 Last Admin: 01/24/25 08:33 Dose: 150 mg Clonidine HCl (Clonidine Hcl 0.1 Mg Tab) 0.1 mg PO HS ELSIE Stop: 02/15/25 21:59 Last Admin: 01/23/25 22:22 Dose: 0.1 mg Cyanocobalamin (Cyanocobalamin (B-12) 500 Mcg Tablet) 1,000 mcg PO QAM ELSIE Stop: 02/22/25 08:59 Last Admin: 01/24/25 08:34 Dose: 1,000 mcg Ezetimibe (Ezetimibe 10 Mg Tab) 10 mg PO DAILY ELSIE Stop: 02/15/25 10:14 Last Admin: 01/24/25 08:34 Dose: 10 mg Ergocalciferol (Ergocalciferol 1250 Mcg (50,000 Units) Cap) 1,250 mcg PO Q7D ELSIE Stop: 02/16/25 13:14 Last Admin: 01/17/25 14:02 Dose: 1,250 mcg Fluoxetine HCl (Fluoxetine Hcl 20 Mg Cap) 40 mg PO QAM ELSIE Stop: 02/18/25 08:59 Last Admin: 01/24/25 08:34 Dose: 40 mg Hydroxyzine HCl (Hydroxyzine Hcl 25 Mg Tab) 50 mg PO HSZ PRN PRN Reason: Insomnia Stop: 02/15/25 01:10 Hydroxyzine HCl (Hydroxyzine Hcl 25 Mg Tab) 25 mg PO Q4H PRN PRN Reason: Anxiety Stop: 02/15/25 01:10 Ketoconazole (Ketoconazole 2% Cr 15 Gm Tube) 1 appln EXT DAILY PRN PRN Reason: dandruff Stop: 02/02/25 16:13 Levothyroxine Sodium (Levothyroxine Sodium 175 Mcg Tablet) 175 mcg PO DAILYBB ELSIE Stop: 02/16/25 07:59 Last Admin: 01/24/25 08:33 Dose: 175 mcg Loperamide HCl (Loperamide Hcl 2 Mg Cap) 2 mg PO Q2HWA PRN PRN Reason: Diarrhea Stop: 02/19/25 20:55 Last Admin: 01/20/25 21:09 Dose: 2 mg Lurasidone HCl (Lurasidone Hcl 20 Mg Tab) 80 mg PO DAILYBD ELSIE Stop: 02/21/25 17:14 Last Admin: 01/23/25 18:07 Dose: 80 mg Magnesium Hydroxide (Magnesium Hydroxide Susp 30 Ml Udc) 30 ml PO DAILY PRN PRN Reason: Constipation Stop: 02/15/25 01:10 Melatonin (Melatonin 3 Mg Tab) 6 mg PO HS ELSIE Stop: 02/18/25 21:59 Last Admin: 01/23/25 22:22 Dose: 6 mg Mirtazapine (Mirtazapine Tab 15 Mg Tab) 15 mg PO HS ELSIE Stop: 02/16/25 21:59 Last Admin: 01/23/25 22:22 Dose: 15 mg Multivitamins/Minerals (Cerovite Adv Formula Tab) 1 tab PO QAM ELSIE Stop: 02/22/25 08:59 Last Admin: 01/24/25 08:33 Dose: 1 tab Pantoprazole Sodium (Pantoprazole 40 Mg Tab) 40 mg PO QAM ELSIE Stop: 02/15/25 08:59 Last Admin: 01/24/25 08:34 Dose: 40 mg Sodium Chloride (Sodium Chloride 0.65% Na Soln 45 Ml ([place])) 1 - 2 sprays NA PRN PRN PRN Reason: Nasal Dryness/Congestion Stop: 02/15/25 01:10 Mental Health & Subst Abuse Tx Psychiatrist Name of Psychiatrist: [facility] - Dr. Georgia Ventura Psychiatrist's Date Of Appointment With Psychiatric Provider: 01/28/25 Time of Appointment with Psychiatrist: 10:30AM Psychiatric Appointment Comment: Ask psychiatrist to be added as priority on waitlist for therapy Therapist Name of Therapist: [facility] Therapist's Therapy Appointment Comment: Ask psychiatrist to be added as priority on waitlist for therapy Cleaning And Washing Equipment Operator Name of Cleaning And Washing Equipment Operator: Darnell Malone Phone Number for Cleaning And Washing Equipment Operator: [phone] Case Management Appointment Comment: Patient declined referral for case management Post Discharge Appointments Primary Care Physician Name Of Family Doctor/PCP: Erika Crenshaw - [facility] [place] [facility] Date of Future Appointment with PCP: 02/11/25 Time of Appointment with PCP: 9:40AM Provider Appointment Comment: [phone], BRIANNA Mckeon (F/U re: thyroid) Contact Information Discharge Discharge Address: [address] [place] [address] [place] [phone]
[2025-01-25 09:20] LABS: Alanine Aminotransferase 6.0 U/L (7-52); Albumin Globulin Ratio 1.3 (0.9-2); Albumin Level 4.0 gm/dl (3.4-5.0); Alkaline Phosphatase 75.0 U/L (34-104); Anion Gap 16.0 (3-11); Bilirubin,Total 0.6 mg/dl (0.2-1.0); Blood Urea Nitrogen 12.0 mg/dl (6-23); Calcium 9.2 mg/dl (8.6-10.3); Carbon Dioxide 16.0 mmol/L (21-32); Chloride 106.0 mmol/L (98-107); Creatinine Clr Calc Pharmacy 125.6 ml/min; Globulin 3.1 gm/dl (2.5-4.0); Glucose 68.0 mg/dl (70-99(Fasting)); Magnesium 1.8 mg/dl (1.7-2.4); Potassium 3.9 mmol/L (3.5-5.1); Sodium 138.0 mmol/L (136-145); Total Protein 7.1 gm/dl (6.0-8.3)
--- NOTE | 2025-01-25 13:37 | Psychiatric Progress Note ---
Date of Service January 25, 2025 Impression / Recommendations Impression KENDAL MATTSON is a 39-year-old man who currently lives alone, has a history of schizoaffective disorder, cerebral palsy, and was admitted on 01/16/25 00:36 on a 201 voluntary commitment for suicidal ideation and worsening depression. Presentation consistent with persistent depressive disorder that may or may not be part of a primary psychotic disorder. Currently patient does not appear psychotic and presents intact reality testing with no history of auditory visual hallucinations however has demonstrated extreme paranoia in the past. Has presented increased suicidal ideations which have become more frequent. Does not meet criteria for posttraumatic stress disorder. Family history of bipolar disorder. Medications reviewed and there is concern for auto metabolism of prescribed sertraline and will cross taper to fluoxetine; concern for hypothyroid state which may be contributory and will increase Synthroid dose; start clonidine for sleep and physical symptoms of anxiety and hypervigilance. Medication side effects and adverse effects discussed with patient. Given social isolation patient may benefit from an in person intensive outpatient program or day program for social engagement. A: Labs were checked and within in normal limits except for a slightly low glucose of 68 and an anion gap of 16. Continued to encourage patient to utilize protein shakes as well as attempt at least 25% of each meal. There is significant documentation to support that paranoia is often a trigger for his poor p.o. intake. He continues to deny that is the case currently. However, he remains extremely isolative and is relatively guarded on approach. I am going to increase Latuda since he certainly is not eating enough calories with the Latuda to be getting full absorption . However , if we're not seeing improvement on it over the next week, we could pursue Seroquel instead, which would help him sleep overnight and increase his appetite, but it does have the increased risk of weight gain and other metabolic complications. He has also never been on Geodon, Vraylar, Saphris, or any first generation antipsychotics. He has been started on Prozac this admission, but there is a delay significant delay for when it becomes effective. Considering he previously had stabilization on Zoloft at 200 mg, am going to empirically increase the dose to 60. MNPR due to cerebral palsy and need for walker Overall, I spent a total of 60 minutes on this case including meeting with the patient, reviewing the chart, nursing report, multidisciplinary team meeting, orders, and documentation. (1) Persistent depressive disorder with anxious distress, currently severe: (2) Hopelessness: (3) Isolation (social): (4) Hypothyroid: (5) Cerebral palsy: (6) Paranoia: (7) Insomnia: (8) Schizophrenia: Plan 01/25/25: - Increase Latuda to 20mg AM and 80mg with dinner. - Increase prozac to 60mg daily - ongoing behavioral activation strategies. 01/24/25: - d/c wellbutrin - CMP in AM, Ca, and Mag 01/23/2025: -Continue current medications and tx plan. 01/22/2025: -Increase Latuda to 80mg daily with dinner -Start Vit B12 1000mcg/day -Start MVM daily 01/21/2025: -Registered Physical Therapist consult -Consider trial of packaged food items in case paranoia is negatively impacting his intake -Ongoing behavioral activation strategies 01/20/2025: -Increase Latuda to 60mg daily with dinner 01/19/2025: -Start melatonin 6mg HS 01/18/2025: -Increase fluoxetine to 40mg daily tomorrow -Discontinue sertraline tomorrow 01/17/2025: -Decrease Wellbutrin to 150mg daily -Start mirtazapine 15mg HS -Discontinue olanzapine 20mg HS -Start Latuda 40mg daily with dinner -Start Vit D 1,250 mcg once weekly for 6-8 weeks 01/16/2025:The patient was admitted to the [facility] ([facility]) on q15 min checks (behavioral with suicide precautions) for safety. The patient will participate in group, recreational, and milieu therapies and will be offered additional individual and family sessions as clinically appropriate. Decrease sertraline to 50 mg daily Start fluoxetine 20 mg daily Increase Synthroid to 175 mcg daily Start clonidine 0.1 mg at bedtime Baseline EKG Labs: Hemoglobin A1c, fasting lipids, free T3, vitamin D, vitamin B12 Inventory Assets Strengths: access to stable housing, well connected, family support Needs: on-going mood problems, social isolation Suicide Risk Level Suicide Risk Level: Moderate (q15 min suicide checks) (SI and severe depression with some paranoia but feels safe in the hospital and feels able to ask for support ) Risk Factors Assessment Male: Yes : Yes Do You Have Access To A Gun?: No Health Problems: Yes Mental Health Diagnoses: Yes Substance Use Disorders: No Previous Attempt: No Family History of Suicide: No Previous Psychiatric Hospitalization: Yes Hopelessness: Yes Protective Factors Assessment Yazidism Beliefs: Yes : No Responsible for Young Children: No Employed: No Stable Relationships: Yes Supportive Family: Yes Good Rapport with Provider: Yes Absence of Any Risk Factors Above: No Interval History Identifying Information KENDAL MATTSON is a 39-year-old M who currently lives alone, has a history of schizoaffective disorder, cerebral palsy, and was admitted on 01/16/25 00:36 on a 201 voluntary commitment for suicidal ideation. Chief Complaint "[]". Review of Systems Sleep Information Total Hours of Sleep: 6 Meal Information Percent Meal Consumed - Breakfast: 0 Percent Meal Consumed - Lunch: 0 Percent Meal Consumed - Dinner: 10 Nutrition Comment: Less than 25%- Pt ate a bite of his dinner roll and protein shake at dinner. Subjective Subjective Patient was seen & assessed and interval progress reviewed with nursing and social work. per report- patient ate only 10% of dinner yesterday. He was also noted to have a couple coffee, and a boost. He has isolated to his room. He has not showered. He requires firm encouragement to attend groups. At times says he will attend, and then does not. He rated his mood a 3 out of 10. He played guitar during the music group and did appear to brighten briefly after that. Weight was obtained- current weight is 99.8 kg, down from admission weight of 103 kg. I reviewed extensive notes from 2014, 2016 and [address] [facility], and summarized significant findings below. I met with patient privately in his room. He says "I was little better yesterday, not as bad as the day before." He says he has trouble sleeping at night. He says he continues to feel depressed. Discussed his history of paranoia. He says that right now "I do not have any specific paranoia, but maybe some generalized some general paranoia." Further elaborates that he does not have any specific stories or concerns, but has a general distress or suspiciousness at baseline. He continues to deny that this is why he is not eating. He says "I just do not have an appetite." Discussed again scheduling meals despite low appetite. Attempting to eat at each meal, at least up to 25% of what is on his plate. He expressed ambivalence. He says his goals for today are to call his dad. I also encouraged to add taking a shower and attending at least 1 group. He agreed to those goals. We discussed his past medication trials, and he did recall some by name. He did not have particular opinions about any of them, And again expressed ambivalence. He does not report suicidal ideation, but also does report consistent depression and lack of int erest and motivation. Records review: med trial history- Risperidone (was not helpful) Abilify (was not helpful) Zyprexa (was helpful, but was on just prior to admission and patient was not stable) Thorazine (given only as needed for sleep according to patient) Wellbutrin (discontinued due to significant depression despite on it, and poor appetite) As a teenager, was on Depakote Paxil and propranolol Remeron (started in 2012) Lexapro (not clearly beneficial) Zoloft (has previously been up to 200 mg, which did seem to be helpful) Substance use history- Patient started using pills such as stimulants and pain pills around the age of 16. Started smoking marijuana around age of 17 and started drinking alcohol around the age of 18. reports he used marijuana and alcohol regularly for approximately 10 years. He also reports he had difficulty quitting OxyContin pills, but reports he has remained sober from those in the past he has reported he is "kind of a loner" because many of his friends are users and he wanted to stay clean. Past psychiatric history- Developmental history complicated by parents' divorce in early teenage years, and patient's substance use starting around then as well. His mother reported pt had abrupt onset of paranoia and psychosis in 2012 after a trip with several friends to [facility]. This was around the time of active substance abuse as well. Since then, he has had pretty consistent paranoia. He's also had what sounds like significant negative symptoms, where he become increasingly isolative and asocial, lacking motivation and interest. At times he is also reported depression. He is typically denied hallucinations. His appetite is often reported as low, and his weight has fluctuated significant ly. He has had treatment with Marinol in the past. He also had an admission to the [facility]E unit at [facility], which is an eating disorder unit. At that time he had lost a significant amount awake weight, and was reportedly 80 pounds. This was related to specific delusions he had about not eating. There is brief mention in a past note that his mother reported patient previously required a feeding tube. Further details are not currently known. Physical Exam Psychiatric Orientation: alert, oriented x 3 and + guarded Apperance: + disheveled Malodorous. hair visibly dirty. Eye Contact: + fair eye contact Motor Behavior: + psychomotor retardation Speech: normal rate/rhythm/volume of speech Affect: + flat affect Mood: + depressed mood Thought Process: clear/coherent thought process and + concrete thought process Thought Content: + cognitive distortions possible paranoia Suicidal Thoughts: denies suicidal thoughts, denies suicidal plan and denies suicidal intent Homicidal Thoughts: denies homicidal thoughts, denies homicidal plan and denies homicidal intent Hallucinations: no auditory hallucinations and no visual hallucinations Cognition: recent memory grossly intact, remote memory grossly intact, attention grossly intact and language grossly intact Estimated Intelligence: average estimated intelligence Insight: + poor insight Judgment: + poor judgement Vital Signs (Past 24 Hours) Last Vital Signs Temp 36.6 C 01/25/25 06:13 Pulse 102 H 01/25/25 06:14 Resp 16 01/25/25 06:13 BP 123/88 01/25/25 06:14 Pulse Ox 98 01/23/25 06:28 O2 Del Method Room Air 01/23/25 06:28 Results & Data ([facility]) Laboratory Results Laboratory Results - last 24 hr 01/25/25 08:36 Sodium 138 Potassium 3.9 Chloride 106 Carbon Dioxide 16 L Anion Gap 16 H BUN 12 Creatinine 0.96 Est Cr Clr Drug Dosing 125.6 eGFR 103.76 BUN/Creatinine Ratio 12.5 Glucose 68 L Calcium 9.2 Magnesium 1.8 Total Bilirubin 0.6 AST 11 L ALT 6 L Alkaline Phosphatase 75 Total Protein 7.1 Albumin 4.0 Globulin 3.1 Albumin/Globulin Ratio 1.3 Current Inpatient Medications Current Inpatient Medications: Current Inpatient Medications Acetaminophen (Acetaminophen 325 Mg Tab) 650 mg PO Q4H PRN PRN Reason: Headache or Minor Fever Stop: 02/15/25 01:10 Al Hydrox/Mg Hydrox/Simethicone (Aluminum/Magnesium Susp 30 Ml Udc) 30 ml PO Q4H PRN PRN Reason: GI Upset Stop: 02/15/25 01:10 Bupropion HCl (Bupropion Xl 150 Mg Tabcr) 150 mg PO QAM [facility] Stop: 02/17/25 08:59 Last Admin: 01/25/25 09:02 Dose: 150 mg Clonidine HCl (Clonidine Hcl 0.1 Mg Tab) 0.1 mg PO HS [facility]SIE Stop: 02/15/25 21:59 Last Admin: 01/24/25 21:19 Dose: 0.1 mg Cyanocobalamin (Cyanocobalamin (B-12) 500 Mcg Tablet) 1,000 mcg PO QAM [facility] Stop: 02/22/25 08:59 Last Admin: 01/25/25 09:02 Dose: 1,000 mcg Ezetimibe (Ezetimibe 10 Mg Tab) 10 mg PO DAILY [facility] Stop: 02/15/25 10:14 Last Admin: 01/25/25 09:02 Dose: 10 mg Ergocalciferol (Ergocalciferol 1250 Mcg (50,000 Units) Cap) 1,250 mcg PO Q7D [facility] Stop: 02/16/25 13:14 Last Admin: 01/24/25 14:42 Dose: 1,250 mcg Fluoxetine HCl (Fluoxetine Hcl 20 Mg Cap) 40 mg PO QAM [facility] Stop: 02/18/25 08:59 Last Admin: 01/25/25 09:02 Dose: 40 mg Hydroxyzine HCl (Hydroxyzine Hcl 25 Mg Tab) 50 mg PO HSZ PRN PRN Reason: Insomnia Stop: 02/15/25 01:10 Hydroxyzine HCl (Hydroxyzine Hcl 25 Mg Tab) 25 mg PO Q4H PRN PRN Reason: Anxiety Stop: 02/15/25 01:10 Ketoconazole (Ketoconazole 2% Cr 15 Gm Tube) 1 appln EXT DAILY PRN PRN Reason: dandruff Stop: 02/02/25 16:13 Levothyroxine Sodium (Levothyroxine Sodium 175 Mcg Tablet) 175 mcg PO DAILYBB [facility] Stop: 02/16/25 07:59 Last Admin: 01/25/25 09:01 Dose: 175 mcg Loperamide HCl (Loperamide Hcl 2 Mg Cap) 2 mg PO Q2HWA PRN PRN Reason: Diarrhea Stop: 02/19/25 20:55 Last Admin: 01/20/25 21:09 Dose: 2 mg Lurasidone HCl (Lurasidone Hcl 20 Mg Tab) 80 mg PO DAILYBD [facility] Stop: 02/21/25 17:14 Last Admin: 01/24/25 18:25 Dose: 80 mg Magnesium Hydroxide (Magnesium Hydroxide Susp 30 Ml Udc) 30 ml PO DAILY PRN PRN Reason: Constipation Stop: 02/15/25 01:10 Melatonin (Melatonin 3 Mg Tab) 6 mg PO HS [facility]SIE Stop: 02/18/25 21:59 Last Admin: 01/24/25 21:19 Dose: 6 mg Mirtazapine (Mirtazapine Tab 15 Mg Tab) 15 mg PO HS [facility]SIE Stop: 02/16/25 21:59 Last Admin: 01/24/25 21:19 Dose: 15 mg Multivitamins/Minerals (Cerovite Adv Formula Tab) 1 tab PO QAM [facility] Stop: 02/22/25 08:59 Last Admin: 01/25/25 09:02 Dose: 1 tab Pantoprazole Sodium (Pantoprazole 40 Mg Tab) 40 mg PO QAM [facility] Stop: 02/15/25 08:59 Last Admin: 01/25/25 09:02 Dose: 40 mg Sodium Chloride (Sodium Chloride 0.65% Na Soln 45 Ml ([facility])) 1 - 2 sprays NA PRN PRN PRN Reason: Nasal Dryness/Congestion Stop: 02/15/25 01:10 Mental Health & Subst Abuse Tx Psychiatrist Name of Psychiatrist: [facility] - Dr. Georgia Ventura Psychiatrist's Date Of Appointment With Psychiatric Provider: 01/28/25 Time of Appointment with Psychiatrist: 10:30AM Psychiatric Appointment Comment: Ask psychiatrist to be added as priority on waitlist for therapy Therapist Name of Therapist: [facility] Therapist's Therapy Appointment Comment: Ask psychiatrist to be added as priority on waitlist for therapy [employer] Sales[employer] Name of [employer] Salesperson: Darnell Malone Phone Number for [employer] Salesperson: [phone] Case Management Appointment Comment: Patient declined referral for case management Post Discharge Appointments Primary Care Physician Name Of Family Doctor/PCP: Erika Crenshaw - [facility] Date of Future Appointment with PCP: 02/11/25 Time of Appointment with PCP: 9:40AM Provider Appointment Comment: [phone] Boyd PA (F/U re: thyroid) Contact Information Discharge Discharge Address: [address] [place] [address] [address] [place] [id number]
[2025-01-25] MEDS: KETOCONAZOLE 2% CR 15 GM TUBE EXT PRN (21:30)
--- NOTE | 2025-01-26 08:43 | Psychiatric Progress Note ---
Date of Service January 26, 2025 Impression / Recommendations Impression KENDAL MATTSON is a 39-year-old man who currently lives alone, has a history of schizoaffective disorder, cerebral palsy, and was admitted on 01/16/25 00:36 on a 201 voluntary commitment for suicidal ideation and worsening depression. Presentation consistent with persistent depressive disorder that may or may not be part of a primary psychotic disorder. Currently patient does not appear psychotic and presents intact reality testing with no history of auditory visual hallucinations however has demonstrated extreme paranoia in the past. Has presented increased suicidal ideations which have become more frequent. Does not meet criteria for posttraumatic stress disorder. Family history of bipolar disorder. Medications reviewed and there is concern for auto metabolism of prescribed sertraline and will cross taper to fluoxetine; concern for hypothyroid state which may be contributory and will increase Synthroid dose; start clonidine for sleep and physical symptoms of anxiety and hypervigilance. Medication side effects and adverse effects discussed with patient. Given social isolation patient may benefit from an in person intensive outpatient program or day program for social engagement. A: Pt has showered, attended some groups, and offers more reflection on 1:1 encounter today. Given multiple med changes yesterday, I'm holding tight on doses today. Encouraged pt to be out of bed, and sit at a table with his tray at each meal. Continuing to encourage eating at least 25% of each meal, or a boost with each meal. I did reinforce the dangers of low glucose levels, to hopefully increase pt's level of concern about his poor intake. MNPR due to cerebral palsy and need for walker Overall, I spent a total of 40 minutes on this case including meeting with the patient, reviewing the chart, nursing report, multidisciplinary team meeting, orders, and documentation. (1) Persistent depressive disorder with anxious distress, currently severe: (2) Hopelessness: (3) Isolation (social): (4) Hypothyroid: (5) Cerebral palsy: (6) Paranoia: (7) Insomnia: (8) Schizophrenia: Plan 01/26/25: Continue current medications and treatment plan. encouraged pt to be out of bed, in dinning room with tray for each meal. 01/25/25: - Increase Latuda to 20mg AM and 80mg with dinner. - Increase prozac to 60mg daily - ongoing behavioral activation strategies. 10/18/25: - d/c wellbutrin - CMP in AM, Ca, and Mag 01/23/2025: -Continue current medications and tx plan. 01/22/2025: -Increase Latuda to 80mg daily with dinner -Start Vit B12 1000mcg/day -Start MVM daily 01/21/2025: -Hand Tool Filer consult -Consider trial of packaged food items in case paranoia is negatively impacting his intake -Ongoing behavioral activation strategies 01/20/2025: -Increase Latuda to 60mg daily with dinner 01/19/2025: -Start melatonin 6mg HS 01/18/2025: -Increase fluoxetine to 40mg daily tomorrow -Discontinue sertraline tomorrow 01/17/2025: -Decrease Wellbutrin to 150mg daily -Start mirtazapine 15mg HS -Discontinue olanzapine 20mg HS -Start Latuda 40mg daily with dinner -Start Vit D 1,250 mcg once weekly for 6-8 weeks 01/16/2025:The patient was admitted to the [facility] ([facility] mental health unit) on q15 min checks (behavioral with suicide precautions) for safety. The patient will participate in group, recreational, and milieu therapies and will be offered additional individual and family sessions as clinically appropriate. Decrease sertraline to 50 mg daily Start fluoxetine 20 mg daily Increase Synthroid to 175 mcg daily Start clonidine 0.1 mg at bedtime Baseline EKG Labs: Hemoglobin A1c, fasting lipids, free T3, vitamin D, vitamin B12 Inventory Assets Strengths: access to stable housing, well connected, family support Needs: on-going mood problems, social isolation Suicide Risk Level Suicide Risk Level: Moderate (q15 min suicide checks) (SI and severe depression with some paranoia but feels safe in the hospital and feels able to ask for support ) Risk Factors Assessment Male: Yes : Yes Do You Have Access To A Gun?: No Health Problems: Yes Mental Health Diagnoses: Yes Substance Use Disorders: No Previous Attempt: No Family History of Suicide: No Previous Psychiatric Hospitalization: Yes Hopelessness: Yes Protective Factors Assessment Sikh Beliefs: Yes : No Responsible for Young Children: No Employed: No Stable Relationships: Yes Supportive Family: Yes Good Rapport with Provider: Yes Absence of Any Risk Factors Above: No Interval History Identifying Information KENDAL MATTSON is a 39-year-old M who currently lives alone, has a history of schizoaffective disorder, cerebral palsy, and was admitted on 01/16/25 00:36 on a 201 voluntary commitment for suicidal ideation. Chief Complaint "I'm not in a good headspace". Review of Systems Sleep Information Total Hours of Sleep: 6.5 Meal Information Percent Meal Consumed - Breakfast: 0 Percent Meal Consumed - Lunch: 0 Percent Meal Consumed - Dinner: 10 Nutrition Comment: Less than 25%- Pt ate a bite of his dinner roll and protein shake at dinner. Subjective Subjective Patient was seen & assessed and interval progress reviewed with treatment team Per report: slept 6.5h last BM was 01/22 did shower last evening mood 06/16 and feeling "lethargic" I met with the patient privately in his room. He was more talkative and forthcoming today. Discussed his reluctance to make PO intake a priority. He explained "in the past, it took a long time before not eating really caused any problems", so his level of concern about his intake is low. He confirmed that in the past, his weight had gone down to a dariana of 77lb, and he did indeed need a feeding tube around that time. He seemed receptive to hearing that his fasting glucose level was low, which can cause complications. When asked about what does concern him, he stated "I'm not in a good headspace... when I think of past, present, future." Expressed hopelessness that his life will be any different when he leaves here. He feel particularly down about where he lives, which he describes as a run down, isolated space. He continues to have passive SI, which was more intense yesterday, and a little less today, but still present. Denies plan or intent. Continues to deny paranoia, AH or VH. Physical Exam Psychiatric Orientation: alert and oriented x 3 Apperance: appropriately dressed and appropriately groomed notably improved Eye Contact: good eye contact Motor Behavior: + unsteady gait or station Speech: normal rate/rhythm/volume of speech Affect: + blunted affect Mood: + depressed mood Thought Process: goal directed thought process and linear/logical thought process Thought Content: reality based without delusions and + hopelessness +rumination Suicidal Thoughts: denies suicidal plan and denies suicidal intent; + reports suicidal thoughts Homicidal Thoughts: denies homicidal thoughts, denies homicidal plan and denies homicidal intent Hallucinations: no auditory hallucinations and no visual hallucinations pt denies Cognition: recent memory grossly intact, remote memory grossly intact, attention grossly intact and language grossly intact Estimated Intelligence: consistent with education level Insight: + fair insight Judgment: + limited judgement Vital Signs (Past 24 Hours) Last Vital Signs Temp 36.8 C 01/26/25 06:16 Pulse 106 H 01/26/25 06:17 Resp 16 01/26/25 06:16 BP 126/85 01/26/25 06:17 Pulse Ox 98 01/23/25 06:28 O2 Del Method Room Air 01/23/25 06:28 Results & Data ([facility]) Laboratory Results Laboratory Results - last 24 hr 01/25/25 08:36 Sodium 138 Potassium 3.9 Chloride 106 Carbon Dioxide 16 L Anion Gap 16 H BUN 12 Creatinine 0.96 Est Cr Clr Drug Dosing 125.6 eGFR 103.76 BUN/Creatinine Ratio 12.5 Glucose 68 L Calcium 9.2 Magnesium 1.8 Total Bilirubin 0.6 AST 11 L ALT 6 L Alkaline Phosphatase 75 Total Protein 7.1 Albumin 4.0 Globulin 3.1 Albumin/Globulin Ratio 1.3 Current Inpatient Medications Current Inpatient Medications: Current Inpatient Medications Acetaminophen (Acetaminophen 325 Mg Tab) 650 mg PO Q4H PRN PRN Reason: Headache or Minor Fever Stop: 02/15/25 01:10 Al Hydrox/Mg Hydrox/Simethicone (Aluminum/Magnesium Susp 30 Ml Udc) 30 ml PO Q4H PRN PRN Reason: GI Upset Stop: 02/15/25 01:10 Clonidine HCl (Clonidine Hcl 0.1 Mg Tab) 0.1 mg PO HS ELSIE Stop: 02/15/25 21:59 Last Admin: 01/25/25 21:20 Dose: 0.1 mg Cyanocobalamin (Cyanocobalamin (B-12) 500 Mcg Tablet) 1,000 mcg PO QAM ELSIE Stop: 02/22/25 08:59 Last Admin: 01/25/25 09:02 Dose: 1,000 mcg Ezetimibe (Ezetimibe 10 Mg Tab) 10 mg PO DAILY ELSIE Stop: 02/15/25 10:14 Last Admin: 01/25/25 09:02 Dose: 10 mg Ergocalciferol (Ergocalciferol 1250 Mcg (50,000 Units) Cap) 1,250 mcg PO Q7D ELSIE Stop: 02/16/25 13:14 Last Admin: 01/24/25 14:42 Dose: 1,250 mcg Fluoxetine HCl (Fluoxetine Hcl 20 Mg Cap) 60 mg PO QAM ELSIE Stop: 02/25/25 08:59 Hydroxyzine HCl (Hydroxyzine Hcl 25 Mg Tab) 50 mg PO HSZ PRN PRN Reason: Insomnia Stop: 02/15/25 01:10 Hydroxyzine HCl (Hydroxyzine Hcl 25 Mg Tab) 25 mg PO Q4H PRN PRN Reason: Anxiety Stop: 02/15/25 01:10 Ketoconazole (Ketoconazole 2% Cr 15 Gm Tube) 1 appln EXT DAILY PRN PRN Reason: dandruff Stop: 02/02/25 16:13 Last Admin: 01/25/25 21:30 Dose: 1 appln Levothyroxine Sodium (Levothyroxine Sodium 175 Mcg Tablet) 175 mcg PO DAILYBB ELSIE Stop: 02/16/25 07:59 Last Admin: 01/25/25 09:01 Dose: 175 mcg Loperamide HCl (Loperamide Hcl 2 Mg Cap) 2 mg PO Q2HWA PRN PRN Reason: Diarrhea Stop: 02/19/25 20:55 Last Admin: 01/20/25 21:09 Dose: 2 mg Lurasidone HCl (Lurasidone Hcl 20 Mg Tab) 80 mg PO DAILYBD ELSIE Stop: 02/21/25 17:14 Last Admin: 01/25/25 17:24 Dose: 80 mg Lurasidone HCl (Lurasidone Hcl 20 Mg Tab) 20 mg PO DAILY ELSIE Stop: 02/25/25 08:59 Magnesium Hydroxide (Magnesium Hydroxide Susp 30 Ml Udc) 30 ml PO DAILY PRN PRN Reason: Constipation Stop: 02/15/25 01:10 Melatonin (Melatonin 3 Mg Tab) 6 mg PO HS ELSIE Stop: 02/18/25 21:59 Last Admin: 01/25/25 21:20 Dose: 6 mg Mirtazapine (Mirtazapine Tab 15 Mg Tab) 15 mg PO HS ELSIE Stop: 02/16/25 21:59 Last Admin: 01/25/25 21:20 Dose: 15 mg Multivitamins/Minerals (Cerovite Adv Formula Tab) 1 tab PO QAM ELSIE Stop: 02/22/25 08:59 Last Admin: 01/25/25 09:02 Dose: 1 tab Pantoprazole Sodium (Pantoprazole 40 Mg Tab) 40 mg PO QAM ELSIE Stop: 02/15/25 08:59 Last Admin: 01/25/25 09:02 Dose: 40 mg Sodium Chloride (Sodium Chloride 0.65% Na Soln 45 Ml ([place])) 1 - 2 sprays NA PRN PRN PRN Reason: Nasal Dryness/Congestion Stop: 02/15/25 01:10 Mental Health & Subst Abuse Tx Psychiatrist Name of Psychiatrist: [facility] - Dr. Georgia Ventura Psychiatrist's Date Of Appointment With Psychiatric Provider: 01/28/25 Time of Appointment with Psychiatrist: 10:30AM Psychiatric Appointment Comment: Ask psychiatrist to be added as priority on waitlist for therapy Therapist Name of Therapist: [facility] Therapist's Therapy Appointment Comment: Ask psychiatrist to be added as priority on waitlist for therapy Lawn Care Specialist Name of Lawn Care Specialist: Darnell Malone Phone Number for Lawn Care Specialist: [phone] Case Management Appointment Comment: Patient declined referral for case management Post Discharge Appointments Primary Care Physician Name Of Family Doctor/PCP: Erika Crenshaw - [facility] [place] [facility] Date of Future Appointment with PCP: 02/11/25 Time of Appointment with PCP: 9:40AM Provider Appointment Comment: [facility] (F/U re: thyroid) Contact Information Discharge Discharge Address: [address] [place] [id number]
[2025-01-26] MEDS: LURASIDONE HCL 20 MG TAB PO SCH (09:30)
--- NOTE | 2025-01-27 08:35 | Psychiatric Progress Note ---
Date of Service January 27, 2025 Impression / Recommendations Impression KENDAL MATTSON is a 39-year-old man who currently lives alone, has a history of schizoaffective disorder, cerebral palsy, and was admitted on 01/16/25 00:36 on a 201 voluntary commitment for suicidal ideation and worsening depression. Presentation consistent with persistent depressive disorder that may or may not be part of a primary psychotic disorder. Currently patient does not appear psychotic and presents intact reality testing with no history of auditory visual hallucinations however has demonstrated extreme paranoia in the past. Has presented increased suicidal ideations which have become more frequent. Does not meet criteria for posttraumatic stress disorder. Family history of bipolar disorder. Medications reviewed and there is concern for auto metabolism of prescribed sertraline and will cross taper to fluoxetine; concern for hypothyroid state which may be contributory and will increase Synthroid dose; start clonidine for sleep and physical symptoms of anxiety and hypervigilance. Medication side effects and adverse effects discussed with patient. Given social isolation patient may benefit from an in person intensive outpatient program or day program for social engagement. A: Worked with nursing staff to develop a behavioral plan for patient, who will presented to him today. Goals include sitting in the dining area with his tray for each meal, attending programming, and completing leisure activities. Discussed with patient DBT and CBT principles, and encouraged cognitive reframing. Continue current medications without change. MNPR due to cerebral palsy and need for walker Overall, I spent a total of 25 minutes on this case including meeting with the patient, reviewing the chart, nursing report, multidisciplinary team meeting, orders, and documentation. (1) Persistent depressive disorder with anxious distress, currently severe: (2) Hopelessness: (3) Isolation (social): (4) Hypothyroid: (5) Cerebral palsy: (6) Paranoia: (7) Insomnia: (8) Schizophrenia: Plan 01/27/25: - Behavioral plan for increasing activity - continue current medications 01/26/25: Continue current medications and treatment plan. encouraged pt to be out of bed, in dinning room with tray for each meal. 01/25/25: - Increase Latuda to 20mg AM and 80mg with dinner. - Increase prozac to 60mg daily - ongoing behavioral activation strategies. 01/24/25: - d/c wellbutrin - CMP in AM, Ca, and Mag 01/23/2025: -Continue current medications and tx plan. 01/22/2025: -Increase Latuda to 80mg daily with dinner -Start Vit B12 1000mcg/day -Start MVM daily 01/21/2025: -Masking Machine Operator consult -Consider trial of packaged food items in case paranoia is negatively impacting his intake -Ongoing behavioral activation strategies 01/20/2025: -Increase Latuda to 60mg daily with dinner 01/19/2025: -Start melatonin 6mg HS 01/18/2025: -Increase fluoxetine to 40mg daily tomorrow -Discontinue sertraline tomorrow 01/17/2025: -Decrease Wellbutrin to 150mg daily -Start mirtazapine 15mg HS -Discontinue olanzapine 20mg HS -Start Latuda 40mg daily with dinner -Start Vit D 1,250 mcg once weekly for 6-8 weeks 01/16/2025:The patient was admitted to the [facility] ([facility] health unit) on q15 min checks (behavioral with suicide precautions) for safety. The patient will participate in group, recreational, and milieu therapies and will be offered additional individual and family sessions as clinically appropriate. Decrease sertraline to 50 mg daily Start fluoxetine 20 mg daily Increase Synthroid to 175 mcg daily Start clonidine 0.1 mg at bedtime Baseline EKG Labs: Hemoglobin A1c, fasting lipids, free T3, vitamin D, vitamin B12 Inventory Assets Strengths: access to stable housing, well connected, family support Needs: on-going mood problems, social isolation Suicide Risk Level Suicide Risk Level: Moderate (q15 min suicide checks) (SI and severe depression with some paranoia but feels safe in the hospital and feels able to ask for support ) Risk Factors Assessment Male: Yes : Yes Do You Have Access To A Gun?: No Health Problems: Yes Mental Health Diagnoses: Yes Substance Use Disorders: No Previous Attempt: No Family History of Suicide: No Previous Psychiatric Hospitalization: Yes Hopelessness: Yes Protective Factors Assessment Sabianist Beliefs: Yes : No Responsible for Young Children: No Employed: No Stable Relationships: Yes Supportive Family: Yes Good Rapport with Provider: Yes Absence of Any Risk Factors Above: No Interval History Identifying Information KENDAL MATTSON is a 39-year-old M who currently lives alone, has a history of schizoaffective disorder, cerebral palsy, and was admitted on 01/16/25 00:36 on a 201 voluntary commitment for suicidal ideation. Chief Complaint "I'm OK". Review of Systems Sleep Information Total Hours of Sleep: 6.5 Meal Information Percent Meal Consumed - Breakfast: 0 Percent Meal Consumed - Lunch: 10 Percent Meal Consumed - Dinner: 15 Nutrition Comment: Less than 25%- Pt ate a bite of his dinner roll and protein shake at dinner. Subjective Subjective Patient was seen & assessed and interval progress reviewed with nursing and social work Per report: out in AM, more isolative in afternoon came out fo rtherapy dog and showed some affect attended [facility] mtg rated mood 3.5, "uncertain" showered slept 6.5 h I met with the patient privately in his room. He had already attended 2 groups this morning. He said at first that he feels "okay", but then acknowledged he was having suicidal thoughts this morning. He said the suicidal thoughts came when he started thinking about "that nothing would be different when I leave." He then attempted to reframe those thoughts, and told himself "you just need to do your best while you are here." Discussed holding both the present and the future in mind, by starting where he is at and having an idea of what he would like the future to look like. He did not have any plan or intent to harm himself and felt that the suicidal ideation was not as intense now as it was this morning. Physically, he said he was a bit nauseous yesterday, but has not felt that way at all today. He plans to attend more groups as his treatment goal today. Physical Exam Psychiatric Orientation: alert, oriented x 3 and cooperative Apperance: appropriately dressed, appropriately groomed and appeared stated age Eye Contact: good eye contact Motor Behavior: no abnormal motor movements uses walker Speech: normal rate/rhythm/volume of speech Affect: + blunted affect Mood: + depressed mood Thought Process: goal directed thought process, linear/logical thought process, clear/coherent thought process and thought association intact Thought Content: + cognitive distortions, reality based without delusions and + hopelessness Suicidal Thoughts: denies suicidal plan and denies suicidal intent; + reports suicidal thoughts Homicidal Thoughts: denies homicidal thoughts, denies homicidal plan and denies homicidal intent Hallucinations: no auditory hallucinations and no visual hallucinations Cognition: recent memory grossly intact, remote memory grossly intact, attention grossly intact and language grossly intact Estimated Intelligence: consistent with education level Insight: + fair insight Judgment: + fair judgement Vital Signs (Past 24 Hours) Last Vital Signs Temp 36.5 C 01/27/25 06:20 Pulse 101 H 01/27/25 06:21 Resp 16 01/27/25 06:20 BP 128/82 01/27/25 06:21 Pulse Ox 98 01/23/25 06:28 O2 Del Method Room Air 01/23/25 06:28 Results & Data ([facility]) Current Inpatient Medications Current Inpatient Medications: Current Inpatient Medications Acetaminophen (Acetaminophen 325 Mg Tab) 650 mg PO Q4H PRN PRN Reason: Headache or Minor Fever Stop: 02/15/25 01:10 Al Hydrox/Mg Hydrox/Simethicone (Aluminum/Magnesium Susp 30 Ml Udc) 30 ml PO Q4H PRN PRN Reason: GI Upset Stop: 02/15/25 01:10 Clonidine HCl (Clonidine Hcl 0.1 Mg Tab) 0.1 mg PO HS ELSIE Stop: 02/15/25 21:59 Last Admin: 01/26/25 21:34 Dose: 0.1 mg Cyanocobalamin (Cyanocobalamin (B-12) 500 Mcg Tablet) 1,000 mcg PO QAM ELSIE Stop: 02/22/25 08:59 Last Admin: 01/26/25 09:27 Dose: 1,000 mcg Ezetimibe (Ezetimibe 10 Mg Tab) 10 mg PO DAILY ELSIE Stop: 02/15/25 10:14 Last Admin: 01/26/25 09:27 Dose: 10 mg Ergocalciferol (Ergocalciferol 1250 Mcg (50,000 Units) Cap) 1,250 mcg PO Q7D ELSIE Stop: 02/16/25 13:14 Last Admin: 01/24/25 14:42 Dose: 1,250 mcg Fluoxetine HCl (Fluoxetine Hcl 20 Mg Cap) 60 mg PO QAM ELSIE Stop: 02/25/25 08:59 Last Admin: 01/26/25 09:28 Dose: 60 mg Hydroxyzine HCl (Hydroxyzine Hcl 25 Mg Tab) 50 mg PO HSZ PRN PRN Reason: Insomnia Stop: 02/15/25 01:10 Hydroxyzine HCl (Hydroxyzine Hcl 25 Mg Tab) 25 mg PO Q4H PRN PRN Reason: Anxiety Stop: 02/15/25 01:10 Ketoconazole (Ketoconazole 2% Cr 15 Gm Tube) 1 appln EXT DAILY PRN PRN Reason: dandruff Stop: 02/02/25 16:13 Last Admin: 01/25/25 21:30 Dose: 1 appln Levothyroxine Sodium (Levothyroxine Sodium 175 Mcg Tablet) 175 mcg PO DAILYBB ELSIE Stop: 02/16/25 07:59 Last Admin: 01/26/25 09:26 Dose: 175 mcg Loperamide HCl (Loperamide Hcl 2 Mg Cap) 2 mg PO Q2HWA PRN PRN Reason: Diarrhea Stop: 02/19/25 20:55 Last Admin: 01/20/25 21:09 Dose: 2 mg Lurasidone HCl (Lurasidone Hcl 20 Mg Tab) 80 mg PO DAILYBD ELSIE Stop: 02/21/25 17:14 Last Admin: 01/26/25 17:39 Dose: 80 mg Lurasidone HCl (Lurasidone Hcl 20 Mg Tab) 20 mg PO DAILY ELSIE Stop: 02/25/25 08:59 Last Admin: 01/26/25 09:30 Dose: 20 mg Magnesium Hydroxide (Magnesium Hydroxide Susp 30 Ml Udc) 30 ml PO DAILY PRN PRN Reason: Constipation Stop: 02/15/25 01:10 Melatonin (Melatonin 3 Mg Tab) 6 mg PO HS ELSIE Stop: 02/18/25 21:59 Last Admin: 01/26/25 21:34 Dose: 6 mg Mirtazapine (Mirtazapine Tab 15 Mg Tab) 15 mg PO HS ELSIE Stop: 02/16/25 21:59 Last Admin: 01/26/25 21:34 Dose: 15 mg Multivitamins/Minerals (Cerovite Adv Formula Tab) 1 tab PO QAM ELSIE Stop: 02/22/25 08:59 Last Admin: 01/26/25 09:30 Dose: 1 tab Pantoprazole Sodium (Pantoprazole 40 Mg Tab) 40 mg PO QAM ELSIE Stop: 02/15/25 08:59 Last Admin: 01/26/25 09:30 Dose: 40 mg Sodium Chloride (Sodium Chloride 0.65% Na Soln 45 Ml ([place])) 1 - 2 sprays NA PRN PRN PRN Reason: Nasal Dryness/Congestion Stop: 02/15/25 01:10 Mental Health & Subst Abuse Tx Psychiatrist Name of Psychiatrist: [facility] - Dr. Georgia Ventura Psychiatrist's Date Of Appointment With Psychiatric Provider: 01/28/25 Time of Appointment with Psychiatrist: 10:30AM Psychiatric Appointment Comment: Ask psychiatrist to be added as priority on waitlist for therapy Therapist Name of Therapist: [facility] Therapist's Therapy Appointment Comment: Ask psychiatrist to be added as priority on waitlist for therapy Rn Cardiology Name of Rn Cardiology: Darnell Malone Phone Number for Rn Cardiology: [phone] Case Management Appointment Comment: Patient declined referral for case management Post Discharge Appointments Primary Care Physician Name Of Family Doctor/PCP: Erika Crenshaw - [facility] [place] [facility] Date of Future Appointment with PCP: 02/11/25 Time of Appointment with PCP: 9:40AM Provider Appointment Comment: [phone] [facility], [facility] (F/U re: thyroid) Contact Information Discharge Discharge Address: [address] [place] [address] [place] [phone]
--- NOTE | 2025-01-28 08:55 | Psychiatric Progress Note ---
Date of Service January 28, 2025 Impression / Recommendations Impression KENDAL MATTSON is a 39-year-old man who currently lives alone, has a history of schizoaffective disorder, cerebral palsy, and was admitted on 01/16/25 00:36 on a 201 voluntary commitment for suicidal ideation and worsening depression. Presentation consistent with persistent depressive disorder that may or may not be part of a primary psychotic disorder. Currently patient does not appear psychotic and presents intact reality testing with no history of auditory visual hallucinations however has demonstrated extreme paranoia in the past. Has presented increased suicidal ideations which have become more frequent. Does not meet criteria for posttraumatic stress disorder. Family history of bipolar disorder. Medications reviewed and there is concern for auto metabolism of prescribed sertraline and will cross taper to fluoxetine; concern for hypothyroid state which may be contributory and will increase Synthroid dose; start clonidine for sleep and physical symptoms of anxiety and hypervigilance. Medication side effects and adverse effects discussed with patient. Given social isolation patient may benefit from an in person intensive outpatient program or day program for social engagement. A: More psychotherapeutic work today. Assisting pt in identifying changeable stressors, and practice cognitive reframing. Weakness and worsened gait is a significant stressor, so will order PT . Also order laxative for constipation. MNPR due to cerebral palsy and need for walker Overall, I spent a total of 45 minutes on this case including meeting with the patient, reviewing the chart, nursing report, multidisciplinary team meeting, orders, and documentation. (1) Persistent depressive disorder with anxious distress, currently severe: (2) Hopelessness: (3) Isolation (social): (4) Hypothyroid: (5) Cerebral palsy: (6) Paranoia: (7) Insomnia: (8) Schizophrenia: Plan 01/28/25: -PT ordered -ducolax BID -continue prozac and latuda at present doses -behavioral contract ongoing 01/27/25: - Behavioral plan for increasing activity - continue current medications 01/26/25: Continue current medications and treatment plan. encouraged pt to be out of bed, in dinning room with tray for each meal. 01/25/25: - Increase Latuda to 20mg AM and 80mg with dinner. - Increase prozac to 60mg daily - ongoing behavioral activation strategies. 01/24/25: - d/c wellbutrin - CMP in AM, Ca, and Mag 01/23/2025: -Continue current medications and tx plan. 01/22/2025: -Increase Latuda to 80mg daily with dinner -Start Vit B12 1000mcg/day -Start MVM daily 01/21/2025: -Burner Operator consult -Consider trial of packaged food items in case paranoia is negatively impacting his intake -Ongoing behavioral activation strategies 01/20/2025: -Increase Latuda to 60mg daily with dinner 01/19/2025: -Start melatonin 6mg HS 01/18/2025: -Increase fluoxetine to 40mg daily tomorrow -Discontinue sertraline tomorrow 01/17/2025: -Decrease Wellbutrin to 150mg daily -Start mirtazapine 15mg HS -Discontinue olanzapine 20mg HS -Start Latuda 40mg daily with dinner -Start Vit D 1,250 mcg once weekly for 6-8 weeks 01/16/2025:The patient was admitted to the [facility] ([facility] unit) on q15 min checks (behavioral with suicide precautions) for safety. The patient will participate in group, recreational, and milieu therapies and will be offered additional individual and family sessions as clinically appropriate. Decrease sertraline to 50 mg daily Start fluoxetine 20 mg daily Increase Synthroid to 175 mcg daily Start clonidine 0.1 mg at bedtime Baseline EKG Labs: Hemoglobin A1c, fasting lipids, free T3, vitamin D, vitamin B12 Inventory Assets Strengths: access to stable housing, well connected, family support Needs: on-going mood problems, social isolation Suicide Risk Level Suicide Risk Level: Moderate (q15 min suicide checks) (SI and severe depression with some paranoia but feels safe in the hospital and feels able to ask for support ) Risk Factors Assessment Male: Yes : Yes Do You Have Access To A Gun?: No Health Problems: Yes Mental Health Diagnoses: Yes Substance Use Disorders: No Previous Attempt: No Family History of Suicide: No Previous Psychiatric Hospitalization: Yes Hopelessness: Yes Protective Factors Assessment Caodaism Beliefs: Yes : No Responsible for Young Children: No Employed: No Stable Relationships: Yes Supportive Family: Yes Good Rapport with Provider: Yes Absence of Any Risk Factors Above: No Interval History Identifying Information KENDAL MATTSON is a 39-year-old M who currently lives alone, has a history of schizoaffective disorder, cerebral palsy, and was admitted on 01/16/25 00:36 on a 201 voluntary commitment for suicidal ideation. Chief Complaint "I'm alright, I suppose". Review of Systems Sleep Information Total Hours of Sleep: 6 Meal Information Percent Meal Consumed - Breakfast: 0 Percent Meal Consumed - Lunch: 0 Percent Meal Consumed - Dinner: 10 Nutrition Comment: Less than 25%- Pt ate a bite of his dinner roll and protein shake at dinner. Subjective Subjective Patient was seen & assessed and interval progress reviewed with treatment team per report: slept 6 hr last BM 01/22 ate 60% of dinner went to groups shared his [employer] channel in group mood 06/16 and feeling "frustrated" about using walker (vs. cane at home) did shower yesterday I met with the patient in his room. Reports that group did trigger some SI this AM. The group was about social supports, which made pt consider that although his mother is supportive, he does not tell her about his SI because he doesn't want to burden her. This then triggered feeling of regret that he told anyone he had SI "because if I try to sign out, I'll just get 302'ed." Explored ongoing hopelessness. "It's just like, past present and future stuff." Reviewed processing past negative experiences. He says he's been in therapy "since age 13" but never found it helpful. Struggled to identify psychological growth he worked on during those times. Encouraged pt to explore how he'd like his life to look differently. He spoke about his apartment, and the issues he's had with his landlord making repairs. He'd like to move, and does have a month to month lease, so would be free to move quickly if he located a new apartment. Reviewed pt's social connections, hobbies, occupational and leisure activities. He says he is happy with his current relationships. But he's been less active overall since his gait has worsened recently, which he attributes to generalized weakness. "I can't walk as far as I used to". Pt reported brief hx with [employer], but hasn't worked in some time. He feels he'd be unable to work until he feels physically stronger. Physical Exam Psychiatric Orientation: alert, oriented x 3 and cooperative Apperance: appropriately dressed and appropriately groomed Eye Contact: + poor eye contact tends to lay on back, and look at ceiling while he talks Motor Behavior: no abnormal motor movements Speech: normal rate/rhythm/volume of speech more forthcoming, more talkative Affect: + blunted affect Mood: + depressed mood Thought Process: goal directed thought process, linear/logical thought process and clear/coherent thought process Thought Content: + cognitive distortions and reality based without delusions Suicidal Thoughts: denies suicidal plan and denies suicidal intent; + reports suicidal thoughts Homicidal Thoughts: denies homicidal thoughts, denies homicidal plan and denies homicidal intent Hallucinations: no auditory hallucinations and no visual hallucinations Cognition: recent memory grossly intact, remote memory grossly intact, attention grossly intact and language grossly intact Estimated Intelligence: consistent with education level Insight: + fair insight Judgment: + fair judgement Vital Signs (Past 24 Hours) Last Vital Signs Temp 36.7 C 01/28/25 06:20 Pulse 101 H 01/28/25 06:20 Resp 16 01/28/25 06:20 BP 110/75 01/28/25 06:20 Pulse Ox 98 01/23/25 06:28 O2 Del Method Room Air 01/23/25 06:28 Results & Data ([facility]) Current Inpatient Medications Current Inpatient Medications: Current Inpatient Medications Acetaminophen (Acetaminophen 325 Mg Tab) 650 mg PO Q4H PRN PRN Reason: Headache or Minor Fever Stop: 02/15/25 01:10 Al Hydrox/Mg Hydrox/Simethicone (Aluminum/Magnesium Susp 30 Ml Udc) 30 ml PO Q4H PRN PRN Reason: GI Upset Stop: 02/15/25 01:10 Clonidine HCl (Clonidine Hcl 0.1 Mg Tab) 0.1 mg PO HS ELSIE Stop: 02/15/25 21:59 Last Admin: 01/27/25 21:33 Dose: 0.1 mg Cyanocobalamin (Cyanocobalamin (B-12) 500 Mcg Tablet) 1,000 mcg PO QAM ELSIE Stop: 02/22/25 08:59 Last Admin: 01/27/25 09:06 Dose: 1,000 mcg Ezetimibe (Ezetimibe 10 Mg Tab) 10 mg PO DAILY ELSIE Stop: 02/15/25 10:14 Last Admin: 01/27/25 09:06 Dose: 10 mg Ergocalciferol (Ergocalciferol 1250 Mcg (50,000 Units) Cap) 1,250 mcg PO Q7D ELSIE Stop: 02/16/25 13:14 Last Admin: 01/24/25 14:42 Dose: 1,250 mcg Fluoxetine HCl (Fluoxetine Hcl 20 Mg Cap) 60 mg PO QAM ELSIE Stop: 02/25/25 08:59 Last Admin: 01/27/25 09:06 Dose: 60 mg Hydroxyzine HCl (Hydroxyzine Hcl 25 Mg Tab) 50 mg PO HSZ PRN PRN Reason: Insomnia Stop: 02/15/25 01:10 Hydroxyzine HCl (Hydroxyzine Hcl 25 Mg Tab) 25 mg PO Q4H PRN PRN Reason: Anxiety Stop: 02/15/25 01:10 Ketoconazole (Ketoconazole 2% Cr 15 Gm Tube) 1 appln EXT DAILY PRN PRN Reason: dandruff Stop: 02/02/25 16:13 Last Admin: 01/27/25 20:50 Dose: 1 appln Levothyroxine Sodium (Levothyroxine Sodium 175 Mcg Tablet) 175 mcg PO DAILYBB ELSIE Stop: 02/16/25 07:59 Last Admin: 01/27/25 09:07 Dose: 175 mcg Loperamide HCl (Loperamide Hcl 2 Mg Cap) 2 mg PO Q2HWA PRN PRN Reason: Diarrhea Stop: 02/19/25 20:55 Last Admin: 01/20/25 21:09 Dose: 2 mg Lurasidone HCl (Lurasidone Hcl 20 Mg Tab) 80 mg PO DAILYBD ELSIE Stop: 02/21/25 17:14 Last Admin: 01/27/25 17:53 Dose: 80 mg Lurasidone HCl (Lurasidone Hcl 20 Mg Tab) 20 mg PO DAILY ELSIE Stop: 02/25/25 08:59 Last Admin: 01/27/25 09:07 Dose: 20 mg Magnesium Hydroxide (Magnesium Hydroxide Susp 30 Ml Udc) 30 ml PO DAILY PRN PRN Reason: Constipation Stop: 02/15/25 01:10 Melatonin (Melatonin 3 Mg Tab) 6 mg PO HS ELSIE Stop: 02/18/25 21:59 Last Admin: 01/27/25 21:34 Dose: 6 mg Mirtazapine (Mirtazapine Tab 15 Mg Tab) 15 mg PO HS ELSIE Stop: 02/16/25 21:59 Last Admin: 01/27/25 21:33 Dose: 15 mg Multivitamins/Minerals (Cerovite Adv Formula Tab) 1 tab PO QAM ELSIE Stop: 02/22/25 08:59 Last Admin: 01/27/25 09:06 Dose: 1 tab Pantoprazole Sodium (Pantoprazole 40 Mg Tab) 40 mg PO QAM ELSIE Stop: 02/15/25 08:59 Last Admin: 01/27/25 09:11 Dose: 40 mg Sodium Chloride (Sodium Chloride 0.65% Na Soln 45 Ml ([place])) 1 - 2 sprays NA PRN PRN PRN Reason: Nasal Dryness/Congestion Stop: 02/15/25 01:10 Mental Health & Subst Abuse Tx Psychiatrist Name of Psychiatrist: [facility] - Dr. Georgia Ventura Psychiatrist's Date Of Appointment With Psychiatric Provider: 02/12/25 Time of Appointment with Psychiatrist: 11AM Psychiatric Appointment Comment: Ask psychiatrist to be added as priority on waitlist for therapy Therapist Name of Therapist: [facility] Therapist's Therapy Appointment Comment: Ask psychiatrist to be added as priority on waitlist for therapy Alpine Patroller Name of Alpine Patroller: Darnell Malone Phone Number for Alpine Patroller: [phone] Case Management Appointment Comment: Patient declined referral for case man agement Post Discharge Appointments Primary Care Physician Name Of Family Doctor/PCP: Erika Crenshaw - [facility] Date of Future Appointment with PCP: 02/11/25 Time of Appointment with PCP: 9:40AM [facility] Contact Information Discharge Discharge Address: [address] [place] [id number]
[2025-01-28] MEDS: DOCUSATE SODIUM/SENNA 50/8.6MG TAB PO SCH (21:34)
--- NOTE | 2025-01-29 08:37 | Psychiatric Progress Note ---
Date of Service January 29, 2025 Impression / Recommendations Impression KENDAL MATTSON is a 39-year-old man who currently lives alone, has a history of schizoaffective disorder, cerebral palsy, and was admitted on 01/16/25 00:36 on a 201 voluntary commitment for suicidal ideation and worsening depression. Presentation consistent with persistent depressive disorder that may or may not be part of a primary psychotic disorder. Currently patient does not appear psychotic and presents intact reality testing with no history of auditory visual hallucinations however has demonstrated extreme paranoia in the past. Has presented increased suicidal ideations which have become more frequent. Does not meet criteria for posttraumatic stress disorder. Family history of bipolar disorder. Medications reviewed and there is concern for auto metabolism of prescribed sertraline and will cross taper to fluoxetine; concern for hypothyroid state which may be contributory and will increase Synthroid dose; start clonidine for sleep and physical symptoms of anxiety and hypervigilance. Medication side effects and adverse effects discussed with patient. Given social isolation patient may benefit from an in person intensive outpatient program or day program for social engagement. A: Pt revealed more paranoid content today, but did not want to discuss details of why he feels afraid to sleep overnight. I'd prefer to change the Latuda given his poor PO intake, but he is currently refusing, and in interest of maintaining the tenuous therapeutic alliance, I agreed to give Latuda more time. There has been modest improvement so far on this regimen of Latuda and Prozac - he has been out of his room more, attending groups and showering more regularly. He has been more talkative during encounters, and appears to be increasing self- awareness. SI still persists intermittently, but is less intense and less persistent. What still lags significantly is his PO intake. This has been a problematic symptom for him chronically, as well. We last checked labs over the weekend, and they were essentially WNL with a mildly low glucose level. I'm going to recheck them in AM, and if still stable, then this may be more of a chronic issue to address in the outpatient setting. Keeping in mind that Prozac will continue to become more effective over the next 6-8 weeks. For today, I'll also increase ducolax, and if no BM by tomorrow, we'll check a flat plate. MNPR due to cerebral palsy and need for walker Overall, I spent a total of 35 minutes on this case including meeting with the patient, reviewing the chart, nursing report, multidisciplinary team meeting, orders, and documentation. (1) Persistent depressive disorder with anxious distress, currently severe: (2) Hopelessness: (3) Isolation (social): (4) Hypothyroid: (5) Cerebral palsy: (6) Paranoia: (7) Insomnia: (8) Schizophrenia: Plan 01/29/25: -Discussed change to Seroquel, pt declines - CMP in AM - increase ducolax to 2 tab BID, and obtain flat plate if no BM by tomorrow - encouraged f/u with PT exercise as recommended - ongoing behavioral contract 01/28/25: -PT ordered -ducolax BID -continue prozac and latuda at present doses -behavioral contract ongoing 01/27/25: - Behavioral plan for increasing activity - continue current medications 01/26/25: Continue current medications and treatment plan. encouraged pt to be out of bed, in dinning room with tray for each meal. 01/25/25: - Increase Latuda to 20mg AM and 80mg with dinner. - Increase prozac to 60mg daily - ongoing behavioral activation strategies. 01/24/25: - d/c wellbutrin - CMP in AM, Ca, and Mag 01/23/2025: -Continue current medications and tx plan. 01/22/2025: -Increase Latuda to 80mg daily with dinner -Start Vit B12 1000mcg/day -Start MVM daily 01/21/2025: -Triage Specialist consult -Consider trial of packaged food items in case paranoia is negatively impacting his intake -Ongoing behavioral activation strategies 01/20/2025: -Increase Latuda to 60mg daily with dinner 01/19/2025: -Start melatonin 6mg HS 01/18/2025: -Increase fluoxetine to 40mg daily tomorrow -Discontinue sertraline tomorrow 01/17/2025: -Decrease Wellbutrin to 150mg daily -Start mirtazapine 15mg HS -Discontinue olanzapine 20mg HS -Start Latuda 40mg daily with dinner -Start Vit D 1,250 mcg once weekly for 6-8 weeks 01/16/2025:The patient was admitted to the [facility] ([facility]) on q15 min checks (behavioral with suicide precautions) for safety. The patient will participate in group, recreational, and milieu therapies and will be offered additional individual and family sessions as clinically appropriate. Decrease sertraline to 50 mg daily Start fluoxetine 20 mg daily Increase Synthroid to 175 mcg daily Start clonidine 0.1 mg at bedtime Baseline EKG Labs: Hemoglobin A1c, fasting lipids, free T3, vitamin D, vitamin B12 Inventory Assets Strengths: access to stable housing, well connected, family support Needs: on-going mood problems, social isolation Suicide Risk Level Suicide Risk Level: Moderate (q15 min suicide checks) (SI and severe depression with some paranoia but feels safe in the hospital and feels able to ask for support ) Risk Factors Assessment Male: Yes : Yes Do You Have Access To A Gun?: No Health Problems: Yes Mental Health Diagnoses: Yes Substance Use Disorders: No Previous Attempt: No Family History of Suicide: No Previous Psychiatric Hospitalization: Yes Hopelessness: Yes Protective Factors Assessment Adventist Beliefs: Yes : No Responsible for Young Children: No Employed: No Stable Relationships: Yes Supportive Family: Yes Good Rapport with Provider: Yes Absence of Any Risk Factors Above: No Interval History Identifying Information KENDAL MATTSON is a 39-year-old M who currently lives alone, has a history of schizoaffective disorder, cerebral palsy, and was admitted on 01/16/25 00:36 on a 201 voluntary commitment for suicidal ideation. Chief Complaint "I'm ok". Review of Systems Sleep Information Total Hours of Sleep: 6.5 Meal Information Percent Meal Consumed - Breakfast: 15 Percent Meal Consumed - Lunch: 10 Percent Meal Consumed - Dinner: 0 Nutrition Comment: Less than 25%- Pt ate a bite of his dinner roll and protein s bernice at dinner. Subjective Subjective Patient was seen & assessed and interval progress reviewed with nursing and social work per report: needed lots of encouragement to sit at breakfast, then lunch was better, and refused to come out for dinner minimal PO intake upset yesterday about behavioral plan, and said he was considering a 72 hour notice more irritable yesterday today, attending groups and appearing brighter at times I met with pt in his room. He was sleeping on approach, but awakened easily. He reported he still has a low appetite and generally poor sleep. 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 This is his pattern even at home; he tends to get his best sleep from 5am to late morning. Continues to report depression. SI less intense today. Still no BM, despite starting ducolax. He attended groups today, and was evaluated by PT. PT also gave him exercises to complete daily. Physical Exam Psychiatric Orientation: alert, oriented x 3 and cooperative Apperance: appropriately dressed and + disheveled Eye Contact: good eye contact Motor Behavior: no abnormal motor movements Speech: normal rate/rhythm/volume of speech Affect: + blunted affect Mood: + depressed mood Thought Process: goal directed thought process, linear/logical thought process and clear/coherent thought process Thought Content: + paranoid and + cognitive distortions Suicidal Thoughts: denies suicidal plan and denies suicidal intent; + reports suicidal thoughts Homicidal Thoughts: denies homicidal thoughts, denies homicidal plan and denies homicidal intent Hallucinations: no auditory hallucinations and no visual hallucinations Cognition: recent memory grossly intact, remote memory grossly intact, attention grossly intact and language grossly intact Estimated Intelligence: average estimated intelligence Insight: + limited insight Judgment: + limited judgement Vital Signs (Past 24 Hours) Last Vital Signs Temp 36.5 C 01/29/25 06:23 Pulse 88 01/29/25 06:24 Resp 16 01/29/25 06:23 BP 105/73 01/29/25 06:24 Pulse Ox 98 01/23/25 06:28 O2 Del Method Room Air 01/23/25 06:28 Results & Data ([facility]) Current Inpatient Medications Current Inpatient Medications: Current Inpatient Medications Acetaminophen (Acetaminophen 325 Mg Tab) 650 mg PO Q4H PRN PRN Reason: Headache or Minor Fever Stop: 02/15/25 01:10 Al Hydrox/Mg Hydrox/Simethicone (Aluminum/Magnesium Susp 30 Ml Udc) 30 ml PO Q4H PRN PRN Reason: GI Upset Stop: 02/15/25 01:10 Clonidine HCl (Clonidine Hcl 0.1 Mg Tab) 0.1 mg PO HS ELSIE Stop: 02/15/25 21:59 Last Admin: 01/28/25 21:34 Dose: 0.1 mg Cyanocobalamin (Cyanocobalamin (B-12) 500 Mcg Tablet) 1,000 mcg PO QAM ELSIE Stop: 02/22/25 08:59 Last Admin: 01/28/25 09:08 Dose: 1,000 mcg Ezetimibe (Ezetimibe 10 Mg Tab) 10 mg PO DAILY ELSIE Stop: 02/15/25 10:14 Last Admin: 01/28/25 09:09 Dose: 10 mg Ergocalciferol (Ergocalciferol 1250 Mcg (50,000 Units) Cap) 1,250 mcg PO Q7D ELSIE Stop: 02/16/25 13:14 Last Admin: 01/24/25 14:42 Dose: 1,250 mcg Fluoxetine HCl (Fluoxetine Hcl 20 Mg Cap) 60 mg PO QAM ELSIE Stop: 02/25/25 08:59 Last Admin: 01/28/25 09:08 Dose: 60 mg Hydroxyzine HCl (Hydroxyzine Hcl 25 Mg Tab) 50 mg PO HSZ PRN PRN Reason: Insomnia Stop: 02/15/25 01:10 Hydroxyzine HCl (Hydroxyzine Hcl 25 Mg Tab) 25 mg PO Q4H PRN PRN Reason: Anxiety Stop: 02/15/25 01:10 Ketoconazole (Ketoconazole 2% Cr 15 Gm Tube) 1 appln EXT DAILY PRN PRN Reason: dandruff Stop: 02/02/25 16:13 Last Admin: 01/27/25 20:50 Dose: 1 appln Levothyroxine Sodium (Levothyroxine Sodium 175 Mcg Tablet) 175 mcg PO DAILYBB [facility] Stop: 02/16/25 07:59 Last Admin: 01/28/25 09:08 Dose: 175 mcg Loperamide HCl (Loperamide Hcl 2 Mg Cap) 2 mg PO Q2HWA PRN PRN Reason: Diarrhea Stop: 02/19/25 20:55 Last Admin: 01/20/25 21:09 Dose: 2 mg Lurasidone HCl (Lurasidone Hcl 20 Mg Tab) 80 mg PO DAILYBD [facility] Stop: 02/21/25 17:14 Last Admin: 01/28/25 17:52 Dose: 80 mg Lurasidone HCl (Lurasidone Hcl 20 Mg Tab) 20 mg PO DAILY ELSIE Stop: 02/25/25 08:59 Last Admin: 01/28/25 09:09 Dose: 20 mg Magnesium Hydroxide (Magnesium Hydroxide Susp 30 Ml Udc) 30 ml PO DAILY PRN PRN Reason: Constipation Stop: 02/15/25 01:10 Melatonin (Melatonin 3 Mg Tab) 6 mg PO HS ELSIE Stop: 02/18/25 21:59 Last Admin: 01/28/25 21:34 Dose: 6 mg Mirtazapine (Mirtazapine Tab 15 Mg Tab) 15 mg PO HS ELSIE Stop: 02/16/25 21:59 Last Admin: 01/28/25 21:34 Dose: 15 mg Multivitamins/Minerals (Cerovite Adv Formula Tab) 1 tab PO QAM ELSIE Stop: 02/22/25 08:59 Last Admin: 01/28/25 09:09 Dose: 1 tab Pantoprazole Sodium (Pantoprazole 40 Mg Tab) 40 mg PO QAM ELSIE Stop: 02/15/25 08:59 Last Admin: 01/28/25 09:09 Dose: 40 mg Senna/Docusate Sodium (Docusate Sodium/Senna 50/8.6mg Tab) 1 tab PO BID ELSIE Stop: 02/27/25 20:59 Last Admin: 01/28/25 21:34 Dose: 1 tab Sodium Chloride (Sodium Chloride 0.65% Na Soln 45 Ml ([place])) 1 - 2 sprays NA PRN PRN PRN Reason: Nasal Dryness/Congestion Stop: 02/15/25 01:10 Mental Health & Subst Abuse Tx Psychiatrist Name of Psychiatrist: [facility] - Dr. Georgia Ventura Psychiatrist's Date Of Appointment With Psychiatric Provider: 02/12/25 Time of Appointment with Psychiatrist: 11AM Psychiatric Appointment Comment: Ask psychiatrist to be added as priority on waitlist for therapy Therapist Name of Therapist: [facility] Therapist's Therapy Appointment Comment: Ask psychiatrist to be added as priority on waitlist for therapy Gang Boss Name of Gang Boss: Darnell Malone Phone Number for Gang Boss: [phone] Case Management Appointment Comment: Patient declined referral for case management Post Discharge Appointments Primary Care Physician Name Of Family Doctor/PCP: Erika Crenshaw - [facility] Date of Future Appointment with PCP: 02/11/25 Time of Appointment with PCP: 9:40AM Provider Appointment Comment: [address] PA (F/U re: thyroid) Contact Information Discharge Discharge Address: [address] [place] [address] [address] [place] [phone]
[2025-01-29] MEDS: DOCUSATE SODIUM/SENNA 50/8.6MG TAB PO SCH (21:31)
--- NOTE | 2025-01-30 08:51 | Psychiatric Progress Note ---
Date of Service January 30, 2025 Impression / Recommendations Impression KENDAL MATTSON is a 39-year-old man who currently lives alone, has a history of schizoaffective disorder, cerebral palsy, and was admitted on 01/16/25 00:36 on a 201 voluntary commitment for suicidal ideation and worsening depression. Presentation consistent with persistent depressive disorder that may or may not be part of a primary psychotic disorder. Currently patient does not appear psychotic and presents intact reality testing with no history of auditory visual hallucinations however has demonstrated extreme paranoia in the past. Has presented increased suicidal ideations which have become more frequent. Does not meet criteria for posttraumatic stress disorder. Family history of bipolar disorder. Medications reviewed and there is concern for auto metabolism of prescribed sertraline and will cross taper to fluoxetine; concern for hypothyroid state which may be contributory and will increase Synthroid dose; start clonidine for sleep and physical symptoms of anxiety and hypervigilance. Medication side effects and adverse effects discussed with patient. Given social isolation patient may benefit from an in person intensive outpatient program or day program for social engagement. A: Staff continue to report brightening of affect, and improved engagement. Long discussion today about making changes that he wants to see in his life, and gave him an actionable next step. I ordered an abdominal x-ray to rule out any complications leading to the constipation. Discussed that he does need to eat more for balanced nutrition. Also discussed that his labs this morning were normal. He has little motivation to change his eating habits at this time. No medication changes needed today. MNPR due to cerebral palsy and need for walker Overall, I spent a total of 40 minutes on this case including meeting with the patient, reviewing the chart, nursing report, multidisciplinary team meeting, orders, and documentation. (1) Persistent depressive disorder with anxious distress, currently severe: (2) Hopelessness: (3) Isolation (social): (4) Hypothyroid: (5) Cerebral palsy: (6) Paranoia: (7) Insomnia: (8) Schizophrenia: Plan 01/30/25: - Abdominal x-ray - continue current treatment and medications 01/29/25: -Discussed change to Seroquel, pt declines - CMP in AM - increase ducolax to 2 tab BID, and obtain flat plate if no BM by tomorrow - encouraged f/u with PT exercise as recommended - ongoing behavioral contract 01/28/25: -PT ordered -ducolax BID -continue prozac and latuda at present doses -behavioral contract ongoing 01/27/25: - Behavioral plan for increasing activity - continue current medications 01/26/25: Continue current medications and treatment plan. encouraged pt to be out of bed, in dinning room with tray for each meal. 01/25/25: - Increase Latuda to 20mg AM and 80mg with dinner. - Increase prozac to 60mg daily - ongoing behavioral activation strategies. 01/24/25: - d/c wellbutrin - CMP in AM, Ca, and Mag 01/23/2025: -Continue current medications and tx plan. 01/22/2025: -Increase Latuda to 80mg daily with dinner -Start Vit B12 1000mcg/day -Start MVM daily 01/21/2025: -Autism Tutor consult -Consider trial of packaged food items in case paranoia is negatively impacting his intake -Ongoing behavioral activation strategies 01/20/2025: -Increase Latuda to 60mg daily with dinner 01/19/2025: -Start melatonin 6mg HS 01/18/2025: -Increase fluoxetine to 40mg daily tomorrow -Discontinue sertraline tomorrow 01/17/2025: -Decrease Wellbutrin to 150mg daily -Start mirtazapine 15mg HS -Discontinue olanzapine 20mg HS -Start Latuda 40mg daily with dinner -Start Vit D 1,250 mcg once weekly for 6-8 weeks 01/16/2025:The patient was admitted to the [facility] ([facility]) on q15 min checks (behavioral with suicide precautions) for safety. The patient will participate in group, recreational, and milieu therapies and will be offered additional individual and family sessions as clinically appropriate. Decrease sertraline to 50 mg daily Start fluoxetine 20 mg daily Increase Synthroid to 175 mcg daily Start clonidine 0.1 mg at bedtime Baseline EKG Labs: Hemoglobin A1c, fasting lipids, free T3, vitamin D, vitamin B12 Inventory Assets Strengths: access to stable housing, well connected, family support Needs: on-going mood problems, social isolation Suicide Risk Level Suicide Risk Level: Moderate (q15 min suicide checks) (SI and severe depression with some paranoia but feels safe in the hospital and feels able to ask for support ) Risk Factors Assessment Male: Yes : Yes Do You Have Access To A Gun?: No Health Problems: Yes Mental Health Diagnoses: Yes Substance Use Disorders: No Previous Attempt: No Family History of Suicide: No Previous Psychiatric Hospitalization: Yes Hopelessness: Yes Protective Factors Assessment Holiness Beliefs: Yes : No Responsible for Young Children: No Employed: No Stable Relationships: Yes Supportive Family: Yes Good Rapport with Provider: Yes Absence of Any Risk Factors Above: No Interval History Identifying Information KENDAL MATTSON is a 39-year-old M who currently lives alone, has a history of schizoaffective disorder, cerebral palsy, and was admitted on 01/16/25 00:36 on a 201 voluntary commitment for suicidal ideation. Chief Complaint "About the same as yesterday". Review of Systems Sleep Information Total Hours of Sleep: 6.5 Meal Information Percent Meal Consumed - Breakfast: 0 Percent Meal Consumed - Lunch: 10 Percent Meal Consumed - Dinner: 5 Nutrition Comment: Pt ate half of a dinner roll. Subjective Subjective Patient was seen & assessed and interval progress reviewed with [treatment team] [nursing and social work] per report: appeared brighter and more engaged more visible on the unit still poor PO intake mood 3.5/10 and frustrated due to using walker (prefers a cane) more interactive with peers I met with the patient in his room. He continues to report no BM. He says "it is really not bothering me." No abdominal pain or discomfort. He suspects it is because he has been eating little. When discussing his mood, he said he feels the same as yesterday. He has noticed that he does have moments where he is not suicidal or thinking about depressive content. That usually happens when he is occupied with the group or taking a walk around the unit, or doing an activity. Then, when he is free time and quiet, the thoughts tend to come back. He says he still feels "a little bit" helpless about the future. He did have passive suicidal ideation this morning after group when he was alone in his room. No plan or intent. He said again that his thoughts go back to his apartment and whether he will actually feel any differently if he returns to the same place to live. Today, we discussed taking steps toward making a change, since he has mentioned this stressor repeatedly. he was able to identify first step, but quickly got derailed with seeing potential problems. For example, he knows where he might like to live, but is unsure if they have openings. He then said he was unsure when he be able to move, so then he might need to get a storage unit, but he also does not know where he would live in the meantime, etc. He did respond well to reflection about this pattern, that he stops before he tries to make a change due to seeing potential (but not confirmed) obstacles. Made the plan that he will call the apartment complex that he is interested in today, so that he can start to coordinate the other details with family, Or make another plan if needed. Do not immerse effects. Denies significant anxiety. No hallucinations. Baseline paranoia is likely present, but no delusional content was voiced. Physical Exam Psychiatric Orientation: alert, oriented x 3 and cooperative Apperance: appropriately dressed, + disheveled and appeared stated age Eye Contact: good eye contact Motor Behavior: no abnormal motor movements; + unsteady gait or station Speech: normal rate/rhythm/volume of speech Affect: + depressed affect, + blunted affect and mood congruent with affect Mood: + depressed mood Thought Process: goal directed thought process, linear/logical thought process, clear/coherent thought process, + concrete thought process and thought association intact Thought Content: + cognitive distortions, reality based without delusions and + hopelessness Suicidal Thoughts: denies suicidal plan and denies suicidal intent; + reports suicidal thoughts Homicidal Thoughts: denies homicidal thoughts, denies homicidal plan and denies homicidal intent Hallucinations: no auditory hallucinations and no visual hallucinations Cognition: recent memory grossly intact, remote memory grossly intact, attention grossly intact and language grossly intact Estimated Intelligence: average estimated intelligence and consistent with education level Insight: + fair insight Judgment: + fair judgement Vital Signs (Past 24 Hours) Last Vital Signs Temp 36.4 C L 01/30/25 06:22 Pulse 96 H 01/30/25 06:23 Resp 16 01/30/25 06:22 BP 113/78 01/30/25 06:23 Pulse Ox 98 01/23/25 06:28 O2 Del Method Room Air 01/23/25 06:28 Results & Data ([facility]) Laboratory Results Laboratory Results - last 24 hr 01/30/25 08:25 Sodium Pending Potassium Pending Chloride Pending Carbon Dioxide Pending Anion Gap Pending BUN Pending Creatinine Pending Est Cr Clr Drug Dosing Pending eGFR Pending BUN/Creatinine Ratio Pending Glucose Pending Calcium Pending Total Bilirubin Pending AST Pending ALT Pending Alkaline Phosphatase Pending Total Protein Pending Albumin Pending Globulin Pending Albumin/Globulin Ratio Pending Current Inpatient Medications Current Inpatient Medications: Current Inpatient Medications Acetaminophen (Acetaminophen 325 Mg Tab) 650 mg PO Q4H PRN PRN Reason: Headache or Minor Fever Stop: 02/15/25 01:10 Al Hydrox/Mg Hydrox/Simethicone (Aluminum/Magnesium Susp 30 Ml Udc) 30 ml PO Q4H PRN PRN Reason: GI Upset Stop: 02/15/25 01:10 Clonidine HCl (Clonidine Hcl 0.1 Mg Tab) 0.1 mg PO HS ELSIE Stop: 02/15/25 21:59 Last Admin: 01/29/25 21:31 Dose: 0.1 mg Cyanocobalamin (Cyanocobalamin (B-12) 500 Mcg Tablet) 1,000 mcg PO QAM ELSIE Stop: 02/22/25 08:59 Last Admin: 01/29/25 09:06 Dose: 1,000 mcg Ezetimibe (Ezetimibe 10 Mg Tab) 10 mg PO DAILY ELSIE Stop: 02/15/25 10:14 Last Admin: 01/29/25 09:07 Dose: 10 mg Ergocalciferol (Ergocalciferol 1250 Mcg (50,000 Units) Cap) 1,250 mcg PO Q7D ELSIE Stop: 02/16/25 13:14 Last Admin: 01/24/25 14:42 Dose: 1,250 mcg Fluoxetine HCl (Fluoxetine Hcl 20 Mg Cap) 60 mg PO QAM ELSIE Stop: 02/25/25 08:59 Last Admin: 01/29/25 09:07 Dose: 60 mg Hydroxyzine HCl (Hydroxyzine Hcl 25 Mg Tab) 50 mg PO HSZ PRN PRN Reason: Insomnia Stop: 02/15/25 01:10 Hydroxyzine HCl (Hydroxyzine Hcl 25 Mg Tab) 25 mg PO Q4H PRN PRN Reason: Anxiety Stop: 02/15/25 01:10 Ketoconazole (Ketoconazole 2% Cr 15 Gm Tube) 1 appln EXT DAILY PRN PRN Reason: dandruff Stop: 02/02/25 16:13 Last Admin: 01/29/25 20:15 Dose: 1 appln Levothyroxine Sodium (Levothyroxine Sodium 175 Mcg Tablet) 175 mcg PO DAILYBB ELSIE Stop: 02/16/25 07:59 Last Admin: 01/29/25 09:06 Dose: 175 mcg Loperamide HCl (Loperamide Hcl 2 Mg Cap) 2 mg PO Q2HWA PRN PRN Reason: Diarrhea Stop: 02/19/25 20:55 Last Admin: 01/20/25 21:09 Dose: 2 mg Lurasidone HCl (Lurasidone Hcl 20 Mg Tab) 80 mg PO DAILYBD ELSIE Stop: 02/21/25 17:14 Last Admin: 01/29/25 18:11 Dose: 80 mg Lurasidone HCl (Lurasidone Hcl 20 Mg Tab) 20 mg PO DAILY ELSIE Stop: 02/25/25 08:59 Last Admin: 01/29/25 09:07 Dose: 20 mg Magnesium Hydroxide (Magnesium Hydroxide Susp 30 Ml Udc) 30 ml PO DAILY PRN PRN Reason: Constipation Stop: 02/15/25 01:10 Melatonin (Melatonin 3 Mg Tab) 6 mg PO HS ELSIE Stop: 02/18/25 21:59 Last Admin: 01/29/25 21:32 Dose: 6 mg Mirtazapine (Mirtazapine Tab 15 Mg Tab) 15 mg PO HS ELSIE Stop: 02/16/25 21:59 Last Admin: 01/29/25 21:32 Dose: 15 mg Multivitamins/Minerals (Cerovite Adv Formula Tab) 1 tab PO QAM ELSIE Stop: 02/22/25 08:59 Last Admin: 01/29/25 09:07 Dose: 1 tab Pantoprazole Sodium (Pantoprazole 40 Mg Tab) 40 mg PO QAM ELSIE Stop: 02/15/25 08:59 Last Admin: 01/29/25 09:07 Dose: 40 mg Senna/Docusate Sodium (Docusate Sodium/Senna 50/8.6mg Tab) 2 tab PO BID ELSIE Stop: 02/28/25 20:59 Last Admin: 01/29/25 21:31 Dose: 2 tab Sodium Chloride (Sodium Chloride 0.65% Na Soln 45 Ml ([place])) 1 - 2 sprays NA PRN PRN PRN Reason: Nasal Dryness/Congestion Stop: 02/15/25 01:10 Mental Health & Subst Abuse Tx Psychiatrist Name of Psychiatrist: [facility] - Dr. Georgia Ventura Psychiatrist's Date Of Appointment With Psychiatric Provider: 02/12/25 Time of Appointment with Psychiatrist: 11AM Psychiatric Appointment Comment: Ask psychiatrist to be added as priority on waitlist for therapy Therapist Name of Therapist: [facility] Therapist's Therapy Appointment Comment: Ask psychiatrist to be added as priority on waitlist for therapy Manager [employer] Name of Manager Video Games: Darnell Malone Phone Number for Manager Video Games: [phone] Case Management Appointment Comment: Patient declined referral for case management Post Discharge Appointments Primary Care Physician Name Of Family Doctor/PCP: Erika Crenshaw - [facility] Date of Future Appointment with PCP: 02/11/25 Time of Appointment with PCP: 9:40AM Provider Appointment Comment: [phone] [facility], BRIANNA Mckeon (F/U re: thyroid) Contact Information Discharge Discharge Address: [address] [place], [place] [address] [place] [address]
[2025-01-30 09:06] LABS: Alanine Aminotransferase 8.0 U/L (7-52); Albumin Globulin Ratio 1.1 (0.9-2); Albumin Level 3.7 gm/dl (3.4-5.0); Alkaline Phosphatase 64.0 U/L (34-104); Anion Gap 11.0 (3-11); Bilirubin,Total 0.6 mg/dl (0.2-1.0); Blood Urea Nitrogen 16.0 mg/dl (6-23); Calcium 9.2 mg/dl (8.6-10.3); Carbon Dioxide 25.0 mmol/L (21-32); Chloride 102.0 mmol/L (98-107); Creatinine Clr Calc Pharmacy 132.5 ml/min; Globulin 3.3 gm/dl (2.5-4.0); Glucose 85.0 mg/dl (70-99(Fasting)); Potassium 3.5 mmol/L (3.5-5.1); Sodium 138.0 mmol/L (136-145); Total Protein 7.0 gm/dl (6.0-8.3)
--- NOTE | 2025-01-30 18:09 | XRay Report ---
3 views of the abdomen were obtained Findings: There is no definite sign of bowel obstruction. Gas is seen within the splenic flexure of the colon. There appears to be a normal amount of stool within the colon. No renal or ureteral calculi are seen. No foreign body is evident. No osseous abnormality is seen Impression: Unremarkable abdominal radiographs Electronically signed by Isma Ovalle 01-30-2025 6:08 PM
--- NOTE | 2025-01-31 09:31 | Psychiatric Progress Note ---
Date of Service January 31, 2025 Impression / Recommendations Impression KENDAL MATTSON is a 39-year-old man who currently lives alone, has a history of schizoaffective disorder, cerebral palsy, and was admitted on 01/16/25 00:36 on a 201 voluntary commitment for suicidal ideation and worsening depression. Presentation consistent with persistent depressive disorder that may or may not be part of a primary psychotic disorder. Currently patient does not appear psychotic and presents intact reality testing with no history of auditory visual hallucinations however has demonstrated extreme paranoia in the past. Has presented increased suicidal ideations which have become more frequent. Does not meet criteria for posttraumatic stress disorder. Family history of bipolar disorder. Medications reviewed and there is concern for auto metabolism of prescribed sertraline and will cross taper to fluoxetine; concern for hypothyroid state which may be contributory and will increase Synthroid dose; start clonidine for sleep and physical symptoms of anxiety and hypervigilance. Medication side effects and adverse effects discussed with patient. Given social isolation patient may benefit from an in person intensive outpatient program or day program for social engagement. A: Ongoing depression with SI but slightly more hopeful today and considering calling to take step forward in inquiring about possibility of making some changes to his living environment. Continues to sleep poorly and eat poorly, seems this is more driven by delusions/paranoia but he doesn't vocalize this. MNPR due to cerebral palsy and need for walker Overall, I spent a total of 38 minutes on this case including meeting with the patient, reviewing the chart, nursing report, multidisciplinary team meeting, orders, and documentation. (1) Persistent depressive disorder with anxious distress, currently severe: (2) Hopelessness: (3) Isolation (social): (4) Hypothyroid: (5) Cerebral palsy: (6) Paranoia: (7) Insomnia: (8) Schizophrenia: Plan 01/31/2025: -Continue current medications and tx plan 01/30/25: - Abdominal x-ray - continue current treatment and medications 01/29/25: -Discussed change to Seroquel, pt declines - CMP in AM - increase ducolax to 2 tab BID, and obtain flat plate if no BM by tomorrow - encouraged f/u with PT exercise as recommended - ongoing behavioral contract 01/28/25: -PT ordered -ducolax BID -continue prozac and latuda at present doses -behavioral contract ongoing 01/27/25: - Behavioral plan for increasing activity - continue current medications 01/26/25: Continue current medications and treatment plan. encouraged pt to be out of bed, in dinning room with tray for each meal. 01/25/25: - Increase Latuda to 20mg AM and 80mg with dinner. - Increase prozac to 60mg daily - ongoing behavioral activation strategies. 01/24/25: - d/c wellbutrin - CMP in AM, Ca, and Mag 01/23/2025: -Continue current medications and tx plan. 01/22/2025: -Increase Latuda to 80mg daily with dinner -Start Vit B12 1000mcg/day -Start MVM daily 01/21/2025: -Agricultural Engineering Technologist consult -Consider trial of packaged food items in case paranoia is negatively impacting his intake -Ongoing behavioral activation strategies 01/20/2025: -Increase Latuda to 60mg daily with dinner 01/19/2025: -Start melatonin 6mg HS 01/18/2025: -Increase fluoxetine to 40mg daily tomorrow -Discontinue sertraline tomorrow 01/17/2025: -Decrease Wellbutrin to 150mg daily -Start mirtazapine 15mg HS -Discontinue olanzapine 20mg HS -Start Latuda 40mg daily with dinner -Start Vit D 1,250 mcg once weekly for 6-8 weeks 01/16/2025:The patient was admitted to the [facility] ([facility]) on q15 min checks (behavioral with suicide precautions) for safety. The patient will participate in group, recreational, and milieu therapies and will be offered additional individual and family sessions as clinically appropriate. Decrease sertraline to 50 mg daily Start fluoxetine 20 mg daily Increase Synthroid to 175 mcg daily Start clonidine 0.1 mg at bedtime Baseline EKG Labs: Hemoglobin A1c, fasting lipids, free T3, vitamin D, vitamin B12 Inventory Assets Strengths: access to stable housing, well connected, family support Needs: on-going mood problems, social isolation Suicide Risk Level Suicide Risk Level: Moderate (q15 min suicide checks) (SI and severe depression with some paranoia but feels safe in the hospital and feels able to ask for support ) Risk Factors Assessment Male: Yes : Yes Do You Have Access To A Gun?: No Health Problems: Yes Mental Health Diagnoses: Yes Substance Use Disorders: No Previous Attempt: No Family History of Suicide: No Previous Psychiatric Hospitalization: Yes Hopelessness: Yes Protective Factors Assessment Mormonism Beliefs: Yes : No Responsible for Young Children: No Employed: No Stable Relationships: Yes Supportive Family: Yes Good Rapport with Provider: Yes Absence of Any Risk Factors Above: No Interval History Identifying Information KENDAL MATTSON is a 39-year-old M who currently lives alone, has a history of schizoaffective disorder, cerebral palsy, and was admitted on 01/16/25 00:36 on a 201 voluntary commitment for suicidal ideation. Chief Complaint "Made me a bit irritable". Review of Systems Sleep Information Total Hours of Sleep: 7.75 Meal Information Percent Meal Consumed - Breakfast: 0 Percent Meal Consumed - Lunch: 15 Percent Meal Consumed - Dinner: 15 Nutrition Comment: pt. drank coffee and chocolate milk Subjective Subjective Patient was seen & assessed and interval progress reviewed with nursing. He's been participating with behavioral activation. Continues to barely eat. Ate about 15% of dinner and first time he ate a little more food of substance. Working with PT and can use cane or walker. Participates well in groups and mood improves a bit when he's distracted but when he isolates his mood worsens and SI emerges. Hasn't brushed his teeth since admission. Today reports some irritability about having to get out of bed and sit for breakfast as he reports feeling tired from not sleeping well and not wanting to eat so he does not see what the point is. He reflects that if he is not eating here when a tray of food is put in front of him he definitely will not eat at home when he ate after prepare the food. Discussed rationale for reestablishing normal routines including trying to sit down at normal times for breakfast lunch and dinner to help with depression, behavioral activation and resetting his circadian rhythm which he states understanding of and willingness to continue trying with prompting from staff. Endorses some ongoing suicidal ideation reflecting on "a little bit yesterday" but none so far this morning. He did get the number for a possible apartment and plans to call today. Slightly helpful that changing where he lives might help his mood a bit. He feels like we are making progress with the current treatment plan. He denies any medication side effects. Physical Exam Psychiatric Orientation: alert, oriented x 3 and cooperative Apperance: appropriately dressed, + disheveled and appeared stated age Eye Contact: good eye contact Motor Behavior: no abnormal motor movements; + unsteady gait or station Speech: normal rate/rhythm/volume of speech Affect: + depressed affect, + blunted affect and mood congruent with affect Mood: + depressed mood Thought Process: goal directed thought process, linear/logical thought process, clear/coherent thought process, + concrete thought process and thought association intact Thought Content: + cognitive distortions, reality based without delusions and + hopelessness Suicidal Thoughts: denies suicidal plan and denies suicidal intent; + reports suicidal thoughts Homicidal Thoughts: denies homicidal thoughts, denies homicidal plan and denies homicidal intent Hallucinations: no auditory hallucinations and no visual hallucinations Cognition: recent memory grossly intact, remote memory grossly intact, attention grossly intact and language grossly intact Estimated Intelligence: average estimated intelligence and consistent with education level Insight: + limited insight Judgment: + limited judgement Vital Signs (Past 24 Hours) Last Vital Signs Temp 36.5 C 01/31/25 06:38 Pulse 74 01/31/25 06:38 Resp 18 01/31/25 06:38 BP 123/87 01/31/25 06:40 Pulse Ox 98 01/31/25 06:38 O2 Del Method Room Air 01/31/25 06:38 Results & Data ([facility]) Current Inpatient Medications Current Inpatient Medications: Current Inpatient Medications Acetaminophen (Acetaminophen 325 Mg Tab) 650 mg PO Q4H PRN PRN Reason: Headache or Minor Fever Stop: 02/15/25 01:10 Al Hydrox/Mg Hydrox/Simethicone (Aluminum/Magnesium Susp 30 Ml Udc) 30 ml PO Q4H PRN PRN Reason: GI Upset Stop: 02/15/25 01:10 Clonidine HCl (Clonidine Hcl 0.1 Mg Tab) 0.1 mg PO HS ELSIE Stop: 02/15/25 21:59 Last Admin: 01/30/25 21:05 Dose: 0.1 mg Cyanocobalamin (Cyanocobalamin (B-12) 500 Mcg Tablet) 1,000 mcg PO QAM ELSIE Stop: 02/22/25 08:59 Last Admin: 01/30/25 09:08 Dose: 1,000 mcg Ezetimibe (Ezetimibe 10 Mg Tab) 10 mg PO DAILY ELSIE Stop: 02/15/25 10:14 Last Admin: 01/30/25 09:10 Dose: 10 mg Ergocalciferol (Ergocalciferol 1250 Mcg (50,000 Units) Cap) 1,250 mcg PO Q7D ELSIE Stop: 02/16/25 13:14 Last Admin: 01/24/25 14:42 Dose: 1,250 mcg Fluoxetine HCl (Fluoxetine Hcl 20 Mg Cap) 60 mg PO QAM ELSIE Stop: 02/25/25 08:59 Last Admin: 01/30/25 09:10 Dose: 60 mg Hydroxyzine HCl (Hydroxyzine Hcl 25 Mg Tab) 50 mg PO HSZ PRN PRN Reason: Insomnia Stop: 02/15/25 01:10 Hydroxyzine HCl (Hydroxyzine Hcl 25 Mg Tab) 25 mg PO Q4H PRN PRN Reason: Anxiety Stop: 02/15/25 01:10 Ketoconazole (Ketoconazole 2% Cr 15 Gm Tube) 1 appln EXT DAILY PRN PRN Reason: dandruff Stop: 02/02/25 16:13 Last Admin: 01/29/25 20:15 Dose: 1 appln Levothyroxine Sodium (Levothyroxine Sodium 175 Mcg Tablet) 175 mcg PO DAILYBB ELSIE Stop: 02/16/25 07:59 Last Admin: 01/30/25 09:08 Dose: 175 mcg Loperamide HCl (Loperamide Hcl 2 Mg Cap) 2 mg PO Q2HWA PRN PRN Reason: Diarrhea Stop: 02/19/25 20:55 Last Admin: 01/20/25 21:09 Dose: 2 mg Lurasidone HCl (Lurasidone Hcl 20 Mg Tab) 80 mg PO DAILYBD ELSIE Stop: 02/21/25 17:14 Last Admin: 01/30/25 17:33 Dose: 80 mg Lurasidone HCl (Lurasidone Hcl 20 Mg Tab) 20 mg PO DAILY ELSIE Stop: 02/25/25 08:59 Last Admin: 01/30/25 09:11 Dose: 20 mg Magnesium Hydroxide (Magnesium Hydroxide Susp 30 Ml Udc) 30 ml PO DAILY PRN PRN Reason: Constipation Stop: 02/15/25 01:10 Melatonin (Melatonin 3 Mg Tab) 6 mg PO HS ELSIE Stop: 02/18/25 21:59 Last Admin: 01/30/25 21:06 Dose: 6 mg Mirtazapine (Mirtazapine Tab 15 Mg Tab) 15 mg PO HS ELSIE Stop: 02/16/25 21:59 Last Admin: 01/30/25 21:06 Dose: 15 mg Multivitamins/Minerals (Cerovite Adv Formula Tab) 1 tab PO QAM ELSIE Stop: 02/22/25 08:59 Last Admin: 01/30/25 09:11 Dose: 1 tab Pantoprazole Sodium (Pantoprazole 40 Mg Tab) 40 mg PO QAM ELSIE Stop: 02/15/25 08:59 Last Admin: 01/30/25 09:11 Dose: 40 mg Senna/Docusate Sodium (Docusate Sodium/Senna 50/8.6mg Tab) 2 tab PO BID ELSIE Stop: 02/28/25 20:59 Last Admin: 01/30/25 21:05 Dose: 2 tab Sodium Chloride (Sodium Chloride 0.65% Na Soln 45 Ml ([place])) 1 - 2 sprays NA PRN PRN PRN Reason: Nasal Dryness/Congestion Stop: 02/15/25 01:10 Mental Health & Subst Abuse Tx Psychiatrist Name of Psychiatrist: [facility] - Dr. Georgia Ventura Psychiatrist's Date Of Appointment With Psychiatric Provider: 02/12/25 Time of Appointment with Psychiatrist: 11AM Psychiatric Appointment Comment: Ask psychiatrist to be added as priority on waitlist for therapy Therapist Name of Therapist: [facility] Therapist's Therapy Appointment Comment: Ask psychiatrist to be added as priority on waitlist for therapy Home Care Scheduler Name of Home Care Scheduler: Darnell Malone Phone Number for Home Care Scheduler: [phone] Case Management Appointment Comment: Patient declined referral for case management Post Discharge Appointments Primary Care Physician Name Of Family Doctor/PCP: Erika Crenshaw - [facility] Date of Future Appointment with PCP: 02/11/25 Time of Appointment with PCP: 9:40AM [facility] Contact Information Discharge Discharge Address: [address] [place] [id number]
--- NOTE | 2025-02-01 09:00 | Psychiatric Progress Note ---
Date of Service February 01, 2025 Impression / Recommendations Impression KENDAL MATTSON is a 39-year-old man who currently lives alone, has a history of schizoaffective disorder, cerebral palsy, and was admitted on 01/16/25 00:36 on a 201 voluntary commitment for suicidal ideation and worsening depression. Presentation consistent with persistent depressive disorder that may or may not be part of a primary psychotic disorder. Currently patient does not appear psychotic and presents intact reality testing with no history of auditory visual hallucinations however has demonstrated extreme paranoia in the past. Has presented increased suicidal ideations which have become more frequent. Does not meet criteria for posttraumatic stress disorder. Family history of bipolar disorder. Medications reviewed and there is concern for auto metabolism of prescribed sertraline and will cross taper to fluoxetine; concern for hypothyroid state which may be contributory and will increase Synthroid dose; start clonidine for sleep and physical symptoms of anxiety and hypervigilance. Medication side effects and adverse effects discussed with patient. Given social isolation patient may benefit from an in person intensive outpatient program or day program for social engagement. A: Ongoing depression with SI but showing some slow improvement with less hopelessness. Continues to sleep poorly and eat poorly. Unfortunately marinol is not available on hospital formulary and is on backorder per pharmacy. Therefore will titrate mirtazapine further to target depression, insomnia and low appetite. He did not call apartment complex yesterday, states plan to call tomorrow for normal business day. MNPR due to cerebral palsy and need for walker Overall, I spent a total of 40 minutes on this case including meeting with the patient, reviewing the chart, nursing report, multidisciplinary team meeting, orders, and documentation. (1) Persistent depressive disorder with anxious distress, currently severe: (2) Hopelessness: (3) Isolation (social): (4) Hypothyroid: (5) Cerebral palsy: (6) Paranoia: (7) Insomnia: (8) Schizophrenia: Plan 02/01/2025: -Increase mirtazapine to 30mg HS -Change senna to prn 01/31/2025: -Continue current medications and tx plan 01/30/25: - Abdominal x-ray - continue current treatment and medications 01/29/25: -Discussed change to Seroquel, pt declines - CMP in AM - increase ducolax to 2 tab BID, and obtain flat plate if no BM by tomorrow - encouraged f/u with PT exercise as recommended - ongoing behavioral contract 01/28/25: -PT ordered -ducolax BID -continue prozac and latuda at present doses -behavioral contract ongoing 01/27/25: - Behavioral plan for increasing activity - continue current medications 01/26/25: Continue current medications and treatment plan. encouraged pt to be out of bed, in dinning room with tray for each meal. 01/25/25: - Increase Latuda to 20mg AM and 80mg with dinner. - Increase prozac to 60mg daily - ongoing behavioral activation strategies. 01/24/25: - d/c wellbutrin - CMP in AM, Ca, and Mag 01/23/2025: -Continue current medications and tx plan. 01/22/2025: -Increase Latuda to 80mg daily with dinner -Start Vit B12 1000mcg/day -Start MVM daily 01/21/2025: -House Shorer consult -Consider trial of packaged food items in case paranoia is negatively impacting his intake -Ongoing behavioral activation strategies 01/20/2025: -Increase Latuda to 60mg daily with dinner 01/19/2025: -Start melatonin 6mg HS 01/18/2025: -Increase fluoxetine to 40mg daily tomorrow -Discontinue sertraline tomorrow 01/17/2025: -Decrease Wellbutrin to 150mg daily -Start mirtazapine 15mg HS -Discontinue olanzapine 20mg HS -Start Latuda 40mg daily with dinner -Start Vit D 1,250 mcg once weekly for 6-8 weeks 01/16/2025:The patient was admitted to the [facility] ([facility] mental health unit) on q15 min checks (behavioral with suicide precautions) for safety. The patient will participate in group, recreational, and milieu therapies and will be offered additional individual and family sessions as clinically appropriate. Decrease sertraline to 50 mg daily Start fluoxetine 20 mg daily Increase Synthroid to 175 mcg daily Start clonidine 0.1 mg at bedtime Baseline EKG Labs: Hemoglobin A1c, fasting lipids, free T3, vitamin D, vitamin B12 Inventory Assets Strengths: access to stable housing, well connected, family support Needs: on-going mood problems, social isolation Suicide Risk Level Suicide Risk Level: Moderate (q15 min suicide checks) (SI and severe depression with some paranoia but feels safe in the hospital and feels able to ask for sup port ) Risk Factors Assessment Male: Yes : Yes Do You Have Access To A Gun?: No Health Problems: Yes Mental Health Diagnoses: Yes Substance Use Disorders: No Previous Attempt: No Family History of Suicide: No Previous Psychiatric Hospitalization: Yes Hopelessness: Yes Protective Factors Assessment Restorationist Beliefs: Yes : No Responsible for Young Children: No Employed: No Stable Relationships: Yes Supportive Family: Yes Good Rapport with Provider: Yes Absence of Any Risk Factors Above: No Interval History Identifying Information KENDAL MATTSON is a 39-year-old M who currently lives alone, has a history of schizoaffective disorder, cerebral palsy, and was admitted on 01/16/25 00:36 on a 201 voluntary commitment for suicidal ideation. Chief Complaint "Not feeling that great". Review of Systems Sleep Information Total Hours of Sleep: 5.75 Meal Information Percent Meal Consumed - Breakfast: 0 Percent Meal Consumed - Lunch: 15 Percent Meal Consumed - Dinner: 20 Nutrition Comment: pt. drank coffee and chocolate milk Subjective Subjective Patient was seen & assessed and interval progress reviewed with nursing and social work. Attended groups, otherwise in his room but in the evening spent time watching TV with peers and spoke with a peer. Rated his mood "3/10" and irritable. Hardly ate anything. This morning he was resistant to getting out of bed and going to group. Reports this is due to his stomach feeling off which he attributes to taking Senna and he thinks he shouldn't be having bowel movements because he's not eating. Feels some of his SI is lessening and becoming more "general depression". Still intermittent SI but he feels it's "not too much today". Denies any medication side effects. Discussed possibility of adjusting medications to help with appetite which he agrees to. He used marinol during inpatient hospitalization many years ago for low appetite with benefit but then it was too expensive to take in the outpatient setting. He'd be open to trying this again. Physical Exam Psychiatric Orientation: alert, oriented x 3 and cooperative Apperance: appropriately dressed, + disheveled and appeared stated age Eye Contact: good eye contact Motor Behavior: no abnormal motor movements; + unsteady gait or station Speech: normal rate/rhythm/volume of speech Affect: + depressed affect, + blunted affect and mood congruent with affect Mood: + depressed mood Thought Process: goal directed thought process, linear/logical thought process, clear/coherent thought process, + concrete thought process and thought association intact Thought Content: + cognitive distortions and reality based without delusions Suicidal Thoughts: denies suicidal plan and denies suicidal intent; + reports suicidal thoughts Homicidal Thoughts: denies homicidal thoughts, denies homicidal plan and denies homicidal intent Hallucinations: no auditory hallucinations and no visual hallucinations Cognition: recent memory grossly intact, remote memory grossly intact, attention grossly intact and language grossly intact Estimated Intelligence: average estimated intelligence and consistent with education level Insight: + limited insight Judgment: + limited judgement Vital Signs (Past 24 Hours) Last Vital Signs Temp 36.4 C 02/01/25 06:22 Pulse 71 02/01/25 06:22 Resp 16 02/01/25 06:22 BP 119/82 02/01/25 06:24 Pulse Ox 97 02/01/25 06:22 O2 Del Method Room Air 02/01/25 06:22 Results & Data ([facility]) Current Inpatient Medications Current Inpatient Medications: Current Inpatient Medications Acetaminophen (Acetaminophen 325 Mg Tab) 650 mg PO Q4H PRN PRN Reason: Headache or Minor Fever Stop: 02/15/25 01:10 Al Hydrox/Mg Hydrox/Simethicone (Aluminum/Magnesium Susp 30 Ml Udc) 30 ml PO Q4H PRN PRN Reason: GI Upset Stop: 02/15/25 01:10 Clonidine HCl (Clonidine Hcl 0.1 Mg Tab) 0.1 mg PO HS [facility] Stop: 02/15/25 21:59 Last Admin: 01/31/25 21:43 Dose: 0.1 mg Cyanocobalamin (Cyanocobalamin (B-12) 500 Mcg Tablet) 1,000 mcg PO QAM ELSIE Stop: 02/22/25 08:59 Last Admin: 01/31/25 09:28 Dose: 1,000 mcg Ezetimibe (Ezetimibe 10 Mg Tab) 10 mg PO DAILY [facility]SIE Stop: 02/15/25 10:14 Last Admin: 01/31/25 09:27 Dose: 10 mg Ergocalciferol (Ergocalciferol 1250 Mcg (50,000 Units) Cap) 1,250 mcg PO Q7D [facility] Stop: 02/16/25 13:14 Last Admin: 01/31/25 12:55 Dose: 1,250 mcg Fluoxetine HCl (Fluoxetine Hcl 20 Mg Cap) 60 mg PO QAM [facility]SIE Stop: 02/25/25 08:59 Last Admin: 01/31/25 09:27 Dose: 60 mg Hydroxyzine HCl (Hydroxyzine Hcl 25 Mg Tab) 50 mg PO HSZ PRN PRN Reason: Insomnia Stop: 02/15/25 01:10 Hydroxyzine HCl (Hydroxyzine Hcl 25 Mg Tab) 25 mg PO Q4H PRN PRN Reason: Anxiety Stop: 02/15/25 01:10 Ketoconazole (Ketoconazole 2% Cr 15 Gm Tube) 1 appln EXT DAILY PRN PRN Reason: dandruff Stop: 02/02/25 16:13 Last Admin: 01/29/25 20:15 Dose: 1 appln Levothyroxine Sodium (Levothyroxine Sodium 175 Mcg Tablet) 175 mcg PO DAILYBB ELSIE Stop: 02/16/25 07:59 Last Admin: 01/31/25 09:28 Dose: 175 mcg Loperamide HCl (Loperamide Hcl 2 Mg Cap) 2 mg PO Q2HWA PRN PRN Reason: Diarrhea Stop: 02/19/25 20:55 Last Admin: 01/20/25 21:09 Dose: 2 mg Lurasidone HCl (Lurasidone Hcl 20 Mg Tab) 80 mg PO DAILYBD ELSIE Stop: 02/21/25 17:14 Last Admin: 01/31/25 17:24 Dose: 80 mg Lurasidone HCl (Lurasidone Hcl 20 Mg Tab) 20 mg PO DAILY [facility]SIE Stop: 02/25/25 08:59 Last Admin: 01/31/25 09:27 Dose: 20 mg Magnesium Hydroxide (Magnesium Hydroxide Susp 30 Ml Udc) 30 ml PO DAILY PRN PRN Reason: Constipation Stop: 02/15/25 01:10 Melatonin (Melatonin 3 Mg Tab) 6 mg PO HS [facility]SIE Stop: 02/18/25 21:59 Last Admin: 01/31/25 21:44 Dose: 6 mg Mirtazapine (Mirtazapine Tab 15 Mg Tab) 15 mg PO HS [facility]SIE Stop: 02/16/25 21:59 Last Admin: 01/31/25 21:44 Dose: 15 mg Multivitamins/Minerals (Cerovite Adv Formula Tab) 1 tab PO QAM ELSIE Stop: 02/22/25 08:59 Last Admin: 01/31/25 09:27 Dose: 1 tab Pantoprazole Sodium (Pantoprazole 40 Mg Tab) 40 mg PO QAM [facility]SIE Stop: 02/15/25 08:59 Last Admin: 01/31/25 09:28 Dose: 40 mg Senna/Docusate Sodium (Docusate Sodium/Senna 50/8.6mg Tab) 2 tab PO BID ELSIE Stop: 02/28/25 20:59 Last Admin: 01/31/25 21:43 Dose: 2 tab Sodium Chloride (Sodium Chloride 0.65% Na Soln 45 Ml ([place])) 1 - 2 sprays NA PRN PRN PRN Reason: Nasal Dryness/Congestion Stop: 02/15/25 01:10 Mental Health & Subst Abuse Tx Psychiatrist Name of Psychiatrist: [facility] - Dr. Georgia Ventura Psychiatrist's Date Of Appointment With Psychiatric Provider: 02/12/25 Time of Appointment with Psychiatrist: 11AM Psychiatric Appointment Comment: Ask psychiatrist to be added as priority on waitlist for therapy Therapist Name of Therapist: [facility] Therapist's Therapy Appointment Comment: Ask psychiatrist to be added as priority on waitlist for therapy Assistant Center Manager Name of Assistant Center Manager: Darnell Malone Phone Number for Assistant Center Manager: [phone] Case Management Appointment Comment: Patient declined referral for case management Post Discharge Appointments Primary Care Physician Name Of Family Doctor/PCP: Erika Crenshaw - [facility] [place] [facility] Date of Future Appointment with PCP: 02/11/25 Time of Appointment with PCP: 9:40AM Provider Appointment Comment: [phone] [facility] BRIANNA Mckeon (F/U re: thyroid) Contact Information Discharge Discharge Address: [address] [place] [id number]
[2025-02-01] MEDS: MIRTAZAPINE TAB 15 MG TAB PO SCH (21:09)
--- NOTE | 2025-02-02 08:46 | Psychiatric Progress Note ---
Date of Service February 02, 2025 Impression / Recommendations Impression KENDAL MATTSON is a 39-year-old man who currently lives alone, has a history of schizoaffective disorder, cerebral palsy, and was admitted on 01/16/25 00:36 on a 201 voluntary commitment for suicidal ideation and worsening depression. Presentation consistent with persistent depressive disorder that may or may not be part of a primary psychotic disorder. Currently patient does not appear psychotic and presents intact reality testing with no history of auditory visual hallucinations however has demonstrated extreme paranoia in the past. Has presented increased suicidal ideations which have become more frequent. Does not meet criteria for posttraumatic stress disorder. Family history of bipolar disorder. Medications reviewed and there is concern for auto metabolism of prescribed sertraline and will cross taper to fluoxetine; concern for hypothyroid state which may be contributory and will increase Synthroid dose; start clonidine for sleep and physical symptoms of anxiety and hypervigilance. Medication side effects and adverse effects discussed with patient. Given social isolation patient may benefit from an in person intensive outpatient program or day program for social engagement. A: Ongoing depression with SI but agreed to sign DOM for his mother today for the first time and processing more about his worries regarding social isolation and how this impacts his suicidality. Ongoing very poor appetite. Tolerating mirtazapine adjustment so far. MNPR due to cerebral palsy and need for walker Overall, I spent a total of 38 minutes on this case including meeting with the patient, reviewing the chart, nursing report, multidisciplinary team meeting, orders, and documentation. (1) Persistent depressive disorder with anxious distress, currently severe: (2) Hopelessness: (3) Isolation (social): (4) Hypothyroid: (5) Cerebral palsy: (6) Paranoia: (7) Insomnia: (8) Schizophrenia: Plan 02/02/2025: -Continue current medications and tx plan 02/01/2025: -Increase mirtazapine to 30mg HS -Change senna to prn 01/31/2025: -Continue current medications and tx plan 01/30/25: - Abdominal x-ray - continue current treatment and medications 01/29/25: -Discussed change to Seroquel, pt declines - CMP in AM - increase ducolax to 2 tab BID, and obtain flat plate if no BM by tomorrow - encouraged f/u with PT exercise as recommended - ongoing behavioral contract 01/28/25: -PT ordered -ducolax BID -continue prozac and latuda at present doses -behavioral contract ongoing 01/27/25: - Behavioral plan for increasing activity - continue current medications 01/26/25: Continue current medications and treatment plan. encouraged pt to be out of bed, in dinning room with tray for each meal. 01/25/25: - Increase Latuda to 20mg AM and 80mg with dinner. - Increase prozac to 60mg daily - ongoing behavioral activation strategies. 01/24/25: - d/c wellbutrin - CMP in AM, Ca, and Mag 01/23/2025: -Continue current medications and tx plan. 01/22/2025: -Increase Latuda to 80mg daily with dinner -Start Vit B12 1000mcg/day -Start MVM daily 01/21/2025: -P[employer]ier Mache Molder consult -Consider trial of packaged food items in case paranoia is negatively impacting his intake -Ongoing behavioral activation strategies 01/20/2025: -Increase Latuda to 60mg daily with dinner 01/19/2025: -Start melatonin 6mg HS 01/18/2025: -Increase fluoxetine to 40mg daily tomorrow -Discontinue sertraline tomorrow 01/17/2025: -Decrease Wellbutrin to 150mg daily -Start mirtazapine 15mg HS -Discontinue olanzapine 20mg HS -Start Latuda 40mg daily with dinner -Start Vit D 1,250 mcg once weekly for 6-8 weeks 01/16/2025:The patient was admitted to the [facility] ([facility] unit) on q15 min checks (behavioral with suicide precautions) for safety. The patient will participate in group, recreational, and milieu therapies and will be offered additional individual and family sessions as clinically appropriate. Decrease sertraline to 50 mg daily Start fluoxetine 20 mg daily Increase Synthroid to 175 mcg daily Start clonidine 0.1 mg at bedtime Baseline EKG Labs: Hemoglobin A1c, fasting lipids, free T3, vitamin D, vitamin B12 Inventory Assets Strengths: access to stable housing, well connected, family support Needs: on-going mood problems, social isolation Suicide Risk Level Suicide Risk Level: Moderate (q15 min suicide checks) (SI and severe depression with some paranoia but feels safe in the hospital and feels able to ask for support ) Risk Factors Assessment Male: Yes : Yes Do You Have Access To A Gun?: No Health Problems: Yes Mental Health Diagnoses: Yes Substance Use Disorders: No Previous Attempt: No Family History of Suicide: No Previous Psychiatric Hospitalization: Yes Hopelessness: Yes Protective Factors Assessment Amish Beliefs: Yes : No Responsible for Young Children: No Employed: No Stable Relationships: Yes Supportive Family: Yes Good Rapport with Provider: Yes Absence of Any Risk Factors Above: No Interval History Identifying Information KENDAL MATTSON is a 39-year-old M who currently lives alone, has a history of schizoaffective disorder, cerebral palsy, and was admitted on 01/16/25 00:36 on a 201 voluntary commitment for suicidal ideation. Chief Complaint "Ok I suppose". Review of Systems Sleep Information Total Hours of Sleep: 7.5 Meal Information Percent Meal Consumed - Breakfast: 10 Percent Meal Consumed - Lunch: 0 Percent Meal Consumed - Dinner: 5 Nutrition Comment: pt. drank coffee and chocolate milk Subjective Subjective Patient was seen & assessed and interval progress reviewed with treatment team. Rated his mood as "uncertain". Reported nausea and reason for poor po intake but wouldn't accept any prns to help with this. Today denies any GI or physical issues. Ongoing poor appetite. Feels a little tired today, he wonders if this is due to increased mirtazapine. Ongoing SI noting "twice today". He reflects on worrying about being isolated at home and having increased SI from this and is thinking about seeing if he could stay with his mother. Agreed to sign DOM for his mother. He called [facility] but unfortunately they have a 6-12 month waitlist which discouraged him. Feels that he's not sure what to do next and feels stuck as this idea of a move brought about some hopefulness. Physical Exam Psychiatric Orientation: alert, oriented x 3 and cooperative Apperance: appropriately dressed, + disheveled and appeared stated age Eye Contact: good eye contact Motor Behavior: no abnormal motor movements; + unsteady gait or station Speech: normal rate/rhythm/volume of speech Affect: + depressed affect, + blunted affect and mood congruent with affect Mood: + depressed mood Thought Process: goal directed thought process, linear/logical thought process, clear/coherent thought process, + concrete thought process and thought association intact Thought Content: + cognitive distortions and reality based without delusions Suicidal Thoughts: denies suicidal plan and denies suicidal intent; + reports suicidal thoughts Homicidal Thoughts: denies homicidal thoughts, denies homicidal plan and denies homicidal intent Hallucinations: no auditory hallucinations and no visual hallucinations Cognition: recent memory grossly intact, remote memory grossly intact, attention grossly intact and language grossly intact Estimated Intelligence: average estimated intelligence and consistent with education level Insight: + limited insight Judgment: + limited judgement Vital Signs (Past 24 Hours) Last Vital Signs Temp 36.6 C 02/02/25 06:17 Pulse 82 02/02/25 06:18 Resp 16 02/02/25 06:17 BP 110/76 02/02/25 06:18 Pulse Ox 97 02/01/25 06:22 O2 Del Method Room Air 02/01/25 06:22 Results & Data ([facility]) Current Inpatient Medications Current Inpatient Medications: Current Inpatient Medications Acetaminophen (Acetaminophen 325 Mg Tab) 650 mg PO Q4H PRN PRN Reason: Headache or Minor Fever Stop: 02/15/25 01:10 Al Hydrox/Mg Hydrox/Simethicone (Aluminum/Magnesium Susp 30 Ml Udc) 30 ml PO Q4H PRN PRN Reason: GI Upset Stop: 02/15/25 01:10 Clonidine HCl (Clonidine Hcl 0.1 Mg Tab) 0.1 mg PO HS [facility]SIE Stop: 02/15/25 21:59 Last Admin: 02/01/25 21:08 Dose: 0.1 mg Cyanocobalamin (Cyanocobalamin (B-12) 500 Mcg Tablet) 1,000 mcg PO QAM ELSIE Stop: 02/22/25 08:59 Last Admin: 02/01/25 09:22 Dose: 1,000 mcg Ezetimibe (Ezetimibe 10 Mg Tab) 10 mg PO DAILY [facility] Stop: 02/15/25 10:14 Last Admin: 02/01/25 09:22 Dose: 10 mg Ergocalciferol (Ergocalciferol 1250 Mcg (50,000 Units) Cap) 1,250 mcg PO Q7D [facility]SIE Stop: 02/16/25 13:14 Last Admin: 01/31/25 12:55 Dose: 1,250 mcg Fluoxetine HCl (Fluoxetine Hcl 20 Mg Cap) 60 mg PO QAM ELSIE Stop: 02/25/25 08:59 Last Admin: 02/01/25 09:22 Dose: 60 mg Hydroxyzine HCl (Hydroxyzine Hcl 25 Mg Tab) 50 mg PO HSZ PRN PRN Reason: Insomnia Stop: 02/15/25 01:10 Hydroxyzine HCl (Hydroxyzine Hcl 25 Mg Tab) 25 mg PO Q4H PRN PRN Reason: Anxiety Stop: 02/15/25 01:10 Ketoconazole (Ketoconazole 2% Cr 15 Gm Tube) 1 appln EXT DAILY PRN PRN Reason: dandruff Stop: 02/02/25 16:13 Last Admin: 01/29/25 20:15 Dose: 1 appln Levothyroxine Sodium (Levothyroxine Sodium 175 Mcg Tablet) 175 mcg PO DAILYBB ELSIE Stop: 02/16/25 07:59 Last Admin: 02/02/25 08:27 Dose: 175 mcg Loperamide HCl (Loperamide Hcl 2 Mg Cap) 2 mg PO Q2HWA PRN PRN Reason: Diarrhea Stop: 02/19/25 20:55 Last Admin: 01/20/25 21:09 Dose: 2 mg Lurasidone HCl (Lurasidone Hcl 20 Mg Tab) 80 mg PO DAILYBD ELSIE Stop: 02/21/25 17:14 Last Admin: 02/01/25 17:07 Dose: 80 mg Lurasidone HCl (Lurasidone Hcl 20 Mg Tab) 20 mg PO DAILY [facility]SIE Stop: 02/25/25 08:59 Last Admin: 02/01/25 09:23 Dose: 20 mg Magnesium Hydroxide (Magnesium Hydroxide Susp 30 Ml Udc) 30 ml PO DAILY PRN PRN Reason: Constipation Stop: 02/15/25 01:10 Melatonin (Melatonin 3 Mg Tab) 6 mg PO HS ELSIE Stop: 02/18/25 21:59 Last Admin: 02/01/25 21:09 Dose: 6 mg Mirtazapine (Mirtazapine Tab 15 Mg Tab) 30 mg PO HS [facility]SIE Stop: 03/03/25 21:59 Last Admin: 02/01/25 21:09 Dose: 30 mg Multivitamins/Minerals (Cerovite Adv Formula Tab) 1 tab PO QAM ELSIE Stop: 02/22/25 08:59 Last Admin: 02/01/25 09:23 Dose: 1 tab Pantoprazole Sodium (Pantoprazole 40 Mg Tab) 40 mg PO QAM ELSIE Stop: 02/15/25 08:59 Last Admin: 02/01/25 09:23 Dose: 40 mg Senna/Docusate Sodium (Docusate Sodium/Senna 50/8.6mg Tab) 2 tab PO BID PRN PRN Reason: constipation Stop: 02/28/25 20:59 Sodium Chloride (Sodium Chloride 0.65% Na Soln 45 Ml ([place])) 1 - 2 sprays NA PRN PRN PRN Reason: Nasal Dryness/Congestion Stop: 02/15/25 01:10 Mental Health & Subst Abuse Tx Psychiatrist Name of Psychiatrist: [facility] - Dr. Georgia Ventura Psychiatrist's Date Of Appointment With Psychiatric Provider: 02/12/25 Time of Appointment with Psychiatrist: 11AM Psychiatric Appointment Comment: Ask psychiatrist to be added as priority on waitlist for therapy Therapist Name of Therapist: [facility] Therapist's Therapy Appointment Comment: Ask psychiatrist to be added as priority on waitlist for therapy Rn Prior Authorization Name of Rn Prior Authorization: Darnell Malone Phone Number for Rn Prior Authorization: [phone] Case Management Appointment Comment: Patient declined referral for case management Post Discharge Appointments Primary Care Physician Name Of Family Doctor/PCP: Erika Crenshaw - [facility] [place] [facility] Date of Future Appointment with PCP: 02/11/25 Time of Appointment with PCP: 9:40AM Provider Appointment Comment: [address] [facility] [place] (F/U re: thyroid) Contact Information Discharge Discharge Address: [address] [place] [id number]
--- NOTE | 2025-02-03 08:48 | Psychiatric Progress Note ---
Date of Service February 03, 2025 Impression / Recommendations Impression KENDAL MATTSON is a 39-year-old man who currently lives alone, has a history of schizoaffective disorder, cerebral palsy, and was admitted on 01/16/25 00:36 on a 201 voluntary commitment for suicidal ideation and worsening depression. Presentation consistent with persistent depressive disorder that may or may not be part of a primary psychotic disorder. Currently patient does not appear psychotic and presents intact reality testing with no history of auditory visual hallucinations however has demonstrated extreme paranoia in the past. Has presented increased suicidal ideations which have become more frequent. Does not meet criteria for posttraumatic stress disorder. Family history of bipolar disorder. Medications reviewed and there is concern for auto metabolism of prescribed sertraline and will cross taper to fluoxetine; concern for hypothyroid state which may be contributory and will increase Synthroid dose; start clonidine for sleep and physical symptoms of anxiety and hypervigilance. Medication side effects and adverse effects discussed with patient. Given social isolation patient may benefit from an in person intensive outpatient program or day program for social engagement. A: Ongoing depression with SI but showing a little more affect and engaging verbally more. Ongoing very poor appetite, remains difficult to tell if this is driven by long-term eating disorder vs depression vs fixed delusion. Will continue Latuda titration given poor po intake and ongoing mood symptoms. He continues to decline option to try Seroquel to help with appetite. MNPR due to cerebral palsy and need for walker Overall, I spent a total of 40 minutes on this case including meeting with the patient, reviewing the chart, nursing report, multidisciplinary team meeting, orders, and documentation. (1) Persistent depressive disorder with anxious distress, currently severe: (2) Hopelessness: (3) Isolation (social): (4) Hypothyroid: (5) Cerebral palsy: (6) Paranoia: (7) Insomnia: (8) Schizophrenia: Plan 02/03/2025: -Increase Latuda to 120mg qdinner 02/02/2025: -Continue current medications and tx plan 02/01/2025: -Increase mirtazapine to 30mg HS -Change senna to prn 01/31/2025: -Continue current medications and tx plan 01/30/25: - Abdominal x-ray - continue current treatment and medications 01/29/25: -Discussed change to Seroquel, pt declines - CMP in AM - increase ducolax to 2 tab BID, and obtain flat plate if no BM by tomorrow - encouraged f/u with PT exercise as recommended - ongoing behavioral contract 01/28/25: -PT ordered -ducolax BID -continue prozac and latuda at present doses -behavioral contract ongoing 01/27/25: - Behavioral plan for increasing activity - continue current medications 01/26/25: Continue current medications and treatment plan. encouraged pt to be out of bed, in dinning room with tray for each meal. 01/25/25: - Increase Latuda to 20mg AM and 80mg with dinner. - Increase prozac to 60mg daily - ongoing behavioral activation strategies. 01/24/25: - d/c wellbutrin - CMP in AM, Ca, and Mag 01/23/2025: -Continue current medications and tx plan. 01/22/2025: -Increase Latuda to 80mg daily with dinner -Start Vit B12 1000mcg/day -Start MVM daily 01/21/2025: -Production Support Engineer consult -Consider trial of packaged food items in case paranoia is negatively impacting his intake -Ongoing behavioral activation strategies 01/20/2025: -Increase Latuda to 60mg daily with dinner 01/19/2025: -Start melatonin 6mg HS 01/18/2025: -Increase fluoxetine to 40mg daily tomorrow -Discontinue sertraline tomorrow 01/17/2025: -Decrease Wellbutrin to 150mg daily -Start mirtazapine 15mg HS -Discontinue olanzapine 20mg HS -Start Latuda 40mg daily with dinner -Start Vit D 1,250 mcg once weekly for 6-8 weeks 01/16/2025:The patient was admitted to the [facility] ([facility] mental health unit) on q15 min checks (behavioral with suicide precautions) for safety. The patient will participate in group, recreational, and milieu therapies and will be offered additional individual and family sessions as clinically appropriate. Decrease sertraline to 50 mg daily Start fluoxetine 20 mg daily Increase Synthroid to 175 mcg daily Start clonidine 0.1 mg at bedtime Baseline EKG Labs: Hemoglobin A1c, fasting lipids, free T3, vitamin D, vitamin B12 Inventory Assets Strengths: access to stable housing, well connected, family support Needs: on-going mood problems, social isolation Suicide Risk Level Suicide Risk Level: Moderate (q15 min suicide checks) (SI and severe depression with some paranoia but feels safe in the hospital and feels able to ask for support ) Risk Factors Assessment Male: Yes : Yes Do You Have Access To A Gun?: No Health Problems: Yes Mental Health Diagnoses: Yes Substance Use Disorders: No Previous Attempt: No Family History of Suicide: No Previous Psychiatric Hospitalization: Yes Hopelessness: Yes Protective Factors Assessment Buddhism Beliefs: Yes : No Responsible for Young Children: No Employed: No Stable Relationships: Yes Supportive Family: Yes Good Rapport with Provider: Yes Absence of Any Risk Factors Above: No Interval History Identifying Information KENDAL MATTSON is a 39-year-old M who currently lives alone, has a history of schizoaffective disorder, cerebral palsy, and was admitted on 01/16/25 00:36 on a 201 voluntary commitment for suicidal ideation. Chief Complaint "Not that great, real depressed between groups". Review of Systems Sleep Information Total Hours of Sleep: 6.5 Meal Information Percent Meal Consumed - Breakfast: 15 Percent Meal Consumed - Lunch: 5 Percent Meal Consumed - Dinner: 5 Nutrition Comment: Subjective Subjective Patient was seen & assessed and interval progress reviewed with nursing and social work. Rated his mood 2.5 and "stressed". Still hardly eating. Today was weighed and has lost ~20 lbs since admission. States he has no charlie etite. When asked what it would be like to force himself to eat despite not feeling hungry he reports that after a few bites he regrets eating, he's not sure why this is. Processed his past challenges with poor eating and times at which he'll force himself to eat at the encouragement of his mother. Today affect is brighter but he reports feeling quite depressed, he's not sure why. Ongoing SI, about "the same as yesterday". Consents to Latuda titration. Physical Exam Psychiatric Orientation: alert, oriented x 3 and cooperative Apperance: appropriately dressed, + disheveled and appeared stated age Eye Contact: good eye contact Motor Behavior: no abnormal motor movements; + unsteady gait or station Speech: normal rate/rhythm/volume of speech Affect: + depressed affect, + constricted affect and mood congruent with affect Mood: + depressed mood Thought Process: goal directed thought process, linear/logical thought process, clear/coherent thought process, + concrete thought process and thought association intact Thought Content: + cognitive distortions and reality based without delusions Suicidal Thoughts: denies suicidal plan and denies suicidal intent; + reports suicidal thoughts Homicidal Thoughts: denies homicidal thoughts, denies homicidal plan and denies homicidal intent Hallucinations: no auditory hallucinations and no visual hallucinations Cognition: recent memory grossly intact, remote memory grossly intact, attention grossly intact and language grossly intact Estimated Intelligence: average estimated intelligence and consistent with education level Insight: + limited insight Judgment: + limited judgement Vital Signs (Past 24 Hours) Last Vital Signs Temp 36.4 C L 02/03/25 06:26 Pulse 89 02/03/25 06:26 Resp 16 02/03/25 06:26 BP 120/83 02/03/25 06:26 Pulse Ox 97 02/01/25 06:22 O2 Del Method Room Air 02/01/25 06:22 Results & Data ([facility]) Current Inpatient Medications Current Inpatient Medications: Current Inpatient Medications Acetaminophen (Acetaminophen 325 Mg Tab) 650 mg PO Q4H PRN PRN Reason: Headache or Minor Fever Stop: 02/15/25 01:10 Al Hydrox/Mg Hydrox/Simethicone (Aluminum/Magnesium Susp 30 Ml Udc) 30 ml PO Q4H PRN PRN Reason: GI Upset Stop: 02/15/25 01:10 Clonidine HCl (Clonidine Hcl 0.1 Mg Tab) 0.1 mg PO HS COUNTS INCLUDE 234 BEDS AT THE [facility] Stop: 02/15/25 21:59 Last Admin: 02/02/25 21:12 Dose: 0.1 mg Cyanocobalamin (Cyanocobalamin (B-12) 500 Mcg Tablet) 1,000 mcg PO QAM ELSIE Stop: 02/22/25 08:59 Last Admin: 02/02/25 08:50 Dose: 1,000 mcg Ezetimibe (Ezetimibe 10 Mg Tab) 10 mg PO DAILY ELSIE Stop: 02/15/25 10:14 Last Admin: 02/02/25 08:48 Dose: 10 mg Ergocalciferol (Ergocalciferol 1250 Mcg (50,000 Units) Cap) 1,250 mcg PO Q7D ELSIE Stop: 02/16/25 13:14 Last Admin: 01/31/25 12:55 Dose: 1,250 mcg Fluoxetine HCl (Fluoxetine Hcl 20 Mg Cap) 60 mg PO QAM ELSIE Stop: 02/25/25 08:59 Last Admin: 02/02/25 08:50 Dose: 60 mg Hydroxyzine HCl (Hydroxyzine Hcl 25 Mg Tab) 50 mg PO HSZ PRN PRN Reason: Insomnia Stop: 02/15/25 01:10 Hydroxyzine HCl (Hydroxyzine Hcl 25 Mg Tab) 25 mg PO Q4H PRN PRN Reason: Anxiety Stop: 02/15/25 01:10 Levothyroxine Sodium (Levothyroxine Sodium 175 Mcg Tablet) 175 mcg PO DAILYBB ELSIE Stop: 02/16/25 07:59 Last Admin: 02/02/25 08:27 Dose: 175 mcg Loperamide HCl (Loperamide Hcl 2 Mg Cap) 2 mg PO Q2HWA PRN PRN Reason: Diarrhea Stop: 02/19/25 20:55 Last Admin: 01/20/25 21:09 Dose: 2 mg Lurasidone HCl (Lurasidone Hcl 20 Mg Tab) 80 mg PO DAILYBD ELSIE Stop: 02/21/25 17:14 Last Admin: 02/02/25 17:26 Dose: 80 mg Lurasidone HCl (Lurasidone Hcl 20 Mg Tab) 20 mg PO DAILY ELSIE Stop: 02/25/25 08:59 Last Admin: 02/02/25 08:50 Dose: 20 mg Magnesium Hydroxide (Magnesium Hydroxide Susp 30 Ml Udc) 30 ml PO DAILY PRN PRN Reason: Constipation Stop: 02/15/25 01:10 Melatonin (Melatonin 3 Mg Tab) 6 mg PO HS ELSIE Stop: 02/18/25 21:59 Last Admin: 02/02/25 21:12 Dose: 6 mg Mirtazapine (Mirtazapine Tab 15 Mg Tab) 30 mg PO HS ELSIE Stop: 03/03/25 21:59 Last Admin: 02/02/25 21:12 Dose: 30 mg Multivitamins/Minerals (Cerovite Adv Formula Tab) 1 tab PO QAM ELSIE Stop: 02/22/25 08:59 Last Admin: 02/02/25 08:48 Dose: 1 tab Pantoprazole Sodium (Pantoprazole 40 Mg Tab) 40 mg PO QAM ELSIE Stop: 02/15/25 08:59 Last Admin: 02/02/25 08:49 Dose: 40 mg Senna/Docusate Sodium (Docusate Sodium/Senna 50/8.6mg Tab) 2 tab PO BID PRN PRN Reason: constipation Stop: 02/28/25 20:59 Sodium Chloride (Sodium Chloride 0.65% Na Soln 45 Ml ([place])) 1 - 2 sprays NA PRN PRN PRN Reason: Nasal Dryness/Congestion Stop: 02/15/25 01:10 Mental Health & Subst Abuse Tx Psychiatrist Name of Psychiatrist: [facility] - Dr. Georgia Ventura Psychiatrist's Date Of Appointment With Psychiatric Provider: 02/12/25 Time of Appointment with Psychiatrist: 11AM Psychiatric Appointment Comment: Ask psychiatrist to be added as priority on waitlist for therapy Therapist Name of Therapist: [facility] Therapist's Therapy Appointment Comment: Ask psychiatrist to be added as priority on waitlist for therapy Supervisor Marble Name of Supervisor Marble: Darnell Malone Phone Number for Supervisor Marble: [phone] Case Management Appointment Comment: Patient declined referral for case management Post Discharge Appointments Primary Care Physician Name Of Family Doctor/PCP: Erika Crenshaw - [facility] Date of Future Appointment with PCP: 02/11/25 Time of Appointment with PCP: 9:40AM [facility] Contact Information Discharge Discharge Address: [address] [place] [id number]
[2025-02-03] MEDS: LURASIDONE HCL 20 MG TAB PO SCH (17:53)
--- NOTE | 2025-02-04 08:52 | Psychiatric Progress Note ---
Date of Service February 04, 2025 Impression / Recommendations Impression KENDAL MATTSON is a 39-year-old man who currently lives alone, has a history of schizoaffective disorder, cerebral palsy, and was admitted on 01/16/25 00:36 on a 201 voluntary commitment for suicidal ideation and worsening depression. Presentation consistent with persistent depressive disorder that may or may not be part of a primary psychotic disorder. Currently patient does not appear psychotic and presents intact reality testing with no history of auditory visual hallucinations however has demonstrated extreme paranoia in the past. Has presented increased suicidal ideations which have become more frequent. Does not meet criteria for posttraumatic stress disorder. Family history of bipolar disorder. Medications reviewed and there is concern for auto metabolism of prescribed sertraline and will cross taper to fluoxetine; concern for hypothyroid state which may be contributory and will increase Synthroid dose; start clonidine for sleep and physical symptoms of anxiety and hypervigilance. Medication side effects and adverse effects discussed with patient. Given social isolation patient may benefit from an in person intensive outpatient program or day program for social engagement. A: Ongoing depression with SI with some worsening of subjective mood despite team noticing some outward improvements. Unclear if his poor intake is due to ongoing depression versus eating disorder versus delusions he remains guarded about. Discussed medication options/treatment options in detail including no changes versus addition of medication vs trial of clozapine. He consents to augmentation with Seroquel to see if this will increase his appetite. .Reviewed side effects including but not limited to: sedation, weight gain, movement (TD, NMS), cardiac (QTc prolongation), and metabolic (stroke, insulin resistance) and necessity for fasting lipid and glucose labwork and AIMS done with score of 0. He understands increased risks with dual antipsychotics, goal of brief use and then taper to increase appetite. Will also recheck TSH as it had been low on admission, though with normal T4, but at that time Synthroid was increased due to concern for possible hypothyroidism contributing to low mood/low energy. Possible this increased dose is leading to some hyperthyroidism with increased weight loss/poor appetite. Overall, I spent a total of 50 minutes on this case including meeting with the patient, reviewing the chart, nursing report, multidisciplinary team meeting, orders, and documentation. (1) Persistent depressive disorder with anxious distress, currently severe: (2) Hopelessness: (3) Isolation (social): (4) Hypothyroid: (5) Cerebral palsy: (6) Paranoia: (7) Insomnia: (8) Schizophrenia: Plan 02/04/2025: -Recheck TSH and T4 -Start Seroquel 200mg HS 02/03/2025: -Increase Latuda to 120mg qdinner 02/02/2025: -Continue current medications and tx plan 02/01/2025: -Increase mirtazapine to 30mg HS -Change senna to prn 01/31/2025: -Continue current medications and tx plan 01/30/25: - Abdominal x-ray - continue current treatment and medications 01/29/25: -Discussed change to Seroquel, pt declines - CMP in AM - increase ducolax to 2 tab BID, and obtain flat plate if no BM by tomorrow - encouraged f/u with PT exercise as recommended - ongoing behavioral contract 01/28/25: -PT ordered -ducolax BID -continue prozac and latuda at present doses -behavioral contract ongoing 01/27/25: - Behavioral plan for increasing activity - continue current medications 01/26/25: Continue current medications and treatment plan. encouraged pt to be out of bed, in dinning room with tray for each meal. 01/25/25: - Increase Latuda to 20mg AM and 80mg with dinner. - Increase prozac to 60mg daily - ongoing behavioral activation strategies. 01/24/25: - d/c wellbutrin - CMP in AM, Ca, and Mag 01/23/2025: -Continue current medications and tx plan. 01/22/2025: -Increase Latuda to 80mg daily with dinner -Start Vit B12 1000mcg/day -Start MVM daily 01/21/2025: -Public Information Coordinator consult -Consider trial of packaged food items in case paranoia is negatively impacting his intake -Ongoing behavioral activation strategies 01/20/2025: -Increase Latuda to 60mg daily with dinner 01/19/2025: -Start melatonin 6mg HS 01/18/2025: -Increase fluoxetine to 40mg daily tomorrow -Discontinue sertraline tomorrow 01/17/2025: -Decrease Wellbutrin to 150mg daily -Start mirtazapine 15mg HS -Discontinue olanzapine 20mg HS -Start Latuda 40mg daily with dinner -Start Vit D 1,250 mcg once weekly for 6-8 weeks 01/16/2025:The patient was admitted to the [facility]) on q15 min checks (behavioral with suicide precautions) for safety. The patient will participate in group, recreational, and milieu therapies and will be offered additional individual and family sessions as clinically appropriate. Decrease sertraline to 50 mg daily Start fluoxetine 20 mg daily Increase Synthroid to 175 mcg daily Start clonidine 0.1 mg at bedtime Baseline EKG Labs: Hemoglobin A1c, fasting lipids, free T3, vitamin D, vitamin B12 Inventory Assets Strengths: access to stable housing, well connected, family support Needs: on-going mood problems, social isolation Suicide Risk Level Suicide Risk Level: Moderate (q15 min suicide checks) (SI and severe depression but feels safe in the hospital and feels able to ask for support ) Risk Factors Assessment Male: Yes : Yes Do You Have Access To A Gun?: No Health Problems: Yes Mental Health Diagnoses: Yes Substance Use Disorders: No Previous Attempt: No Family History of Suicide: No Previous Psychiatric Hospitalization: Yes Hopelessness: Yes Protective Factors Assessment Temple Beliefs: Yes : No Responsible for Young Children: No Employed: No Stable Relationships: Yes Supportive Family: Yes Good Rapport with Provider: Yes Absence of Any Risk Factors Above: No Interval History Identifying Information KENDAL MATTSON is a 39-year-old M who currently lives alone, has a history of schizoaffective disorder, cerebral palsy, and was admitted on 01/16/25 00:36 on a 201 voluntary commitment for suicidal ideation. Chief Complaint "I don't really want to be here, I don't want to be out there, I just want it to all end". Review of Systems Sleep Information Total Hours of Sleep: 6.5 Meal Information Percent Meal Consumed - Breakfast: 0 Percent Meal Consumed - Lunch: 10 Percent Meal Consumed - Dinner: 5 Subjective Subjective Patient was seen & assessed and interval progress reviewed with treatment team. Attending groups. But in the evening rated his mood "stressed" and "1". Showering. Today he reports ongoing depression and having more difficult and day today. Cites part of this was discussion about his low appetite and feeling discouraged about being isolated after discharge. He still feels very depressed, cites his increased engagement on the unit as "faking it" and not feeling any better inter patrick. Thinks his low appetite is due to depression, he tried to eat a cookie yesterday and "I just couldn't make myself". He doesn't feel he has a restrictive eating disorder. Feels his SI is "a little worse" today. States he spends more time out of his room because two peers don't like being alone so he tries to be around them for their sake but he fears when this external motivation is gone he'll be isolative again as he has no internal motivation. Physical Exam Psychiatric Orientation: alert, oriented x 3 and cooperative Apperance: appropriately dressed, + disheveled and appeared stated age Eye Contact: good eye contact Motor Behavior: no abnormal motor movements; + unsteady gait or station Speech: normal rate/rhythm/volume of speech Affect: + depressed affect, + constricted affect and mood congruent with affect Mood: + depressed mood Thought Process: goal directed thought process, linear/logical thought process, clear/coherent thought process, + concrete thought process and thought association intact Thought Content: + cognitive distortions and reality based without delusions Suicidal Thoughts: denies suicidal plan and denies suicidal intent; + reports suicidal thoughts Homicidal Thoughts: denies homicidal thoughts, denies homicidal plan and denies homicidal intent Hallucinations: no auditory hallucinations and no visual hallucinations Cognition: recent memory grossly intact, remote memory grossly intact, attention grossly intact and language grossly intact Estimated Intelligence: average estimated intelligence and consistent with education level Insight: + limited insight Judgment: + limited judgement Vital Signs (Past 24 Hours) Last Vital Signs Temp 36.5 C 02/04/25 06:21 Pulse 83 02/04/25 06:21 Resp 16 02/04/25 06:21 BP 130/92 02/04/25 06:21 Pulse Ox 97 02/01/25 06:22 O2 Del Method Room Air 02/01/25 06:22 Results & Data ([facility]) Current Inpatient Medications Current Inpatient Medications: Current Inpatient Medications Acetaminophen (Acetaminophen 325 Mg Tab) 650 mg PO Q4H PRN PRN Reason: Headache or Minor Fever Stop: 02/15/25 01:10 Al Hydrox/Mg Hydrox/Simethicone (Aluminum/Magnesium Susp 30 Ml Udc) 30 ml PO Q4H PRN PRN Reason: GI Upset Stop: 02/15/25 01:10 Clonidine HCl (Clonidine Hcl 0.1 Mg Tab) 0.1 mg PO HS ELSIE Stop: 02/15/25 21:59 Last Admin: 02/03/25 21:01 Dose: 0.1 mg Cyanocobalamin (Cyanocobalamin (B-12) 500 Mcg Tablet) 1,000 mcg PO QAM ELSIE Stop: 02/22/25 08:59 Last Admin: 02/03/25 09:15 Dose: 1,000 mcg Ezetimibe (Ezetimibe 10 Mg Tab) 10 mg PO DAILY ELSIE Stop: 02/15/25 10:14 Last Admin: 02/03/25 09:15 Dose: 10 mg Ergocalciferol (Ergocalciferol 1250 Mcg (50,000 Units) Cap) 1,250 mcg PO Q7D ELSIE Stop: 02/16/25 13:14 Last Admin: 01/31/25 12:55 Dose: 1,250 mcg Fluoxetine HCl (Fluoxetine Hcl 20 Mg Cap) 60 mg PO QAM ELSIE Stop: 02/25/25 08:59 Last Admin: 02/03/25 09:15 Dose: 60 mg Hydroxyzine HCl (Hydroxyzine Hcl 25 Mg Tab) 50 mg PO HSZ PRN PRN Reason: Insomnia Stop: 02/15/25 01:10 Hydroxyzine HCl (Hydroxyzine Hcl 25 Mg Tab) 25 mg PO Q4H PRN PRN Reason: Anxiety Stop: 02/15/25 01:10 Levothyroxine Sodium (Levothyroxine Sodium 175 Mcg Tablet) 175 mcg PO DAILYBB [facility] Stop: 02/16/25 07:59 Last Admin: 02/03/25 09:15 Dose: 175 mcg Loperamide HCl (Loperamide Hcl 2 Mg Cap) 2 mg PO Q2HWA PRN PRN Reason: Diarrhea Stop: 02/19/25 20:55 Last Admin: 01/20/25 21:09 Dose: 2 mg Lurasidone HCl (Lurasidone Hcl 20 Mg Tab) 120 mg PO DAILYBD [facility] Stop: 03/05/25 17:39 Last Admin: 02/03/25 17:53 Dose: 120 mg Magnesium Hydroxide (Magnesium Hydroxide Susp 30 Ml Udc) 30 ml PO DAILY PRN PRN Reason: Constipation Stop: 02/15/25 01:10 Melatonin (Melatonin 3 Mg Tab) 6 mg PO HS [facility] Stop: 02/18/25 21:59 Last Admin: 02/03/25 21:02 Dose: 6 mg Mirtazapine (Mirtazapine Tab 15 Mg Tab) 30 mg PO HS ELSIE Stop: 03/03/25 21:59 Last Admin: 02/03/25 21:01 Dose: 30 mg Multivitamins/Minerals (Cerovite Adv Formula Tab) 1 tab PO QAM ELSIE Stop: 02/22/25 08:59 Last Admin: 02/03/25 09:16 Dose: 1 tab Pantoprazole Sodium (Pantoprazole 40 Mg Tab) 40 mg PO QAM ELSIE Stop: 02/15/25 08:59 Last Admin: 02/03/25 09:16 Dose: 40 mg Senna/Docusate Sodium (Docusate Sodium/Senna 50/8.6mg Tab) 2 tab PO BID PRN PRN Reason: constipation Stop: 02/28/25 20:59 Sodium Chloride (Sodium Chloride 0.65% Na Soln 45 Ml ([place])) 1 - 2 sprays NA PRN PRN PRN Reason: Nasal Dryness/Congestion Stop: 02/15/25 01:10 Mental Health & Subst Abuse Tx Psychiatrist Name of Psychiatrist: [facility] - Dr. Georgia Ventura Psychiatrist's Date Of Appointment With Psychiatric Provider: 02/12/25 Time of Appointment with Psychiatrist: 11AM Psychiatric Appointment Comment: Ask psychiatrist to be added as priority on waitlist for therapy Therapist Name of Therapist: [facility] Therapist's Therapy Appointment Comment: Ask psychiatrist to be added as priority on waitlist for therapy Mortgage Manager Name of Mortgage Manager: Darnell Malone Phone Number for Mortgage Manager: [phone] Case Management Appointment Comment: Patient declined referral for case management Post Discharge Appointments Primary Care Physician Name Of Family Doctor/PCP: Erika Crenshaw - [facility] Date of Future Appointment with PCP: 02/11/25 Time of Appointment with PCP: 9:40AM [facility] Contact Information Discharge Discharge Address: [address] [place] [id number]
[2025-02-04 16:49] LABS: Thyroid Stimulating Hormone 0.101 uIu/ml (0.300-4.500)
[2025-02-04] MEDS ORDERED: LURASIDONE HCL 20 MG TAB PO SCH (17:15)
[2025-02-04 17:24] LABS: T4 Free Thyroxine 1.9 ng/dl (0.61-1.60)
--- NOTE | 2025-02-05 09:25 | Psychiatric Progress Note ---
Date of Service February 05, 2025 Impression / Recommendations Impression KENDAL MATTSON is a 39-year-old man who currently lives alone, has a history of schizoaffective disorder, cerebral palsy, and was admitted on 01/16/25 00:36 on a 201 voluntary commitment for suicidal ideation and worsening depression. Presentation consistent with persistent depressive disorder that may or may not be part of a primary psychotic disorder. Currently patient does not appear psychotic and presents intact reality testing with no history of auditory visual hallucinations however has demonstrated extreme paranoia in the past. Has presented increased suicidal ideations which have become more frequent. Does not meet criteria for posttraumatic stress disorder. Family history of bipolar disorder. Medications reviewed and there is concern for auto metabolism of prescribed sertraline and will cross taper to fluoxetine; concern for hypothyroid state which may be contributory and will increase Synthroid dose; start clonidine for sleep and physical symptoms of anxiety and hypervigilance. Medication side effects and adverse effects discussed with patient. Given social isolation patient may benefit from an in person intensive outpatient program or day program for social engagement. A: Ongoing depression with SI seems to be somewhat related to him processing past trauma during a group two nights ago as well as concerns about discharging too soon and not feeling prepared to return on his own. TSH low and T4 elevated so will reduce synthroid to mid-way between prior to admission dose and current dose. Also preventing caffeine via diet order in effort to help appetite. Possible he experienced some hypotension last evening after Seroquel use, especially with other medications and poor po intake, increasing vital signs and he agrees to alert RN/staff if this occurs again. He's willing to continue with Seroquel tonight. He may benefit from EAC if he continues to struggle with depression related to concerns about functioning independently as building more skills could help with his confidence related to this and lessen hopelessness of returning to the same unhealthy routine outside of the hospital. Will review more following discussion of options at support meeting with his mother. Overall, I spent a total of 52 minutes on this case including meeting with the patient, reviewing the chart, nursing report, multidisciplinary team meeting, orders, and documentation. (1) Persistent depressive disorder with anxious distress, currently severe: (2) Hopelessness: (3) Isolation (social): (4) Hypothyroid: (5) Cerebral palsy: (6) Paranoia: (7) Insomnia: (8) Schizophrenia: Plan 02/05/2025: -Decrease Synthroid to 150 mcg daily -Adjusted diet order 02/04/2025: -Recheck TSH and T4 -Start Seroquel 200mg HS 02/03/2025: -Increase Latuda to 120mg qdinner 02/02/2025: -Continue current medications and tx plan 02/01/2025: -Increase mirtazapine to 30mg HS -Change senna to prn 01/31/2025: -Continue current medications and tx plan 01/30/25: - Abdominal x-ray - continue current treatment and medications 01/29/25: -Discussed change to Seroquel, pt declines - CMP in AM - increase ducolax to 2 tab BID, and obtain flat plate if no BM by tomorrow - encouraged f/u with PT exercise as recommended - ongoing behavioral contract 01/28/25: -PT ordered -ducolax BID -continue prozac and latuda at present doses -behavioral contract ongoing 01/27/25: - Behavioral plan for increasing activity - continue current medications 01/26/25: Continue current medications and treatment plan. encouraged pt to be out of bed, in dinning room with tray for each meal. 01/25/25: - Increase Latuda to 20mg AM and 80mg with dinner. - Increase prozac to 60mg daily - ongoing behavioral activation strategies. 01/24/25: - d/c wellbutrin - CMP in AM, Ca, and Mag 01/23/2025: -Continue current medications and tx plan. 01/22/2025: -Increase Latuda to 80mg daily with dinner -Start Vit B12 1000mcg/day -Start MVM daily 01/21/2025: -[employer] consult -Consider trial of packaged food items in case paranoia is negatively impacting his intake -Ongoing behavioral activation strategies 01/20/2025: -Increase Latuda to 60mg daily with dinner 01/19/2025: -Start melatonin 6mg HS 01/18/2025: -Increase fluoxetine to 40mg daily tomorrow -Discontinue sertraline tomorrow 01/17/2025: -Decrease Wellbutrin to 150mg daily -Start mirtazapine 15mg HS -Discontinue olanzapine 20mg HS -Start Latuda 40mg daily with dinner -Start Vit D 1,250 mcg once weekly for 6-8 weeks 01/16/2025:The patient was admitted to the [facility] ([facility]) on q15 min checks (behavioral with suicide precautions) for safety. The patient will participate in group, recreational, and milieu therapies and will be offered additional individual and family sessions as clinically appropriate. Decrease sertraline to 50 mg daily Start fluoxetine 20 mg daily Increase Synthroid to 175 mcg daily Start clonidine 0.1 mg at bedtime Baseline EKG Labs: Hemoglobin A1c, fasting lipids, free T3, vitamin D, vitamin B12 Inventory Assets Strengths: access to stable housing, well connected, family support Needs: on-going mood problems, social isolation Suicide Risk Level Suicide Risk Level: Moderate (q15 min suicide checks) (SI and severe depression but feels safe in the hospital and feels able to ask for support ) Risk Factors Assessment Male: Yes : Yes Do You Have Access To A Gun?: No Health Problems: Yes Mental Health Diagnoses: Yes Substance Use Disorders: No Previous Attempt: No Family History of Suicide: No Previous Psychiatric Hospitalization: Yes Hopelessness: Yes Protective Factors Assessment Scientology Beliefs: Yes : No Responsible for Young Children: No Employed: No Stable Relationships: Yes Supportive Family: Yes Good Rapport with Provider: Yes Absence of Any Risk Factors Above: No Interval History Identifying Information KENDAL MATTSON is a 39-year-old M who currently lives alone, has a history of schizoaffective disorder, cerebral palsy, and was admitted on 01/16/25 00:36 on a 201 voluntary commitment for suicidal ideation. Chief Complaint "A lot of things feel up in the air". Review of Systems Sleep Information Total Hours of Sleep: 5.5 Meal Information Percent Meal Consumed - Breakfast: 0 Percent Meal Consumed - Lunch: 0 Percent Meal Consumed - Dinner: 5 Nutrition Comment: pt drank 50% of boost drink Subjective Subjective Patient was seen & assessed and interval progress reviewed with nursing and social work. Played cards with peers. Reported low mood and increased SI. Today reports ongoing low mood and wonders what the next steps will be as his recent estimated LOS was less and he worries about returning home. He continues to have SI throughout the day, he thinks it's related to the "uncertainty" of things. Continues to have very poor appetite. Had felt some dizziness and nausea last evening after phone call with his mom. Discussed possible hypotension as side effect of Seroquel, he agrees to more frequent vital sign checks. Reviewed stopping his caffeine intake via diet order as this can decrease and suppress appetite. Reviewed his thyroid labwork. Asked about report he told his mom he'd hardly lost weight during this admission he states he told her he'd only lost 1 lb over the last week not that he was trying to minimize the amount of weight he's lost during this admission. He continues to feel his low appetite is due to depression and is not interested in further eating disorder resources or discussion of treatment options/referrals. Physical Exam Psychiatric Orientation: alert, oriented x 3 and cooperative Apperance: appropriately dressed and appeared stated age Eye Contact: good eye contact Motor Behavior: steady gait and station (uses cane, working with PT) and no abnormal motor movements Speech: normal rate/rhythm/volume of speech Affect: + depressed affect, + constricted affect and mood congruent with affect Mood: + depressed mood and + anxious mood Thought Process: goal directed thought process, linear/logical thought process, clear/coherent thought process, + concrete thought process and thought association intact Thought Content: + cognitive distortions and reality based without delusions Suicidal Thoughts: denies suicidal plan and denies suicidal intent; + reports suicidal thoughts Homicidal Thoughts: denies homicidal thoughts, denies homicidal plan and denies homicidal intent Hallucinations: no auditory hallucinations and no visual hallucinations Cognition: recent memory grossly intact, remote memory grossly intact, attention grossly intact and language grossly intact Estimated Intelligence: average estimated intelligence and consistent with education level Insight: + limited insight Judgment: + limited judgement Vital Signs (Past 24 Hours) Last Vital Signs Temp 36.0 C L 02/05/25 06:49 Pulse 71 02/05/25 06:49 Resp 18 02/05/25 06:49 BP 103/67 02/05/25 06:49 Pulse Ox 95 02/05/25 06:49 O2 Del Method Room Air 02/05/25 06:49 Results & Data ([facility]) Laboratory Results Laboratory Results - last 24 hr 02/04/25 16:01 TSH 0.101 L Free T4 1.90 H Current Inpatient Medications Current Inpatient Medications: Current Inpatient Medications Acetaminophen (Acetaminophen 325 Mg Tab) 650 mg PO Q4H PRN PRN Reason: Headache or Minor Fever Stop: 02/15/25 01:10 Al Hydrox/Mg Hydrox/Simethicone (Aluminum/Magnesium Susp 30 Ml Udc) 30 ml PO Q4H PRN PRN Reason: GI Upset Stop: 02/15/25 01:10 Clonidine HCl (Clonidine Hcl 0.1 Mg Tab) 0.1 mg PO HS ELSIE Stop: 02/15/25 21:59 Last Admin: 02/04/25 21:21 Dose: 0.1 mg Cyanocobalamin (Cyanocobalamin (B-12) 500 Mcg Tablet) 1,000 mcg PO QAM ELSIE Stop: 02/22/25 08:59 Last Admin: 02/05/25 09:06 Dose: 1,000 mcg Ezetimibe (Ezetimibe 10 Mg Tab) 10 mg PO DAILY ELSIE Stop: 02/15/25 10:14 Last Admin: 02/05/25 09:06 Dose: 10 mg Ergocalciferol (Ergocalciferol 1250 Mcg (50,000 Units) Cap) 1,250 mcg PO Q7D ELSIE Stop: 02/16/25 13:14 Last Admin: 01/31/25 12:55 Dose: 1,250 mcg Fluoxetine HCl (Fluoxetine Hcl 20 Mg Cap) 60 mg PO QAM ELSIE Stop: 02/25/25 08:59 Last Admin: 02/05/25 09:07 Dose: 60 mg Hydroxyzine HCl (Hydroxyzine Hcl 25 Mg Tab) 50 mg PO HSZ PRN PRN Reason: Insomnia Stop: 02/15/25 01:10 Hydroxyzine HCl (Hydroxyzine Hcl 25 Mg Tab) 25 mg PO Q4H PRN PRN Reason: Anxiety Stop: 02/15/25 01:10 Levothyroxine Sodium (Levothyroxine Sodium 175 Mcg Tablet) 175 mcg PO DAILYBB ELSIE Stop: 02/16/25 07:59 Last Admin: 02/05/25 09:06 Dose: 175 mcg Loperamide HCl (Loperamide Hcl 2 Mg Cap) 2 mg PO Q2HWA PRN PRN Reason: Diarrhea Stop: 02/19/25 20:55 Last Admin: 01/20/25 21:09 Dose: 2 mg Lurasidone HCl (Lurasidone Hcl 20 Mg Tab) 120 mg PO DAILYBD ELSIE Stop: 03/05/25 17:39 Last Admin: 02/04/25 17:38 Dose: 120 mg Magnesium Hydroxide (Magnesium Hydroxide Susp 30 Ml Udc) 30 ml PO DAILY PRN PRN Reason: Constipation Stop: 02/15/25 01:10 Melatonin (Melatonin 3 Mg Tab) 6 mg PO HS ELSIE Stop: 02/18/25 21:59 Last Admin: 02/04/25 21:21 Dose: 6 mg Mirtazapine (Mirtazapine Tab 15 Mg Tab) 30 mg PO HS ELSIE Stop: 03/03/25 21:59 Last Admin: 02/04/25 21:21 Dose: 30 mg Multivitamins/Minerals (Cerovite Adv Formula Tab) 1 tab PO QAM ELSIE Stop: 02/22/25 08:59 Last Admin: 02/05/25 09:07 Dose: 1 tab Pantoprazole Sodium (Pantoprazole 40 Mg Tab) 40 mg PO QAM ELSIE Stop: 02/15/25 08:59 Last Admin: 02/05/25 09:07 Dose: 40 mg Quetiapine Fumarate (Quetiapine Fumarate 200 Mg Tab) 200 mg PO HS ELSIE Stop: 03/06/25 21:59 Last Admin: 02/04/25 21:21 Dose: 200 mg Senna/Docusate Sodium (Docusate Sodium/Senna 50/8.6mg Tab) 2 tab PO BID PRN PRN Reason: constipation Stop: 02/28/25 20:59 Sodium Chloride (Sodium Chloride 0.65% Na Soln 45 Ml ([place])) 1 - 2 sprays NA PRN PRN PRN Reason: Nasal Dryness/Congestion Stop: 02/15/25 01:10 Mental Health & Subst Abuse Tx Psychiatrist Name of Psychiatrist: [facility] - Dr. Georgia Ventura Psychiatrist's Date Of Appointment With Psychiatric Provider: 02/12/25 Time of Appointment with Psychiatrist: 11AM Psychiatric Appointment Comment: Ask psychiatrist to be added as priority on waitlist for therapy Therapist Name of Therapist: [facility] Therapist's Therapy Appointment Comment: Ask psychiatrist to be added as priority on waitlist for therapy [employer] Business Teacher Name of High School Business Teacher: Darnell Malone Phone Number for High School Business Teacher: [phone] Case Management Appointment Comment: Patient declined referral for case management Post Discharge Appointments Primary Care Physician Name Of Family Doctor/PCP: Erika Crenshaw - [facility] Date of Future Appointment with PCP: 02/11/25 Time of Appointment with PCP: 9:40AM Provider Appointment Comment: [phone], BRIANNA Mckeon (F/U re: thyroid) Contact Information Discharge Discharge Address: [address] [place] [address] [address] [place] [id number]
[2025-02-06] MEDS: LEVOTHYROXINE SODIUM 150 MCG TABLET PO SCH (08:36)
--- NOTE | 2025-02-06 08:55 | Psychiatric Progress Note ---
Date of Service February 06, 2025 Impression / Recommendations Impression KENDAL MATTSON is a 39-year-old man who currently lives alone, has a history of schizoaffective disorder, cerebral palsy, and was admitted on 01/16/25 00:36 on a 201 voluntary commitment for suicidal ideation and worsening depression. Presentation consistent with persistent depressive disorder that may or may not be part of a primary psychotic disorder. Currently patient does not appear psychotic and presents intact reality testing with no history of auditory visual hallucinations however has demonstrated extreme paranoia in the past. Has presented increased suicidal ideations which have become more frequent. Does not meet criteria for posttraumatic stress disorder. Family history of bipolar disorder. Medications reviewed and there is concern for auto metabolism of prescribed sertraline and will cross taper to fluoxetine; concern for hypothyroid state which may be contributory and will increase Synthroid dose; start clonidine for sleep and physical symptoms of anxiety and hypervigilance. Medication side effects and adverse effects discussed with patient. Given social isolation patient may benefit from an in person intensive outpatient program or day program for social engagement. A: Ongoing depression with SI including some worsening of mood potentially due to concerns about discharge and ongoing poor appetite with very limited intake per day. Tolerating Seroquel addition, hoping this may help with appetite stimulation and further depression augmentation. Overall, I spent a total of 36 minutes on this case including meeting with the patient, reviewing the chart, nursing report, multidisciplinary team meeting, orders, and documentation. (1) Persistent depressive disorder with anxious distress, currently severe: (2) Hopelessness: (3) Isolation (social): (4) Hypothyroid: (5) Cerebral palsy: (6) Paranoia: (7) Insomnia: (8) Schizophrenia: Plan 02/06/2025: -Continue current medications and tx plan 02/05/2025: -Decrease Synthroid to 150 mcg daily -Adjusted diet order 02/04/2025: -Recheck TSH and T4 -Start Seroquel 200mg HS 02/03/2025: -Increase Latuda to 120mg qdinner 02/02/2025: -Continue current medications and tx plan 02/01/2025: -Increase mirtazapine to 30mg HS -Change senna to prn 01/31/2025: -Continue current medications and tx plan 01/30/25: - Abdominal x-ray - continue current treatment and medications 01/29/25: -Discussed change to Seroquel, pt declines - CMP in AM - increase ducolax to 2 tab BID, and obtain flat plate if no BM by tomorrow - encouraged f/u with PT exercise as recommended - ongoing behavioral contract 01/28/25: -PT ordered -ducolax BID -continue prozac and latuda at present doses -behavioral contract ongoing 01/27/25: - Behavioral plan for increasing activity - continue current medications 01/26/25: Continue current medications and treatment plan. encouraged pt to be out of bed, in dinning room with tray for each meal. 01/25/25: - Increase Latuda to 20mg AM and 80mg with dinner. - Increase prozac to 60mg daily - ongoing behavioral activation strategies. 01/24/25: - d/c wellbutrin - CMP in AM, Ca, and Mag 01/23/2025: -Continue current medications and tx plan. 01/22/2025: -Increase Latuda to 80mg daily with dinner -Start Vit B12 1000mcg/day -Start MVM daily 01/21/2025: -Professor Of Marketing consult -Consider trial of packaged food items in case paranoia is negatively impacting his intake -Ongoing behavioral activation strategies 01/20/2025: -Increase Latuda to 60mg daily with dinner 01/19/2025: -Start melatonin 6mg HS 01/18/2025: -Increase fluoxetine to 40mg daily tomorrow -Discontinue sertraline tomorrow 01/17/2025: -Decrease Wellbutrin to 150mg daily -Start mirtazapine 15mg HS -Discontinue olanzapine 20mg HS -Start Latuda 40mg daily with dinner -Start Vit D 1,250 mcg once weekly for 6-8 weeks 01/16/2025:The patient was admitted to the [facility] ([facility] inpatient mental health unit) on q15 min checks (behavioral with suicide precautions) for safety. The patient will participate in group, recreational, and milieu therapies and will be offered additional individual and family sessions as clinically appropriate. Decrease sertraline to 50 mg daily Start fluoxetine 20 mg daily Increase Synthroid to 175 mcg daily Start clonidine 0.1 mg at bedtime Baseline EKG Labs: Hemoglobin A1c, fasting lipids, free T3, vitamin D, vitamin B12 Inventory Assets Strengths: access to stable housing, well connected, family support Needs: on-going mood problems, social isolation Suicide Risk Level Suicide Risk Level: Moderate (q15 min suicide checks) (SI and severe depression but feels safe in the hospital and feels able to ask for support ) Risk Factors Assessment Male: Yes : Yes Do You Have Access To A Gun?: No Health Problems: Yes Mental Health Diagnoses: Yes Substance Use Disorders: No Previous Attempt: No Family History of Suicide: No Previous Psychiatric Hospitalization: Yes Hopelessness: Yes Protective Factors Assessment Jew Beliefs: Yes : No Responsible for Young Children: No Employed: No Stable Relationships: Yes Supportive Family: Yes Good Rapport with Provider: Yes Absence of Any Risk Factors Above: No Interval History Identifying Information KENDAL MATTSON is a 39-year-old M who currently lives alone, has a history of schizoaffective disorder, cerebral palsy, and was admitted on 01/16/25 00:36 on a 201 voluntary commitment for suicidal ideation. Chief Complaint "I'm tired". Review of Systems Sleep Information Total Hours of Sleep: 7 Meal Information Percent Meal Consumed - Breakfast: 0 Percent Meal Consumed - Lunch: 0 Percent Meal Consumed - Dinner: 5 Nutrition Comment: pt drank 50% of boost drink Subjective Subjective Patient was seen & assessed and interval progress reviewed with treatment team. Attending groups. Socializing with peers. Had a phone call with his sister and seemed to have brighter affect. Rated his mood "2" and "uncertain". Still not eating. Today reports his mood is about the same, depressed and with some fatigue. He denies any symptoms related to low BP last evening after Seroquel dose. Today reports no change in his appetite. Still not eating. More isolative today. Reports ongoing SI. He's interested in considering the EAC as it doesn't seem that living with his mother longer term would be an option and he continues to feel very depressed. He denies any medication side effects except fatigue potentially from Seroquel addition. Physical Exam Psychiatric Orientation: alert, oriented x 3 and cooperative Apperance: appropriately dressed and appeared stated age Eye Contact: good eye contact Motor Behavior: steady gait and station (uses cane, working with PT) and no abnormal motor movements Speech: normal rate/rhythm/volume of speech Affect: + depressed affect, + constricted affect and mood congruent with affect Mood: + depressed mood and + anxious mood Thought Process: goal directed thought process, linear/logical thought process, clear/coherent thought process, + concrete thought process and thought association intact Thought Content: + cognitive distortions and reality based without delusions Suicidal Thoughts: denies suicidal plan and denies suicidal intent; + reports s uicidal thoughts Homicidal Thoughts: denies homicidal thoughts, denies homicidal plan and denies homicidal intent Hallucinations: no auditory hallucinations and no visual hallucinations Cognition: recent memory grossly intact, remote memory grossly intact, attention grossly intact and language grossly intact Estimated Intelligence: average estimated intelligence and consistent with education level Insight: + limited insight Judgment: + limited judgement Vital Signs (Past 24 Hours) Last Vital Signs Temp 37.0 C 02/06/25 06:13 Pulse 58 L 02/06/25 06:13 Resp 19 02/06/25 06:13 BP 116/78 02/06/25 06:13 Pulse Ox 95 02/06/25 06:13 O2 Del Method Room Air 02/06/25 06:13 Results & Data ([facility]) Current Inpatient Medications Current Inpatient Medications: Current Inpatient Medications Acetaminophen (Acetaminophen 325 Mg Tab) 650 mg PO Q4H PRN PRN Reason: Headache or Minor Fever Stop: 02/15/25 01:10 Al Hydrox/Mg Hydrox/Simethicone (Aluminum/Magnesium Susp 30 Ml Udc) 30 ml PO Q4H PRN PRN Reason: GI Upset Stop: 02/15/25 01:10 Clonidine HCl (Clonidine Hcl 0.1 Mg Tab) 0.1 mg PO HS [facility] Stop: 02/15/25 21:59 Last Admin: 02/05/25 21:37 Dose: 0.1 mg Cyanocobalamin (Cyanocobalamin (B-12) 500 Mcg Tablet) 1,000 mcg PO QAM [facility] Stop: 02/22/25 08:59 Last Admin: 02/06/25 08:36 Dose: 1,000 mcg Ezetimibe (Ezetimibe 10 Mg Tab) 10 mg PO DAILY [facility] Stop: 02/15/25 10:14 Last Admin: 02/06/25 08:35 Dose: 10 mg Ergocalciferol (Ergocalciferol 1250 Mcg (50,000 Units) Cap) 1,250 mcg PO Q7D [facility] Stop: 02/16/25 13:14 Last Admin: 01/31/25 12:55 Dose: 1,250 mcg Fluoxetine HCl (Fluoxetine Hcl 20 Mg Cap) 60 mg PO QAM [facility] Stop: 02/25/25 08:59 Last Admin: 02/06/25 08:36 Dose: 60 mg Hydroxyzine HCl (Hydroxyzine Hcl 25 Mg Tab) 50 mg PO HSZ PRN PRN Reason: Insomnia Stop: 02/15/25 01:10 Hydroxyzine HCl (Hydroxyzine Hcl 25 Mg Tab) 25 mg PO Q4H PRN PRN Reason: Anxiety Stop: 02/15/25 01:10 Levothyroxine Sodium (Levothyroxine Sodium 150 Mcg Tablet) 150 mcg PO DAILYBB [facility] Stop: 03/08/25 07:59 Last Admin: 02/06/25 08:36 Dose: 150 mcg Loperamide HCl (Loperamide Hcl 2 Mg Cap) 2 mg PO Q2HWA PRN PRN Reason: Diarrhea Stop: 02/19/25 20:55 Last Admin: 01/20/25 21:09 Dose: 2 mg Lurasidone HCl (Lurasidone Hcl 20 Mg Tab) 120 mg PO DAILYBD [facility] Stop: 03/05/25 17:39 Last Admin: 02/05/25 17:39 Dose: 120 mg Magnesium Hydroxide (Magnesium Hydroxide Susp 30 Ml Udc) 30 ml PO DAILY PRN PRN Reason: Constipation Stop: 02/15/25 01:10 Melatonin (Melatonin 3 Mg Tab) 6 mg PO HS [facility] Stop: 02/18/25 21:59 Last Admin: 02/05/25 21:37 Dose: 6 mg Mirtazapine (Mirtazapine Tab 15 Mg Tab) 30 mg PO HS [facility] Stop: 03/03/25 21:59 Last Admin: 02/05/25 21:37 Dose: 30 mg Multivitamins/Minerals (Cerovite Adv Formula Tab) 1 tab PO QAM [facility] Stop: 02/22/25 08:59 Last Admin: 02/06/25 08:35 Dose: 1 tab Pantoprazole Sodium (Pantoprazole 40 Mg Tab) 40 mg PO QAM [facility] Stop: 02/15/25 08:59 Last Admin: 02/06/25 08:36 Dose: 40 mg Quetiapine Fumarate (Quetiapine Fumarate 200 Mg Tab) 200 mg PO HS [facility] Stop: 03/06/25 21:59 Last Admin: 02/05/25 21:37 Dose: 200 mg Senna/Docusate Sodium (Docusate Sodium/Senna 50/8.6mg Tab) 2 tab PO BID PRN PRN Reason: constipation Stop: 02/28/25 20:59 Sodium Chloride (Sodium Chloride 0.65% Na Soln 45 Ml ([place])) 1 - 2 sprays NA PRN PRN PRN Reason: Nasal Dryness/Congestion Stop: 02/15/25 01:10 Mental Health & Subst Abuse Tx Psychiatrist Name of Psychiatrist: [facility] - Dr. Georgia Ventura Psychiatrist's Date Of Appointment With Psychiatric Provider: 02/12/25 Time of Appointment with Psychiatrist: 11AM Psychiatric Appointment Comment: Ask psychiatrist to be added as priority on waitlist for therapy Therapist Name of Therapist: [facility] Therapist's Therapy Appointment Comment: Ask psychiatrist to be added as priority on waitlist for therapy Industrial Safety And Health Manager Name of Industrial Safety And Health Manager: Darnell Malone Phone Number for Industrial Safety And Health Manager: [phone] Case Management Appointment Comment: Patient declined referral for case management Post Discharge Appointments Primary Care Physician Name Of Family Doctor/PCP: Erika Crenshaw - [facility] Date of Future Appointment with PCP: 02/11/25 Time of Appointment with PCP: 9:40AM [facility] Contact Information Discharge Discharge Address: [address] [place] [id number]
--- NOTE | 2025-02-07 08:56 | Psychiatric Progress Note ---
Date of Service February 07, 2025 Impression / Recommendations Impression KENDAL MATTSON is a 39-year-old man who currently lives alone, has a history of schizoaffective disorder, cerebral palsy, and was admitted on 01/16/25 00:36 on a 201 voluntary commitment for suicidal ideation and worsening depression. Presentation consistent with persistent depressive disorder that may or may not be part of a primary psychotic disorder. Currently patient does not appear psychotic and presents intact reality testing with no history of auditory visual hallucinations however has demonstrated extreme paranoia in the past. Has presented increased suicidal ideations which have become more frequent. Does not meet criteria for posttraumatic stress disorder. Family history of bipolar disorder. Medications reviewed and there is concern for auto metabolism of prescribed sertraline and will cross taper to fluoxetine; concern for hypothyroid state which may be contributory and will increase Synthroid dose; start clonidine for sleep and physical symptoms of anxiety and hypervigilance. Medication side effects and adverse effects discussed with patient. Given social isolation patient may benefit from an in person intensive outpatient program or day program for social engagement. A: Patient continues to report some depression, but is future oriented and considering longer-term treatment. No medication changes needed today. Encouraged him to participate in programming. Overall, I spent a total of 30 minutes on this case including meeting with the patient, reviewing the chart, nursing report, multidisciplinary team meeting, orders, and documentation. (1) Persistent depressive disorder with anxious distress, currently severe: (2) Hopelessness: (3) Isolation (social): (4) Hypothyroid: (5) Cerebral palsy: (6) Paranoia: (7) Insomnia: (8) Schizophrenia: Plan 02/07/25: - Continue current meds and treatment plan. 02/06/2025: -Continue current medications and tx plan 02/05/2025: -Decrease Synthroid to 150 mcg daily -Adjusted diet order 02/04/2025: -Recheck TSH and T4 -Start Seroquel 200mg HS 02/03/2025: -Increase Latuda to 120mg qdinner 02/02/2025: -Continue current medications and tx plan 02/01/2025: -Increase mirtazapine to 30mg HS -Change senna to prn 01/31/2025: -Continue current medications and tx plan 01/30/25: - Abdominal x-ray - continue current treatment and medications 01/29/25: -Discussed change to Seroquel, pt declines - CMP in AM - increase ducolax to 2 tab BID, and obtain flat plate if no BM by tomorrow - encouraged f/u with PT exercise as recommended - ongoing behavioral contract 01/28/25: -PT ordered -ducolax BID -continue prozac and latuda at present doses -behavioral contract ongoing 01/27/25: - Behavioral plan for increasing activity - continue current medications 01/26/25: Continue current medications and treatment plan. encouraged pt to be out of bed, in dinning room with tray for each meal. 01/25/25: - Increase Latuda to 20mg AM and 80mg with dinner. - Increase prozac to 60mg daily - ongoing behavioral activation strategies. 01/24/25: - d/c wellbutrin - CMP in AM, Ca, and Mag 01/23/2025: -Continue current medications and tx plan. 01/22/2025: -Increase Latuda to 80mg daily with dinner -Start Vit B12 1000mcg/day -Start MVM daily 01/21/2025: -Rn Social Services consult -Consider trial of packaged food items in case paranoia is negatively impacting his intake -Ongoing behavioral activation strategies 01/20/2025: -Increase Latuda to 60mg daily with dinner 01/19/2025: -Start melatonin 6mg HS 01/18/2025: -Increase fluoxetine to 40mg daily tomorrow -Discontinue sertraline tomorrow 01/17/2025: -Decrease Wellbutrin to 150mg daily -Start mirtazapine 15mg HS -Discontinue olanzapine 20mg HS -Start Latuda 40mg daily with dinner -Start Vit D 1,250 mcg once weekly for 6-8 weeks 01/16/2025:The patient was admitted to the [facility] ([facility] inpatient mental health unit) on q15 min checks (behavioral with suicide precautions) for safety. The patient will participate in group, recreational, and milieu therapies and will be offered additional individual and family sessions as clinically appropriate. Decrease sertraline to 50 mg daily Start fluoxetine 20 mg daily Increase Synthroid to 175 mcg daily Start clonidine 0.1 mg at bedtime Baseline EKG Labs: Hemoglobin A1c, fasting lipids, free T3, vitamin D, vitamin B12 Inventory Assets Strengths: access to stable housing, well connected, family support Needs: on-going mood problems, social isolation Suicide Risk Level Suicide Risk Level: Moderate (q15 min suicide checks) (SI and severe depression but feels safe in the hospital and feels able to ask for support ) Risk Factors Assessment Male: Yes : Yes Do You Have Access To A Gun?: No Health Problems: Yes Mental Health Diagnoses: Yes Substance Use Disorders: No Previous Attempt: No Family History of Suicide: No Previous Psychiatric Hospitalization: Yes Hopelessness: Yes Protective Factors Assessment Bahai Beliefs: Yes : No Responsible for Young Children: No Employed: No Stable Relationships: Yes Supportive Family: Yes Good Rapport with Provider: Yes Absence of Any Risk Factors Above: No Interval History Identifying Information KENDAL MATTSON is a 39-year-old M who currently lives alone, has a history of schizoaffective disorder, cerebral palsy, and was admitted on 01/16/25 00:36 on a 201 voluntary commitment for suicidal ideation. Chief Complaint "[]". Review of Systems Sleep Information Total Hours of Sleep: 6.5 Meal Information Percent Meal Consumed - Breakfast: 0 Percent Meal Consumed - Lunch: 15 Percent Meal Consumed - Dinner: 15 Nutrition Comment: pt drank 50% of boost drink Subjective Subjective Patient was seen & assessed and interval progress reviewed with nursing per report: still reporting significant depression. said he was "masking" before. doesn't feel much better from admission out of room more socializes and plays game mood 06/16 and "uncertain" considering EAC referral declined eating disorder programs poor appetite - 15% then 1-2 small snacks in evening still no BM since 01/22, but no abdominal distress I met with the patient privately in his room he says he feels "about the same." Describes his mood as "up-and-down" over the past week. Says his mood has never gone above a 3 out of 10. He has been considering referral to the EAC, and does think he wants to move forward with that. Denies suicidal ideations today, but says it fluctuates. No hallucinations or paranoia. Discussed working with physical therapy, which she does feel helps. Says he is walking with a cane primarily now instead of the walker. Has a goal to get a shower today, and has been showering about every other day. Denied any physical complaints such as headache, GI upset, tremor or abnormal movements. Physical Exam Psychiatric Orientation: alert, oriented x 3 and cooperative Apperance: + disheveled and appeared stated age Eye Contact: good eye contact Motor Behavior: steady gait and station (uses cane, working with PT) Speech: normal rate/rhythm/volume of speech Affect: + depressed affect, + constricted affect and mood congruent with affect Mood: + depressed mood Thought Process: goal directed thought process, linear/logical thought process, clear/coherent thought process, + concrete thought process and thought association intact Thought Content: + cognitive distortions and reality based without delusions Suicidal Thoughts: denies suicidal plan and denies suicidal intent Homicidal Thoughts: denies homicidal thoughts, denies homicidal plan and denies homicidal intent Hallucinations: no auditory hallucinations and no visual hallucinations Cognition: recent memory grossly intact, remote memory grossly intact, attention grossly intact and language grossly intact Estimated Intelligence: average estimated intelligence and consistent with education level Insight: + limited insight Judgment: + limited judgement Vital Signs (Past 24 Hours) Last Vital Signs Temp 36.4 C L 02/07/25 06:28 Pulse 98 H 02/07/25 06:28 Resp 16 02/07/25 06:28 BP 122/85 02/07/25 06:28 Pulse Ox 97 02/06/25 19:29 O2 Del Method Room Air 02/06/25 19:29 Results & Data ([facility]) Current Inpatient Medications Current Inpatient Medications: Current Inpatient Medications Acetaminophen (Acetaminophen 325 Mg Tab) 650 mg PO Q4H PRN PRN Reason: Headache or Minor Fever Stop: 02/15/25 01:10 Al Hydrox/Mg Hydrox/Simethicone (Aluminum/Magnesium Susp 30 Ml Udc) 30 ml PO Q4H PRN PRN Reason: GI Upset Stop: 02/15/25 01:10 Clonidine HCl (Clonidine Hcl 0.1 Mg Tab) 0.1 mg PO HS [facility] Stop: 02/15/25 21:59 Last Admin: 02/06/25 20:43 Dose: 0.1 mg Cyanocobalamin (Cyanocobalamin (B-12) 500 Mcg Tablet) 1,000 mcg PO QAM [facility] Stop: 02/22/25 08:59 Last Admin: 02/06/25 08:36 Dose: 1,000 mcg Ezetimibe (Ezetimibe 10 Mg Tab) 10 mg PO DAILY [facility] Stop: 02/15/25 10:14 Last Admin: 02/06/25 08:35 Dose: 10 mg Ergocalciferol (Ergocalciferol 1250 Mcg (50,000 Units) Cap) 1,250 mcg PO Q7D [facility] Stop: 02/16/25 13:14 Last Admin: 01/31/25 12:55 Dose: 1,250 mcg Fluoxetine HCl (Fluoxetine Hcl 20 Mg Cap) 60 mg PO QAM [facility] Stop: 02/25/25 08:59 Last Admin: 02/06/25 08:36 Dose: 60 mg Hydroxyzine HCl (Hydroxyzine Hcl 25 Mg Tab) 50 mg PO HSZ PRN PRN Reason: Insomnia Stop: 02/15/25 01:10 Hydroxyzine HCl (Hydroxyzine Hcl 25 Mg Tab) 25 mg PO Q4H PRN PRN Reason: Anxiety Stop: 02/15/25 01:10 Levothyroxine Sodium (Levothyroxine Sodium 150 Mcg Tablet) 150 mcg PO DAILYBB [facility] Stop: 03/08/25 07:59 Last Admin: 02/06/25 08:36 Dose: 150 mcg Loperamide HCl (Loperamide Hcl 2 Mg Cap) 2 mg PO Q2HWA PRN PRN Reason: Diarrhea Stop: 02/19/25 20:55 Last Admin: 01/20/25 21:09 Dose: 2 mg Lurasidone HCl (Lurasidone Hcl 20 Mg Tab) 120 mg PO DAILYBD [facility] Stop: 03/05/25 17:39 Last Admin: 02/06/25 17:21 Dose: 120 mg Magnesium Hydroxide (Magnesium Hydroxide Susp 30 Ml Udc) 30 ml PO DAILY PRN PRN Reason: Constipation Stop: 02/15/25 01:10 Melatonin (Melatonin 3 Mg Tab) 6 mg PO HS [facility] Stop: 02/18/25 21:59 Last Admin: 02/06/25 20:42 Dose: 6 mg Mirtazapine (Mirtazapine Tab 15 Mg Tab) 30 mg PO HS [facility] Stop: 03/03/25 21:59 Last Admin: 02/06/25 20:42 Dose: 30 mg Multivitamins/Minerals (Cerovite Adv Formula Tab) 1 tab PO QAM [facility] Stop: 02/22/25 08:59 Last Admin: 02/06/25 08:35 Dose: 1 tab Pantoprazole Sodium (Pantoprazole 40 Mg Tab) 40 mg PO QAM [facility] Stop: 02/15/25 08:59 Last Admin: 02/06/25 08:36 Dose: 40 mg Quetiapine Fumarate (Quetiapine Fumarate 200 Mg Tab) 200 mg PO HS [facility] Stop: 03/06/25 21:59 Last Admin: 02/06/25 20:43 Dose: 200 mg Senna/Docusate Sodium (Docusate Sodium/Senna 50/8.6mg Tab) 2 tab PO BID PRN PRN Reason: constipation Stop: 02/28/25 20:59 Sodium Chloride (Sodium Chloride 0.65% Na Soln 45 Ml ([place])) 1 - 2 sprays NA PRN PRN PRN Reason: Nasal Dryness/Congestion Stop: 02/15/25 01:10 Mental Health & Subst Abuse Tx Psychiatrist Name of Psychiatrist: [facility] - Dr. Georgia Ventura Psychiatrist's Date Of Appointment With Psychiatric Provider: 02/12/25 Time of Appointment with Psychiatrist: 11AM Psychiatric Appointment Comment: Ask psychiatrist to be added as priority on waitlist for therapy Therapist Name of Therapist: [facility] Therapist's Therapy Appointment Comment: Ask psychiatrist to be added as priority on waitlist for therapy Irrigator Overhead Name of Irrigator Overhead: Darnell Malone Phone Number for Irrigator Overhead: [phone] Case Management Appointment Comment: Patient declined referral for case management Post Discharge Appointments Primary Care Physician Name Of Family Doctor/PCP: Erika Crenshaw - [facility] Date of Future Appointment with PCP: 02/11/25 Time of Appointment with PCP: 9:40AM [facility] Contact Information Discharge Discharge Address: [address] [place] [id number]
--- NOTE | 2025-02-08 08:56 | Psychiatric Progress Note ---
Date of Service February 08, 2025 Impression / Recommendations Impression KENDAL MATTSON is a 39-year-old man who currently lives alone, has a history of schizoaffective disorder, cerebral palsy, and was admitted on 01/16/25 00:36 on a 201 voluntary commitment for suicidal ideation and worsening depression. Presentation consistent with persistent depressive disorder that may or may not be part of a primary psychotic disorder. Currently patient does not appear psychotic and presents intact reality testing with no history of auditory visual hallucinations however has demonstrated extreme paranoia in the past. Has presented increased suicidal ideations which have become more frequent. Does not meet criteria for posttraumatic stress disorder. Family history of bipolar disorder. Medications reviewed and there is concern for auto metabolism of prescribed sertraline and will cross taper to fluoxetine; concern for hypothyroid state which may be contributory and will increase Synthroid dose; start clonidine for sleep and physical symptoms of anxiety and hypervigilance. Medication side effects and adverse effects discussed with patient. Given social isolation patient may benefit from an in person intensive outpatient program or day program for social engagement. A: Explored plans for behavioral activation. He is on multiple medications that could be sedating. Seroquel is the newest, as a added to help with mood augmentation as well as sleep and appetite. We did decrease the dose to 150, but did like to continue the trial if possible. Going to discontinue some of the other sedating meds to hopefully help him tolerate the sedation from Seroquel better. That includes melatonin and clonidine. If that is not helpful I may reassess whether he needs to be on Remeron, as he was on it for a while and did not see much improvement. Overall, I spent a total of 37 minutes on this case including meeting with the patient, reviewing the chart, nursing report, multidisciplinary team meeting, orders, and documentation. (1) Persistent depressive disorder with anxious distress, currently severe: (2) Hopelessness: (3) Isolation (social): (4) Hypothyroid: (5) Cerebral palsy: (6) Paranoia: (7) Insomnia: (8) Schizophrenia: Plan 02/08/25: - Discontinue melatonin and clonidine - decrease Seroquel to 150 mg nightly 02/07/25: - Continue current meds and treatment plan. 02/06/2025: -Continue current medications and tx plan 02/05/2025: -Decrease Synthroid to 150 mcg daily -Adjusted diet order 02/04/2025: -Recheck TSH and T4 -Start Seroquel 200mg HS 02/03/2025: -Increase Latuda to 120mg qdinner 02/02/2025: -Continue current medications and tx plan 02/01/2025: -Increase mirtazapine to 30mg HS -Change senna to prn 01/31/2025: -Continue current medications and tx plan 01/30/25: - Abdominal x-ray - continue current treatment and medications 01/29/25: -Discussed change to Seroquel, pt declines - CMP in AM - increase ducolax to 2 tab BID, and obtain flat plate if no BM by tomorrow - encouraged f/u with PT exercise as recommended - ongoing behavioral contract 01/28/25: -PT ordered -ducolax BID -continue prozac and latuda at present doses -behavioral contract ongoing 01/27/25: - Behavioral plan for increasing activity - continue current medications 01/26/25: Continue current medications and treatment plan. encouraged pt to be out of bed, in dinning room with tray for each meal. 01/25/25: - Increase Latuda to 20mg AM and 80mg with dinner. - Increase prozac to 60mg daily - ongoing behavioral activation strategies. 01/24/25: - d/c wellbutrin - CMP in AM, Ca, and Mag 01/23/2025: -Continue current medications and tx plan. 01/22/2025: -Increase Latuda to 80mg daily with dinner -Start Vit B12 1000mcg/day -Start MVM daily 01/21/2025: -Management Retail Intern consult -Consider trial of packaged food items in case paranoia is negatively impacting his intake -Ongoing behavioral activation strategies 01/20/2025: -Increase Latuda to 60mg daily with dinner 01/19/2025: -Start melatonin 6mg HS 01/18/2025: -Increase fluoxetine to 40mg daily tomorrow -Discontinue sertraline tomorrow 01/17/2025: -Decrease Wellbutrin to 150mg daily -Start mirtazapine 15mg HS -Discontinue olanzapine 20mg HS -Start Latuda 40mg daily with dinner -Start Vit D 1,250 mcg once weekly for 6-8 weeks 01/16/2025:The patient was admitted to the [facility] ([facility]) on q15 min checks (behavioral with suicide precautions) for safety. The patient will participate in group, recreational, and milieu therapies and will be offered additional individual and family sessions as clinically appropriate. Decrease sertraline to 50 mg daily Start fluoxetine 20 mg daily Increase Synthroid to 175 mcg daily Start clonidine 0.1 mg at bedtime Baseline EKG Labs: Hemoglobin A1c, fasting lipids, free T3, vitamin D, vitamin B12 Inventory Assets Strengths: access to stable housing, well connected, family support Needs: on-going mood problems, social isolation Suicide Risk Level Suicide Risk Level: Moderate (q15 min suicide checks) (SI and severe depression but feels safe in the hospital and feels able to ask for support ) Risk Factors Assessment Male: Yes : Yes Do You Have Access To A Gun?: No Health Problems: Yes Mental Health Diagnoses: Yes Substance Use Disorders: No Previous Attempt: No Family History of Suicide: No Previous Psychiatric Hospitalization: Yes Hopelessness: Yes Protective Factors Assessment Christian Beliefs: Yes : No Responsible for Young Children: No Employed: No Stable Relationships: Yes Supportive Family: Yes Good Rapport with Provider: Yes Absence of Any Risk Factors Above: No Interval History Identifying Information KENDAL MATTSON is a 39-year-old M who currently lives alone, has a history of schizoaffective disorder, cerebral palsy, and was admitted on 01/16/25 00:36 on a 201 voluntary commitment for suicidal ideation. Chief Complaint "[]". Review of Systems Sleep Information Total Hours of Sleep: 7 Meal Information Percent Meal Consumed - Breakfast: 0 Percent Meal Consumed - Lunch: 0 Percent Meal Consumed - Dinner: 15 Nutrition Comment: . 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 He says his sleep was restless and so he has low energy. He also feels overly sedated since starting Seroquel. Yesterday he stayed in bed until about 4 PM. He also said that suicidal thoughts were "heavy" yesterday. He did not make any plans or attempts to hurt himself though. He said he would lay in bed, wake up for a while, think about wanting to , and then go back to sleep. These thoughts are not as intense this morning, but when I met with him around 930 he had not yet been up. Discussed the importance of trying to get out of bed, and allow himself to take breaks back in his room if he needs to. Also discussed minimizing polypharmacy and decreasing the amount of sedating meds he has at that time. Patient was in agreement with some changes as discussed. He does plan to get up and go to groups today. Physical Exam Psychiatric Orientation: alert, oriented x 3 and cooperative Apperance: appropriately dressed and appropriately groomed Eye Contact: good eye contact Motor Behavior: steady gait and station (uses cane, working with PT) and no abnormal motor movements Affect: + depressed affect, + constricted affect and mood congruent with affect Mood: + depressed mood Thought Process: goal directed thought process, linear/logical thought process, clear/coherent thought process and thought association intact Thought Content: + cognitive distortions Suicidal Thoughts: denies suicidal plan and denies suicidal intent; + reports suicidal thoughts Homicidal Thoughts: denies homicidal thoughts, denies homicidal plan and denies homicidal intent Hallucinations: no auditory hallucinations and no visual hallucinations Cognition: recent memory grossly intact, remote memory grossly intact, attention grossly intact and language grossly intact Estimated Intelligence: average estimated intelligence and consistent with education level Insight: + limited insight Judgment: + limited judgement Vital Signs (Past 24 Hours) Last Vital Signs Temp 36.5 C 02/08/25 06:21 Pulse 93 H 02/08/25 06:23 Resp 16 02/08/25 06:21 BP 120/88 02/08/25 06:23 Pulse Ox 95 02/07/25 19:32 O2 Del Method Room Air 02/07/25 19:32 Results & Data ([facility]) Current Inpatient Medications Current Inpatient Medications: Current Inpatient Medications Acetaminophen (Acetaminophen 325 Mg Tab) 650 mg PO Q4H PRN PRN Reason: Headache or Minor Fever Stop: 02/15/25 01:10 Al Hydrox/Mg Hydrox/Simethicone (Aluminum/Magnesium Susp 30 Ml Udc) 30 ml PO Q4H PRN PRN Reason: GI Upset Stop: 02/15/25 01:10 Clonidine HCl (Clonidine Hcl 0.1 Mg Tab) 0.1 mg PO HS ELSIE Stop: 02/15/25 21:59 Last Admin: 02/07/25 21:08 Dose: 0.1 mg Cyanocobalamin (Cyanocobalamin (B-12) 500 Mcg Tablet) 1,000 mcg PO QAM ELSIE Stop: 02/22/25 08:59 Last Admin: 02/07/25 09:00 Dose: 1,000 mcg Ezetimibe (Ezetimibe 10 Mg Tab) 10 mg PO DAILY ELSIE Stop: 02/15/25 10:14 Last Admin: 02/07/25 09:00 Dose: 10 mg Ergocalciferol (Ergocalciferol 1250 Mcg (50,000 Units) Cap) 1,250 mcg PO Q7D ELSIE Stop: 02/16/25 13:14 Last Admin: 02/07/25 09:01 Dose: 1,250 mcg Fluoxetine HCl (Fluoxetine Hcl 20 Mg Cap) 60 mg PO QAM ELSIE Stop: 02/25/25 08:59 Last Admin: 02/07/25 09:00 Dose: 60 mg Hydroxyzine HCl (Hydroxyzine Hcl 25 Mg Tab) 50 mg PO HSZ PRN PRN Reason: Insomnia Stop: 02/15/25 01:10 Hydroxyzine HCl (Hydroxyzine Hcl 25 Mg Tab) 25 mg PO Q4H PRN PRN Reason: Anxiety Stop: 02/15/25 01:10 Levothyroxine Sodium (Levothyroxine Sodium 150 Mcg Tablet) 150 mcg PO DAILYBB [facility] Stop: 03/08/25 07:59 Last Admin: 02/07/25 09:00 Dose: 150 mcg Loperamide HCl (Loperamide Hcl 2 Mg Cap) 2 mg PO Q2HWA PRN PRN Reason: Diarrhea Stop: 02/19/25 20:55 Last Admin: 01/20/25 21:09 Dose: 2 mg Lurasidone HCl (Lurasidone Hcl 20 Mg Tab) 120 mg PO DAILYBD ELSIE Stop: 03/05/25 17:39 Last Admin: 02/07/25 17:16 Dose: 120 mg Magnesium Hydroxide (Magnesium Hydroxide Susp 30 Ml Udc) 30 ml PO DAILY PRN PRN Reason: Constipation Stop: 02/15/25 01:10 Melatonin (Melatonin 3 Mg Tab) 6 mg PO HS ELSIE Stop: 02/18/25 21:59 Last Admin: 02/07/25 21:08 Dose: 6 mg Mirtazapine (Mirtazapine Tab 15 Mg Tab) 30 mg PO HS ELSIE Stop: 03/03/25 21:59 Last Admin: 02/07/25 21:08 Dose: 30 mg Multivitamins/Minerals (Cerovite Adv Formula Tab) 1 tab PO QAM ELSIE Stop: 02/22/25 08:59 Last Admin: 02/07/25 09:01 Dose: 1 tab Pantoprazole Sodium (Pantoprazole 40 Mg Tab) 40 mg PO QAM ELSIE Stop: 02/15/25 08:59 Last Admin: 02/07/25 09:01 Dose: 40 mg Quetiapine Fumarate (Quetiapine Fumarate 200 Mg Tab) 200 mg PO HS ELSIE Stop: 03/06/25 21:59 Last Admin: 02/07/25 21:08 Dose: 200 mg Senna/Docusate Sodium (Docusate Sodium/Senna 50/8.6mg Tab) 2 tab PO BID PRN PRN Reason: constipation Stop: 02/28/25 20:59 Sodium Chloride (Sodium Chloride 0.65% Na Soln 45 Ml ([place])) 1 - 2 sprays NA PRN PRN PRN Reason: Nasal Dryness/Congestion Stop: 02/15/25 01:10 Mental Health & Subst Abuse Tx Psychiatrist Name of Psychiatrist: [facility] - Dr. Georgia Ventura Psychiatrist's Date Of Appointment With Psychiatric Provider: 02/12/25 Time of Appointment with Psychiatrist: 11AM Psychiatric Appointment Comment: Ask psychiatrist to be added as priority on waitlist for therapy Therapist Name of Therapist: [facility] Therapist's Therapy Appointment Comment: Ask psychiatrist to be added as priority on waitlist for therapy Sandblaster Glass Name of Sandblaster Glass: Darnell Malone Phone Number for Sandblaster Glass: [phone] Case Management Appointment Comment: Patient declined referral for case management Post Discharge Appointments Primary Care Physician Name Of Family Doctor/PCP: Erika Crenshaw - [facility] Date of Future Appointment with PCP: 02/11/25 Time of Appointment with PCP: 9:40AM Provider Appointment Comment: [phone] Boyd PA (F/U re: thyroid) Contact Information Discharge Discharge Address: [address] [place] [address] [address] [place] [id number]
--- NOTE | 2025-02-09 08:51 | Psychiatric Progress Note ---
Date of Service February 09, 2025 Impression / Recommendations Impression KENDAL MATTSON is a 39-year-old man who currently lives alone, has a history of schizoaffective disorder, cerebral palsy, and was admitted on 01/16/25 00:36 on a 201 voluntary commitment for suicidal ideation and worsening depression. Presentation consistent with persistent depressive disorder that may or may not be part of a primary psychotic disorder. Currently patient does not appear psychotic and presents intact reality testing with no history of auditory visual hallucinations however has demonstrated extreme paranoia in the past. Has presented increased suicidal ideations which have become more frequent. Does not meet criteria for posttraumatic stress disorder. Family history of bipolar disorder. Medications reviewed and there is concern for auto metabolism of prescribed sertraline and will cross taper to fluoxetine; concern for hypothyroid state which may be contributory and will increase Synthroid dose; start clonidine for sleep and physical symptoms of anxiety and hypervigilance. Medication side effects and adverse effects discussed with patient. Given social isolation patient may benefit from an in person intensive outpatient program or day program for social engagement. A: Some improvement in sedation. Pt also starting to develop some insight into chronic symptoms. Discussed potential perspective changes of sleeping, relaxing and general distrust of feeling "lack of control". Continue current medication trials and give more time. EAC referral started today. Overall, I spent a total of 40 minutes on this case including meeting with the patient, reviewing the chart, nursing report, multidisciplinary team meeting, orders, and documentation. (1) Persistent depressive disorder with anxious distress, currently severe: (2) Hopelessness: (3) Isolation (social): (4) Hypothyroid: (5) Cerebral palsy: (6) Paranoia: (7) Insomnia: (8) Schizophrenia: Plan 02/09/25: - continue current medications and treatment 02/08/25: - Discontinue melatonin and clonidine - decrease Seroquel to 150 mg nightly 02/07/25: - Continue current meds and treatment plan. 02/06/2025: -Continue current medications and tx plan 02/05/2025: -Decrease Synthroid to 150 mcg daily -Adjusted diet order 02/04/2025: -Recheck TSH and T4 -Start Seroquel 200mg HS 02/03/2025: -Increase Latuda to 120mg qdinner 02/02/2025: -Continue current medications and tx plan 02/01/2025: -Increase mirtazapine to 30mg HS -Change senna to prn 01/31/2025: -Continue current medications and tx plan 01/30/25: - Abdominal x-ray - continue current treatment and medications 01/29/25: -Discussed change to Seroquel, pt declines - CMP in AM - increase ducolax to 2 tab BID, and obtain flat plate if no BM by tomorrow - encouraged f/u with PT exercise as recommended - ongoing behavioral contract 01/28/25: -PT ordered -ducolax BID -continue prozac and latuda at present doses -behavioral contract ongoing 01/27/25: - Behavioral plan for increasing activity - continue current medications 01/26/25: Continue current medications and treatment plan. encouraged pt to be out of bed, in dinning room with tray for each meal. 01/25/25: - Increase Latuda to 20mg AM and 80mg with dinner. - Increase prozac to 60mg daily - ongoing behavioral activation strategies. 01/24/25: - d/c wellbutrin - CMP in AM, Ca, and Mag 01/23/2025: -Continue current medications and tx plan. 01/22/2025: -Increase Latuda to 80mg daily with dinner -Start Vit B12 1000mcg/day -Start MVM daily 01/21/2025: -Ceramic Tile Setter consult -Consider trial of packaged food items in case paranoia is negatively impacting his intake -Ongoing behavioral activation strategies 01/20/2025: -Increase Latuda to 60mg daily with dinner 01/19/2025: -Start melatonin 6mg HS 01/18/2025: -Increase fluoxetine to 40mg daily tomorrow -Discontinue sertraline tomorrow 01/17/2025: -Decrease Wellbutrin to 150mg daily -Start mirtazapine 15mg HS -Discontinue olanzapine 20mg HS -Start Latuda 40mg daily with dinner -Start Vit D 1,250 mcg once weekly for 6-8 weeks 01/16/2025:The patient was admitted to the [facility] (f f [facility]) on q15 min checks (behavioral with suicide precautions) for safety. The patient will participate in group, recreational, and milieu therapies and will be offered additional individual and family sessions as clinically appr opriate. Decrease sertraline to 50 mg daily Start fluoxetine 20 mg daily Increase Synthroid to 175 mcg daily Start clonidine 0.1 mg at bedtime Baseline EKG Labs: Hemoglobin A1c, fasting lipids, free T3, vitamin D, vitamin B12 Inventory Assets Strengths: access to stable housing, well connected, family support Needs: on-going mood problems, social isolation Suicide Risk Level Suicide Risk Level: Moderate (q15 min suicide checks) (SI and severe depression but feels safe in the hospital and feels able to ask for support ) Risk Factors Assessment Male: Yes : Yes Do You Have Access To A Gun?: No Health Problems: Yes Mental Health Diagnoses: Yes Substance Use Disorders: No Previous Attempt: No Family History of Suicide: No Previous Psychiatric Hospitalization: Yes Hopelessness: Yes Protective Factors Assessment Restorationist Beliefs: Yes : No Responsible for Young Children: No Employed: No Stable Relationships: Yes Supportive Family: Yes Good Rapport with Provider: Yes Absence of Any Risk Factors Above: No Interval History Identifying Information KENDAL MATTSON is a 39-year-old M who currently lives alone, has a history of schizoaffective disorder, cerebral palsy, and was admitted on 01/16/25 00:36 on a 201 voluntary commitment for suicidal ideation. Chief Complaint "[]". Review of Systems Sleep Information Total Hours of Sleep: 6 Meal Information Percent Meal Consumed - Breakfast: 0 Percent Meal Consumed - Lunch: 0 Percent Meal Consumed - Dinner: 5 Nutrition Comment: . Subjective Subjective Patient was seen & assessed and interval progress reviewed with [treatment team per report: sleeping a lot poor PO intake out of room more in afternoon/evening rated mood 3/10 and "worried" attended evening groups slept for 6 hours in the evening I met with the pt privately in his room. He reported having slightly less sedation this AM, and was able to get up and moving earlier in the day today. Discussed the EAC referral, which SW will be starting today. He says "I just don't want to go home alone right now". Describes ongoing passive SI - part of him wants to , and part of him know that having those thoughts, he'd be unsafe alone. Encouraged pt that this ambivalence about is an improvement from admission, when he was not conflicted about desiring . He is hopeful the EAC will give him more time to stabilize. Discussed anxiety, which is still high in the evenings. Pt states that for a long time, he has feared sleeping at night. It began years ago when he was paranoid someone would hurt him. He no longer believes he will be harmed, but still has a general unease about sleeping at night, and at home would not sleep until paper wood cutter hours. He suspects it is due to "a general lack of control feeling". No active SI today, and able to remain safe. No AVH. Physical Exam Psychiatric Orientation: alert, oriented x 3, oriented to person and cooperative Apperance: appropriately dressed, appropriately groomed and appeared stated age Eye Contact: good eye contact Motor Behavior: steady gait and station (uses cane, working with PT) and no abnormal motor movements Speech: normal rate/rhythm/volume of speech Affect: + depressed affect, + constricted affect and mood congruent with affect Mood: + depressed mood Thought Process: goal directed thought process, linear/logical thought process, clear/coherent thought process and thought association intact Thought Content: + cognitive distortions and reality based without delusions Suicidal Thoughts: denies suicidal plan and denies suicidal intent; + reports suicidal thoughts Homicidal Thoughts: denies homicidal thoughts, denies homicidal plan and denies homicidal intent Hallucinations: no auditory hallucinations and no visual hallucinations Cognition: recent memory grossly intact, remote memory grossly intact, attention grossly intact and language grossly intact Estimated Intelligence: average estimated intelligence and consistent with [facility] cation level Insight: + limited insight Judgment: + limited judgement Vital Signs (Past 24 Hours) Last Vital Signs Temp 36.6 C 02/09/25 06:27 Pulse 93 H 02/09/25 06:28 Resp 16 02/09/25 06:27 BP 115/80 02/09/25 06:28 Pulse Ox 94 02/08/25 20:47 O2 Del Method Room Air 02/08/25 20:47 Results & Data (RUST) Current Inpatient Medications Current Inpatient Medications: Current Inpatient Medications Acetaminophen (Acetaminophen 325 Mg Tab) 650 mg PO Q4H PRN PRN Reason: Headache or Minor Fever Stop: 02/15/25 01:10 Al Hydrox/Mg Hydrox/Simethicone (Aluminum/Magnesium Susp 30 Ml Udc) 30 ml PO Q4H PRN PRN Reason: GI Upset Stop: 02/15/25 01:10 Cyanocobalamin (Cyanocobalamin (B-12) 500 Mcg Tablet) 1,000 mcg PO QAM ELSIE Stop: 02/22/25 08:59 Last Admin: 02/08/25 09:01 Dose: 1,000 mcg Ezetimibe (Ezetimibe 10 Mg Tab) 10 mg PO DAILY ELSIE Stop: 02/15/25 10:14 Last Admin: 02/08/25 09:01 Dose: 10 mg Ergocalciferol (Ergocalciferol 1250 Mcg (50,000 Units) Cap) 1,250 mcg PO Q7D ELSIE Stop: 02/16/25 13:14 Last Admin: 02/07/25 09:01 Dose: 1,250 mcg Fluoxetine HCl (Fluoxetine Hcl 20 Mg Cap) 60 mg PO QAM ELSIE Stop: 02/25/25 08:59 Last Admin: 02/08/25 09:02 Dose: 60 mg Hydroxyzine HCl (Hydroxyzine Hcl 25 Mg Tab) 50 mg PO HSZ PRN PRN Reason: Insomnia Stop: 02/15/25 01:10 Hydroxyzine HCl (Hydroxyzine Hcl 25 Mg Tab) 25 mg PO Q4H PRN PRN Reason: Anxiety Stop: 02/15/25 01:10 Levothyroxine Sodium (Levothyroxine Sodium 150 Mcg Tablet) 150 mcg PO DAILYBB ELSIE Stop: 03/08/25 07:59 Last Admin: 02/08/25 09:01 Dose: 150 mcg Loperamide HCl (Loperamide Hcl 2 Mg Cap) 2 mg PO Q2HWA PRN PRN Reason: Diarrhea Stop: 02/19/25 20:55 Last Admin: 01/20/25 21:09 Dose: 2 mg Lurasidone HCl (Lurasidone Hcl 20 Mg Tab) 120 mg PO DAILYBD ELSIE Stop: 03/05/25 17:39 Last Admin: 02/08/25 17:26 Dose: 120 mg Magnesium Hydroxide (Magnesium Hydroxide Susp 30 Ml Udc) 30 ml PO DAILY PRN PRN Reason: Constipation Stop: 02/15/25 01:10 Mirtazapine (Mirtazapine Tab 15 Mg Tab) 30 mg PO HS ELSIE Stop: 03/03/25 21:59 Last Admin: 02/08/25 21:01 Dose: 30 mg Multivitamins/Minerals (Cerovite Adv Formula Tab) 1 tab PO QAM ELSIE Stop: 02/22/25 08:59 Last Admin: 02/08/25 09:02 Dose: 1 tab Pantoprazole Sodium (Pantoprazole 40 Mg Tab) 40 mg PO QAM ELSIE Stop: 02/15/25 08:59 Last Admin: 02/08/25 09:02 Dose: 40 mg Quetiapine Fumarate (Quetiapine Fumarate 25 Mg Tablet) 150 mg PO HS ELSIE Stop: 03/10/25 21:59 Last Admin: 02/08/25 21:02 Dose: 150 mg Senna/Docusate Sodium (Docusate Sodium/Senna 50/8.6mg Tab) 2 tab PO BID PRN PRN Reason: constipation Stop: 02/28/25 20:59 Sodium Chloride (Sodium Chloride 0.65% Na Soln 45 Ml (Bremer)) 1 - 2 sprays NA PRN PRN PRN Reason: Nasal Dryness/Congestion Stop: 02/15/25 01:10 Mental Health & Subst Abuse Tx Psychiatrist Name of Psychiatrist: [facility] - Dr. Georgia Ventura Psychiatrist's Date Of Appointment With Psychiatric Provider: 02/12/25 Time of Appointment with Psychiatrist: 11AM Psychiatric Appointment Comment: Ask psychiatrist to be added as priority on waitlist for therapy Therapist Name of Therapist: [facility] Therapist's Therapy Appointment Comment: Ask psychiatrist to be added as priority on waitlist for therapy Clothes Drier Repairer Name of Clothes Drier Repairer: Darnell Malone Phone Number for Clothes Drier Repairer: [phone] Case Management Appointment Comment: Patient declined referral for case management Post Discharge Appointments Primary Care Physician Name Of Family Doctor/PCP: Erika Crenshaw - [facility] Date of Future Appointment with PCP: 02/11/25 Time of Appointment with PCP: 9:40AM [phone] Contact Information Discharge Discharge Address: [address] [place] [address] [place] [phone]
[2025-02-09] MEDS: MAGNESIUM HYDROXIDE SUSP 30 ML UDC PO PRN (17:05)
[2025-02-09] MEDS ORDERED: POLYETHYLENE (MIRALAX) 17 GM PACK PO PRN (18:50)
--- NOTE | 2025-02-10 08:48 | Psychiatric Progress Note ---
Date of Service February 10, 2025 Impression / Recommendations Impression KENDAL MATTSON is a 39-year-old man who currently lives alone, has a history of schizoaffective disorder, cerebral palsy, and was admitted on 01/16/25 00:36 on a 201 voluntary commitment for suicidal ideation and worsening depression. Presentation consistent with persistent depressive disorder that may or may not be part of a primary psychotic disorder. Currently patient does not appear psychotic and presents intact reality testing with no history of auditory visual hallucinations however has demonstrated extreme paranoia in the past. Has presented increased suicidal ideations which have become more frequent. Does not meet criteria for posttraumatic stress disorder. Family history of bipolar disorder. Medications reviewed and there is concern for auto metabolism of prescribed sertraline and will cross taper to fluoxetine; concern for hypothyroid state which may be contributory and will increase Synthroid dose; start clonidine for sleep and physical symptoms of anxiety and hypervigilance. Medication side effects and adverse effects discussed with patient. Given social isolation patient may benefit from an in person intensive outpatient program or day program for social engagement. A: Some improvement in the past 2 days. Pt feeling marginally more hopeful. Encouraged ongoing improvement in ADLs, especially PO intake. No medication changes today. EAC referral ongoing. Overall, I spent a total of 36 minutes on this case including meeting with the patient, reviewing the chart, nursing report, multidisciplinary team meeting, orders, and documentation. (1) Persistent depressive disorder with anxious distress, currently severe: (2) Hopelessness: (3) Isolation (social): (4) Hypothyroid: (5) Cerebral palsy: (6) Paranoia: (7) Insomnia: (8) Schizophrenia: Plan 02/10/25: continue current treatment and medications 02/09/25: - continue current medications and treatment 02/08/25: - Discontinue melatonin and clonidine - decrease Seroquel to 150 mg nightly 02/07/25: - Continue current meds and treatment plan. 02/06/2025: -Continue current medications and tx plan 02/05/2025: -Decrease Synthroid to 150 mcg daily -Adjusted diet order 02/04/2025: -Recheck TSH and T4 -Start Seroquel 200mg HS 02/03/2025: -Increase Latuda to 120mg qdinner 02/02/2025: -Continue current medications and tx plan 02/01/2025: -Increase mirtazapine to 30mg HS -Change senna to prn 01/31/2025: -Continue current medications and tx plan 01/30/25: - Abdominal x-ray - continue current treatment and medications 01/29/25: -Discussed change to Seroquel, pt declines - CMP in AM - increase ducolax to 2 tab BID, and obtain flat plate if no BM by tomorrow - encouraged f/u with PT exercise as recommended - ongoing behavioral contract 01/28/25: -PT ordered -ducolax BID -continue prozac and latuda at present doses -behavioral contract ongoing 01/27/25: - Behavioral plan for increasing activity - continue current medications 01/26/25: Continue current medications and treatment plan. encouraged pt to be out of bed, in dinning room with tray for each meal. 01/25/25: - Increase Latuda to 20mg AM and 80mg with dinner. - Increase prozac to 60mg daily - ongoing behavioral activation strategies. 01/24/25: - d/c wellbutrin - CMP in AM, Ca, and Mag 01/23/2025: -Continue current medications and tx plan. 01/22/2025: -Increase Latuda to 80mg daily with dinner -Start Vit B12 1000mcg/day -Start MVM daily 01/21/2025: -Manager Air consult -Consider trial of packaged food items in case paranoia is negatively impacting his intake -Ongoing behavioral activation strategies 01/20/2025: -Increase Latuda to 60mg daily with dinner 01/19/2025: -Start melatonin 6mg HS 01/18/2025: -Increase fluoxetine to 40mg daily tomorrow -Discontinue sertraline tomorrow 01/17/2025: -Decrease Wellbutrin to 150mg daily -Start mirtazapine 15mg HS -Discontinue olanzapine 20mg HS -Start Latuda 40mg daily with dinner -Start Vit D 1,250 mcg once weekly for 6-8 weeks 01/16/2025:The patient was admitted to the [facility] ([facility] mental health unit) on q15 min checks (behavioral with suicide precautions) for safety. The patient will participate in group, recreational, and milieu therapies and will be offered additional individual and family sessions as clinically appropriate. Decrease sertraline to 50 mg daily Start fluoxetine 20 mg daily Increase Synthroid to 175 mcg daily Start clonidine 0.1 mg at bedtime Baseline EKG Labs: Hemoglobin A1c, fasting lipids, free T3, vitamin D, vitamin B12 Inventory Assets Strengths: access to stable housing, well connected, family support Needs: on-going mood problems, social isolation Suicide Risk Level Suicide Risk Level: Moderate (q15 min suicide checks) (SI and severe depression but feels safe in the hospital and feels able to ask for support ) Risk Factors Assessment Male: Yes : Yes Do You Have Access To A Gun?: No Health Problems: Yes Mental Health Diagnoses: Yes Substance Use Disorders: No Previous Attempt: No Family History of Suicide: No Previous Psychiatric Hospitalization: Yes Hopelessness: Yes Protective Factors Assessment Scientologist Beliefs: Yes : No Responsible for Young Children: No Employed: No Stable Relationships: Yes Supportive Family: Yes Good Rapport with Provider: Yes Absence of Any Risk Factors Above: No Interval History Identifying Information KENDAL MATTSON is a 39-year-old M who currently lives alone, has a history of schizoaffective disorder, cerebral palsy, and was admitted on 01/16/25 00:36 on a 201 voluntary commitment for suicidal ideation. Chief Complaint "I had an OK day". Review of Systems Sleep Information Total Hours of Sleep: 4.5 Meal Information Percent Meal Consumed - Breakfast: 0 Percent Meal Consumed - Lunch: 0 Percent Meal Consumed - Dinner: 5 Nutrition Comment: pt. had Boost and coffee Subjective Subjective Patient was seen & assessed and interval progress reviewed with nursing and social work per report: less sedated during the day up and attended all unit programming affect is broader interacts with peers appropriately minimal food, but 1/2 of boost for lunch and dinner no BM mood 4/10 and feeling "improved" went to bed at 1am, logged for 4.5 hours but then slept late I met with the patient privately in his room. He reported "I had an OK day yesterday." Acknowledges he slept through breakfast, but plans to eat some of both lunch and dinner. Fell asleep late, but then slept late, and he had slightly less "unease" about going to sleep at night. Reports suicidal ideation "really wasn't there" yesterday. Says "I have a lot more energy" since the recent med changes. Comments that mood rated at 4/10 is the highest it's been since his admission here. No paranoia or hallucinations. Some anxiety still present. Physical Exam Psychiatric Orientation: alert, oriented x 3 and cooperative Apperance: appropriately dressed, appropriately groomed and appeared stated age Eye Contact: good eye contact Motor Behavior: steady gait and station (uses cane, working with PT) and no abnormal motor movements Speech: normal rate/rhythm/volume of speech Affect: + depressed affect, + constricted affect and mood congruent with affect affective range improving Mood: + depressed mood Thought Process: goal directed thought process, linear/logical thought process, clear/coherent thought process and thought association intact Thought Content: + cognitive distortions and reality based without delusions Suicidal Thoughts: denies suicidal thoughts, denies suicidal plan and denies suicidal intent Homicidal Thoughts: denies homicidal thoughts, denies homicidal plan and denies homicidal intent Hallucinations: no auditory hallucinations and no visual hallucinations Cognition: recent memory grossly intact, remote memory grossly intact, attention grossly intact and language grossly intact Estimated Intelligence: average estimated intelligence and consistent with education level Insight: + fair insight Judgment: + fair judgement Vital Signs (Past 24 Hours) Last Vital Signs Temp 36.1 C L 02/10/25 06:00 Pulse 93 H 02/10/25 06:22 Resp 16 02/10/25 06:00 BP 153/96 H 02/10/25 06:22 Pulse Ox 94 02/09/25 21:59 O2 Del Method Room Air 02/09/25 21:59 Results & Data ([facility]) Current Inpatient Medications Current Inpatient Medications: Current Inpatient Medications Acetaminophen (Acetaminophen 325 Mg Tab) 650 mg PO Q4H PRN PRN Reason: Headache or Minor Fever Stop: 02/15/25 01:10 Al Hydrox/Mg Hydrox/Simethicone (Aluminum/Magnesium Susp 30 Ml Udc) 30 ml PO Q4H PRN PRN Reason: GI Upset Stop: 02/15/25 01:10 Cyanocobalamin (Cyanocobalamin (B-12) 500 Mcg Tablet) 1,000 mcg PO QAM ELSIE Stop: 02/22/25 08:59 Last Admin: 02/09/25 08:43 Dose: 1,000 mcg Ezetimibe (Ezetimibe 10 Mg Tab) 10 mg PO DAILY ELSIE Stop: 02/15/25 10:14 Last Admin: 02/09/25 08:44 Dose: 10 mg Ergocalciferol (Ergocalciferol 1250 Mcg (50,000 Units) Cap) 1,250 mcg PO Q7D ELSIE Stop: 02/16/25 13:14 Last Admin: 02/07/25 09:01 Dose: 1,250 mcg Fluoxetine HCl (Fluoxetine Hcl 20 Mg Cap) 60 mg PO QAM ELSIE Stop: 02/25/25 08:59 Last Admin: 02/09/25 08:45 Dose: 60 mg Hydroxyzine HCl (Hydroxyzine Hcl 25 Mg Tab) 50 mg PO HSZ PRN PRN Reason: Insomnia Stop: 02/15/25 01:10 Hydroxyzine HCl (Hydroxyzine Hcl 25 Mg Tab) 25 mg PO Q4H PRN PRN Reason: Anxiety Stop: 02/15/25 01:10 Levothyroxine Sodium (Levothyroxine Sodium 150 Mcg Tablet) 150 mcg PO DAILYBB ELSIE Stop: 03/08/25 07:59 Last Admin: 02/09/25 08:42 Dose: 150 mcg Loperamide HCl (Loperamide Hcl 2 Mg Cap) 2 mg PO Q2HWA PRN PRN Reason: Diarrhea Stop: 02/19/25 20:55 Last Admin: 01/20/25 21:09 Dose: 2 mg Lurasidone HCl (Lurasidone Hcl 20 Mg Tab) 120 mg PO DAILYBD ELSIE Stop: 03/05/25 17:39 Last Admin: 02/09/25 17:08 Dose: 120 mg Magnesium Hydroxide (Magnesium Hydroxide Susp 30 Ml Udc) 30 ml PO DAILY PRN PRN Reason: Constipation Stop: 02/15/25 01:10 Last Admin: 02/09/25 17:05 Dose: 30 ml Mirtazapine (Mirtazapine Tab 15 Mg Tab) 30 mg PO HS ELSIE Stop: 03/03/25 21:59 Last Admin: 02/09/25 21:35 Dose: 30 mg Multivitamins/Minerals (Cerovite Adv Formula Tab) 1 tab PO QAM ELSIE Stop: 02/22/25 08:59 Last Admin: 02/09/25 08:45 Dose: 1 tab Pantoprazole Sodium (Pantoprazole 40 Mg Tab) 40 mg PO QAM ELSIE Stop: 02/15/25 08:59 Last Admin: 02/09/25 08:44 Dose: 40 mg Polyethylene Glycol (Polyethylene (Miralax) 17 Gm Pack) 17 gm PO DAILY ELSIE Stop: 03/12/25 08:59 Quetiapine Fumarate (Quetiapine Fumarate 25 Mg Tablet) 150 mg PO HS ELSIE Stop: 03/10/25 21:59 Last Admin: 02/09/25 21:51 Dose: 150 mg Senna/Docusate Sodium (Docusate Sodium/Senna 50/8.6mg Tab) 2 tab PO BID PRN PRN Reason: constipation Stop: 02/28/25 20:59 Sodium Chloride (Sodium Chloride 0.65% Na Soln 45 Ml ([place])) 1 - 2 sprays NA PRN PRN PRN Reason: Nasal Dryness/Congestion Stop: 02/15/25 01:10 Mental Health & Subst Abuse Tx Psychiatrist Name of Psychiatrist: [facility] - Dr. Georgia Ventura Psychiatrist's Date Of Appointment With Psychiatric Provider: 03/02/25 Time of Appointment with Psychiatrist: 3PM Psychiatric Appointment Comment: Ask psychiatrist to be added as priority on waitlist for therapy Therapist Name of Therapist: [facility] Therapist's Therapy Appointment Comment: Ask psychiatrist to be added as priority on waitlist for therapy Timber Management Professor Name of Timber Management Professor: Darnell Malone Phone Number for Timber Management Professor: [phone] Case Management Appointment Comment: Patient declined referral for case management Post Discharge Appointments Primary Care Physician Name Of Family Doctor/PCP: Erika Crenshaw - [facility] [place] [facility] Date of Future Appointment with PCP: 03/12/25 Time of Appointment with PCP: 1:20PM [facility] Contact Information Discharge Discharge Address: [address] [place] [id number]
[2025-02-10] MEDS: POLYETHYLENE (MIRALAX) 17 GM PACK PO SCH (08:57)
--- NOTE | 2025-02-11 08:48 | Psychiatric Progress Note ---
Date of Service February 11, 2025 Impression / Recommendations Impression KENDAL MATTSON is a 39-year-old man who currently lives alone, has a history of schizoaffective disorder, cerebral palsy, and was admitted on 01/16/25 00:36 on a 201 voluntary commitment for suicidal ideation and worsening depression. Presentation consistent with persistent depressive disorder that may or may not be part of a primary psychotic disorder. Currently patient does not appear psychotic and presents intact reality testing with no history of auditory visual hallucinations however has demonstrated extreme paranoia in the past. Has presented increased suicidal ideations which have become more frequent. Does not meet criteria for posttraumatic stress disorder. Family history of bipolar disorder. Medications reviewed and there is concern for auto metabolism of prescribed sertraline and will cross taper to fluoxetine; concern for hypothyroid state which may be contributory and will increase Synthroid dose; start clonidine for sleep and physical symptoms of anxiety and hypervigilance. Medication side effects and adverse effects discussed with patient. Given social isolation patient may benefit from an in person intensive outpatient program or day program for social engagement. A: Brief passive SI last evening, which resolved without intervention. Continue current treatment. EAC referral ongoing. Overall, I spent a total of 26 minutes on this case including meeting with the patient, reviewing the chart, nursing report, multidisciplinary team meeting, orders, and documentation. (1) Persistent depressive disorder with anxious distress, currently severe: (2) Hopelessness: (3) Isolation (social): (4) Hypothyroid: (5) Cerebral palsy: (6) Paranoia: (7) Insomnia: (8) Schizophrenia: Plan 02/11/25: continue current meds and treatment 02/10/25: continue current treatment and medications 02/09/25: - continue current medications and treatment 02/08/25: - Discontinue melatonin and clonidine - decrease Seroquel to 150 mg nightly 02/07/25: - Continue current meds and treatment plan. 02/06/2025: -Continue current medications and tx plan 02/05/2025: -Decrease Synthroid to 150 mcg daily -Adjusted diet order 02/04/2025: -Recheck TSH and T4 -Start Seroquel 200mg HS 02/03/2025: -Increase Latuda to 120mg qdinner 02/02/2025: -Continue current medications and tx plan 02/01/2025: -Increase mirtazapine to 30mg HS -Change senna to prn 01/31/2025: -Continue current medications and tx plan 01/30/25: - Abdominal x-ray - continue current treatment and medications 01/29/25: -Discussed change to Seroquel, pt declines - CMP in AM - increase ducolax to 2 tab BID, and obtain flat plate if no BM by tomorrow - encouraged f/u with PT exercise as recommended - ongoing behavioral contract 01/28/25: -PT ordered -ducolax BID -continue prozac and latuda at present doses -behavioral contract ongoing 01/27/25: - Behavioral plan for increasing activity - continue current medications 01/26/25: Continue current medications and treatment plan. encouraged pt to be out of bed, in dinning room with tray for each meal. 01/25/25: - Increase Latuda to 20mg AM and 80mg with dinner. - Increase prozac to 60mg daily - ongoing behavioral activation strategies. 01/24/25: - d/c wellbutrin - CMP in AM, Ca, and Mag 01/23/2025: -Continue current medications and tx plan. 01/22/2025: -Increase Latuda to 80mg daily with dinner -Start Vit B12 1000mcg/day -Start MVM daily 01/21/2025: -Delivery Tech consult -Consider trial of packaged food items in case paranoia is negatively impacting his intake -Ongoing behavioral activation strategies 01/20/2025: -Increase Latuda to 60mg daily with dinner 01/19/2025: -Start melatonin 6mg HS 01/18/2025: -Increase fluoxetine to 40mg daily tomorrow -Discontinue sertraline tomorrow 01/17/2025: -Decrease Wellbutrin to 150mg daily -Start mirtazapine 15mg HS -Discontinue olanzapine 20mg HS -Start Latuda 40mg daily with dinner -Start Vit D 1,250 mcg once weekly for 6-8 weeks 01/16/2025:The patient was admitted to the [facility] ([facility] mental health unit) on q15 min checks (behavioral with suicide precautions) for safety. The patient will participate in group, recreational, and milieu therapies and will be offered additional individual and family sessions as clinically appropriate. Decrease sertraline to 50 mg daily Start fluoxetine 20 mg daily Increase Synthroid to 175 mcg daily Start clonidine 0.1 mg at bedtime Baseline EKG Labs: Hemoglobin A1c, fasting lipids, free T3, vitamin D, vitamin B12 Inventory Assets Strengths: access to stable housing, well connected, family support Needs: on-going mood problems, social isolation Suicide Risk Level Suicide Risk Level: Moderate (q15 min suicide checks) (SI and severe depression but feels safe in the hospital and feels able to ask for support ) Risk Factors Assessment Male: Yes : Yes Do You Have Access To A Gun?: No Health Problems: Yes Mental Health Diagnoses: Yes Substance Use Disorders: No Previous Attempt: No Family History of Suicide: No Previous Psychiatric Hospitalization: Yes Hopelessness: Yes Protective Factors Assessment Uatsdin Beliefs: Yes : No Responsible for Young Children: No Employed: No Stable Relationships: Yes Supportive Family: Yes Good Rapport with Provider: Yes Absence of Any Risk Factors Above: No Interval History Identifying Information KENDAL MATTSON is a 39-year-old M who currently lives alone, has a history of schizoaffective disorder, cerebral palsy, and was admitted on 01/16/25 00:36 on a 201 voluntary commitment for suicidal ideation. Chief Complaint "[]". Review of Systems Sleep Information Total Hours of Sleep: 5 Meal Information Percent Meal Consumed - Breakfast: 0 Percent Meal Consumed - Lunch: 50 Percent Meal Consumed - Dinner: 75 Nutrition Comment: pt. had Boost and coffee Subjective Subjective Patient was seen & assessed and interval progress reviewed with [treatment team per report: appearing brighter and more motivated, more talkative eating better showered unprompted attended groups rated mood 3.5/10 and "anxious" I met with pt privately in his room. Reports he had some SI last evening. Around bedtime, he had a bout of anxiety. Found himself worrying about the EAC and what to expect. Then was thinking "I'm sick of feeling this way", which led into the SI. He did not make an attempt to plan to harm himself. Says he eventually fell asleep and this AM, woke up calmer. NO SI today. Says he's still not had a BM, but just started trying to eat more recently. Denies any nausea or abdominal discomfort. No AVH or paranoia present. Physical Exam Psychiatric Orientation: alert, oriented x 3 and cooperative Apperance: appropriately dressed, appropriately groomed and appeared stated age Eye Contact: good eye contact Motor Behavior: steady gait and station (uses cane, working with PT) and no abnormal motor movements Speech: normal rate/rhythm/volume of speech Affect: + depressed affect, + constricted affect and mood congruent with affect Mood: + depressed mood Thought Process: goal directed thought process, linear/logical thought process, clear/coherent thought process and thought association intact Thought Content: + cognitive distortions and reality based without delusions Suicidal Thoughts: denies suicidal thoughts, denies suicidal plan and denies suicidal intent Homicidal Thoughts: denies homicidal thoughts, denies homicidal plan and denies homicidal intent Hallucinations: no auditory hallucinations and no visual hallucinations Cognition: recent memory grossly intact, remote memory grossly intact, attention grossly intact and language grossly intact Estimated Intelligence: average estimated intelligence and consistent with education level Insight: + fair insight Judgment: + fair judgement Vital Signs (Past 24 Hours) Last Vital Signs Temp 36.6 C 02/11/25 06:26 Pulse 103 H 02/11/25 06:27 Resp 16 02/11/25 06:26 BP 121/85 02/11/25 06:27 Pulse Ox 96 02/10/25 22:06 O2 Del Method Room Air 02/10/25 22:06 Results & Data ([facility]) Current Inpatient Medications Current Inpatient Medications: Current Inpatient Medications Acetaminophen (Acetaminophen 325 Mg Tab) 650 mg PO Q4H PRN PRN Reason: Headache or Minor Fever Stop: 02/15/25 01:10 Al Hydrox/Mg Hydrox/Simethicone (Aluminum/Magnesium Susp 30 Ml Udc) 30 ml PO Q4H PRN PRN Reason: GI Upset Stop: 02/15/25 01:10 Cyanocobalamin (Cyanocobalamin (B-12) 500 Mcg Tablet) 1,000 mcg PO QAM ELSIE Stop: 02/22/25 08:59 Last Admin: 02/11/25 08:37 Dose: 1,000 mcg Ezetimibe (Ezetimibe 10 Mg Tab) 10 mg PO DAILY ELSIE Stop: 02/15/25 10:14 Last Admin: 02/11/25 08:37 Dose: 10 mg Ergocalciferol (Ergocalciferol 1250 Mcg (50,000 Units) Cap) 1,250 mcg PO Q7D ELSIE Stop: 02/16/25 13:14 Last Admin: 02/07/25 09:01 Dose: 1,250 mcg Fluoxetine HCl (Fluoxetine Hcl 20 Mg Cap) 60 mg PO QAM ELSIE Stop: 02/25/25 08:59 Last Admin: 02/11/25 08:37 Dose: 60 mg Hydroxyzine HCl (Hydroxyzine Hcl 25 Mg Tab) 50 mg PO HSZ PRN PRN Reason: Insomnia Stop: 02/15/25 01:10 Hydroxyzine HCl (Hydroxyzine Hcl 25 Mg Tab) 25 mg PO Q4H PRN PRN Reason: Anxiety Stop: 02/15/25 01:10 Levothyroxine Sodium (Levothyroxine Sodium 150 Mcg Tablet) 150 mcg PO DAILYBB S [facility] Stop: 03/08/25 07:59 Last Admin: 02/11/25 08:37 Dose: 150 mcg Loperamide HCl (Loperamide Hcl 2 Mg Cap) 2 mg PO Q2HWA PRN PRN Reason: Diarrhea Stop: 02/19/25 20:55 Last Admin: 01/20/25 21:09 Dose: 2 mg Lurasidone HCl (Lurasidone Hcl 20 Mg Tab) 120 mg PO DAILYBD ELSIE Stop: 03/05/25 17:39 Last Admin: 02/10/25 17:25 Dose: 120 mg Magnesium Hydroxide (Magnesium Hydroxide Susp 30 Ml Udc) 30 ml PO DAILY PRN PRN Reason: Constipation Stop: 02/15/25 01:10 Last Admin: 02/09/25 17:05 Dose: 30 ml Mirtazapine (Mirtazapine Tab 15 Mg Tab) 30 mg PO HS ELSIE Stop: 03/03/25 21:59 Last Admin: 02/10/25 21:40 Dose: 30 mg Multivitamins/Minerals (Cerovite Adv Formula Tab) 1 tab PO QAM ELSIE Stop: 02/22/25 08:59 Last Admin: 02/11/25 08:37 Dose: 1 tab Pantoprazole Sodium (Pantoprazole 40 Mg Tab) 40 mg PO QAM ELSIE Stop: 02/15/25 08:59 Last Admin: 02/11/25 08:37 Dose: 40 mg Polyethylene Glycol (Polyethylene (Miralax) 17 Gm Pack) 17 gm PO DAILY ELSIE Stop: 03/12/25 08:59 Last Admin: 02/11/25 08:38 Dose: 17 gm Quetiapine Fumarate (Quetiapine Fumarate 25 Mg Tablet) 150 mg PO HS ELSIE Stop: 03/10/25 21:59 Last Admin: 02/10/25 21:40 Dose: 150 mg Senna/Docusate Sodium (Docusate Sodium/Senna 50/8.6mg Tab) 2 tab PO BID PRN PRN Reason: constipation Stop: 02/28/25 20:59 Sodium Chloride (Sodium Chloride 0.65% Na Soln 45 Ml ([place])) 1 - 2 sprays NA PRN PRN PRN Reason: Nasal Dryness/Congestion Stop: 02/15/25 01:10 Mental Health & Subst Abuse Tx Psychiatrist Name of Psychiatrist: [facility] - Dr. Georgia Ventura Psychiatrist's Date Of Appointment With Psychiatric Provider: 03/02/25 Time of Appointment with Psychiatrist: 3PM Psychiatric Appointment Comment: Ask psychiatrist to be added as priority on waitlist for therapy Therapist Name of Therapist: [facility] Therapist's Therapy Appointment Comment: Ask psychiatrist to be added as priority on waitlist for therapy Vending Machine Coin Collector Name of Vending Machine Coin Collector: Darnell Malone Phone Number for Vending Machine Coin Collector: [phone] Case Management Appointment Comment: Patient declined referral for case management Post Discharge Appointments Primary Care Physician Name Of Family Doctor/PCP: Erika Crenshaw - [facility] [place] [facility] Date of Future Appointment with PCP: 03/12/25 Time of Appointment with PCP: 1:20PM Provider Appointment Comment: [facility], BRIANNA Mckeon (F/U re: thyroid) Contact Information Discharge Discharge Address: [address] [place] [id number]
--- NOTE | 2025-02-12 08:46 | Psychiatric Progress Note ---
Date of Service February 12, 2025 Impression / Recommendations Impression KENDAL MATTSON is a 39-year-old man who currently lives alone, has a history of schizoaffective disorder, cerebral palsy, and was admitted on 01/16/25 00:36 on a 201 voluntary commitment for suicidal ideation and worsening depression. Presentation consistent with persistent depressive disorder that may or may not be part of a primary psychotic disorder. Currently patient does not appear psychotic and presents intact reality testing with no history of auditory visual hallucinations however has demonstrated extreme paranoia in the past. Has presented increased suicidal ideations which have become more frequent. Does not meet criteria for posttraumatic stress disorder. Family history of bipolar disorder. Medications reviewed and there is concern for auto metabolism of prescribed sertraline and will cross taper to fluoxetine; concern for hypothyroid state which may be contributory and will increase Synthroid dose; start clonidine for sleep and physical symptoms of anxiety and hypervigilance. Medication side effects and adverse effects discussed with patient. Given social isolation patient may benefit from an in person intensive outpatient program or day program for social engagement. A: Discussed DFA and anxiety in evenings. Reviewed option to add clonidine back in, or try to increase Seroquel with hope he tolerates it better now that the clonidine and melatonin were d/c. In interest of minimizing further polypharmacy, we agreed to increase Seroquel to 200mg HS. Overall, I spent a total of 26 minutes on this case including meeting with the patient, reviewing the chart, nursing report, multidisciplinary team meeting, orders, and documentation. (1) Persistent depressive disorder with anxious distress, currently severe: (2) Hopelessness: (3) Isolation (social): (4) Hypothyroid: (5) Cerebral palsy: (6) Paranoia: (7) Insomnia: (8) Schizophrenia: Plan 02/12/25: increase seroquel to 200mg HS. EAC mtg today. 02/11/25: continue current meds and treatment 02/10/25: continue current treatment and medications 02/09/25: - continue current medications and treatment 02/08/25: - Discontinue melatonin and clonidine - decrease Seroquel to 150 mg nightly 02/07/25: - Continue current meds and treatment plan. 02/06/2025: -Continue current medications and tx plan 02/05/2025: -Decrease Synthroid to 150 mcg daily -Adjusted diet order 02/04/2025: -Recheck TSH and T4 -Start Seroquel 200mg HS 02/03/2025: -Increase Latuda to 120mg qdinner 02/02/2025: -Continue current medications and tx plan 02/01/2025: -Increase mirtazapine to 30mg HS -Change senna to prn 01/31/2025: -Continue current medications and tx plan 01/30/25: - Abdominal x-ray - continue current treatment and medications 01/29/25: -Discussed change to Seroquel, pt declines - CMP in AM - increase ducolax to 2 tab BID, and obtain flat plate if no BM by tomorrow - encouraged f/u with PT exercise as recommended - ongoing behavioral contract 01/28/25: -PT ordered -ducolax BID -continue prozac and latuda at present doses -behavioral contract ongoing 01/27/25: - Behavioral plan for increasing activity - continue current medications 01/26/25: Continue current medications and treatment plan. encouraged pt to be out of bed, in dinning room with tray for each meal. 01/25/25: - Increase Latuda to 20mg AM and 80mg with dinner. - Increase prozac to 60mg daily - ongoing behavioral activation strategies. 01/24/25: - d/c wellbutrin - CMP in AM, Ca, and Mag 01/23/2025: -Continue current medications and tx plan. 01/22/2025: -Increase Latuda to 80mg daily with dinner -Start Vit B12 1000mcg/day -Start MVM daily 01/21/2025: -Service Delivery Consultant consult -Consider trial of packaged food items in case paranoia is negatively impacting his intake -Ongoing behavioral activation strategies 01/20/2025: -Increase Latuda to 60mg daily with dinner 01/19/2025: -Start melatonin 6mg HS 01/18/2025: -Increase fluoxetine to 40mg daily tomorrow -Discontinue sertraline tomorrow 01/17/2025: -Decrease Wellbutrin to 150mg daily -Start mirtazapine 15mg HS -Discontinue olanzapine 20mg HS -Start Latuda 40mg daily with dinner -Start Vit D 1,250 mcg once weekly for 6-8 weeks 01/16/2025:The patient was admitted to the [facility] ([facility]) on q15 min checks (behavioral with suicide precautions) for safety. The patient will participate in group, recreational, and milieu therapies and will be offered additional individual and family sessions as clinically appropriate. Decrease sertraline to 50 mg daily Start fluoxetine 20 mg daily Increase Synthroid to 175 mcg daily Start clonidine 0.1 mg at bedtime Baseline EKG Labs: Hemoglobin A1c, fasting lipids, free T3, vitamin D, vitamin B12 Inventory Assets Strengths: access to stable housing, well connected, family support Needs: on-going mood problems, social isolation Suicide Risk Level Suicide Risk Level: Moderate (q15 min suicide checks) (SI and severe depression but feels safe in the hospital and feels able to ask for support ) Risk Factors Assessment Male: Yes : Yes Do You Have Access To A Gun?: No Health Problems: Yes Mental Health Diagnoses: Yes Substance Use Disorders: No Previous Attempt: No Family History of Suicide: No Previous Psychiatric Hospitalization: Yes Hopelessness: Yes Protective Factors Assessment Presybeterian Beliefs: Yes : No Responsible for Young Children: No Employed: No Stable Relationships: Yes Supportive Family: Yes Good Rapport with Provider: Yes Absence of Any Risk Factors Above: No Interval History Identifying Information KENDAL MATTSON is a 39-year-old M who currently lives alone, has a history of schizoaffective disorder, cerebral palsy, and was admitted on 01/16/25 00:36 on a 201 voluntary commitment for suicidal ideation. Chief Complaint "I'm a little nervous". Review of Systems Sleep Information Total Hours of Sleep: 5 Meal Information Percent Meal Consumed - Breakfast: 0 Percent Meal Consumed - Lunch: 50 Percent Meal Consumed - Dinner: 50 Nutrition Comment: pt. had Boost and coffee Subjective Subjective Patient was seen & assessed and interval progress reviewed with nursing and social work Per report: slept 5 hr last BM 01/22 out of room interactive in milieu rated mood 3.5/10 - "uncertain" interview with EAC today at 1300 I met with the pt privately in his room. He expressed some anxiety still occurring at night, which has been causing some increased DFA. He was feeling a little nervous about his upcoming meeting with the EAC. We processed likely questions. Pt was able to identify his struggles (anxiety, depression and paranoia), and goals (decreased anxiety, less depression, more problem solving skills and improved self care). Denies any AVH or significant paranoia now. Some SI occurs in the evening hours. None this AM. Still no BM, but no abdominal discomfort so far. Physical Exam Psychiatric Orientation: alert, oriented x 3 and cooperative Apperance: appropriately dressed, appropriately groomed and appeared stated age Eye Contact: good eye contact Motor Behavior: steady gait and station (uses cane, working with PT) and no abnormal motor movements Speech: normal rate/rhythm/volume of speech Affect: + depressed affect, + constricted affect and mood congruent with affect Mood: + depressed mood and + anxious mood Thought Process: goal directed thought process, linear/logical thought process, clear/coherent thought process and thought association intact Thought Content: + cognitive distortions and reality based without delusions Suicidal Thoughts: denies suicidal thoughts, denies suicidal plan and denies mary cidal intent Homicidal Thoughts: denies homicidal thoughts, denies homicidal plan and denies homicidal intent Hallucinations: no auditory hallucinations and no visual hallucinations Cognition: recent memory grossly intact, remote memory grossly intact, attention grossly intact and language grossly intact Estimated Intelligence: average estimated intelligence and consistent with education level Insight: + fair insight Judgment: + fair judgement Vital Signs (Past 24 Hours) Last Vital Signs Temp 36.5 C 02/12/25 06:16 Pulse 102 H 02/12/25 06:17 Resp 16 02/12/25 06:16 BP 129/91 02/12/25 06:17 Pulse Ox 96 02/10/25 22:06 O2 Del Method Room Air 02/10/25 22:06 Results & Data ([facility]) Current Inpatient Medications Current Inpatient Medications: Current Inpatient Medications Acetaminophen (Acetaminophen 325 Mg Tab) 650 mg PO Q4H PRN PRN Reason: Headache or Minor Fever Stop: 02/15/25 01:10 Al Hydrox/Mg Hydrox/Simethicone (Aluminum/Magnesium Susp 30 Ml Udc) 30 ml PO Q4H PRN PRN Reason: GI Upset Stop: 02/15/25 01:10 Cyanocobalamin (Cyanocobalamin (B-12) 500 Mcg Tablet) 1,000 mcg PO QAM ELSIE Stop: 02/22/25 08:59 Last Admin: 02/11/25 08:37 Dose: 1,000 mcg Ezetimibe (Ezetimibe 10 Mg Tab) 10 mg PO DAILY ELSIE Stop: 02/15/25 10:14 Last Admin: 02/11/25 08:37 Dose: 10 mg Ergocalciferol (Ergocalciferol 1250 Mcg (50,000 Units) Cap) 1,250 mcg PO Q7D ELSIE Stop: 02/16/25 13:14 Last Admin: 02/07/25 09:01 Dose: 1,250 mcg Fluoxetine HCl (Fluoxetine Hcl 20 Mg Cap) 60 mg PO QAM ELSIE Stop: 02/25/25 08:59 Last Admin: 02/11/25 08:37 Dose: 60 mg Hydroxyzine HCl (Hydroxyzine Hcl 25 Mg Tab) 50 mg PO HSZ PRN PRN Reason: Insomnia Stop: 02/15/25 01:10 Hydroxyzine HCl (Hydroxyzine Hcl 25 Mg Tab) 25 mg PO Q4H PRN PRN Reason: Anxiety Stop: 02/15/25 01:10 Levothyroxine Sodium (Levothyroxine Sodium 150 Mcg Tablet) 150 mcg PO DAILYBB ELSIE Stop: 03/08/25 07:59 Last Admin: 02/11/25 08:37 Dose: 150 mcg Loperamide HCl (Loperamide Hcl 2 Mg Cap) 2 mg PO Q2HWA PRN PRN Reason: Diarrhea Stop: 02/19/25 20:55 Last Admin: 01/20/25 21:09 Dose: 2 mg Lurasidone HCl (Lurasidone Hcl 20 Mg Tab) 120 mg PO DAILYBD ELSIE Stop: 03/05/25 17:39 Last Admin: 02/11/25 17:11 Dose: 120 mg Magnesium Hydroxide (Magnesium Hydroxide Susp 30 Ml Udc) 30 ml PO DAILY PRN PRN Reason: Constipation Stop: 02/15/25 01:10 Last Admin: 02/09/25 17:05 Dose: 30 ml Mirtazapine (Mirtazapine Tab 15 Mg Tab) 30 mg PO HS ELSIE Stop: 03/03/25 21:59 Last Admin: 02/11/25 21:26 Dose: 30 mg Multivitamins/Minerals (Cerovite Adv Formula Tab) 1 tab PO QAM ELSIE Stop: 02/22/25 08:59 Last Admin: 02/11/25 08:37 Dose: 1 tab Pantoprazole Sodium (Pantoprazole 40 Mg Tab) 40 mg PO QAM ELSIE Stop: 02/15/25 08:59 Last Admin: 02/11/25 08:37 Dose: 40 mg Polyethylene Glycol (Polyethylene (Miralax) 17 Gm Pack) 17 gm PO DAILY ELSIE Stop: 03/12/25 08:59 Last Admin: 02/11/25 08:38 Dose: 17 gm Quetiapine Fumarate (Quetiapine Fumarate 25 Mg Tablet) 150 mg PO HS ELSIE Stop: 03/10/25 21:59 Last Admin: 02/11/25 21:27 Dose: 150 mg Senna/Docusate Sodium (Docusate Sodium/Senna 50/8.6mg Tab) 2 tab PO BID PRN PRN Reason: constipation Stop: 02/28/25 20:59 Sodium Chloride (Sodium Chloride 0.65% Na Soln 45 Ml (Sledge)) 1 - 2 sprays NA PRN PRN PRN Reason: Nasal Dryness/Congestion Stop: 02/15/25 01:10 Mental Health & Subst Abuse Tx Psychiatrist Name of Psychiatrist: [facility] - Dr. Georgia Ventura Psychiatrist's Date Of Appointment With Psychiatric Provider: 03/02/25 Time of Appointment with Psychiatrist: 3PM Psychiatric Appointment Comment: Ask psychiatrist to be added as priority on waitlist for therapy Therapist Name of Therapist: [facility] Therapist's Therapy Appointment Comment: Ask psychiatrist to be added as priority on waitlist for therapy Shipping And Receiving Material Handler Name of Shipping And Receiving Material Handler: Darnell Malone Phone Number for Shipping And Receiving Material Handler: [phone] Case Management Appointment Comment: Patient declined referral for case management Post Discharge Appointments Primary Care Physician Name Of Family Doctor/PCP: Erika Crenshaw - [facility] Date of Future Appointment with PCP: 03/12/25 Time of Appointment with PCP: 1:20PM [facility] Contact Information Discharge Discharge Address: [address] [place] [address] Linda [place] [phone]
--- NOTE | 2025-02-13 08:32 | Psychiatric Progress Note ---
Date of Service February 13, 2025 Impression / Recommendations Impression KENDAL MATTSON is a 39-year-old man who currently lives alone, has a history of schizoaffective disorder, cerebral palsy, and was admitted on 01/16/25 00:36 on a 201 voluntary commitment for suicidal ideation and worsening depression. Presentation consistent with persistent depressive disorder that may or may not be part of a primary psychotic disorder. Currently patient does not appear psychotic and presents intact reality testing with no history of auditory visual hallucinations however has demonstrated extreme paranoia in the past. Has presented increased suicidal ideations which have become more frequent. Does not meet criteria for posttraumatic stress disorder. Family history of bipolar disorder. Medications reviewed and there is concern for auto metabolism of prescribed sertraline and will cross taper to fluoxetine; concern for hypothyroid state which may be contributory and will increase Synthroid dose; start clonidine for sleep and physical symptoms of anxiety and hypervigilance. Medication side effects and adverse effects discussed with patient. Given social isolation patient may benefit from an in person intensive outpatient program or day program for social engagement. A: Reviewed concerned that he still not passing gas or having a BM. He is already on a stool softener/osmotic diuretic, and so I recommended starting a stimulant diuretic. Start senna 1 tab twice daily. if no BM this , may want to repeat the abdominal x-ray or get a consult to rule out ileus. No change to psychiatric medications today. Continue to monitor sleep. Awaiting EAC referral determination, they communicated they will let us know on Sunday. Overall, I spent a total of 26 minutes on this case including meeting with the patient, reviewing the chart, nursing report, multidisciplinary team meeting, orders, and documentation. (1) Persistent depressive disorder with anxious distress, currently severe: (2) Hopelessness: (3) Isolation (social): (4) Hypothyroid: (5) Cerebral palsy: (6) Paranoia: (7) Insomnia: (8) Schizophrenia: Plan 02/13/25: - can continue current meds and treatment - awaiting determination from EAC - start senna, and monitor BM status closely. 02/12/25: increase seroquel to 200mg HS. EAC mtg today. 02/11/25: continue current meds and treatment 02/10/25: continue current treatment and medications 02/09/25: - continue current medications and treatment 02/08/25: - Discontinue melatonin and clonidine - decrease Seroquel to 150 mg nightly 02/07/25: - Continue current meds and treatment plan. 02/06/2025: -Continue current medications and tx plan 02/05/2025: -Decrease Synthroid to 150 mcg daily -Adjusted diet order 02/04/2025: -Recheck TSH and T4 -Start Seroquel 200mg HS 02/03/2025: -Increase Latuda to 120mg qdinner 02/02/2025: -Continue current medications and tx plan 02/01/2025: -Increase mirtazapine to 30mg HS -Change senna to prn 01/31/2025: -Continue current medications and tx plan 01/30/25: - Abdominal x-ray - continue current treatment and medications 01/29/25: -Discussed change to Seroquel, pt declines - CMP in AM - increase ducolax to 2 tab BID, and obtain flat plate if no BM by tomorrow - encouraged f/u with PT exercise as recommended - ongoing behavioral contract 01/28/25: -PT ordered -ducolax BID -continue prozac and latuda at present doses -behavioral contract ongoing 01/27/25: - Behavioral plan for increasing activity - continue current medications 01/26/25: Continue current medications and treatment plan. encouraged pt to be out of bed, in dinning room with tray for each meal. 01/25/25: - Increase Latuda to 20mg AM and 80mg with dinner. - Increase prozac to 60mg daily - ongoing behavioral activation strategies. 01/24/25: - d/c wellbutrin - CMP in AM, Ca, and Mag 01/23/2025: -Continue current medications and tx plan. 01/22/2025: -Increase Latuda to 80mg daily with dinner -Start Vit B12 1000mcg/day -Start MVM daily 01/21/2025: -[employer] consult -Consider trial of packaged food items in case paranoia is negatively impacting his intake -Ongoing behavioral activation strategies 01/20/2025: -Increase Latuda to 60mg daily with dinner 01/19/2025: -Start melatonin 6mg HS 01/18/2025: -Increase fluoxetine to 40mg daily tomorrow -Discontinue sertraline tomorrow 01/17/2025: -Decrease Wellbutrin to 150mg daily -Start mirtazapine 15mg HS -Discontinue olanzapine 20mg HS -Start Latuda 40mg daily with dinner -Start Vit D 1,250 mcg once weekly for 6-8 weeks 01/16/2025:The patient was admitted to the [facility] ([facility]) on q15 min checks (behavioral with suicide precautions) for safety. The patient will participate in group, recreational, and milieu therapies and will be offered additional individual and family sessions as clinically appropriate. Decrease sertraline to 50 mg daily Start fluoxetine 20 mg daily Increase Synthroid to 175 mcg daily Start clonidine 0.1 mg at bedtime Baseline EKG Labs: Hemoglobin A1c, fasting lipids, free T3, vitamin D, vitamin B12 Inventory Assets Strengths: access to stable housing, well connected, family support Needs: on-going mood problems, social isolation Suicide Risk Level Suicide Risk Level: Moderate (q15 min suicide checks) (SI and severe depression but feels safe in the hospital and feels able to ask for support ) Risk Factors Assessment Male: Yes : Yes Do You Have Access To A Gun?: No Health Problems: Yes Mental Health Diagnoses: Yes Substance Use Disorders: No Previous Attempt: No Family History of Suicide: No Previous Psychiatric Hospitalization: Yes Hopelessness: Yes Protective Factors Assessment [employer] Beliefs: Yes : No Responsible for Young Children: No Employed: No Stable Relationships: Yes Supportive Family: Yes Good Rapport with Provider: Yes Absence of Any Risk Factors Above: No Interval History Identifying Information KENDAL MATTSON is a 39-year-old M who currently lives alone, has a history of schizoaffective disorder, cerebral palsy, and was admitted on 01/16/25 00:36 on a 201 voluntary commitment for suicidal ideation. Chief Complaint "[]". Review of Systems Sleep Information Total Hours of Sleep: 6.5 Meal Information Percent Meal Consumed - Breakfast: 0 Percent Meal Consumed - Lunch: 30 Percent Meal Consumed - Dinner: 20 Nutrition Comment: pt. had Boost and coffee Subjective Subjective Patient was seen & assessed and interval progress reviewed with treatment team Per report: going to groups bright affect with peers EAC mtg went well -- will find out tues rated mood 3.5/10 and "kind of anxious" some DFA, then slept 6.5 hours no BM I met with the patient privately in his room. He said he did not have any grogginess today. He still has some difficulty falling asleep last night "but not too bad." Says he is starting to feel little better. He did have suicidal ideation earlier today during group, said it was related to rumination about the EAC, and uncertainty about what will be like or whether he will like it there. He says that the thoughts past after short period of time. He had no plan or intent to act on those thoughts. Still has not had BM. He is also not passing gas. He denies any abdominal distention or discomfort. No pain. No paranoia. No auditory visual hallucinations. Anxiety does still come and go Physical Exam Psychiatric Orientation: alert, oriented x 3 and cooperative Apperance: appropriately dressed and appropriately groomed Eye Contact: good eye contact Motor Behavior: steady gait and station (uses cane, working with PT) and no abnormal motor movements Speech: normal rate/rhythm/volume of speech Affect: mood congruent with affect affect broadening. Does brighten with peers, and briefly during our encounter as well. Not as tense or anxious appearing. Mood: + depressed mood and + anxious mood Thought Process: goal directed thought process, linear/logical thought process, clear/coherent thought process and thought association intact Thought Content: + cognitive distortions and reality based without delusions Suicidal Thoughts: denies suicidal plan and denies suicidal intent; + reports suicidal thoughts Homicidal Thoughts: denies homicidal thoughts, denies homicidal plan and denies homicidal intent Hallucinations: no auditory hallucinations and no visual hallucinations Cognition: recent memory grossly intact, remote memory grossly intact, attention grossly intact and language grossly intact Estimated Intelligence: average estimated intelligence and consistent with education level Insight: + fair insight Judgment: + fair judgement Vital Signs (Past 24 Hours) Last Vital Signs Temp 36.6 C 02/13/25 06:14 Pulse 91 H 02/13/25 06:16 Resp 16 02/13/25 06:14 BP 104/71 02/13/25 06:16 Pulse Ox 96 02/10/25 22:06 O2 Del Method Room Air 02/10/25 22:06 Results & Data ([facility]) Current Inpatient Medications Current Inpatient Medications: Current Inpatient Medications Acetaminophen (Acetaminophen 325 Mg Tab) 650 mg PO Q4H PRN PRN Reason: Headache or Minor Fever Stop: 02/15/25 01:10 Al Hydrox/Mg Hydrox/Simethicone (Aluminum/Magnesium Susp 30 Ml Udc) 30 ml PO Q4H PRN PRN Reason: GI Upset Stop: 02/15/25 01:10 Cyanocobalamin (Cyanocobalamin (B-12) 500 Mcg Tablet) 1,000 mcg PO QAM ELSIE Stop: 02/22/25 08:59 Last Admin: 02/12/25 09:49 Dose: 1,000 mcg Ezetimibe (Ezetimibe 10 Mg Tab) 10 mg PO DAILY ELSIE Stop: 02/15/25 10:14 Last Admin: 02/12/25 09:50 Dose: 10 mg Ergocalciferol (Ergocalciferol 1250 Mcg (50,000 Units) Cap) 1,250 mcg PO Q7D ELSIE Stop: 02/16/25 13:14 Last Admin: 02/07/25 09:01 Dose: 1,250 mcg Fluoxetine HCl (Fluoxetine Hcl 20 Mg Cap) 60 mg PO QAM [facility] Stop: 02/25/25 08:59 Last Admin: 02/12/25 09:48 Dose: 60 mg Hydroxyzine HCl (Hydroxyzine Hcl 25 Mg Tab) 50 mg PO HSZ PRN PRN Reason: Insomnia Stop: 02/15/25 01:10 Hydroxyzine HCl (Hydroxyzine Hcl 25 Mg Tab) 25 mg PO Q4H PRN PRN Reason: Anxiety Stop: 02/15/25 01:10 Levothyroxine Sodium (Levothyroxine Sodium 150 Mcg Tablet) 150 mcg PO DAILYBB [facility] Stop: 03/08/25 07:59 Last Admin: 02/12/25 09:49 Dose: 150 mcg Loperamide HCl (Loperamide Hcl 2 Mg Cap) 2 mg PO Q2HWA PRN PRN Reason: Diarrhea Stop: 02/19/25 20:55 Last Admin: 01/20/25 21:09 Dose: 2 mg Lurasidone HCl (Lurasidone Hcl 20 Mg Tab) 120 mg PO DAILYBD [facility] Stop: 03/05/25 17:39 Last Admin: 02/12/25 17:41 Dose: 120 mg Magnesium Hydroxide (Magnesium Hydroxide Susp 30 Ml Udc) 30 ml PO DAILY PRN PRN Reason: Constipation Stop: 02/15/25 01:10 Last Admin: 02/09/25 17:05 Dose: 30 ml Mirtazapine (Mirtazapine Tab 15 Mg Tab) 30 mg PO HS ELSIE Stop: 03/03/25 21:59 Last Admin: 02/12/25 21:13 Dose: 30 mg Multivitamins/Minerals (Cerovite Adv Formula Tab) 1 tab PO QAM ELSIE Stop: 02/22/25 08:59 Last Admin: 02/12/25 09:50 Dose: 1 tab Pantoprazole Sodium (Pantoprazole 40 Mg Tab) 40 mg PO QAM ELSIE Stop: 02/15/25 08:59 Last Admin: 02/12/25 09:50 Dose: 40 mg Polyethylene Glycol (Polyethylene (Miralax) 17 Gm Pack) 17 gm PO DAILY ELSIE Stop: 03/12/25 08:59 Last Admin: 02/12/25 09:50 Dose: 17 gm Quetiapine Fumarate (Quetiapine Fumarate 200 Mg Tab) 200 mg PO HS ELSIE Stop: 03/14/25 21:59 Last Admin: 02/12/25 21:13 Dose: 200 mg Senna/Docusate Sodium (Docusate Sodium/Senna 50/8.6mg Tab) 2 tab PO BID PRN PRN Reason: constipation Stop: 02/28/25 20:59 Sodium Chloride (Sodium Chloride 0.65% Na Soln 45 Ml ([place])) 1 - 2 sprays NA PRN PRN PRN Reason: Nasal Dryness/Congestion Stop: 02/15/25 01:10 Mental Health & Subst Abuse Tx Psychiatrist Name of Psychiatrist: [facility] - Dr. Georgia Ventura Psychiatrist's Date Of Appointment With Psychiatric Provider: 03/02/25 Time of Appointment with Psychiatrist: 3PM Psychiatric Appointment Comment: Ask psychiatrist to be added as priority on waitlist for therapy Therapist Name of Therapist: [facility] Therapist's Therapy Appointment Comment: Ask psychiatrist to be added as priority on waitlist for therapy [employer] Name of [employer]: Darnell Malone Phone Number for [employer]: [phone] Case Management Appointment Comment: Patient declined referral for case management Post Discharge Appointments Primary Care Physician Name Of Family Doctor/PCP: Erika Crenshaw - [facility] Date of Future Appointment with PCP: 03/12/25 Time of Appointment with PCP: 1:20PM Provider Appointment Comment: [address] PA (F/U re: chano) Contact Information Discharge Discharge Address: [address] [place] [address] [address] [phone]
[2025-02-13] MEDS: SENNA 8.6 MG TAB PO SCH (21:21)
[2025-02-14] MEDS: DOCUSATE SODIUM/SENNA 50/8.6MG TAB PO PRN (09:02)
--- NOTE | 2025-02-14 10:02 | Psychiatric Progress Note ---
Date of Service February 14, 2025 Impression / Recommendations Impression KENDAL MATTSON is a 39-year-old man who currently lives alone, has a history of schizoaffective disorder, cerebral palsy, and was admitted on 01/16/25 00:36 on a 201 voluntary commitment for suicidal ideation and worsening depression. Presentation consistent with persistent depressive disorder that may or may not be part of a primary psychotic disorder. Currently patient does not appear psychotic and presents intact reality testing with no history of auditory visual hallucinations however has demonstrated extreme paranoia in the past. Has presented increased suicidal ideations which have become more frequent. Does not meet criteria for posttraumatic stress disorder. Family history of bipolar disorder. Medications reviewed and there is concern for auto metabolism of prescribed sertraline and will cross taper to fluoxetine; concern for hypothyroid state which may be contributory and will increase Synthroid dose; start clonidine for sleep and physical symptoms of anxiety and hypervigilance. Medication side effects and adverse effects discussed with patient. Given social isolation patient may benefit from an in person intensive outpatient program or day program for social engagement. A: Ongoing depression and anxiety but showing more engagement with peers and periods of brightening of affect. Ongoing anxiety about what the next steps of his treatment will entail given waiting on EAC decision, this anxiety seems to be what drives thoughts of suicide. Tolerating medications, while no bowel movement yet, he has no acute GI pain and went weeks with poor po intake so suspect it will take some time before he starts to have more regular bowel habits again. No acute concerns at this time for more serious condition given no acute pain, no vital sign changes and limited exercise. Encouraged ongoing fluid intake, movement, and fiber. Overall, I spent a total of 36 minutes on this case including meeting with the patient, reviewing the chart, nursing report, multidisciplinary team meeting, orders, and documentation. (1) Persistent depressive disorder with anxious distress, currently severe: (2) Hopelessness: (3) Isolation (social): (4) Hypothyroid: (5) Cerebral palsy: (6) Paranoia: (7) Insomnia: (8) Schizophrenia: Plan 02/14/2025: -Continue current medications and tx plan 02/13/25: - can continue current meds and treatment - awaiting determination from EAC - start senna, and monitor BM status closely. 02/12/25: increase seroquel to 200mg HS. EAC mtg today. 02/11/25: continue current meds and treatment 02/10/25: continue current treatment and medications 02/09/25: - continue current medications and treatment 02/08/25: - Discontinue melatonin and clonidine - decrease Seroquel to 150 mg nightly 02/07/25: - Continue current meds and treatment plan. 02/06/2025: -Continue current medications and tx plan 02/05/2025: -Decrease Synthroid to 150 mcg daily -Adjusted diet order 02/04/2025: -Recheck TSH and T4 -Start Seroquel 200mg HS 02/03/2025: -Increase Latuda to 120mg qdinner 02/02/2025: -Continue current medications and tx plan 02/01/2025: -Increase mirtazapine to 30mg HS -Change senna to prn 01/31/2025: -Continue current medications and tx plan 01/30/25: - Abdominal x-ray - continue current treatment and medications 01/29/25: -Discussed change to Seroquel, pt declines - CMP in AM - increase ducolax to 2 tab BID, and obtain flat plate if no BM by tomorrow - encouraged f/u with PT exercise as recommended - ongoing behavioral contract 01/28/25: -PT ordered -ducolax BID -continue prozac and latuda at present doses -behavioral contract ongoing 01/27/25: - Behavioral plan for increasing activity - continue current medications 01/26/25: Continue current medications and treatment plan. encouraged pt to be out of bed, in dinning room with tray for each meal. 01/25/25: - Increase Latuda to 20mg AM and 80mg with dinner. - Increase prozac to 60mg daily - ongoing behavioral activation strategies. 01/24/25: - d/c wellbutrin - CMP in AM, Ca, and Mag 01/23/2025: -Continue current medications and tx plan. 01/22/2025: -Increase Latuda to 80mg daily with dinner -Start Vit B12 1000mcg/day -Start MVM daily 01/21/2025: -Branch Lending Manager consult -Consider trial of packaged food items in case paranoia is negatively impacting his intake -Ongoing behavioral activation strategies 01/20/2025: -Increase Latuda to 60mg daily with dinner 01/19/2025: -Start melatonin 6mg HS 01/18/2025: -Increase fluoxetine to 40mg daily tomorrow -Discontinue sertraline tomorrow 01/17/2025: -Decrease Wellbutrin to 150mg daily -Start mirtazapine 15mg HS -Discontinue olanzapine 20mg HS -Start Latuda 40mg daily with dinner -Start Vit D 1,250 mcg once weekly for 6-8 weeks 01/16/2025:The patient was admitted to the [facility] ([facility]) on q15 min checks (behavioral with suicide precautions) for safety. The patient will participate in group, recreational, and milieu therapies and will be offered additional individual and family sessions as clinically appropriate. Decrease sertraline to 50 mg daily Start fluoxetine 20 mg daily Increase Synthroid to 175 mcg daily Start clonidine 0.1 mg at bedtime Baseline EKG Labs: Hemoglobin A1c, fasting lipids, free T3, vitamin D, vitamin B12 Inventory Assets Strengths: access to stable housing, well connected, family support Needs: on-going mood problems, social isolation Suicide Risk Level Suicide Risk Level: Moderate (q15 min suicide checks) (SI and severe depression but feels safe in the hospital and feels able to ask for support ) Risk Factors Assessment Male: Yes : Yes Do You Have Access To A Gun?: No Health Problems: Yes Mental Health Diagnoses: Yes Substance Use Disorders: No Previous Attempt: No Family History of Suicide: No Previous Psychiatric Hospitalization: Yes Hopelessness: Yes Protective Factors Assessment [facility] Beliefs: Yes : No Responsible for Young Children: No Employed: No Stable Relationships: Yes Supportive Family: Yes Good Rapport with Provider: Yes Absence of Any Risk Factors Above: No Interval History Identifying Information KENDAL MATTSON is a 39-year-old M who currently lives alone, has a history of schizoaffective disorder, cerebral palsy, and was admitted on 01/16/25 00:36 on a 201 voluntary commitment for suicidal ideation. Chief Complaint "Ok I suppose". Review of Systems Sleep Information Total Hours of Sleep: 7 Meal Information Percent Meal Consumed - Breakfast: 0 Percent Meal Consumed - Lunch: 50 Percent Meal Consumed - Dinner: 50 Nutrition Comment: Subjective Subjective Patient was seen & assessed and interval progress reviewed with nursing and social work. Eating more, about 50% of his lunch and dinner. Showered last evening. Still no bowel movement. Working with PT. Rated his mood "uncertain". Did not get up for breakfast or community meeting this morning. Today spent much of the morning in bed. Tells me this is due to wanting to sleep in on the weekend. Feels his depression is "about the same". Some SI last evening which he attributes to "uncertainty about the future, if the EAC will accept me, if I go if it will make anything better, if I'll like it". No bowel movement but also with no GI symptoms. Denies any current concerns. Has been able to eat a little more. Physical Exam Psychiatric Orientation: alert, oriented x 3 and cooperative Apperance: appropriately dressed and appropriately groomed Eye Contact: good eye contact Motor Behavior: steady gait and station (uses cane, working with PT) and no abnormal motor movements Speech: normal rate/rhythm/volume of speech Affect: + constricted affect Mood: + depressed mood and + anxious mood Thought Process: goal directed thought process, linear/logical thought process, clear/coherent thought process and thought association intact Thought Content: + cognitive distortions and reality based without delusions Suicidal Thoughts: denies suicidal plan and denies suicidal intent; + reports suicidal thoughts Homicidal Thoughts: denies homicidal thoughts, denies homicidal plan and denies homicidal intent Hallucinations: no auditory hallucinations and no visual hallucinations Cognition: recent memory grossly intact, remote memory grossly intact, attention grossly intact and language grossly intact Estimated Intelligence: average estimated intelligence and consistent with education level Insight: + fair insight Judgment: + fair judgement Vital Signs (Past 24 Hours) Last Vital Signs Temp 36.6 C 02/14/25 06:17 Pulse 90 02/14/25 06:19 Resp 18 02/14/25 06:17 BP 119/80 02/14/25 06:19 Pulse Ox 95 02/14/25 06:17 O2 Del Method Room Air 02/14/25 06:17 Results & Data (U) Current Inpatient Medications Current Inpatient Medications: Current Inpatient Medications Acetaminophen (Acetaminophen 325 Mg Tab) 650 mg PO Q4H PRN PRN Reason: Headache or Minor Fever Stop: 02/15/25 01:10 Al Hydrox/Mg Hydrox/Simethicone (Aluminum/Magnesium Susp 30 Ml Udc) 30 ml PO Q4H PRN PRN Reason: GI Upset Stop: 02/15/25 01:10 Cyanocobalamin (Cyanocobalamin (B-12) 500 Mcg Tablet) 1,000 mcg PO QAM ESLIE Stop: 02/22/25 08:59 Last Admin: 02/14/25 09:03 Dose: 1,000 mcg Ezetimibe (Ezetimibe 10 Mg Tab) 10 mg PO DAILY ELSIE Stop: 02/15/25 10:14 Last Admin: 02/14/25 09:03 Dose: 10 mg Ergocalciferol (Ergocalciferol 1250 Mcg (50,000 Units) Cap) 1,250 mcg PO Q7D ELSIE Stop: 02/16/25 13:14 Last Admin: 02/07/25 09:01 Dose: 1,250 mcg Fluoxetine HCl (Fluoxetine Hcl 20 Mg Cap) 60 mg PO QAM [facility] Stop: 02/25/25 08:59 Last Admin: 02/14/25 09:02 Dose: 60 mg Hydroxyzine HCl (Hydroxyzine Hcl 25 Mg Tab) 50 mg PO HSZ PRN PRN Reason: Insomnia Stop: 02/15/25 01:10 Hydroxyzine HCl (Hydroxyzine Hcl 25 Mg Tab) 25 mg PO Q4H PRN PRN Reason: Anxiety Stop: 02/15/25 01:10 Levothyroxine Sodium (Levothyroxine Sodium 150 Mcg Tablet) 150 mcg PO DAILYBB [facility] Stop: 03/08/25 07:59 Last Admin: 02/14/25 09:02 Dose: 150 mcg Loperamide HCl (Loperamide Hcl 2 Mg Cap) 2 mg PO Q2HWA PRN PRN Reason: Diarrhea Stop: 02/19/25 20:55 Last Admin: 01/20/25 21:09 Dose: 2 mg Lurasidone HCl (Lurasidone Hcl 20 Mg Tab) 120 mg PO DAILYBD ELSIE Stop: 03/05/25 17:39 Last Admin: 02/13/25 17:31 Dose: 120 mg Magnesium Hydroxide (Magnesium Hydroxide Susp 30 Ml Udc) 30 ml PO DAILY PRN PRN Reason: Constipation Stop: 02/15/25 01:10 Last Admin: 02/09/25 17:05 Dose: 30 ml Mirtazapine (Mirtazapine Tab 15 Mg Tab) 30 mg PO HS ELSIE Stop: 03/03/25 21:59 Last Admin: 02/13/25 21:18 Dose: 30 mg Multivitamins/Minerals (Cerovite Adv Formula Tab) 1 tab PO QAM ELSIE Stop: 02/22/25 08:59 Last Admin: 02/14/25 09:03 Dose: 1 tab Pantoprazole Sodium (Pantoprazole 40 Mg Tab) 40 mg PO QAM ELSIE Stop: 02/15/25 08:59 Last Admin: 02/14/25 09:02 Dose: 40 mg Polyethylene Glycol (Polyethylene (Miralax) 17 Gm Pack) 17 gm PO DAILY ELSIE Stop: 03/12/25 08:59 Last Admin: 02/14/25 09:03 Dose: 17 gm Quetiapine Fumarate (Quetiapine Fumarate 200 Mg Tab) 200 mg PO HS ELSIE Stop: 03/14/25 21:59 Last Admin: 02/13/25 21:19 Dose: 200 mg Senna/Docusate Sodium (Docusate Sodium/Senna 50/8.6mg Tab) 2 tab PO BID PRN PRN Reason: constipation Stop: 02/28/25 20:59 Last Admin: 02/14/25 09:08 Dose: 2 tab Sennosides (Senna 8.6 Mg Tab) 8.6 mg PO BID ELSIE Stop: 03/15/25 20:59 Last Admin: 02/14/25 09:11 Dose: 8.6 mg Sodium Chloride (Sodium Chloride 0.65% Na Soln 45 Ml ([place])) 1 - 2 sprays NA PRN PRN PRN Reason: Nasal Dryness/Congestion Stop: 02/15/25 01:10 Mental Health & Subst Abuse Tx Psychiatrist Name of Psychiatrist: [facility] - Dr. Georgia Ventura Psychiatrist's Date Of Appointment With Psychiatric Provider: 03/02/25 Time of Appointment with Psychiatrist: 3PM Psychiatric Appointment Comment: Ask psychiatrist to be added as priority on waitlist for therapy Therapist Name of Therapist: [facility] Therapist's Therapy Appointment Comment: Ask psychiatrist to be added as priority on waitlist for therapy Lapidary Apprentice Name of Lapidary Apprentice: Darnell Malone Phone Number for Lapidary Apprentice: [phone] Case Management Appointment Comment: Patient declined referral for case management Post Discharge Appointments Primary Care Physician Name Of Family Doctor/PCP: Erika Crenshaw - [facility] Date of Future Appointment with PCP: 03/12/25 Time of Appointment with PCP: 1:20PM Provider Appointment Comment: [phone] Linda Boyd PA (F/U re: thyroid) Contact Information Discharge Discharge Address: [address] [place] [address] [place] [phone]
--- NOTE | 2025-02-15 09:36 | Psychiatric Progress Note ---
Date of Service February 15, 2025 Impression / Recommendations Impression KENDAL MATTSON is a 39-year-old man who currently lives alone, has a history of schizoaffective disorder, cerebral palsy, and was admitted on 01/16/25 00:36 on a 201 voluntary commitment for suicidal ideation and worsening depression. Presentation consistent with persistent depressive disorder that may or may not be part of a primary psychotic disorder. Currently patient does not appear psychotic and presents intact reality testing with no history of auditory visual hallucinations however has demonstrated extreme paranoia in the past. Has presented increased suicidal ideations which have become more frequent. Does not meet criteria for posttraumatic stress disorder. Family history of bipolar disorder. Medications reviewed and there is concern for auto metabolism of prescribed sertraline and will cross taper to fluoxetine; concern for hypothyroid state which may be contributory and will increase Synthroid dose; start clonidine for sleep and physical symptoms of anxiety and hypervigilance. Medication side effects and adverse effects discussed with patient. Given social isolation patient may benefit from an in person intensive outpatient program or day program for social engagement. A: Ongoing depression and anxiety but mood gradually improving with improving appetite. No bowel movement but he is passing gas which lessens risk and concern for ileus or acute pathology. Suspect constipation due to restriction/limited po intake over recent weeks. 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 Will continue to monitor with increased po intake. Awaiting EAC decision. Overall, I spent a total of 35 minutes on this case including meeting with the patient, reviewing the chart, nursing report, multidisciplinary team meeting, orders, and documentation. (1) Persistent depressive disorder with anxious distress, currently severe: (2) Hopelessness: (3) Isolation (social): (4) Hypothyroid: (5) Cerebral palsy: (6) Paranoia: (7) Insomnia: (8) Schizophrenia: Plan 02/15/2025: -Continue current medications and tx plan -Discontinue senna 02/14/2025: -Continue current medications and tx plan 02/13/25: - can continue current meds and treatment - awaiting determination from EAC - start senna, and monitor BM status closely. 02/12/25: increase seroquel to 200mg HS. EAC mtg today. 02/11/25: continue current meds and treatment 02/10/25: continue current treatment and medications 02/09/25: - continue current medications and treatment 02/08/25: - Discontinue melatonin and clonidine - decrease Seroquel to 150 mg nightly 02/07/25: - Continue current meds and treatment plan. 02/06/2025: -Continue current medications and tx plan 02/05/2025: -Decrease Synthroid to 150 mcg daily -Adjusted diet order 02/04/2025: -Recheck TSH and T4 -Start Seroquel 200mg HS 02/03/2025: -Increase Latuda to 120mg qdinner 02/02/2025: -Continue current medications and tx plan 02/01/2025: -Increase mirtazapine to 30mg HS -Change senna to prn 01/31/2025: -Continue current medications and tx plan 01/30/25: - Abdominal x-ray - continue current treatment and medications 01/29/25: -Discussed change to Seroquel, pt declines - CMP in AM - increase ducolax to 2 tab BID, and obtain flat plate if no BM by tomorrow - encouraged f/u with PT exercise as recommended - ongoing behavioral contract 01/28/25: -PT ordered -ducolax BID -continue prozac and latuda at present doses -behavioral contract ongoing 01/27/25: - Behavioral plan for increasing activity - continue current medications 01/26/25: Continue current medications and treatment plan. encouraged pt to be out of bed, in dinning room with tray for each meal. 01/25/25: - Increase Latuda to 20mg AM and 80mg with dinner. - Increase prozac to 60mg daily - ongoing behavioral activation strategies. 01/24/25: - d/c wellbutrin - CMP in AM, Ca, and Mag 01/23/2025: -Continue current medications and tx plan. 01/22/2025: -Increase Latuda to 80mg daily with dinner -Start Vit B12 1000mcg/day -Start MVM daily 01/21/2025: -Director Of Institutional Research consult -Consider trial of packaged food items in case paranoia is negatively impacting his intake -Ongoing behavioral activation strategies 01/20/2025: -Increase Latuda to 60mg daily with dinner 01/19/2025: -Start melatonin 6mg HS 01/18/2025: -Increase fluoxetine to 40mg daily tomorrow -Discontinue sertraline tomorrow 01/17/2025: -Decrease Wellbutrin to 150mg daily -Start mirtazapine 15mg HS -Discontinue olanzapine 20mg HS -Start Latuda 40mg daily with dinner -Start Vit D 1,250 mcg once weekly for 6-8 weeks 01/16/2025:The patient was admitted to the [facility] on q15 min checks (behavioral with suicide precautions) for safety. The patient will participate in group, recreational, and milieu therapies and will be offered additional individual and family sessions as clinically appropriate. Decrease sertraline to 50 mg daily Start fluoxetine 20 mg daily Increase Synthroid to 175 mcg daily Start clonidine 0.1 mg at bedtime Baseline EKG Labs: Hemoglobin A1c, fasting lipids, free T3, vitamin D, vitamin B12 Inventory Assets Strengths: access to stable housing, well connected, family support Needs: on-going mood problems, social isolation Suicide Risk Level Suicide Risk Level: Moderate (q15 min suicide checks) (SI and severe depression but feels safe in the hospital and feels able to ask for support ) Risk Factors Assessment Male: Yes : Yes Do You Have Access To A Gun?: No Health Problems: Yes Mental Health Diagnoses: Yes Substance Use Disorders: No Previous Attempt: No Family History of Suicide: No Previous Psychiatric Hospitalization: Yes Hopelessness: Yes Protective Factors Assessment Restorationism Beliefs: Yes : No Responsible for Young Children: No Employed: No Stable Relationships: Yes Supportive Family: Yes Good Rapport with Provider: Yes Absence of Any Risk Factors Above: No Interval History Identifying Information KENDAL MATTSON is a 39-year-old M who currently lives alone, has a history of schizoaffective disorder, cerebral palsy, and was admitted on 01/16/25 00:36 on a 201 voluntary commitment for suicidal ideation. Chief Complaint "Not too bad". Review of Systems Sleep Information Total Hours of Sleep: 7.45 Meal Information Percent Meal Consumed - Breakfast: 0 Percent Meal Consumed - Lunch: 75 Percent Meal Consumed - Dinner: 50 Subjective Subjective Patient was seen & assessed and interval progress reviewed with nursing and social work. Eating more, gained 2lbs since last weight check. He played board games and laughed with a peer in the evening for about 2 hours. But then he rated his mood a "3" and "uncertain". Reports disrupted sleep overnight, "no idea" why. Slept in this morning and didn't get out of bed until about 1pm. Ongoing SI "just a little bit" today. Has not been consistently brushing his teeth, discussed this as self-care goal and to reduce risk of cavities especially with drying effects of antipsychotic medications which increase dental carries risk. Appetite improving. No bowel movement but also without any GI symptoms nor pain nor nausea. He is having gas. Physical Exam Psychiatric Orientation: alert, oriented x 3 and cooperative Apperance: appropriately dressed and appropriately groomed Eye Contact: good eye contact Motor Behavior: steady gait and station (uses cane, working with PT) and no abnormal motor movements Speech: normal rate/rhythm/volume of speech Affect: + constricted affect (but brighter at times, especially around peers) Mood: + depressed mood and + anxious mood Thought Process: goal directed thought process, linear/logical thought process, clear/coherent thought process and thought association intact Thought Content: + cognitive distortions and reality based without delusions Suicidal Thoughts: denies suicidal plan and denies suicidal intent; + reports suicidal thoughts Homicidal Thoughts: denies homicidal thoughts, denies homicidal plan and denies homicidal intent Hallucinations: no auditory hallucinations and no visual hallucinations Cognition: recent memory grossly intact, remote memory grossly intact, attention grossly intact and language grossly intact Estimated Intelligence: average estimated intelligence and consistent with education level Insight: + fair insight Judgment: + fair judgement Vital Signs (Past 24 Hours) Last Vital Signs Temp 36.4 C L 02/15/25 06:38 Pulse 76 02/15/25 06:38 Resp 18 02/15/25 06:38 BP 135/86 02/15/25 06:41 Pulse Ox 96 02/15/25 06:38 O2 Del Method Room Air 02/15/25 06:38 Results & Data ([facility]) Current Inpatient Medications Current Inpatient Medications: Current Inpatient Medications Acetaminophen (Acetaminophen 325 Mg Tab) 650 mg PO Q4H PRN PRN Reason: Headache or Minor Fever Stop: 04/08/25 01:10 Al Hydrox/Mg Hydrox/Simethicone (Aluminum/Magnesium Susp 30 Ml Udc) 30 ml PO Q4H PRN PRN Reason: GI Upset Stop: 04/08/25 01:10 Cyanocobalamin (Cyanocobalamin (B-12) 500 Mcg Tablet) 1,000 mcg PO QAM ELSIE Stop: 02/22/25 08:59 Last Admin: 02/15/25 09:11 Dose: 1,000 mcg Ezetimibe (Ezetimibe 10 Mg Tab) 10 mg PO DAILY ELSIE Stop: 04/08/25 10:14 Last Admin: 02/15/25 09:12 Dose: 10 mg Ergocalciferol (Ergocalciferol 1250 Mcg (50,000 Units) Cap) 1,250 mcg PO Q7D ELSIE Stop: 04/08/25 13:14 Last Admin: 02/14/25 13:08 Dose: 1,250 mcg Fluoxetine HCl (Fluoxetine Hcl 20 Mg Cap) 60 mg PO QAM ELSIE Stop: 02/25/25 08:59 Last Admin: 02/15/25 09:11 Dose: 60 mg Hydroxyzine HCl (Hydroxyzine Hcl 25 Mg Tab) 50 mg PO HSZ PRN PRN Reason: Insomnia Stop: 04/08/25 01:10 Hydroxyzine HCl (Hydroxyzine Hcl 25 Mg Tab) 25 mg PO Q4H PRN PRN Reason: Anxiety Stop: 04/08/25 01:10 Levothyroxine Sodium (Levothyroxine Sodium 150 Mcg Tablet) 150 mcg PO DAILYBB ELSIE Stop: 03/08/25 07:59 Last Admin: 02/15/25 09:11 Dose: 150 mcg Loperamide HCl (Loperamide Hcl 2 Mg Cap) 2 mg PO Q2HWA PRN PRN Reason: Diarrhea Stop: 02/19/25 20:55 Last Admin: 01/20/25 21:09 Dose: 2 mg Lurasidone HCl (Lurasidone Hcl 20 Mg Tab) 120 mg PO DAILYBD ELSIE Stop: 03/05/25 17:39 Last Admin: 02/14/25 17:17 Dose: 120 mg Magnesium Hydroxide (Magnesium Hydroxide Susp 30 Ml Udc) 30 ml PO DAILY PRN PRN Reason: Constipation Stop: 04/08/25 01:10 Last Admin: 02/09/25 17:05 Dose: 30 ml Mirtazapine (Mirtazapine Tab 15 Mg Tab) 30 mg PO HS ELSIE Stop: 03/03/25 21:59 Last Admin: 02/14/25 21:28 Dose: 30 mg Multivitamins/Minerals (Cerovite Adv Formula Tab) 1 tab PO QAM ELSIE Stop: 02/22/25 08:59 Last Admin: 02/15/25 09:12 Dose: 1 tab Pantoprazole Sodium (Pantoprazole 40 Mg Tab) 40 mg PO QAM ELSIE Stop: 04/08/25 08:59 Last Admin: 02/15/25 09:11 Dose: 40 mg Polyethylene Glycol (Polyethylene (Miralax) 17 Gm Pack) 17 gm PO DAILY ELSIE Stop: 03/12/25 08:59 Last Admin: 02/15/25 09:10 Dose: 17 gm Quetiapine Fumarate (Quetiapine Fumarate 200 Mg Tab) 200 mg PO HS ELSIE Stop: 03/14/25 21:59 Last Admin: 02/14/25 21:28 Dose: 200 mg Senna/Docusate Sodium (Docusate Sodium/Senna 50/8.6mg Tab) 2 tab PO BID PRN PRN Reason: constipation Stop: 02/28/25 20:59 Last Admin: 02/14/25 09:08 Dose: 2 tab Sennosides (Senna 8.6 Mg Tab) 8.6 mg PO BID ELSIE Stop: 03/15/25 20:59 Last Admin: 02/15/25 09:13 Dose: 8.6 mg Sodium Chloride (Sodium Chloride 0.65% Na Soln 45 Ml ([place])) 1 - 2 sprays NA PRN PRN PRN Reason: Nasal Dryness/Congestion Stop: 04/08/25 01:10 Mental Health & Subst Abuse Tx Psychiatrist Name of Psychiatrist: [facility] - Dr. Georgia Ventura Psychiatrist's Date Of Appointment With Psychiatric Provider: 03/02/25 Time of Appointment with Psychiatrist: 3PM Psychiatric Appointment Comment: Ask psychiatrist to be added as priority on waitlist for therapy Therapist Name of Therapist: [facility] Therapist's Therapy Appointment Comment: Ask psychiatrist to be added as priority on waitlist for therapy Technical Spec Name of Technical Spec: Darnell Malone Phone Number for Technical Spec: [phone] Case Management Appointment Comment: Patient declined referral for case management Post Discharge Appointments Primary Care Physician Name Of Family Doctor/PCP: Erika Crenshaw - [facility] Date of Future Appointment with PCP: 03/12/25 Time of Appointment with PCP: 1:20PM Provider Appointment Comment: [phone] Boyd PA (F/U re: thyroid) Contact Information Discharge Discharge Address: [address] [place] [address] [address] [place] [id number]
[2025-02-15] MEDS: DOCUSATE SODIUM 100 MG CAP PO SCH (21:21)
--- NOTE | 2025-02-16 09:02 | Psychiatric Progress Note ---
Date of Service February 16, 2025 Impression / Recommendations Impression KENDAL MATTSON is a 39-year-old man who currently lives alone, has a history of schizoaffective disorder, cerebral palsy, and was admitted on 01/16/25 00:36 on a 201 voluntary commitment for suicidal ideation and worsening depression. Presentation consistent with persistent depressive disorder that may or may not be part of a primary psychotic disorder. Currently patient does not appear psychotic and presents intact reality testing with no history of auditory visual hallucinations however has demonstrated extreme paranoia in the past. Has presented increased suicidal ideations which have become more frequent. Does not meet criteria for posttraumatic stress disorder. Family history of bipolar disorder. Medications reviewed and there is concern for auto metabolism of prescribed sertraline and will cross taper to fluoxetine; concern for hypothyroid state which may be contributory and will increase Synthroid dose; start clonidine for sleep and physical symptoms of anxiety and hypervigilance. Medication side effects and adverse effects discussed with patient. Given social isolation patient may benefit from an in person intensive outpatient program or day program for social engagement. A: Ongoing depression and anxiety but showing steady improvements with some lessening of SI today. Awaiting EAC decision, suspect if he is denied his hopelessness and SI may worsen so will help support him and process this should that occur. Given improved appetite will allow with caffeine with lunch per his request. 30 day review occurred with treatment team and I feel he is safe and appropriate to go outside with staff and have no concerns for current elopement risk. Overall, I spent a total of 36 minutes on this case including meeting with the patient, reviewing the chart, nursing report, multidisciplinary team meeting, orders, and documentation. (1) Persistent depressive disorder with anxious distress, currently severe: (2) Hopelessness: (3) Isolation (social): (4) Hypothyroid: (5) Cerebral palsy: (6) Paranoia: (7) Insomnia: (8) Schizophrenia: Plan 02/16/2025: -Continue current medications and tx plan 02/15/2025: -Continue current medications and tx plan -Discontinue senna 02/14/2025: -Continue current medications and tx plan 02/13/25: - can continue current meds and treatment - awaiting determination from EAC - start senna, and monitor BM status closely. 02/12/25: increase seroquel to 200mg HS. EAC mtg today. 02/11/25: continue current meds and treatment 02/10/25: continue current treatment and medications 02/09/25: - continue current medications and treatment 02/08/25: - Discontinue melatonin and clonidine - decrease Seroquel to 150 mg nightly 02/07/25: - Continue current meds and treatment plan. 02/06/2025: -Continue current medications and tx plan 02/05/2025: -Decrease Synthroid to 150 mcg daily -Adjusted diet order 02/04/2025: -Recheck TSH and T4 -Start Seroquel 200mg HS 02/03/2025: -Increase Latuda to 120mg qdinner 02/02/2025: -Continue current medications and tx plan 02/01/2025: -Increase mirtazapine to 30mg HS -Change senna to prn 01/31/2025: -Continue current medications and tx plan 01/30/25: - Abdominal x-ray - continue current treatment and medications 01/29/25: -Discussed change to Seroquel, pt declines - CMP in AM - increase ducolax to 2 tab BID, and obtain flat plate if no BM by tomorrow - encouraged f/u with PT exercise as recommended - ongoing behavioral contract 01/28/25: -PT ordered -ducolax BID -continue prozac and latuda at present doses -behavioral contract ongoing 01/27/25: - Behavioral plan for increasing activity - continue current medications 01/26/25: Continue current medications and treatment plan. encouraged pt to be out of bed, in dinning room with tray for each meal. 01/25/25: - Increase Latuda to 20mg AM and 80mg with dinner. - Increase prozac to 60mg daily - ongoing behavioral activation strategies. 01/24/25: - d/c wellbutrin - CMP in AM, Ca, and Mag 01/23/2025: -Continue current medications and tx plan. 01/22/2025: -Increase Latuda to 80mg daily with dinner -Start Vit B12 1000mcg/day -Start MVM daily 01/21/2025: -[employer] consult -Consider trial of packaged food items in case paranoia is negatively impacting his intake -Ongoing behavioral activation strategies 01/20/2025: -Increase Latuda to 60mg daily with dinner 01/19/2025: -Start melatonin 6mg HS 01/18/2025: -Increase fluoxetine to 40mg daily tomorrow -Discontinue sertraline tomorrow 01/17/2025: -Decrease Wellbutrin to 150mg daily -Start mirtazapine 15mg HS -Discontinue olanzapine 20mg HS -Start Latuda 40mg daily with dinner -Start Vit D 1,250 mcg once weekly for 6-8 weeks 01/16/2025:The patient was admitted to the [facility] ([facility]) on q15 min checks (behavioral with suicide precautions) for safety. The patient will participate in group, recreational, and milieu therapies and will be offered additional individual and family sessions as clinically appropriate. Decrease sertraline to 50 mg daily Start fluoxetine 20 mg daily Increase Synthroid to 175 mcg daily Start clonidine 0.1 mg at bedtime Baseline EKG Labs: Hemoglobin A1c, fasting lipids, free T3, vitamin D, vitamin B12 Inventory Assets Strengths: access to stable housing, well connected, family support Needs: on-going mood problems, social isolation Suicide Risk Level Suicide Risk Level: Moderate (q15 min suicide checks) (SI and severe depression but feels safe in the hospital and feels able to ask for support ) Risk Factors Assessment Male: Yes : Yes Do You Have Access To A Gun?: No Health Problems: Yes Mental Health Diagnoses: Yes Substance Use Disorders: No Previous Attempt: No Family History of Suicide: No Previous Psychiatric Hospitalization: Yes Hopelessness: Yes Protective Factors Assessment Church Beliefs: Yes : No Responsible for Young Children: No Employed: No Stable Relationships: Yes Supportive Family: Yes Good Rapport with Provider: Yes Absence of Any Risk Factors Above: No Interval History Identifying Information KENDAL MATTSON is a 39-year-old M who currently lives alone, has a history of schizoaffective disorder, cerebral palsy, and was admitted on 01/16/25 00:36 on a 201 voluntary commitment for suicidal ideation. Chief Complaint "Ok". Review of Systems Sleep Information Total Hours of Sleep: 7 Meal Information Percent Meal Consumed - Breakfast: 0 Percent Meal Consumed - Lunch: 50 Percent Meal Consumed - Dinner: 70 Subjective Subjective Patient was seen & assessed and interval progress reviewed with treatment team. Attended all evening groups, brighter affect overall. Showering. Ambulating well with cane. Ate 70% of his dinner. Continues to rate his mood as low and "uncertain". Today rates mood as "OK" and slept better last night. Today has not experienced any suicidal thoughts, did have some last night related to uncertainty. Eating more, no bowel movement nor gas today but also no GI pain. He recalls going months without a bowel movement in his 20s after he didn't eat and lost a lot of weight and eventually his bowel movements returned to normal. Physical Exam Psychiatric Orientation: alert, oriented x 3 and cooperative Apperance: appropriately dressed and appropriately groomed Eye Contact: good eye contact Motor Behavior: steady gait and station (uses cane, working with PT) and no abnormal motor movements Speech: normal rate/rhythm/volume of speech Affect: + constricted affect (but brighter at times, especially around peers) Mood: + depressed mood and + anxious mood Thought Process: goal directed thought process, linear/logical thought process, clear/coherent thought process and thought association intact Thought Content: + cognitive distortions and reality based without delusions Suicidal Thoughts: denies suicidal plan and denies suicidal intent; + reports suicidal thoughts (but lessening in frequency ) Homicidal Thoughts: denies homicidal thoughts, denies homicidal plan and denies homicidal intent Hallucinations: no auditory hallucinations and no visual hallucinations Cognition: recent memory grossly intact, remote memory grossly intact, attention grossly intact and language grossly intact Estimated Intelligence: average estimated intelligence and consistent with education level Insight: + fair insight Judgment: + fair judgement Vital Signs (Past 24 Hours) Last Vital Signs Temp 36.3 C L 02/16/25 06:00 Pulse 91 H 02/16/25 06:24 Resp 16 02/16/25 06:00 BP 125/86 02/16/25 06:24 Pulse Ox 96 02/15/25 06:38 O2 Del Method Room Air 02/15/25 06:38 Results & Data ([facility]) Current Inpatient Medications Current Inpatient Medications: Current Inpatient Medications Acetaminophen (Acetaminophen 325 Mg Tab) 650 mg PO Q4H PRN PRN Reason: Headache or Minor Fever Stop: 04/08/25 01:10 Al Hydrox/Mg Hydrox/Simethicone (Aluminum/Magnesium Susp 30 Ml Udc) 30 ml PO Q4H PRN PRN Reason: GI Upset Stop: 04/08/25 01:10 Cyanocobalamin (Cyanocobalamin (B-12) 500 Mcg Tablet) 1,000 mcg PO QAM ELSIE Stop: 02/22/25 08:59 Last Admin: 02/15/25 09:11 Dose: 1,000 mcg Docusate Sodium (Docusate Sodium 100 Mg Cap) 100 mg PO BID ELSIE Stop: 03/17/25 20:59 Last Admin: 02/15/25 21:21 Dose: 100 mg Ezetimibe (Ezetimibe 10 Mg Tab) 10 mg PO DAILY ELSIE Stop: 04/08/25 10:14 Last Admin: 02/15/25 09:12 Dose: 10 mg Ergocalciferol (Ergocalciferol 1250 Mcg (50,000 Units) Cap) 1,250 mcg PO Q7D ELSIE Stop: 04/08/25 13:14 Last Admin: 02/14/25 13:08 Dose: 1,250 mcg Fluoxetine HCl (Fluoxetine Hcl 20 Mg Cap) 60 mg PO QAM [facility] Stop: 02/25/25 08:59 Last Admin: 02/15/25 09:11 Dose: 60 mg Hydroxyzine HCl (Hydroxyzine Hcl 25 Mg Tab) 50 mg PO HSZ PRN PRN Reason: Insomnia Stop: 04/08/25 01:10 Hydroxyzine HCl (Hydroxyzine Hcl 25 Mg Tab) 25 mg PO Q4H PRN PRN Reason: Anxiety Stop: 04/08/25 01:10 Levothyroxine Sodium (Levothyroxine Sodium 150 Mcg Tablet) 150 mcg PO DAILYBB [facility] Stop: 03/08/25 07:59 Last Admin: 02/15/25 09:11 Dose: 150 mcg Loperamide HCl (Loperamide Hcl 2 Mg Cap) 2 mg PO Q2HWA PRN PRN Reason: Diarrhea Stop: 02/19/25 20:55 Last Admin: 01/20/25 21:09 Dose: 2 mg Lurasidone HCl (Lurasidone Hcl 20 Mg Tab) 120 mg PO DAILYBD ELSIE Stop: 03/05/25 17:39 Last Admin: 02/15/25 17:38 Dose: 120 mg Magnesium Hydroxide (Magnesium Hydroxide Susp 30 Ml Udc) 30 ml PO DAILY PRN PRN Reason: Constipation Stop: 04/08/25 01:10 Last Admin: 02/09/25 17:05 Dose: 30 ml Mirtazapine (Mirtazapine Tab 15 Mg Tab) 30 mg PO HS ELSIE Stop: 03/03/25 21:59 Last Admin: 02/15/25 21:20 Dose: 30 mg Multivitamins/Minerals (Cerovite Adv Formula Tab) 1 tab PO QAM ELSIE Stop: 02/22/25 08:59 Last Admin: 02/15/25 09:12 Dose: 1 tab Pantoprazole Sodium (Pantoprazole 40 Mg Tab) 40 mg PO QAM ELSIE Stop: 04/08/25 08:59 Last Admin: 02/15/25 09:11 Dose: 40 mg Polyethylene Glycol (Polyethylene (Miralax) 17 Gm Pack) 17 gm PO DAILY ELSIE Stop: 03/12/25 08:59 Last Admin: 02/15/25 09:10 Dose: 17 gm Quetiapine Fumarate (Quetiapine Fumarate 200 Mg Tab) 200 mg PO HS ELSIE Stop: 03/14/25 21:59 Last Admin: 02/15/25 21:20 Dose: 200 mg Senna/Docusate Sodium (Docusate Sodium/Senna 50/8.6mg Tab) 2 tab PO BID PRN PRN Reason: constipation Stop: 02/28/25 20:59 Last Admin: 02/14/25 09:08 Dose: 2 tab Sodium Chloride (Sodium Chloride 0.65% Na Soln 45 Ml ([place])) 1 - 2 sprays NA PRN PRN PRN Reason: Nasal Dryness/Congestion Stop: 04/08/25 01:10 Mental Health & Subst Abuse Tx Psychiatrist Name of Psychiatrist: [facility] - Dr. Georgia Ventura Psychiatrist's Date Of Appointment With Psychiatric Provider: 03/02/25 Time of Appointment with Psychiatrist: 3PM Psychiatric Appointment Comment: Ask psychiatrist to be added as priority on waitlist for therapy Therapist Name of Therapist: [facility] Therapist's Therapy Appointment Comment: Ask psychiatrist to be added as priority on waitlist for therapy Child Advocate Name of Child Advocate: Darnell Malone Phone Number for Child Advocate: [phone] Case Management Appointment Comment: Patient declined referral for case management Post Discharge Appointments Primary Care Physician Name Of Family Doctor/PCP: Erika Crenshaw - [facility] Date of Future Appointment with PCP: 03/12/25 Time of Appointment with PCP: 1:20PM Provider Appointment Comment: [phone] Boyd PA (F/U re: thyroid) Contact Information Discharge Discharge Address: [address] [place] [address] [address] [place] [id number]
--- NOTE | 2025-02-17 08:49 | Psychiatric Progress Note ---
Date of Service February 17, 2025 Impression / Recommendations Impression KENDAL MATTSON is a 39-year-old man who currently lives alone, has a history of schizoaffective disorder, cerebral palsy, and was admitted on 01/16/25 00:36 on a 201 voluntary commitment for suicidal ideation and worsening depression. Presentation consistent with persistent depressive disorder that may or may not be part of a primary psychotic disorder. Currently patient does not appear psychotic and presents intact reality testing with no history of auditory visual hallucinations however has demonstrated extreme paranoia in the past. Has presented increased suicidal ideations which have become more frequent. Does not meet criteria for posttraumatic stress disorder. Family history of bipolar disorder. Medications reviewed and there is concern for auto metabolism of prescribed sertraline and will cross taper to fluoxetine; concern for hypothyroid state which may be contributory and will increase Synthroid dose; start clonidine for sleep and physical symptoms of anxiety and hypervigilance. Medication side effects and adverse effects discussed with patient. Given social isolation patient may benefit from an in person intensive outpatient program or day program for social engagement. A: Ongoing depression and anxiety but more hopeful and accepted to the [facility]. Had a bowel movement today. Continuing to tolerate his medications. Overall, I spent a total of 35 minutes on this case including meeting with the patient, reviewing the chart, nursing report, multidisciplinary team meeting, orders, and documentation. (1) Persistent depressive disorder with anxious distress, currently severe: (2) Hopelessness: (3) Isolation (social): (4) Hypothyroid: (5) Cerebral palsy: (6) Paranoia: (7) Insomnia: (8) Schizophrenia: Plan 02/17/2025: -Continue current medications and tx plan. Anticipate EAC transfer at end of the week. 02/16/2025: -Continue current medications and tx plan 02/15/2025: -Continue current medications and tx plan -Discontinue senna 02/14/2025: -Continue current medications and tx plan 02/13/25: - can continue current meds and treatment - awaiting determination from [facility] - start senna, and monitor BM status closely. 02/12/25: increase seroquel to 200mg HS. EAC mtg today. 02/11/25: continue current meds and treatment 02/10/25: continue current treatment and medications 02/09/25: - continue current medications and treatment 02/08/25: - Discontinue melatonin and clonidine - decrease Seroquel to 150 mg nightly 02/07/25: - Continue current meds and treatment plan. 02/06/2025: -Continue current medications and tx plan 02/05/2025: -Decrease Synthroid to 150 mcg daily -Adjusted diet order 02/04/2025: -Recheck TSH and T4 -Start Seroquel 200mg HS 02/03/2025: -Increase Latuda to 120mg qdinner 02/02/2025: -Continue current medications and tx plan 02/01/2025: -Increase mirtazapine to 30mg HS -Change senna to prn 01/31/2025: -Continue current medications and tx plan 01/30/25: - Abdominal x-ray - continue current treatment and medications 01/29/25: -Discussed change to Seroquel, pt declines - CMP in AM - increase ducolax to 2 tab BID, and obtain flat plate if no BM by tomorrow - encouraged f/u with PT exercise as recommended - ongoing behavioral contract 01/28/25: -PT ordered -ducolax BID -continue prozac and latuda at present doses -behavioral contract ongoing 01/27/25: - Behavioral plan for increasing activity - continue current medications 01/26/25: Continue current medications and treatment plan. encouraged pt to be out of bed, in dinning room with tray for each meal. 01/25/25: - Increase Latuda to 20mg AM and 80mg with dinner. - Increase prozac to 60mg daily - ongoing behavioral activation strategies. 01/24/25: - d/c wellbutrin - CMP in AM, Ca, and Mag 01/23/2025: -Continue current medications and tx plan. 01/22/2025: -Increase Latuda to 80mg daily with dinner -Start Vit B12 1000mcg/day -Start MVM daily 01/21/2025: -Coding Team Lead consult -Consider trial of packaged food items in case paranoia is negatively impacting his intake -Ongoing behavioral activation strategies 01/20/2025: -Increase Latuda to 60mg daily with dinner 01/19/2025: -Start melatonin 6mg HS 01/18/2025: -Increase fluoxetine to 40mg daily tomorrow -Discontinue sertraline tomorrow 01/17/2025: -Decrease Wellbutrin to 150mg daily -Start mirtazapine 15mg HS -Discontinue olanzapine 20mg HS -Start Latuda 40mg daily with dinner -Start Vit D 1,250 mcg once weekly for 6-8 weeks 01/16/2025:The patient was admitted to the [facility]) on q15 min checks (behavioral with suicide precautions) for safety. The patient will participate in group, recreational, and milieu therapies and will be offered additional individual and family sessions as clinically appropriate. Decrease sertraline to 50 mg daily Start fluoxetine 20 mg daily Increase Synthroid to 175 mcg daily Start clonidine 0.1 mg at bedtime Baseline EKG Labs: Hemoglobin A1c, fasting lipids, free T3, vitamin D, vitamin B12 Inventory Assets Strengths: access to stable housing, well connected, family support Needs: on-going mood problems, social isolation Suicide Risk Level Suicide Risk Level: Moderate (q15 min suicide checks) (SI and severe depression but feels safe in the hospital and feels able to ask for support ) Risk Factors Assessment Male: Yes : Yes Do You Have Access To A Gun?: No Health Problems: Yes Mental Health Diagnoses: Yes Substance Use Disorders: No Previous Attempt: No Family History of Suicide: No Previous Psychiatric Hospitalization: Yes Hopelessness: Yes Protective Factors Assessment Christianity Beliefs: Yes : No Responsible for Young Children: No Employed: No Stable Relationships: Yes Supportive Family: Yes Good Rapport with Provider: Yes Absence of Any Risk Factors Above: No Interval History Identifying Information KENDAL MATTSON is a 39-year-old M who currently lives alone, has a history of schizoaffective disorder, cerebral palsy, and was admitted on 01/16/25 00:36 on a 201 voluntary commitment for suicidal ideation. Chief Complaint "A little anxious because I don't know what to expect". Review of Systems Sleep Information Total Hours of Sleep: 4 Meal Information Percent Meal Consumed - Breakfast: 0 Percent Meal Consumed - Lunch: 65 Percent Meal Consumed - Dinner: 65 Subjective Subjective Patient was seen & assessed and interval progress reviewed with nursing and social work. Attending groups. Last evening rated his mood as "anxious" regarding awaiting decision from [facility]. Eating more, 65% of lunch and dinner. Didn't sleep much though he reports feeling like he slept well. He was accepted to the E[facility].He's happy about this but also anxious due to not knowing what it will be like or if it will help him but he notes he's "trying to be hopeful". Some SI "a little bit but not super heavy" which he relates to the anxiety of not knowing what the EAC will be like. He had a bowel movement today. No new medication issues. Physical Exam Psychiatric Orientation: alert, oriented x 3 and cooperative Apperance: appropriately dressed and appropriately groomed Eye Contact: good eye contact Motor Behavior: steady gait and station (uses cane, working with PT) and no abnormal motor movements Speech: normal rate/rhythm/volume of speech Affect: + constricted affect (but brighter at times, especially around peers) Mood: + depressed mood and + anxious mood Thought Process: goal directed thought process, linear/logical thought process, clear/coherent thought process and thought association intact Thought Content: + cognitive distortions and reality based without delusions Suicidal Thoughts: denies suicidal plan and denies suicidal intent; + reports suicidal thoughts (but lessening in frequency ) Homicidal Thoughts: denies homicidal thoughts, denies homicidal plan and denies homicidal intent Hallucinations: no auditory hallucinations and no visual hallucinations Cognition: recent memory grossly intact, remote memory grossly intact, attention grossly intact and language grossly intact Estimated Intelligence: average estimated intelligence and consistent with education level Insight: + fair insight Judgment: + fair judgement Vital Signs (Past 24 Hours) Last Vital Signs Temp 36.5 C 02/17/25 06:00 Pulse 77 02/17/25 06:00 Resp 16 02/17/25 06:00 BP 127/88 02/17/25 06:41 Pulse Ox 97 02/17/25 06:00 O2 Del Method Room Air 02/17/25 06:00 Results & Data ([facility]) Current Inpatient Medications Current Inpatient Medications: Current Inpatient Medications Acetaminophen (Acetaminophen 325 Mg Tab) 650 mg PO Q4H PRN PRN Reason: Headache or Minor Fever Stop: 04/08/25 01:10 Al Hydrox/Mg Hydrox/Simethicone (Aluminum/Magnesium Susp 30 Ml Udc) 30 ml PO Q4H PRN PRN Reason: GI Upset Stop: 04/08/25 01:10 Cyanocobalamin (Cyanocobalamin (B-12) 500 Mcg Tablet) 1,000 mcg PO QAM ELSIE Stop: 02/22/25 08:59 Last Admin: 02/16/25 09:32 Dose: 1,000 mcg Docusate Sodium (Docusate Sodium 100 Mg Cap) 100 mg PO BID ELSIE Stop: 03/17/25 20:59 Last Admin: 02/16/25 21:25 Dose: 100 mg Ezetimibe (Ezetimibe 10 Mg Tab) 10 mg PO DAILY ELSIE Stop: 04/08/25 10:14 Last Admin: 02/16/25 09:31 Dose: 10 mg Ergocalciferol (Ergocalciferol 1250 Mcg (50,000 Units) Cap) 1,250 mcg PO Q7D ELSIE Stop: 04/08/25 13:14 Last Admin: 02/14/25 13:08 Dose: 1,250 mcg Fluoxetine HCl (Fluoxetine Hcl 20 Mg Cap) 60 mg PO QAM ELSIE Stop: 02/25/25 08:59 Last Admin: 02/16/25 09:31 Dose: 60 mg Hydroxyzine HCl (Hydroxyzine Hcl 25 Mg Tab) 50 mg PO HSZ PRN PRN Reason: Insomnia Stop: 04/08/25 01:10 Hydroxyzine HCl (Hydroxyzine Hcl 25 Mg Tab) 25 mg PO Q4H PRN PRN Reason: Anxiety Stop: 04/08/25 01:10 Levothyroxine Sodium (Levothyroxine Sodium 150 Mcg Tablet) 150 mcg PO DAILYBB [facility] Stop: 03/08/25 07:59 Last Admin: 02/16/25 09:32 Dose: 150 mcg Loperamide HCl (Loperamide Hcl 2 Mg Cap) 2 mg PO Q2HWA PRN PRN Reason: Diarrhea Stop: 02/19/25 20:55 Last Admin: 01/20/25 21:09 Dose: 2 mg Lurasidone HCl (Lurasidone Hcl 20 Mg Tab) 120 mg PO DAILYBD ELSIE Stop: 03/05/25 17:39 Last Admin: 02/16/25 17:22 Dose: 120 mg Magnesium Hydroxide (Magnesium Hydroxide Susp 30 Ml Udc) 30 ml PO DAILY PRN PRN Reason: Constipation Stop: 04/08/25 01:10 Last Admin: 02/09/25 17:05 Dose: 30 ml Mirtazapine (Mirtazapine Tab 15 Mg Tab) 30 mg PO HS ELSIE Stop: 03/03/25 21:59 Last Admin: 02/16/25 21:25 Dose: 30 mg Multivitamins/Minerals (Cerovite Adv Formula Tab) 1 tab PO QAM ELSIE Stop: 02/22/25 08:59 Last Admin: 02/16/25 09:32 Dose: 1 tab Pantoprazole Sodium (Pantoprazole 40 Mg Tab) 40 mg PO QAM ELSIE Stop: 04/08/25 08:59 Last Admin: 02/16/25 09:32 Dose: 40 mg Polyethylene Glycol (Polyethylene (Miralax) 17 Gm Pack) 17 gm PO DAILY ELSIE Stop: 03/12/25 08:59 Last Admin: 02/16/25 09:31 Dose: 17 gm Quetiapine Fumarate (Quetiapine Fumarate 200 Mg Tab) 200 mg PO HS ELSIE Stop: 03/14/25 21:59 Last Admin: 02/16/25 21:43 Dose: 200 mg Senna/Docusate Sodium (Docusate Sodium/Senna 50/8.6mg Tab) 2 tab PO BID PRN PRN Reason: constipation Stop: 02/28/25 20:59 Last Admin: 02/14/25 09:08 Dose: 2 tab Sodium Chloride (Sodium Chloride 0.65% Na Soln 45 Ml ([place])) 1 - 2 sprays NA PRN PRN PRN Reason: Nasal Dryness/Congestion Stop: 04/08/25 01:10 Mental Health & Subst Abuse Tx Psychiatrist Name of Psychiatrist: [facility] - Dr. Georgia Ventura Psychiatrist's Date Of Appointment With Psychiatric Provider: 03/02/25 Time of Appointment with Psychiatrist: 3PM Psychiatric Appointment Comment: Ask psychiatrist to be added as priority on waitlist for therapy Therapist Name of Therapist: [facility] Therapist's Therapy Appointment Comment: Ask psychiatrist to be added as priority on waitlist for therapy Leaf Stripper Name of Leaf Stripper: Darnell Malone Phone Number for Leaf Stripper: [phone] Case Management Appointment Comment: Patient declined referral for case management Post Discharge Appointments Primary Care Physician Name Of Family Doctor/PCP: Erika Crenshaw - [facility] Date of Future Appointment with PCP: 03/12/25 Time of Appointment with PCP: 1:20PM Provider Appointment Comment: [phone] Linda Boyd PA (F/U re: thyroid) Contact Information Discharge Discharge Address: [address] [place] [address] [place] [phone]
--- NOTE | 2025-02-18 08:41 | Psychiatric Progress Note ---
Date of Service February 18, 2025 Impression / Recommendations Impression KENDAL MATTSON is a 39-year-old man who currently lives alone, has a history of schizoaffective disorder, cerebral palsy, and was admitted on 01/16/25 00:36 on a 201 voluntary commitment for suicidal ideation and worsening depression. Presentation consistent with persistent depressive disorder that may or may not be part of a primary psychotic disorder. Currently patient does not appear psychotic and presents intact reality testing with no history of auditory visual hallucinations however has demonstrated extreme paranoia in the past. Has presented increased suicidal ideations which have become more frequent. Does not meet criteria for posttraumatic stress disorder. Family history of bipolar disorder. Medications reviewed and there is concern for auto metabolism of prescribed sertraline and will cross taper to fluoxetine; concern for hypothyroid state which may be contributory and will increase Synthroid dose; start clonidine for sleep and physical symptoms of anxiety and hypervigilance. Medication side effects and adverse effects discussed with patient. Given social isolation patient may benefit from an in person intensive outpatient program or day program for social engagement. A: Mood continues to improve but still with some anxiety about transition to EAC but significantly more hopefulness and ongoing improvement in appetite with lessening of SI. he feels ready for transition to EAC tomorrow. Overall, I spent a total of 36 minutes on this case including meeting with the patient, reviewing the chart, nursing report, multidisciplinary team meeting, orders, and documentation. (1) Persistent depressive disorder with anxious distress, currently severe: (2) Schizophrenia: (3) Hopelessness: (4) Isolation (social): (5) Hypothyroid: (6) Cerebral palsy: (7) Paranoia: (8) Insomnia: Plan 02/18/2025: -Continue current medications and tx plan -Discharge to EAC tomorrow 02/17/2025: -Continue current medications and tx plan. Anticipate EAC transfer at end of the week. 02/16/2025: -Continue current medications and tx plan 02/15/2025: -Continue current medications and tx plan -Discontinue senna 02/14/2025: -Continue current medications and tx plan 02/13/25: - can continue current meds and treatment - awaiting determination from EAC - start senna, and monitor BM status closely. 02/12/25: increase seroquel to 200mg HS. EAC mtg today. 02/11/25: continue current meds and treatment 02/10/25: continue current treatment and medications 02/09/25: - continue current medications and treatment 02/08/25: - Discontinue melatonin and clonidine - decrease Seroquel to 150 mg nightly 02/07/25: - Continue current meds and treatment plan. 02/06/2025: -Continue current medications and tx plan 02/05/2025: -Decrease Synthroid to 150 mcg daily -Adjusted diet order 02/04/2025: -Recheck TSH and T4 -Start Seroquel 200mg HS 02/03/2025: -Increase Latuda to 120mg qdinner 02/02/2025: -Continue current medications and tx plan 02/01/2025: -Increase mirtazapine to 30mg HS -Change senna to prn 01/31/2025: -Continue current medications and tx plan 01/30/25: - Abdominal x-ray - continue current treatment and medications 01/29/25: -Discussed change to Seroquel, pt declines - CMP in AM - increase ducolax to 2 tab BID, and obtain flat plate if no BM by tomorrow - encouraged f/u with PT exercise as recommended - ongoing behavioral contract 01/28/25: -PT ordered -ducolax BID -continue prozac and latuda at present doses -behavioral contract ongoing 01/27/25: - Behavioral plan for increasing activity - continue current medications 01/26/25: Continue current medications and treatment plan. encouraged pt to be out of bed, in dinning room with tray for each meal. 01/25/25: - Increase Latuda to 20mg AM and 80mg with dinner. - Increase prozac to 60mg daily - ongoing behavioral activation strategies. 01/24/25: - d/c wellbutrin - CMP in AM, Ca, and Mag 01/23/2025: -Continue current medications and tx plan. 01/22/2025: -Increase Latuda to 80mg daily with dinner -Start Vit B12 1000mcg/day -Start MVM daily 01/21/2025: -[employer] consult -Consider trial of packaged food items in case paranoia is negatively impacting his intake -Ongoing behavioral activation strategies 01/20/2025: -Increase Latuda to 60mg daily with dinner 01/19/2025: -Start melatonin 6mg HS 01/18/2025: -Increase fluoxetine to 40mg daily tomorrow -Discontinue sertraline tomorrow 01/17/2025: -Decrease Wellbutrin to 150mg daily -Start mirtazapine 15mg HS -Discontinue olanzapine 20mg HS -Start Latuda 40mg daily with dinner -Start Vit D 1,250 mcg once weekly for 6-8 weeks 01/16/2025:The patient was admitted to the [facility] ([facility]) on q15 min checks (behavioral with suicide precautions) for safety. The patient will participate in group, recreational, and milieu therapies and will be offered additional individual and family sessions as clinically appropri ate. Decrease sertraline to 50 mg daily Start fluoxetine 20 mg daily Increase Synthroid to 175 mcg daily Start clonidine 0.1 mg at bedtime Baseline EKG Labs: Hemoglobin A1c, fasting lipids, free T3, vitamin D, vitamin B12 Inventory Assets Strengths: access to stable housing, well connected, family support Needs: on-going mood problems, social isolation Suicide Risk Level Suicide Risk Level: Moderate (q15 min suicide checks) (mood improving, SI lessening and feels safe in the hospital and feels able to ask for support ) Risk Factors Assessment Male: Yes : Yes Do You Have Access To A Gun?: No Health Problems: Yes Mental Health Diagnoses: Yes Substance Use Disorders: No Previous Attempt: No Family History of Suicide: No Previous Psychiatric Hospitalization: Yes Hopelessness: Yes Protective Factors Assessment Temple Beliefs: Yes : No Responsible for Young Children: No Employed: No Stable Relationships: Yes Supportive Family: Yes Good Rapport with Provider: Yes Absence of Any Risk Factors Above: No Interval History Identifying Information KENDAL MATTSON is a 39-year-old M who currently lives alone, has a history of schizoaffective disorder, cerebral palsy, and was admitted on 01/16/25 00:36 on a 201 voluntary commitment for suicidal ideation. Chief Complaint "Pretty good, some anxiety about the EAC". Review of Systems Sleep Information Total Hours of Sleep: 5.25 Meal Information Percent Meal Consumed - Breakfast: 0 Percent Meal Consumed - Lunch: 50 Percent Meal Consumed - Dinner: 75 Nutrition Comment: pt. drank 100% of Boost Subjective Subjective Patient was seen & assessed and interval progress reviewed with treatment team. Visited with his mother last evening. Last night he rated his mood as "3" and "anxious". Today reported his mood as "pretty good" though with some anxiety about EAC but he notes he feels he's managing this anxiety "pretty well". He had "just a little bit, earlier today" of thoughts of suicide. He is pleased the [facility] will have ongoing access to physical therapy. Denies any medication issues or side effects. he feels he slept well last night. Physical Exam Psychiatric Orientation: alert, oriented x 3 and cooperative Apperance: appropriately dressed and appropriately groomed Eye Contact: good eye contact Motor Behavior: steady gait and station (uses cane, working with PT) and no abnormal motor movements Speech: normal rate/rhythm/volume of speech Affect: + constricted affect (but brighter at times) Mood: + anxious mood Thought Process: goal directed thought process, linear/logical thought process, clear/coherent thought process and thought association intact Thought Content: reality based without delusions Suicidal Thoughts: denies suicidal plan and denies suicidal intent; + reports suicidal thoughts (less frequent and brief) Homicidal Thoughts: denies homicidal thoughts, denies homicidal plan and denies homicidal intent Hallucinations: no auditory hallucinations and no visual hallucinations Cognition: recent memory grossly intact, remote memory grossly intact, attention grossly intact and language grossly intact Estimated Intelligence: average estimated intelligence and consistent with education level Insight: + fair insight Judgment: + fair judgement Vital Signs (Past 24 Hours) Last Vital Signs Temp 36.5 C 02/18/25 06:00 Pulse 74 02/18/25 06:00 Resp 16 02/18/25 06:00 BP 125/86 02/18/25 06:34 Pulse Ox 98 02/18/25 06:00 O2 Del Method Room Air 02/18/25 06:00 Results & Data ([facility]) Current Inpatient Medications Current Inpatient Medications: Current Inpatient Medications Acetaminophen (Acetaminophen 325 Mg Tab) 650 mg PO Q4H PRN PRN Reason: Headache or Minor Fever Stop: 04/08/25 01:10 Al Hydrox/Mg Hydrox/Simethicone (Aluminum/Magnesium Susp 30 Ml Udc) 30 ml PO Q4H PRN PRN Reason: GI Upset Stop: 04/08/25 01:10 Cyanocobalamin (Cyanocobalamin (B-12) 500 Mcg Tablet) 1,000 mcg PO QAM ELSIE Stop: 02/22/25 08:59 Last Admin: 02/18/25 08:29 Dose: 1,000 mcg Docusate Sodium (Docusate Sodium 100 Mg Cap) 100 mg PO BID ELSIE Stop: 03/17/25 20:59 Last Admin: 02/18/25 08:33 Dose: 100 mg Ezetimibe (Ezetimibe 10 Mg Tab) 10 mg PO DAILY ELSIE Stop: 04/08/25 10:14 Last Admin: 02/18/25 08:30 Dose: 10 mg Ergocalciferol (Ergocalciferol 1250 Mcg (50,000 Units) Cap) 1,250 mcg PO Q7D ELSIE Stop: 04/08/25 13:14 Last Admin: 02/14/25 13:08 Dose: 1,250 mcg Fluoxetine HCl (Fluoxetine Hcl 20 Mg Cap) 60 mg PO QAM [facility] Stop: 02/25/25 08:59 Last Admin: 02/18/25 08:30 Dose: 60 mg Hydroxyzine HCl (Hydroxyzine Hcl 25 Mg Tab) 50 mg PO HSZ PRN PRN Reason: Insomnia Stop: 04/08/25 01:10 Hydroxyzine HCl (Hydroxyzine Hcl 25 Mg Tab) 25 mg PO Q4H PRN PRN Reason: Anxiety Stop: 04/08/25 01:10 Levothyroxine Sodium (Levothyroxine Sodium 150 Mcg Tablet) 150 mcg PO DAILYBB [facility] Stop: 03/08/25 07:59 Last Admin: 02/18/25 08:29 Dose: 150 mcg Loperamide HCl (Loperamide Hcl 2 Mg Cap) 2 mg PO Q2HWA PRN PRN Reason: Diarrhea Stop: 02/19/25 20:55 Last Admin: 01/20/25 21:09 Dose: 2 mg Lurasidone HCl (Lurasidone Hcl 20 Mg Tab) 120 mg PO DAILYBD ELSIE Stop: 03/05/25 17:39 Last Admin: 02/17/25 17:35 Dose: 120 mg Magnesium Hydroxide (Magnesium Hydroxide Susp 30 Ml Udc) 30 ml PO DAILY PRN PRN Reason: Constipation Stop: 04/08/25 01:10 Last Admin: 02/09/25 17:05 Dose: 30 ml Mirtazapine (Mirtazapine Tab 15 Mg Tab) 30 mg PO HS ELSIE Stop: 03/03/25 21:59 Last Admin: 02/17/25 20:59 Dose: 30 mg Multivitamins/Minerals (Cerovite Adv Formula Tab) 1 tab PO QAM ELSIE Stop: 02/22/25 08:59 Last Admin: 02/18/25 08:30 Dose: 1 tab Pantoprazole Sodium (Pantoprazole 40 Mg Tab) 40 mg PO QAM ELSIE Stop: 04/08/25 08:59 Last Admin: 02/18/25 08:30 Dose: 40 mg Polyethylene Glycol (Polyethylene (Miralax) 17 Gm Pack) 17 gm PO DAILY ELSIE Stop: 03/12/25 08:59 Last Admin: 02/18/25 08:30 Dose: 17 gm Quetiapine Fumarate (Quetiapine Fumarate 200 Mg Tab) 200 mg PO HS ELSIE Stop: 03/14/25 21:59 Last Admin: 02/17/25 20:59 Dose: 200 mg Senna/Docusate Sodium (Docusate Sodium/Senna 50/8.6mg Tab) 2 tab PO BID PRN PRN Reason: constipation Stop: 02/28/25 20:59 Last Admin: 02/14/25 09:08 Dose: 2 tab Sodium Chloride (Sodium Chloride 0.65% Na Soln 45 Ml ([place])) 1 - 2 sprays NA PRN PRN PRN Reason: Nasal Dryness/Congestion Stop: 04/08/25 01:10 Mental Health & Subst Abuse Tx Psychiatrist Name of Psychiatrist: [facility] - Dr. Georgia Ventura Psychiatrist's Date Of Appointment With Psychiatric Provider: 03/02/25 Time of Appointment with Psychiatrist: 3PM Psychiatric Appointment Comment: Ask psychiatrist to be added as priority on waitlist for therapy Therapist Name of Therapist: [facility] Therapist's Therapy Appointment Comment: Ask psychiatrist to be added as priority on waitlist for therapy Student Services Coordinator Name of Student Services Coordinator: Darnell Malone Phone Number for Student Services Coordinator: [phone] Case Management Appointment Comment: Patient declined referral for case management Post Discharge Appointments Primary Care Physician Name Of Family Doctor/PCP: Erika Crenshaw - [facility] Date of Future Appointment with PCP: 12/4/25 Time of Appointment with PCP: 1:20PM Provider Appointment Comment: [address] Boyd PA (F/U re: camilo cristina) Contact Information Discharge Discharge Address: [address] [place] [address] [address] [place] [id number]
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
== END 2025-02-19 10:15 | DRG 885 ==
LOC: ED 19:07 → SUATTDRO 01-16 00:36 → 3S 01-16 00:36